=== PATIENT | male | born 1960 | race Caucasian/White ===

== ENCOUNTER → 2016-07-25 | Day surgery (SDC) | payer BC ==
[~2016-07-25] MED LIST: AMOX250C3 PO; AMOX500C3 PO; ASCO-63 PO; ATOR-22 PO; ATV/1 PO; BUPR-83 PO; BUPR150T5 PO; BUPR75TA20 PO; CALC500C70 PO; CIPR1TAB11 PO; CIPR250T3 PO; CLC100 PO; CYM/30 PO; CYM60 PO; DRGTP100 TOP; DRGTP50 TD; DULO60CA44 PO; DXM/4 IV; ENOX40IN SQ; ERYTTAB; FENT75DI2 TOP; FLUC100T4 PO; FLUC200T PO; FLUC200T4 PO; FLUT0.15; FLUT0.15 NAE; FLX10 PO; FNTTP100 TD; FNTTP25 TOP; FNTTP50 TD; GENTAMYCIN IV; HYDR4TAB2 PO; HYDR4TAB78 PO; IBUP-103 PO; LPR25 PO; LSX20 PO; LUPRON IM; MELO7.5T5 PO; METF-384 PO; METO25TA56 PO; MULT-506 PO; Morphine SL; NEOM500T; ONDA-63 PO; ONDA8TAB6 PO; OXYC-609 PO; OXYC1TAB3 PO; POTA-65 PO; POTA10TA32 PO; PRED-301 PO; PRLSR20 PO
== END | disposition home or self-care (01) ==
LOC: C.ACU 15:58
PROVIDERS: ATTEND Family Medicine
DX: Z43.3 Encounter for attention to colostomy (principal)

== ENCOUNTER 2016-07-26 06:55 | Inpatient (IN) | payer BC ==
[2016-07-26] VITALS (9 sets, daily range): BP systolic 135–164; BP diastolic 62–95; PULSE 84–100; TEMP 36.3–37; O2SAT 95–99; Ht 180.3 cm; Wt 88.8 kg
[~2016-07-26] VITALS: Ht 180.3 cm; Wt 88.8 kg
[~2016-07-26 06:55] MED LIST changes: -AMOX250C3 PO; -ASCO-63 PO; -ATOR-22 PO; -ATV/1 PO; -BUPR-83 PO; -BUPR150T5 PO; -BUPR75TA20 PO; -CALC500C70 PO; -CIPR1TAB11 PO; -CLC100 PO; -CYM/30 PO; -CYM60 PO; -DRGTP100 TOP; -DRGTP50 TD; -DXM/4 IV; -ENOX40IN SQ; -ERYTTAB; -FENT75DI2 TOP; -FLUC100T4 PO; -FLUC200T PO; -FLUC200T4 PO; -FLUT0.15; -FLUT0.15 NAE; -FLX10 PO; -FNTTP100 TD; -FNTTP25 TOP; -FNTTP50 TD; -GENTAMYCIN IV; -HYDR4TAB2 PO; -HYDR4TAB78 PO; -IBUP-103 PO; +LACTATED RINGER'S 1000ML 1,000 ML IV SCH; -LPR25 PO; -LSX20 PO; -LUPRON IM; -MELO7.5T5 PO; -METF-384 PO; -METO25TA56 PO; -Morphine SL; -NEOM500T; -ONDA-63 PO; -ONDA8TAB6 PO; -OXYC-609 PO; -POTA-65 PO; -POTA10TA32 PO; -PRLSR20 PO
--- NOTE | 2016-07-26 07:30 | History & Physical Bridge Note ---
H&P Re-Evaluation Bridge Note: I have examined the patient, reviewed the History & Physical and in the interval since the performance of the History & Physical I have noted the following changes of clinical significance: No changes noted admit order written , no one at bedside
[2016-07-26] MEDS ORDERED: ROCURONIUM BROMIDE 10 MG/ML 5 ML VIAL ONE ×2 (07:41→08:49)
[2016-07-26] MEDS ORDERED: ONDANSETRON INJ 2 MG/ML 2 ML VIAL ONE ×2 (07:41→10:54)
[2016-07-26] MEDS ORDERED: LIDOCAINE HCL 2% 2 ML VIAL (20MG/ML) ONE (07:41)
[2016-07-26] MEDS ORDERED: MIDAZOLAM HCL 1 MG/ML 2ML VIAL ONE (07:41)
[2016-07-26] MEDS ORDERED: NEOSTIGMINE METHYLSULFATE 5 MG/5 ML SYR ONE (07:41)
[2016-07-26] MEDS ORDERED: FENTANYL CITRATE INJ 50 MCG/1 ML 2 ML VIAL ONE ×2 (07:41)
[2016-07-26] MEDS ORDERED: DEXAMETHASONE SOD INJ 4 MG/ML VIAL ONE (07:41)
[2016-07-26] MEDS ORDERED: PROPOFOL IV EMULSION 10 MG/ML 20 ML VIAL IV ONE (07:41)
[2016-07-26] MEDS ORDERED: GLYCOPYRROLATE INJ 0.2 MG/ML VIAL ONE (07:41)
[2016-07-26 07:46] LABS: HEMATOCRIT 26.8 % (42-52); MEAN CELL VOLUME 79.1 fL (80-100); MEAN CORPUSCULAR HEMOGLOBIN 25.4 pg (25-34); MEAN PLATELET VOLUME 9.3 fL (7.4-10.4); PLATELET COUNT 266 K/uL (130-400); RED BLOOD COUNT 3.39 M/uL (4.7-6.1); WHITE BLOOD COUNT 3.42 K/uL (4.8-10.8)
[2016-07-26 07:47] LABS: MEAN CORPUSCULAR HGB CONC 32.1 g/dl (32-36)
[2016-07-26] MEDS ORDERED: ERYTTAB (07:58)
[2016-07-26] MEDS ORDERED: NEOM500T (07:58)
[2016-07-26] MEDS ORDERED: CEFOXITIN SOD 1 GM VIAL ONE (08:28)
[2016-07-26] MEDS ORDERED: ALBUMIN HUMAN 5% 12.5 GM/250 ML VIAL IV ONE (08:34)
[2016-07-26] MEDS ORDERED: HYDROmorphone INJ 2 MG/ML SYR/VIAL ONE ×2 (08:40→10:53)
[2016-07-26] MEDS: SODIUM CHLORIDE 0.9% 1000ML 1,000 ML IV SCH ×3 (10:40→18:51)
[2016-07-26] MEDS ORDERED: GLUCOSE 40% GEL 15 GM TUBE PO PRN (10:45)
[2016-07-26] MEDS ORDERED: GLUCAGON FOR INJ 1 MG VIAL SQ PRN (10:45)
[2016-07-26] MEDS ORDERED: ACETAMINOPHEN IV 100 ML IV PRN (10:45)
[2016-07-26] MEDS ORDERED: DEXTROSE 50% 50 ML SYR IV PRN (10:45)
[2016-07-26] MEDS ORDERED: NALOXONE HCL 0.4 MG/1 ML VIAL/CARP IV PRN ×2 (10:45→11:00)
[2016-07-26] MEDS ORDERED: GLUCOSE 10 TABS/TUBE PO PRN (10:45)
[2016-07-26] MEDS ORDERED: LABETALOL HCL IV 5 MG/ML 20ML ONE (10:53)
[2016-07-26] MEDS ORDERED: MoRPHine SULFATE 1 MG/ML 50 ML PCA CASS ONE (10:55)
--- NOTE | 2016-07-26 10:56 | [facility] Post Operative Brief Note ---
Immediate Operative Summary Operative Date Jul 26, 2016. Pre-Operative Diagnosis Sigmoidotomy with metastatic bladder and prostate cancer. Post-Operative Diagnosis Sigmoidotomy with metastatic bladder and prostate cancer. small umbilical hernia repair Procedure(s) Performed Takedown of Sigmoidostomy creation of end Colostomy and Mucous Fistula. Umbilical hernia repair. Surgeon Dr. Klaus Rebolledo Records Custodian Surgeon(s) Kai Salcedo PA-C Estimated Blood Loss 100mL Findings as preo and 2 cm umbilical hernia Specimens A: Colostomy contents Drains 19 sophia pelvis and 1/2 sandra sub cut
[2016-07-26] MEDS ORDERED: FLUMAZENIL 0.1 MG/1 ML 10 ML VIAL IV PRN (11:00)
[2016-07-26] MEDS ORDERED: LABETALOL HCL IV 5 MG/ML 20ML IV PRN (11:00)
[2016-07-26] MEDS ORDERED: HYDROmorphone INJ 1 MG/ML SYR IV PRN (11:00)
[2016-07-26] MEDS ORDERED: ATROPINE SULFATE 0.1 MG/ML 5ML SYR IV PRN (11:00)
[2016-07-26] MEDS ORDERED: PROMETHAZINE HCL INJ 12.5 MG in SODIUM CHLORIDE 0.9% 50ML 50 ML IV PRN (11:00)
[2016-07-26] MEDS ORDERED: EpHEDrine SULFATE INJ 50 MG/ML AMP IV PRN (11:00)
[2016-07-26 11:34] LABS: HEMATOCRIT 25.2 % (42-52)
--- NOTE | 2016-07-26 11:37 | Anesthesiology Progress Note ---
Anesthesia Post Op Note Date & Time Jul 26, 2016 at 11:37 Vital Signs Pain Intensity: 1 Vital Signs Past 12 Hours Date Time Temp Pulse Resp B/P Pulse Ox O2 Delivery O2 Flow Rate FiO2 07/26/16 11:33 36.3 07/26/16 11:28 160/95 07/26/16 11:27 74 16 07/26/16 11:27 74 16 100 07/26/16 11:22 79 14 07/26/16 11:22 79 14 100 07/26/16 11:18 164/94 07/26/16 11:17 78 22 07/26/16 11:17 78 22 100 07/26/16 11:13 156/87 07/26/16 11:12 79 14 100 07/26/16 11:12 79 14 07/26/16 11:08 172/97 07/26/16 11:07 93 15 07/26/16 11:07 93 15 100 07/26/16 11:03 171/96 07/26/16 11:02 94 16 100 07/26/16 11:02 94 16 07/26/16 10:58 173/95 07/26/16 10:57 92 17 100 07/26/16 10:57 92 17 07/26/16 10:53 172/97 07/26/16 10:52 91 19 07/26/16 10:52 91 19 100 07/26/16 10:48 171/94 07/26/16 10:47 88 17 100 07/26/16 10:47 88 17 07/26/16 10:46 175/93 07/26/16 10:42 36.3 92 16 175/93 100 Mask 10 07/26/16 07:29 37 97 20 152/83 98 Room Air Notes Mental Status: alert / awake / arousable, participated in evaluation Pt Amnestic to Procedure: Yes Nausea / Vomiting: adequately controlled Pain: adequately controlled Airway Patency, RR, SpO2: stable & adequate BP & HR: stable & adequate Hydration State: stable & adequate Anesthetic Complications: no major complications apparent
--- NOTE | 2016-07-26 11:50 | OPERATIVE REPORT ---
DATE OF OPERATION: 07/26/2016 SURGEON: Amaury. IDENTIFIER HORSE: BENTON Butterfield. PREOPERATIVE DIAGNOSIS: Status post sigmoidotomy, metastatic bladder and prostate cancer. POSTOPERATIVE DIAGNOSIS: Same. PROCEDURE: Takedown of sigmoidotomy, creation of end colostomy, mucous fistula, umbilical hernia repair. SUMMARY: The patient was brought into the operating room theater. We initially prepped. The left lower quadrant sigmoidotomy area was then prepped in and prior to placing the Betadine solution we had just used a Betadine soak first. We placed 4 x 4 gauze into the lumen of the sigmoidotomy and held it in place with #1 [id number] suture. We then continued prepping with iodine solution. Properly draped. We made a midline incision above and below the umbilicus, deepened through subcutaneous tissue. We entered the peritoneal cavity. Once we entered the peritoneal cavity, there was no evidence of any gross disease as far as metastatic disease into the abdomen. We could appreciate adhesions down towards the left lower quadrant. We could also easily appreciate pretty much a bladder full of tumor. At this point, we then placed a Bookwalter retraction to turn our attention to the sigmoidotomy. We then elevated some adhesions, which were small bowel adhesions, around to the 2 limbs of the colon coming out through that area and were freed up. At this point, I was able to get around the sigmoidotomy intraabdominally and placed a Angel Fire drain around it, and at this point, I placed a bowel clamp to control any oozing from the area or any seepage. I used electrocautery to divide the mucosa that had been sutured up onto the abdominal wall, as we had matured the sigmoidotomy. At this point, we were able then to deliver and free this up sufficiently enough and then we started dividing it, and the intention was to create a mucous fistula distally and an end colostomy proximally. We used the SADI stapler to divide the colon first distal to the opening that we had made in the sigmoid colon, took down the mesentery, almost down to the pelvic brim sufficient enough that we could use the mucous fistula distally. The proximal end, we were able then to control it with a bowel clamp. I freed up the white line of Toldt sufficiently enough that we were able then to have enough mobility to bring this out as an end colostomy. The mesentery to these limbs were ligated with 2-0 silk. After accomplishing this, we irrigated the abdomen sufficient enough that hemostasis was satisfactory. I would elect to drain the pelvic area after freeing up the sigmoid colon, which was redundant down to the pelvic area, and we had sufficient length that we could bring it out to the right lower quadrant. I did not want to bring it up in the left lower quadrant since we had the previous sigmoidotomy site and also the colostomy. Once we had enough mobility at this point, then I closed the sigmoidotomy by first coming anteriorly removing the silk suture and the gauze. The gauze had been removed, placed in a towel clamp and then sent separately with the nurses. The wound was then closed in the fascial layer of interrupted # 1 PDS multiple [id number]. We then tacked this with a quarter-inch plain gauze and a few sutures held it in place. At this point, we then created an opening for the end colostomy which was half way between the iliac crest and at the level of the umbilicus creating a 25 cent piece of skin and subcutaneous tissue onto the rectus fascia. A cruciate cut was made in this. We dissected down and then we were able then to pull up the colon through that area, the sigmoid colon. We had enough mobility and certainly quite viable. Prior to maturing this at the end, then being a permanent colostomy, intraabdominally I sutured it with 3-0 silk at area approximately 3 to 5 cm long. The antimesenteric border then held it to the abdominal wall. We then created a fistula in the right lower quadrant for the colon by creating a similar sized opening of 25 cents just inferior most of the inguinal ligament to create a mucous fistula. We brought out the colon there without any problem. The abdomen was then irrigated copiously. I elected to drain the pelvic area with a 19 f Odilon drain which we brought out towards the right lower quadrant and positioned in that area. The wound was closed with a #1 PDS [id number] interrupted. Place some buried retention sutures of #2 Vicryl. Jah drain, a quarter inch Angel Fire was placed subcutaneously, iwllis approximated in the skin edges. The colostomy was matured by cutting it and vascular supply was excellent. We sutured it with 3-0 chromic to the mucosa to the skin edge at the ostomy site. Similarly, the mucous fistula was matured in a similar fashion. The appliances were position. Dressing was applied. The procedure was tolerated well by the patient. Estimated blood loss approximately 150 mL. ADDENDUM: Once we had made the abdominal incision extending supraumbilically, we noticed that the patient had a periumbilical hernia, which was about 2 cm in size. He had some fatty tissue, it was incarcerated. We took that down and what we did was repair this with #1 PDS intraabdominally, approximated the fascia and [id number] repair. It appeared to be solid. We did not use any foreign material. I attest to the content of the Intraoperative Record and any orders documented therein. Any exceptions are noted below. KIRBY
[2016-07-26] MEDS: MoRPHine SULFATE 1 MG/ML 50 ML PCA CASS IV PRN ×3 (12:11→19:07)
[2016-07-26 13:56] LABS: PARTIAL THROMBOPLASTIN RATIO 0.8
[2016-07-26] MEDS: CEFOXITIN IV 2,000 MG in DEXTROSE 5% 50ML 50 ML IV SCH ×2 (14:28→19:56)
[2016-07-26] MEDS ORDERED: NURSING VERBAL MED ORDER ONE (16:45)
[2016-07-26] MEDS ORDERED: INSULIN ASPART 100 UNITS/ML 3 ML PEN SC SCH (17:15)
[2016-07-26] MEDS: INSULIN ASPART 100 UNITS/ML 3 ML PEN SC SCH (18:16)
[2016-07-26] MEDS: HEPARIN SOD 5000 UNIT/0.5 ML CARP SQ SCH (21:54)
[2016-07-27] VITALS (7 sets, daily range): BP systolic 134–167; BP diastolic 73–89; PULSE 94–103; TEMP 36.3–36.7; O2SAT 94–96
[2016-07-27] MEDS: CEFOXITIN IV 2,000 MG in DEXTROSE 5% 50ML 50 ML IV SCH (02:08)
[2016-07-27] MEDS: SODIUM CHLORIDE 0.9% 1000ML 1,000 ML IV SCH ×2 (02:27→10:40)
[2016-07-27] MEDS: CYCLOBENZAPRINE HCL 10 MG TAB PO PRN (04:26)
[2016-07-27] MEDS: HEPARIN SOD 5000 UNIT/0.5 ML CARP SQ SCH ×3 (04:31→20:18)
[2016-07-27] MEDS: MoRPHine SULFATE 1 MG/ML 50 ML PCA CASS IV PRN ×5 (04:36→20:10)
[2016-07-27] MEDS: INSULIN ASPART 100 UNITS/ML 3 ML PEN SC SCH ×4 (06:00→18:00)
[2016-07-27 06:43] LABS: BASO % 0.3 %; BASO ABS # 0.02 K/uL (0-0.2); COMPLETE YES; EOS % 1.5 %; HEMATOCRIT 29.4 % (42-52); IG% 0.1 %; LYMPH % 11.6 %; LYMPH ABS # 0.88 K/uL (1.2-3.4); MEAN CELL VOLUME 81.2 fL (80-100); MEAN CORPUSCULAR HEMOGLOBIN 24.9 pg (25-34); MEAN CORPUSCULAR HGB CONC 30.6 g/dl (32-36); MEAN PLATELET VOLUME 9.4 fL (7.4-10.4); MONO % 9.9 %; NEUT % 76.6 %; PLATELET COUNT 315 K/uL (130-400); RED BLOOD COUNT 3.62 M/uL (4.7-6.1); WHITE BLOOD COUNT 7.58 K/uL (4.8-10.8)
[2016-07-27 07:25] LABS: BUN/CREATININE RATIO 21.5 (10-20); CALCIUM 8.5 mg/dl (8.5-10.1); POTASSIUM 3.8 mmol/L (3.5-5.1)
--- NOTE | 2016-07-27 07:36 | Surgery Progress Note ---
Surgery Progress Note Date of Service Jul 27, 2016. Subjective Post OP Day: 1 + feeling well, + pain controlled, + using PRESS HELPER, No nausea Objective Vital Signs: Date Time Temp Pulse Resp B/P Pulse Ox O2 Delivery O2 Flow Rate FiO2 07/27/16 03:16 36.3 94 16 167/89 96 Room Air 07/26/16 23:39 36.3 98 16 160/80 95 Room Air 07/26/16 19:40 99 Room Air 3.0 07/26/16 19:23 36.3 100 16 157/85 99 Room Air 07/26/16 15:58 150/95 07/26/16 15:01 36.4 98 16 156/86 97 Nasal Cannula 3.0 07/26/16 13:55 36.5 99 16 135/62 98 3.0 07/26/16 12:25 36.4 84 16 164/88 98 3.0 07/26/16 11:55 99 Nasal Cannula 3.0 07/26/16 11:55 99 Nasal Cannula 3.0 07/26/16 11:50 36.3 77 16 175/93 100 Mask 10 07/26/16 11:33 36.3 07/26/16 11:28 160/95 07/26/16 11:27 74 16 07/26/16 11:27 74 16 100 07/26/16 11:22 79 14 07/26/16 11:22 79 14 100 07/26/16 11:18 164/94 07/26/16 11:17 78 22 07/26/16 11:17 78 22 100 07/26/16 11:13 156/87 07/26/16 11:12 79 14 100 07/26/16 11:12 79 14 07/26/16 11:08 172/97 07/26/16 11:07 93 15 07/26/16 11:07 93 15 100 07/26/16 11:03 171/96 07/26/16 11:02 94 16 100 07/26/16 11:02 94 16 07/26/16 10:58 173/95 07/26/16 10:57 92 17 100 07/26/16 10:57 92 17 07/26/16 10:53 172/97 07/26/16 10:52 91 19 07/26/16 10:52 91 19 100 07/26/16 10:48 171/94 07/26/16 10:47 88 17 100 07/26/16 10:47 88 17 07/26/16 10:46 175/93 07/26/16 10:42 36.3 92 16 175/93 100 Mask 10 Physical Exam: Odilon drainage (5 overnight), urine output (325) Abdomen: soft, + distended (slightly) Incision(s): clean, drainage (from sandra) Laboratory Results: Results Past 24 Hours Test 07/26/16 07:35 07/26/16 07:39 07/26/16 10:58 07/26/16 11:27 Range/Units White Blood Count 3.42 4.8-10.8 K/uL Red Blood Count 3.39 4.7-6.1 M/uL Hemoglobin 8.6 8.0 14.0-18.0 g/dL Hematocrit 26.8 25.2 42-52 % Mean Corpuscular Volume 79.1 80-100 fL Mean Corpuscular Hemoglobin 25.4 25-34 pg Mean Corpuscular Hemoglobin Concent 32.1 32-36 g/dl RDW Standard Deviation 51.1 36.4-46.3 fL RDW Coefficient of Variation 17.8 11.5-14.5 % Platelet Count 266 130-400 K/uL Mean Platelet Volume 9.3 7.4-10.4 fL Bedside Glucose 89 142 70-99 mg/dl Test 07/26/16 13:08 07/26/16 13:20 07/26/16 16:32 07/26/16 20:37 Range/Units Bedside Glucose 151 144 133 70-99 mg/dl Activated Partial Thromboplast Time 21.5 21.0-31.0 SECONDS Partial Thromboplastin Ratio 0.8 Test 07/27/16 00:02 07/27/16 06:10 07/27/16 06:20 Range/Units Bedside Glucose 101 88 70-99 mg/dl White Blood Count 7.58 4.8-10.8 K/uL Red Blood Count 3.62 4.7-6.1 M/uL Hemoglobin 9.0 14.0-18.0 g/dL Hematocrit 29.4 42-52 % Mean Corpuscular Volume 81.2 80-100 fL Mean Corpuscular Hemoglobin 24.9 25-34 pg Mean Corpuscular Hemoglobin Concent 30.6 32-36 g/dl Platelet Count 315 130-400 K/uL Mean Platelet Volume 9.4 7.4-10.4 fL Neutrophils (%) (Auto) 76.6 % Lymphocytes (%) (Auto) 11.6 % Monocytes (%) (Auto) 9.9 % Eosinophils (%) (Auto) 1.5 % Basophils (%) (Auto) 0.3 % Neutrophils # (Auto) 5.81 1.4-6.5 K/uL Lymphocytes # (Auto) 0.88 1.2-3.4 K/uL Monocytes # (Auto) 0.75 0.11-0.59 K/uL Eosinophils # (Auto) 0.11 0-0.5 K/uL Basophils # (Auto) 0.02 0-0.2 K/uL RDW Standard Deviation 54.2 36.4-46.3 fL RDW Coefficient of Variation 18.1 11.5-14.5 % Immature Granulocyte % (Auto) 0.1 % Immature Granulocyte # (Auto) 0.01 0.00-0.02 K/uL Sodium Level 144 136-145 mmol/L Potassium Level 3.8 3.5-5.1 mmol/L Chloride Level 109 98-107 mmol/L Carbon Dioxide Level 24 21-32 mmol/L Anion Gap 11.0 3-11 mmol/L Blood Urea Nitrogen 22 7-18 mg/dl Creatinine 1.00 0.60-1.40 mg/dl Est Creatinine Clear Calc Drug Dose 89.9 ml/min Estimated GFR () 98.5 Estimated GFR (Non- 84.9 BUN/Creatinine Ratio 21.5 10-20 Random Glucose 92 70-99 mg/dl Calcium Level 8.5 8.5-10.1 mg/dl Assessment & Plan revision of sigmoid colotomy to colostomy with mucus fistula continue Ofirmev to supplement PRESS HELPER keep on sips ambulate on SubQ heparin
[2016-07-27] MEDS: ACETAMINOPHEN IV 1,000 MG in EMPTY BAG 0 ML IV SCH ×3 (07:46→22:11)
--- NOTE | 2016-07-27 08:33 | Anesthesiology Progress Note ---
Anesthesia Post Op Note Date & Time Jul 27, 2016 at 08:32 Vital Signs Pain Intensity: 5.0 Vital Signs Past 12 Hours Date Time Temp Pulse Resp B/P Pulse Ox O2 Delivery O2 Flow Rate FiO2 07/27/16 08:03 36.5 94 18 164/80 94 Room Air 07/27/16 03:16 36.3 94 16 167/89 96 Room Air 07/26/16 23:39 36.3 98 16 160/80 95 Room Air Notes Mental Status: alert / awake / arousable, participated in evaluation Pt Amnestic to Procedure: Yes Nausea / Vomiting: adequately controlled Pain: adequately controlled Airway Patency, RR, SpO2: stable & adequate BP & HR: stable & adequate Hydration State: stable & adequate Anesthetic Complications: no major complications apparent
[2016-07-27] MEDS: NSS + 20MEQ KCL 1000ML 1,000 ML IV SCH ×3 (08:53→22:10)
[2016-07-27] MEDS: DULOXETINE HCL 60 MG CAP PO SCH (08:54)
[2016-07-27] MEDS: FLUTICASONE PROPIONATE NA SPR 16 GM BTL NAE SCH (08:54)
[2016-07-27] MEDS: ONDANSETRON INJ 2 MG/ML 2 ML VIAL IV PRN (22:10)
[2016-07-28] VITALS (8 sets, daily range): BP systolic 140–195; BP diastolic 79–104; PULSE 16–146; TEMP 36.5–36.9; O2SAT 93–98
[2016-07-28] MEDS ORDERED: NURSING VERBAL MED ORDER ONE ×3 (04:45→20:15)
[2016-07-28] MEDS ORDERED: FEXOFENADINE HCL 60 MG TAB PO PRN (05:15)
[2016-07-28] MEDS: HEPARIN SOD 5000 UNIT/0.5 ML CARP SQ SCH ×3 (05:54→21:40)
[2016-07-28] MEDS: NSS + 20MEQ KCL 1000ML 1,000 ML IV SCH ×3 (05:54→22:31)
[2016-07-28] MEDS: INSULIN ASPART 100 UNITS/ML 3 ML PEN SC SCH ×5 (06:00→21:00)
[2016-07-28] MEDS: SODIUM CHLORIDE 0.9% 1000ML 1,000 ML IV SCH (06:21)
--- NOTE | 2016-07-28 06:51 | Surgery Progress Note ---
Surgery Progress Note Date of Service Jul 28, 2016. Subjective Post OP Day: 2 + feeling well expected pain but pain control regiment adequate Objective Vital Signs: Date Time Temp Pulse Resp B/P Pulse Ox O2 Delivery O2 Flow Rate FiO2 07/28/16 06:46 36.5 109 17 164/79 93 Room Air 07/28/16 04:19 36.7 112 16 171/91 94 Room Air 07/28/16 00:29 36.5 106 22 140/81 93 Room Air 07/27/16 22:40 CPAP 07/27/16 19:30 36.7 102 18 144/80 96 Room Air 07/27/16 19:15 Room Air 07/27/16 15:40 36.3 103 18 157/82 95 Room Air 07/27/16 14:34 94 Room Air 07/27/16 11:58 36.7 96 17 134/73 94 Room Air 07/27/16 09:45 94 Room Air 07/27/16 08:03 36.5 94 18 164/80 94 Room Air 07/27/16 07:49 Room Air General Appearance: no apparent distress Head: normocephalic Neck: supple Abdomen: soft, + pertinent finding (colostomy with liquid stool this am. ) Incision(s): clean, dry, intact, no erythema Laboratory Results: Results Past 24 Hours Test 07/27/16 11:52 07/27/16 17:57 07/27/16 23:55 07/28/16 04:44 Range/Units Bedside Glucose 82 76 85 70-99 mg/dl Test 07/28/16 06:09 Range/Units Bedside Glucose 76 70-99 mg/dl Assessment & Plan POD 2 from colostomy revision no n/v colostomy with some fx today will start liquids today increase activity no acute surgical issues
[2016-07-28 07:02] LABS: BASO % 0.5 %; BASO ABS # 0.03 K/uL (0-0.2); EOS % 5.2 %; HEMATOCRIT 27.7 % (42-52); IG% 0.2 %; LYMPH ABS # 0.59 K/uL (1.2-3.4); MEAN CELL VOLUME 81.7 fL (80-100); MEAN CORPUSCULAR HEMOGLOBIN 24.8 pg (25-34); MEAN CORPUSCULAR HGB CONC 30.3 g/dl (32-36); MEAN PLATELET VOLUME 9.6 fL (7.4-10.4); MONO % 7.8 %; NEUT % 77.3 %; PLATELET COUNT 270 K/uL (130-400); RED BLOOD COUNT 3.39 M/uL (4.7-6.1); WHITE BLOOD COUNT 6.54 K/uL (4.8-10.8)
[2016-07-28 07:25] LABS: ANISOCYTOSIS PRESENT; COMPLETE YES; HYPOCHROMIA PRESENT; OVALOCYTES 1+
[2016-07-28 07:32] LABS: BUN/CREATININE RATIO 25.8 (10-20); CALCIUM 8.2 mg/dl (8.5-10.1); CREATININE 0.66 mg/dl (0.60-1.40); POTASSIUM 4.1 mmol/L (3.5-5.1)
[2016-07-28] MEDS: DULOXETINE HCL 60 MG CAP PO SCH (08:32)
[2016-07-28] MEDS: FLUTICASONE PROPIONATE NA SPR 16 GM BTL NAE SCH (08:32)
[2016-07-28] MEDS: ONDANSETRON INJ 2 MG/ML 2 ML VIAL IV PRN ×2 (09:37→19:45)
[2016-07-28] MEDS: MoRPHine SULFATE 1 MG/ML 50 ML PCA CASS IV PRN (13:44)
[2016-07-28] MEDS: CYCLOBENZAPRINE HCL 10 MG TAB PO PRN (15:31)
[2016-07-28] MEDS: HYDROmorphone HCL 0.5MG/ML 50 ML CASSETTE IV PRN ×2 (21:40→23:12)
[2016-07-29] VITALS (12 sets, daily range): BP systolic 156–184; BP diastolic 81–104; PULSE 94–120; TEMP 36.5–37.6; O2SAT 90–97
[2016-07-29] MEDS: HYDROmorphone HCL 0.5MG/ML 50 ML CASSETTE IV PRN (00:42)
[2016-07-29] MEDS ORDERED: METOPROLOL TARTRATE 25 MG TAB PO STA (00:46)
[2016-07-29] MEDS ORDERED: METOCLOPRAMIDE HCL INJ 5 MG/ML 2 ML VIAL IV STA (00:46)
[2016-07-29] MEDS ORDERED: ENALAPRILAT IV 1.25 MG in DEXTROSE 5% 25ML 25 ML IV STA (00:46)
--- NOTE | 2016-07-29 00:50 | Medical Consult ---
Consultation Date of Consultation: Jul 29, 2016. Attending Physician: Klaus Rebolledo M.D. History of Present Illness 56 y/o M w/Hx met prostate CA since 2005. Pt had a sigmoidoscopy due to local spread and obstruction and was admitted 07/26 for revision to a colostomy. He has currently interrupted ongoing chemotherapy due to required surgery. The surgery was uncomplicated however the pt states he is nauseous, his pain is not adequately controlled at present and his BP has been persistently rising over the past 2 days. He has a systolic BP in the 190s and an HR in the 130s at the time of evaluation. Past Medical/Surgical History Medical Problems: (1) Fever Status: Acute (2) Nephrostomy tube bleed Status: Acute (3) UTI (urinary tract infection) Status: Acute 4) HTN - has not required treatment recently 5) HPL 6) YUE 7) Chronic anemia - baseline Hb 8-9 8) Colostomy - revised from ileostomy 9) B/L Nephrostomy tubes Family History Cancer Diabetes mellitus Heart disease Hypertension Social History Smoking Status: Former Smoker Drug Use: none Marital Status: Housing Status: lives with family Occupation Status: employed Allergies Coded Allergies: NO KNOWN DRUG ALLERGIES (Verified Allergy, Unknown, NKDA, 07/26/16) POLLEN (Verified Allergy, Unknown, HAY FEVER, 07/26/16) Current Inpatient Medications Current Inpatient Medications Medications (Trade) Dose Ordered Sig/Shu Route Start Time Stop Time Status Last Admin Dose Admin Ondansetron HCl (Zofran Inj) 4 mg Q6H PRN IV 07/26/16 10:45 08/25/16 10:44 07/28/16 19:45 4 MG Heparin Sodium (Porcine) (Heparin Sq 5000 Unit/0.5ml) 5,000 unit Q8H SQ 07/26/16 21:00 08/25/16 20:59 07/28/16 21:40 5,000 UNIT Naloxone HCl 0.1 mg 0.1 mg Q5M PRN IV 07/26/16 10:45 08/25/16 10:44 Sodium Chloride (Nss 1000ml) 1,000 ml @ 15 mls/hr Q24H IV 07/26/16 10:40 08/25/16 10:39 Glucose (Glucose 40% Gel) 15-30 GRAMS 15 GRAMS... UD PRN PO 07/26/16 10:45 08/25/16 10:44 Glucose (Glucose Chew Tab) 4-8 Tablets 4 Tabl... UD PRN PO 07/26/16 10:45 08/25/16 10:44 Dextrose (Dextrose 50% 50ML Syringe) 25-50ML OF 50% DW IV FOR... UD PRN IV 07/26/16 10:45 08/25/16 10:44 Glucagon (Glucagon Inj) 1 mg UD PRN SQ 07/26/16 10:45 08/25/16 10:44 Cyclobenzaprine HCl (Flexeril Tab) 10 mg DAILY PRN PO 07/26/16 10:45 08/25/16 10:44 07/28/16 15:31 10 MG Duloxetine HCl (Cymbalta Cap) 60 mg QAM PO 07/27/16 09:00 08/26/16 08:59 07/28/16 08:32 60 MG Fluticasone Propionate (Flonase Nasal [place]) 2 sprays DAILY CECILIA 07/27/16 09:00 08/26/16 08:59 07/28/16 08:32 2 SPRAYS Prednisone 5 mg 5 mg BID PO 07/26/16 21:00 08/25/16 20:59 07/28/16 21:26 5 MG Potassium Chloride/Sodium Chloride (Nss + 20meq KCl 1000ml) 1,000 ml @ 130 mls/hr Q7H42M IV 07/27/16 08:00 08/26/16 07:59 07/28/16 22:31 130 MLS/HR Fexofenadine HCl (Yoselin Tab) 60 mg Q12H PRN PO 07/28/16 05:15 08/27/16 05:14 07/28/16 05:54 60 MG Insulin Aspart (novoLOG ASPART) SLIDING SCALE If C... ACHS SC 07/28/16 12:00 08/27/16 11:59 Hydromorphone HCl (Dilaudid Casing Flusher) 25 mg PRN PRN IV 07/28/16 20:30 08/11/16 20:29 07/28/16 23:12 25 MG Review of Systems Constitutional: No chills, No fever, No sweats Eyes: No worsening of vision ENT: No hearing loss, No nasal symptoms, No unusual epistaxis Respiratory: No cough, No sputum, No wheezing Cardiovascular: No PND, No chest pain, No orthopnea Abdomen: + nausea, + pain Musculoskeletal: No joint pain, No muscle pain Genitourinary - Male: No dysuria, No hematuria, No urinary frequency, No urinary urgency Neurologic: No memory loss, No paralysis Psychiatric: No depression symptoms Endocrine: No fatigue Hematologic / Lymphatic: No abnormal bleeding/bruising Integumentary: No rash Allergic / Immunologic: No environmental allergies Physical Exam Date Time Temp Pulse Resp B/P Pulse Ox O2 Delivery O2 Flow Rate FiO2 07/28/16 23:45 36.9 146 16 194/98 94 Room Air 07/28/16 22:49 36.7 113 16 195/98 98 Room Air 07/28/16 19:46 36.8 118 18 192/104 95 Room Air 07/28/16 15:52 36.8 16 17 176/96 96 Room Air 07/28/16 15:30 Room Air 07/28/16 11:47 36.6 111 18 171/91 95 Room Air 07/28/16 08:15 Room Air 07/28/16 06:46 36.5 109 17 164/79 93 Room Air 07/28/16 04:19 36.7 112 16 171/91 94 Room Air 07/28/16 00:29 36.5 106 22 140/81 93 Room Air General Appearance: WD/WN, no apparent distress Head: normocephalic, atraumatic Eyes: normal inspection ENT: normal ENT inspection, hearing grossly normal, pharynx normal Neck: supple, no JVD Respiratory/Chest: chest non-tender, lungs clear, normal breath sounds Cardiovascular: no edema, no gallop, no JVD, no murmur, + tachycardia Abdomen/GI: normal bowel sounds, + pertinent finding (Colostomy present - functioning) Genitourinary - Male: + pertinent finding (B/L nephrostomy tubes - no hematuria in bags) Back: normal inspection Extremities/Musculoskelatal: normal inspection, no calf tenderness, normal capillary refill Neurologic/Psych: him coder II-XII nml as tested, no motor/sensory deficits, alert, normal mood/affect, normal reflexes, oriented x 3 Skin: normal color, warm/dry, no rash Laboratory Results Last 24 Hours Test 07/28/16 06:09 07/28/16 06:10 07/28/16 11:46 07/28/16 19:04 Bedside Glucose 76 mg/dl 90 mg/dl 110 mg/dl White Blood Count 6.54 K/uL Red Blood Count 3.39 M/uL Hemoglobin 8.4 g/dL Hematocrit 27.7 % Mean Corpuscular Volume 81.7 fL Mean Corpuscular Hemoglobin 24.8 pg Mean Corpuscular Hemoglobin Concent 30.3 g/dl Platelet Count 270 K/uL Mean Platelet Volume 9.6 fL Neutrophils (%) (Auto) 77.3 % Lymphocytes (%) (Auto) 9.0 % Monocytes (%) (Auto) 7.8 % Eosinophils (%) (Auto) 5.2 % Basophils (%) (Auto) 0.5 % Neutrophils # (Auto) 5.06 K/uL Lymphocytes # (Auto) 0.59 K/uL Monocytes # (Auto) 0.51 K/uL Eosinophils # (Auto) 0.34 K/uL Basophils # (Auto) 0.03 K/uL RDW Standard Deviation 54.3 fL RDW Coefficient of Variation 18.1 % Immature Granulocyte % (Auto) 0.2 % Immature Granulocyte # (Auto) 0.01 K/uL Hypochromasia PRESENT Anisocytosis PRESENT Ovalocytes 1+ Sodium Level 143 mmol/L Potassium Level 4.1 mmol/L Chloride Level 112 mmol/L Carbon Dioxide Level 21 mmol/L Anion Gap 10.0 mmol/L Blood Urea Nitrogen 17 mg/dl Creatinine 0.66 mg/dl Est Creatinine Clear Calc Drug Dose 136.2 ml/min Estimated GFR () 127.0 Estimated GFR (Non- 109.6 BUN/Creatinine Ratio 25.8 Random Glucose 67 mg/dl Calcium Level 8.2 mg/dl Test 07/28/16 20:49 Bedside Glucose 98 mg/dl Assessment & Plan 56 y/o M w/Hx met prostate CA since 2005. Pt had a sigmoidoscopy due to local spread and obstruction and was admitted 07/26 for revision to a colostomy. He has currently interrupted ongoing chemotherapy due to required surgery. The surgery was uncomplicated however the pt states he is nauseous, his pain is not adequately controlled at present and his BP has been persistently rising over the past 2 days. He has a systolic BP in the 190s and an HR in the 130s at the time of evaluation. 1) HTN - may be partially pain-related - adjustment made to SOCIAL SECURITY ASSESSOR - will provide low dose of B abiel and IV Vasotec. B abiel will be scheduled BID with parameters. 2) Tachycardic - appears sinus - EKG pending - may also be partially pain related however pt may be dehydrated as his IVF are running at 130/min, PO intake has been minimal and we have calculated fluid losses excluding insensible at 3450 cc while input is closer to 3200 - will increase rate to 175 for 5 hours and then to 150. Pt to receive low dose of B abiel - would refrain from higher dosing presently in case he is compensating 3) Post-op colostomy placement - no direct complications note or evidence of malfunction - if his pain and vitals do not improve we could consider reimaging the site 4) Prostate CA - f/u as outpt - scheduled to eventually resume chemo Pt will be transferred to telemetry due to above Total time for this consult including chart review - discussion with pt , review of meds, labs, imaging, EKG - 37 min
[2016-07-29] MEDS: NSS + 20MEQ KCL 1000ML 1,000 ML IV SCH ×2 (05:21→13:20)
[2016-07-29] MEDS: HEPARIN SOD 5000 UNIT/0.5 ML CARP SQ SCH ×3 (05:25→20:31)
[2016-07-29 07:11] LABS: BASO % 0.1 %; BASO ABS # 0.01 K/uL (0-0.2); COMPLETE YES; EOS % 2.2 %; HEMATOCRIT 29.8 % (42-52); LYMPH % 6.1 %; LYMPH ABS # 0.53 K/uL (1.2-3.4); MEAN CELL VOLUME 81.9 fL (80-100); MEAN CORPUSCULAR HGB CONC 30.5 g/dl (32-36); MEAN PLATELET VOLUME 9.3 fL (7.4-10.4); MONO % 7.1 %; NEUT % 84.5 %; PLATELET COUNT 373 K/uL (130-400); RED BLOOD COUNT 3.64 M/uL (4.7-6.1); WHITE BLOOD COUNT 8.76 K/uL (4.8-10.8)
[2016-07-29 07:50] LABS: BUN/CREATININE RATIO 18.8 (10-20); CALCIUM 8.8 mg/dl (8.5-10.1); CREATININE 0.66 mg/dl (0.60-1.40); POTASSIUM 4.1 mmol/L (3.5-5.1)
--- NOTE | 2016-07-29 08:05 | Surgery Progress Note ---
Surgery Progress Note Date of Service Jul 29, 2016. 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 pain improved after switching to dilaudid Objective Vital Signs: Date Time Temp Pulse Resp B/P Pulse Ox O2 Delivery O2 Flow Rate FiO2 07/29/16 06:04 Room Air 07/29/16 05:04 36.7 114 18 168/94 97 07/29/16 02:45 36.9 120 20 176/104 97 Room Air 181/91 07/29/16 01:45 Room Air 07/29/16 01:45 36.9 116 20 181/98 97 Room Air 07/29/16 01:16 36.6 114 20 97 07/29/16 00:39 36.6 114 20 184/96 97 Room Air 07/28/16 23:45 36.9 146 16 194/98 94 Room Air 07/28/16 23:29 Room Air 07/28/16 22:49 36.7 113 16 195/98 98 Room Air 07/28/16 19:46 36.8 118 18 192/104 95 Room Air 07/28/16 15:52 36.8 16 17 176/96 96 Room Air 07/28/16 15:30 Room Air 07/28/16 11:47 36.6 111 18 171/91 95 Room Air 07/28/16 08:15 Room Air General Appearance: no apparent distress Head: normocephalic Abdomen: soft, + pertinent finding (mild distension. some bile but no stool in colostomy bag) Incision(s): clean, dry, intact, no erythema Laboratory Results: Results Past 24 Hours Test 07/28/16 11:46 07/28/16 19:04 07/28/16 20:49 07/29/16 06:58 Range/Units Bedside Glucose 90 110 98 70-99 mg/dl White Blood Count 8.76 4.8-10.8 K/uL Red Blood Count 3.64 4.7-6.1 M/uL Hemoglobin 9.1 14.0-18.0 g/dL Hematocrit 29.8 42-52 % Mean Corpuscular Volume 81.9 80-100 fL Mean Corpuscular Hemoglobin 25.0 25-34 pg Mean Corpuscular Hemoglobin Concent 30.5 32-36 g/dl Platelet Count 373 130-400 K/uL Mean Platelet Volume 9.3 7.4-10.4 fL Neutrophils (%) (Auto) 84.5 % Lymphocytes (%) (Auto) 6.1 % Monocytes (%) (Auto) 7.1 % Eosinophils (%) (Auto) 2.2 % Basophils (%) (Auto) 0.1 % Neutrophils # (Auto) 7.41 1.4-6.5 K/uL Lymphocytes # (Auto) 0.53 1.2-3.4 K/uL Monocytes # (Auto) 0.62 0.11-0.59 K/uL Eosinophils # (Auto) 0.19 0-0.5 K/uL Basophils # (Auto) 0.01 0-0.2 K/uL RDW Standard Deviation 53.6 36.4-46.3 fL RDW Coefficient of Variation 17.8 11.5-14.5 % Immature Granulocyte % (Auto) 0.0 % Immature Granulocyte # (Auto) 0.00 0.00-0.02 K/uL Sodium Level 143 136-145 mmol/L Potassium Level 4.1 3.5-5.1 mmol/L Chloride Level 110 98-107 mmol/L Carbon Dioxide Level 21 21-32 mmol/L Anion Gap 12.0 3-11 mmol/L Blood Urea Nitrogen 12 7-18 mg/dl Creatinine 0.66 0.60-1.40 mg/dl Est Creatinine Clear Calc Drug Dose 136.2 ml/min Estimated GFR () 127.0 Estimated GFR (Non- 109.6 BUN/Creatinine Ratio 18.8 10-20 Random Glucose 125 70-99 mg/dl Calcium Level 8.8 8.5-10.1 mg/dl Assessment & Plan jul POD 3. doing better with pain after switching to dilaudid template fitter still no true bowel fx in ostomy bag- keep on liquid diet for now BP still elevated after pain controlled. will ask IM to see no acute surgical changes jul 28 2106 POD 2 from colostomy revision no n/v colostomy with some fx today will start liquids today increase activity no acute surgical issues POD 2 from colostomy revision no n/v colostomy with some fx today will start liquids today increase activity no acute surgical issues
[2016-07-29] MEDS: INSULIN ASPART 100 UNITS/ML 3 ML PEN SC SCH ×4 (08:21→21:00)
[2016-07-29] MEDS: DULOXETINE HCL 60 MG CAP PO SCH (08:34)
[2016-07-29] MEDS: ONDANSETRON INJ 2 MG/ML 2 ML VIAL IV PRN ×2 (08:34→13:20)
[2016-07-29] MEDS: FLUTICASONE PROPIONATE NA SPR 16 GM BTL NAE SCH (08:35)
[2016-07-29] MEDS: METOPROLOL TARTRATE 25 MG TAB PO SCH ×2 (08:35→20:29)
[2016-07-29] MEDS ORDERED: METOPROLOL TARTRATE 25 MG TAB PO SCH (09:00)
--- NOTE | 2016-07-29 11:26 | ECHOCARDIOGRAM REPORT ---
*NOTICE TO RECEIVING LIBERTARIAN AGENCY This information is strictly Confidential and protected under [place] law. [place] law prohibits you from making any further disclosure of this information unless further disclosure is expressly permitted by the written consent of the person to whom it pertains or is authorized by law. A general authorization for the release of medical or other information is not sufficient for this purpose. Hospital accepts no responsibility if the information is made available to any other person, INCLUDING THE PATIENT. Interpretation Summary * Name: UYEN NOEL Study Date: 07/29/2016 08:37 AM BP: 168/94 mmHg * Patient Location: [facility] HR: 114 * : 1960 (M/d/yyyy) Gender: Male Height: 71 in * Age: 56 yrs Ethnicity: CA Weight: 196 lb * Ordering Physician: ROY. JOLIE RANKIN * Performed By: Anyi Zelaya * * Reason For Study: PERSISTENT TACYCARDIA * BSA: 2.1 m2 * -- Conclusions -- * The left ventricle is hyperdynamic. * No regional wall motion abnormalities noted. * Ejection Fraction = >70 %. * There is mild concentric left ventricular hypertrophy. * Grade I diastolic dysfunction, (abnormal relaxation pattern). Procedure Details * A complete two-dimensional transthoracic echocardiogram was performed (2D, M-mode, Doppler and color flow Doppler). Left Ventricle * The left ventricular cavity is small. * There is mild concentric left ventricular hypertrophy. * Ejection Fraction = >70 %. * The left ventricle is hyperdynamic. * No regional wall motion abnormalities noted. Right Ventricle * The right ventricle is not well visualized. * The right ventricular systolic function is normal as assessed by tricuspid annular plane systolic excursion (TAPSE) (normal >1.5 cm). Atria * The left atrium is moderately dilated. * Right atrium not well visualized. * Interatrial septum not well seen. Mitral Valve * The mitral valve is grossly normal. * There is no mitral valve stenosis. * Significant mitral regurgitation is absent. Tricuspid Valve * The tricuspid valve is not well visualized, but is grossly normal. Aortic Valve * The aortic valve is normal in structure and function. * No hemodynamically significant valvular aortic stenosis. * There is no significant aortic regurgitation. Pulmonic Valve * The pulmonary valve is not well seen, but the Doppler examination is normal without significant regurgitation or stenosis. Great Vessels * The aortic root is normal size. * Mildly dilated ascending aorta. Pericardium/Pleural * There is no pericardial effusion. Left Ventricular Diastolic Function * Grade I diastolic dysfunction, (abnormal relaxation pattern). MMode 2D Measurements and Calculations IVSd 1.2 cm IVSs 2.1 cm LVIDd 3.5 cm LVIDs 1.7 cm LVPWd 1.4 cm LVPWs 1.9 cm IVS/LVPW 0.88 FS 50.3 % EDV(Teich) 51.1 ml ESV(Teich) 8.9 ml EF(Teich) 82.5 % EDV(cubed) 43.1 ml ESV(cubed) 5.3 ml EF(cubed) 87.7 % % IVS thick 69.0 % % LVPW thick 32.6 % LV mass(C)d 159.6 grams LV mass(C)dI 76.4 grams/m\S\2 LV mass(C)s 152.0 grams LV mass(C)sI 72.7 grams/m\S\2 SV(Teich) 42.1 ml SI(Teich) 20.1 ml/m\S\2 SV(cubed) 37.8 ml SI(cubed) 18.1 ml/m\S\2 ACS 1.7 cm LA dimension 5.2 cm asc Aorta Diam 4.2 cm LVOT diam 2.3 cm LVOT area 4.2 cm\S\2 LVAd ap4 30.3 cm\S\2 LVLd ap4 7.9 cm EDV(MOD-sp4) 93.7 ml EDV(sp4-el) 98.3 ml LVAs ap4 12.0 cm\S\2 LVLs ap4 6.8 cm ESV(MOD-sp4) 18.6 ml ESV(sp4-el) 18.1 ml EF(MOD-sp4) 80.2 % EF(sp4-el) 81.6 % LVAd ap2 26.7 cm\S\2 LVLd ap2 7.8 cm EDV(MOD-sp2) 75.8 ml EDV(sp2-el) 77.9 ml LVAs ap2 11.2 cm\S\2 LVLs ap2 6.1 cm ESV(MOD-sp2) 17.2 ml ESV(sp2-el) 17.6 ml EF(MOD-sp2) 77.4 % EF(sp2-el) 77.4 % LVLd %diff -2.30 % EDV(MOD-bp) 83.1 ml LVLs %diff -12.09 % ESV(MOD-bp) 18.4 ml EF(MOD-bp) 77.8 % SV(MOD-sp4) 75.1 ml SI(MOD-sp4) 35.9 ml/m\S\2 SV(MOD-sp2) 58.7 ml SI(MOD-sp2) 28.1 ml/m\S\2 SV(MOD-bp) 64.7 ml SI(MOD-bp) 30.9 ml/m\S\2 SV(sp4-el) 80.2 ml SI(sp4-el) 38.4 ml/m\S\2 SV(sp2-el) 60.3 ml SI(sp2-el) 28.8 ml/m\S\2 Doppler Measurements and Calculations MV E max edwardo 57.7 cm/sec MV A max edwardo 116.5 cm/sec MV E/A 0.50 MV dec time 0.16 sec Ao V2 max 151.8 cm/sec Ao max PG 9.2 mmHg Ao max PG (full) -0.81 mmHg LISA(V,A) 4.4 cm\S\2 LISA(V,D) 4.4 cm\S\2 LV V1 max PG 10.0 mmHg LV V1 mean PG 3.3 mmHg LV V1 max 158.4 cm/sec LV V1 mean 79.1 cm/sec LV V1 VTI 21.2 cm SV(LVOT) 89.0 ml SI(LVOT) 42.6 ml/m\S\2 PA V2 max 144.5 cm/sec PA max PG 8.4 mmHg TR max edwardo 335.5 cm/sec
[2016-07-29] MEDS: SODIUM CHLORIDE 0.9% 1000ML 1,000 ML IV SCH (11:45)
[2016-07-29] MEDS: CYCLOBENZAPRINE HCL 10 MG TAB PO PRN (20:28)
[2016-07-30] VITALS (11 sets, daily range): BP systolic 133–186; BP diastolic 73–91; PULSE 82–112; TEMP 36.4–36.7; O2SAT 92–97
[2016-07-30] MEDS: HEPARIN SOD 5000 UNIT/0.5 ML CARP SQ SCH ×3 (05:43→20:58)
[2016-07-30] MEDS ORDERED: FUROSEMIDE INJ 20 MG in SYRINGE 0 ML IV ONE (07:30)
[2016-07-30] MEDS: INSULIN ASPART 100 UNITS/ML 3 ML PEN SC SCH ×4 (08:17→21:00)
[2016-07-30] MEDS: FLUTICASONE PROPIONATE NA SPR 16 GM BTL NAE SCH (08:19)
[2016-07-30] MEDS: DULOXETINE HCL 60 MG CAP PO SCH (08:19)
[2016-07-30] MEDS: METOPROLOL TARTRATE 25 MG TAB PO SCH ×2 (08:19→20:56)
--- NOTE | 2016-07-30 08:42 | SURGERY PROGRESS NOTE ---
DATE: 07/30/2016 DATE: Mr. Desai is 4 days postop revision of sigmoidotomy to an end colostomy and mucous fistula. I was away the last few days, and apparently he was transferred to monitored unit because he had significant hypertension. He remains slightly elevated at this time. PHYSICAL EXAMINATION: His last vitals showed a temperature of 36.5, pulse 98, respirations 18, blood pressure 165/88, O2 sats 93 on room air. His I\T\O is still slightly positive. His colostomy is starting to work well. The abdomen is softly distended. The incision is healing well. I removed the [place] from subQ. The packing at the sigmoidotomy site is free of any infection and there is no cellulitis. We will leave it in for now. LABORATORY STUDY: Yesterday his hemoglobin remained about 9.1. The BUN was 12, creatinine 0.66. He is tolerating some diet, although he was a little bit nauseated yesterday. I will leave it up to the medical service as far as transferring him out of the unit. At this point he may benefit from slight diuresis since he seems to be approximately 6 liters overloaded. MTDD
[2016-07-30] MEDS: SODIUM CHLORIDE 0.9% 1000ML 1,000 ML IV SCH (09:41)
[2016-07-30] MEDS: HYDROmorphone HCL 0.5MG/ML 50 ML CASSETTE IV PRN ×3 (10:38→23:06)
--- NOTE | 2016-07-30 11:37 | Progress Note ---
Subjective Date of Service: Jul 30, 2016. 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 - so before he wants meds changed, he wants to see how things will be working with IV access and new pump cartridge no other complaints he thinks BP and HR will improve as pain control improves notes no sob no chest pain Problem List Medical Problems: (1) Fever Status: Acute (2) Nephrostomy tube bleed Status: Acute (3) UTI (urinary tract infection) Status: Acute Review of Systems ros otherwise negative except for as above Objective Vital Signs Date Time Temp Pulse Resp B/P Pulse Ox O2 Delivery O2 Flow Rate FiO2 07/30/16 07:45 Room Air 07/30/16 07:35 36.4 93 16 148/80 92 Room Air 07/30/16 04:00 93 CPAP 07/30/16 03:57 36.5 98 18 165/88 93 Room Air 07/30/16 00:00 93 CPAP 07/29/16 23:53 36.5 99 18 166/86 93 Room Air 07/29/16 20:24 96 156/84 07/29/16 19:52 37.0 94 20 158/81 90 Room Air 07/29/16 17:14 37.6 114 20 174/91 92 Room Air 07/29/16 16:00 93 Room Air 07/29/16 12:00 93 Room Air Physical Exam General Appearance: + mild distress (appears in a degree of distress due to pain) Eyes: EOMI ENT: hearing grossly normal Neck: trachea midline Respiratory/Chest: no respiratory distress, no accessory muscle use Extremities: normal range of motion Neurologic/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 Pt had a sigmoidoscopy due to local spread and obstruction and was admitted 07/26 for revision to a colostomy. He has currently interrupted ongoing chemotherapy due to required surgery. The surgery was uncomplicated however the pt states he is nauseous, his pain is not adequately controlled at present and his BP has been persistently rising over the past 2 days. He has a systolic BP in the 190s and an HR in the 130s at the time of evaluation. 1) HTN - may be partially pain-related - but continue metoprolol and vasotec. reduce if BP improves as pain control improves 2) Tachycardic - appears sinus - continue IV fluids, pain control. on metoprolol as well - continue for now - overall HR has improved 3) Post-op colostomy placement w pain - continue to follow closely. surgery following as well. with large output from ALTA drain this AM - but no other signs of deterioration - will have ongoing surgical management of this. if new IV access and new cartridge do not change pain situation will need to readdress 4) Prostate CA - f/u as outpt - scheduled to eventually resume chemo 5) DVT proph - per surgery (heparin SQ)
[2016-07-30] MEDS: CYCLOBENZAPRINE HCL 10 MG TAB PO PRN (20:56)
[2016-07-31 03:07] VITALS: BP 152/81; PULSE 82; TEMP 36.7; O2SAT 97
[2016-07-31] MEDS: HEPARIN SOD 5000 UNIT/0.5 ML CARP SQ SCH ×3 (05:07→21:45)
--- NOTE | 2016-07-31 06:39 | PROGRESS NOTE ---
DATE: 07/31/2016 Mr. Desai looks very well. He is quite comfortable. His abdomen is much softer. His colostomy is working well. The abdominal incision is free of any drainage. I did remove the packing from the left lower quadrant sigmoidotomy site and repacked it with 4 x 4 dry gauze. His last vitals showed a temperature of 36.7, pulse 82, respirations 16, blood pressure 152/81, O2 sats 97% on room air. I\T\O has been negative in the last 24 hours. He did receive some Lasix yesterday and as best I could tell he responded appropriately. The Odilon drainage is minimal in the right lower quadrant and it is serous, slightly sanguineous. We will probably remove it tomorrow. Will discontinue the IV analgesics, go to Percocet, increase to a regular diet and hopefully we can get the gentleman out tomorrow. We will also discontinue the SCDs so he can ambulate better and since he is still on subQ heparin.
[2016-07-31 07:01] VITALS: BP 170/81; PULSE 94; TEMP 36.7; O2SAT 97
[2016-07-31] MEDS: INSULIN ASPART 100 UNITS/ML 3 ML PEN SC SCH ×4 (08:00→21:00)
[2016-07-31] MEDS: OXYCODONE/ACETAMINOPHEN 5-325 TAB PO PRN ×3 (09:35→21:42)
[2016-07-31] MEDS: METOPROLOL TARTRATE 25 MG TAB PO SCH ×2 (09:35→20:07)
[2016-07-31] MEDS: FLUTICASONE PROPIONATE NA SPR 16 GM BTL NAE SCH (09:36)
[2016-07-31] MEDS: DULOXETINE HCL 60 MG CAP PO SCH (09:36)
[2016-07-31] MEDS: SODIUM CHLORIDE 0.9% 1000ML 1,000 ML IV SCH (10:40)
[2016-07-31 11:13] VITALS: BP 171/83; PULSE 116; TEMP 37.1; O2SAT 93
[2016-07-31] MEDS ORDERED: NURSING VERBAL MED ORDER ONE (12:00)
[2016-07-31] MEDS: HYDROmorphone INJ 1 MG/ML SYR IV PRN ×2 (13:38→20:08)
--- NOTE | 2016-07-31 14:46 | Progress Note ---
Subjective Date of Service: Jul 31, 2016. Subjective Pt evaluation today including: conversation w/ patient, physical exam, chart review, lab review, review of inpatient medication list at the time i see him - he notes he's feeling better. pain better controlled overall. no nausea/vomiting. eating well. no f/c/s. Problem List Medical Problems: (1) Fever Status: Acute (2) Nephrostomy tube bleed Status: Acute (3) UTI (urinary tract infection) Status: Acute Review of Systems ros otherwise negative except for as above Objective Vital Signs Date Time Temp Pulse Resp B/P Pulse Ox O2 Delivery O2 Flow Rate FiO2 07/31/16 11:13 37.1 116 20 171/83 93 Room Air 07/31/16 07:40 Room Air 07/31/16 07:01 36.7 94 20 170/81 97 Room Air 07/31/16 03:07 36.7 82 16 152/81 97 Room Air 07/31/16 00:30 CPAP 07/30/16 23:02 36.4 102 18 159/85 94 Room Air 07/30/16 18:47 36.6 112 18 186/91 97 Room Air 07/30/16 16:00 93 Room Air 07/30/16 15:44 36.5 90 18 133/79 93 Room Air Physical Exam General Appearance: no apparent distress Eyes: EOMI ENT: hearing grossly normal Neck: trachea midline Respiratory/Chest: no respiratory distress, no accessory muscle use 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 Pt had a sigmoidoscopy due to local spread and obstruction and was admitted 07/26 for revision to a colostomy. He has currently interrupted ongoing chemotherapy due to required surgery. The surgery was uncomplicated however the pt states he is nauseous, his pain is not adequately controlled at present and his BP has been persistently rising over the past 2 days. He has a systolic BP in the 190s and an HR in the 130s at the time of evaluation. 1) HTN - may be partially pain-related - but continue metoprolol and vasotec. continue to follow 2) Tachycardic - appears sinus - continue IV fluids, pain control. on metoprolol as well - continue for now - overall HR has improved 3) Post-op colostomy placement w pain - continue to follow closely. surgery following as well. with large output from ALTA drain this AM - but no other signs of deterioration - will have ongoing surgical management of this. if new IV access and new cartridge do not change pain situation will need to readdress 4) Prostate CA - f/u as outpt - scheduled to eventually resume chemo 5) DVT proph - per surgery (heparin SQ)
[2016-07-31 15:03] VITALS: BP 160/76; PULSE 98; TEMP 37; O2SAT 94
[2016-07-31 19:00] VITALS: BP 161/85; PULSE 102; TEMP 37.3; O2SAT 98
[2016-07-31] MEDS: CYCLOBENZAPRINE HCL 10 MG TAB PO PRN (20:07)
[2016-07-31 23:06] VITALS: BP 158/77; PULSE 81; TEMP 36.4; O2SAT 94
[2016-08-01] MEDS: OXYCODONE/ACETAMINOPHEN 5-325 TAB PO PRN ×4 (01:53→16:21)
[2016-08-01] MEDS: HYDROmorphone INJ 1 MG/ML SYR IV PRN (05:05)
[2016-08-01] MEDS: HEPARIN SOD 5000 UNIT/0.5 ML CARP SQ SCH ×2 (05:07→14:43)
--- NOTE | 2016-08-01 06:27 | Discharge Instructions ---
Discharge Instructions Admission Reason for Admission: Colostomy in Place; Diabetes Discharge Discharge Diagnosis / Problem: End colostomy, mucus fistula Discharge Goals Goal(s): Increase independence Activity Recommendations Activity Limitations: per Instructions/Follow-up section Lifting Limitations: no more than 10 pounds Shower/Bathe: no limitations . Instructions / Follow-Up Instructions / Follow-Up Dr. Rebolledo's office within 1 week, call [phone] to schedule daily moist to dry dressing change LLQ wound Current Hospital Diet Patient's current hospital diet: Regular Diet Discharge Diet Recommended Diet: Regular Diet Procedures Procedures Performed: Takedown of Sigmoidostomy creation of end Colostomy and Mucous Fistula. Umbilical hernia repair. Pending Studies Studies pending at discharge: no Laboratory Results Hemoglobin A1c Test 06/20/16 13:52 Range/Units Estimated Average Glucose 108 mg/dl Hemoglobin A1c 5.4 4.5-5.6 % Medical Emergencies . Who to Call and When: Medical Emergencies: If at any time you feel your situation is an emergency, please call 911 immediately. . Non-Emergent Contact Non-Emergency issues call your: Surgeon Call Non-Emergent contact if: you have a fever, temperature is above 101.5, your pain is not controlled, wound has increased drainage, wound has increased redness, wound has increased pain . "Provider Documentation" section prepared by Kai Salcedo. VTE Core Measure Inpt VTE Proph given/why not?: SCD's
[2016-08-01 06:41] LABS: HEMATOCRIT 24.7 % (42-52); MEAN CELL VOLUME 79.4 fL (80-100); MEAN CORPUSCULAR HEMOGLOBIN 25.1 pg (25-34); MEAN CORPUSCULAR HGB CONC 31.6 g/dl (32-36); MEAN PLATELET VOLUME 9.4 fL (7.4-10.4); PLATELET COUNT 285 K/uL (130-400); RED BLOOD COUNT 3.11 M/uL (4.7-6.1); WHITE BLOOD COUNT 5.31 K/uL (4.8-10.8)
[2016-08-01] MEDS ORDERED: OXYC1TAB3 PO (06:45)
[2016-08-01 07:03] VITALS: BP 147/76; PULSE 93; TEMP 36.4; O2SAT 97
--- NOTE | 2016-08-01 07:43 | SURGERY PROGRESS NOTE ---
DATE: 08/01/2016 Mr. Desai is doing very well. He is having no issues, tolerated a regular diet yesterday. His colostomy is working well. His last vitals showed a temperature of 36.4, pulse 81, respirations 16, blood pressure 158/77, O2 sats 94 on room air. I\T\O, he diuresed fairly well yesterday and he continues overnight. Laboratory comer, his hemoglobin is 7.8 this morning, WBC is 5.31. He is chronically anemic from his rectal bleeding from unresectable prostate and bladder cancer. He came in with a hemoglobin of 8.6, certainly he is compensated well. His abdomen is completely benign, the midline incision is healing well, there is minimal drainage. The Odilon drain was removed, the mucous fistula is viable. At this point, if okay with the medical service, we will discharge the patient today. He is on oxycodone at home for pain from his unresectable cancers and he should continue that. I instructed him to return to our office in approximately 1 week, and at that time, he should be feasible to drive. In the meantime, he should not lift anything heavier than a gallon of milk and certainly he can shower.
[2016-08-01] MEDS: INSULIN ASPART 100 UNITS/ML 3 ML PEN SC SCH ×2 (08:00→11:34)
[2016-08-01] MEDS ORDERED: LPR25 PO (08:55)
[2016-08-01] MEDS: FLUTICASONE PROPIONATE NA SPR 16 GM BTL NAE SCH (09:15)
[2016-08-01] MEDS: METOPROLOL TARTRATE 25 MG TAB PO SCH (09:16)
[2016-08-01] MEDS: DULOXETINE HCL 60 MG CAP PO SCH (09:16)
[2016-08-01] MEDS: CYCLOBENZAPRINE HCL 10 MG TAB PO PRN (11:08)
[2016-08-01 11:24] VITALS: BP 147/76; PULSE 93; TEMP 36.4; O2SAT 97
--- NOTE | 2016-08-01 14:12 | Progress Note ---
Subjective Date of Service: Aug 01, 2016. Subjective Pt evaluation today including: conversation w/ patient, physical exam, chart review, lab review, review of inpatient medication list feeling better wants to go home discussed BP and metoprolol - he expressed understanding. will f/u w dr terry. Problem List Medical Problems: (1) Fever Status: Acute (2) Nephrostomy tube bleed Status: Acute (3) UTI (urinary tract infection) Status: Acute Review of Systems ros otherwise negative except for as above Objective Vital Signs Date Time Temp Pulse Resp B/P Pulse Ox O2 Delivery O2 Flow Rate FiO2 08/01/16 11:24 36.4 93 20 97 Nasal Cannula 08/01/16 08:15 Room Air 08/01/16 07:03 36.4 93 20 147/76 97 CPAP 07/31/16 23:06 36.4 81 16 158/77 94 Room Air 07/31/16 20:00 Room Air 07/31/16 19:00 37.3 102 16 161/85 98 Room Air 07/31/16 15:03 37.0 98 18 160/76 94 Room Air Physical Exam General Appearance: no apparent distress Eyes: EOMI ENT: hearing grossly normal Neck: trachea midline Respiratory/Chest: no respiratory distress, no accessory muscle use 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, alert, normal mood/affect Skin: normal color, warm/dry Laboratory Results Last 24 Hours Test 07/31/16 16:22 07/31/16 20:38 08/01/16 05:13 08/01/16 07:02 Bedside Glucose 125 mg/dl 105 mg/dl 97 mg/dl White Blood Count 5.31 K/uL Red Blood Count 3.11 M/uL Hemoglobin 7.8 g/dL Hematocrit 24.7 % Mean Corpuscular Volume 79.4 fL Mean Corpuscular Hemoglobin 25.1 pg Mean Corpuscular Hemoglobin Concent 31.6 g/dl RDW Standard Deviation 50.6 fL RDW Coefficient of Variation 17.6 % Platelet Count 285 K/uL Mean Platelet Volume 9.4 fL Test 08/01/16 11:16 Bedside Glucose 124 mg/dl Assessment and Plan 56 y/o M w/Hx met prostate CA since 2005. Pt had a sigmoidoscopy due to local spread and obstruction and was admitted 07/26 for revision to a colostomy. He has currently interrupted ongoing chemotherapy due to required surgery. The surgery was uncomplicated however the pt states he is nauseous, his pain is not adequately controlled at present and his BP has been persistently rising over the past 2 days. He has a systolic BP in the 190s and an HR in the 130s at the time of evaluation. 1) HTN - may be partially pain-related - but with pain better controlled - will dc on metoprolol and have close outpt f/u. he understands. 2) Tachycardic - improved. metoprolol as above 3) Post-op colostomy placement w pain - doing better. surgery planning on dc today. pt feels ready to go home. 4) Prostate CA - f/u as outpt - scheduled to eventually resume chemo 5) DVT proph - per surgery (heparin SQ) utilized during his stay
--- NOTE | 2016-08-01 14:18 | DISCHARGE SUMMARY ---
DATE OF DISCHARGE: 08/01/2016. PRIMARY DISCHARGE DIAGNOSIS: 1. Metastatic bladder and prostate cancer with sigmoid colon obstruction. 2. History of sigmoidotomy secondary to #1. 3. Hypertension. 4. Chronic anemia. 5. Bilateral nephrostomy tubes. PROCEDURE PERFORMED: Takedown of sigmoidotomy with creation of new end colostomy and mucous fistula; umbilical hernia repair. CONSULTATIONS: [facility] hospitalist to assist in medical management. HOSPITAL COURSE: The patient is a 56-year-old male who underwent emergency sigmoidotomy for pelvic obstruction secondary to bladder and prostate cancer. He was now admitted through same day and taken to the operating room for takedown of the sigmoidotomy and creation of permanent colostomy. The procedure was well tolerated. He was transferred to the surgical floor. His pain control was marginal with BUSINESS MANAGEMENT CONSULTANT. We increased the dose and added IV acetaminophen. On day 2 he was started on a liquid diet. He continued having some pain and some hypertension. We asked the hospitalist to evaluate him for hypertension and tachycardia. There was some improvement when switching to a Dilaudid BUSINESS MANAGEMENT CONSULTANT and his pain was better controlled; however, he was transferred to PCU for further cardiac monitoring. Echocardiogram was unremarkable. He was started on Lopressor and Vasotec. Once his pressure had stabilized he was transferred back to the regular floor. His diet was advanced when he had increased ostomy output. He was diuresed on postoperative day 4. His hemoglobin remained around 9, which is his baseline. Packing was removed from the previous stomal wound on day 5. He was increasing activity. His blood pressure was better controlled. He was tolerating diet. He was stable for discharge on postoperative day 6. Odilon drain was removed prior to discharge. His abdomen was soft and incision healing well. His blood pressure was 147/76. DISCHARGE INSTRUCTIONS: Discharge home with home health. Follow up with Dr. Rebolledo in 1 week. Follow-up with PCP in 1 week. Continue daily moist to dry dressing changes to [facility] stomal wound. DISCHARGE MEDICATIONS: New prescriptions for Oxycodone IR 5-10 mg every 4 hours as needed, and Lopressor 25 mg p.o. b.i.d. Continue previous home meds including prednisone 5 mg b.i.d., daily multivitamin, Glucophage 1000 mg b.i.d., Flonase nasal spray 2 sprays daily, Cymbalta 60 mg daily, cyclobenzaprine 10 mg as needed, Cipro 250 mg daily, amoxicillin 500 mg daily, Lipitor 20 mg at bedtime, calcium with vitamin D supplement, vitamin C supplement. MTDD
[2016-09-07] MEDS ORDERED: FLUC200T4 PO (15:06)
[2016-09-07] MEDS ORDERED: CLC100 PO (15:06)
[2016-09-07] MEDS ORDERED: DRGTP50 TD (15:06)
[2016-10-11] MEDS ORDERED: HYDR4TAB78 PO (10:33)
[2016-10-11] MEDS ORDERED: FENT75DI2 TOP (10:33)
[2016-10-23] MEDS ORDERED: FNTTP50 TD (08:27)
[2016-10-26] MEDS ORDERED: IBUP-103 PO (10:51)
[2016-11-08] MEDS ORDERED: GENTAMYCIN IV (10:56)
[2016-11-19] MEDS ORDERED: ONDA8TAB6 PO (08:21)
[2016-11-28] MEDS ORDERED: CIPR1TAB11 PO (16:55)
[2016-11-28] MEDS ORDERED: AMOX250C3 PO (16:55)
[2016-11-28] MEDS ORDERED: FLUC200T PO (16:56)
[2017-01-17] MEDS ORDERED: FLUC200T PO (14:36)
[2017-01-17] MEDS ORDERED: BUPR75TA20 PO (14:36)
[2017-01-30] MEDS ORDERED: FLX10 PO (07:08)
[2017-01-30] MEDS ORDERED: HYDR4TAB2 PO (08:27)
[2017-01-30] MEDS ORDERED: METF-384 PO (09:13)
[2017-01-30] MEDS ORDERED: CALC500C70 PO (09:18)
[2017-01-30] MEDS ORDERED: ASCO-63 PO (09:18)
[2017-01-30] MEDS ORDERED: ATOR-22 PO (12:11)
[2017-01-30] MEDS ORDERED: MELO7.5T5 PO (14:36)
[2017-01-30] MEDS ORDERED: FLUT0.15 NAE (15:31)
[2017-01-30] MEDS ORDERED: LUPRON IM (15:47)
[2017-02-03] MEDS ORDERED: DRGTP50 TD (15:17)
== END 2016-08-01 17:38 | disposition home health service (06) | DRG 331 ==
LOC: CANRESERV → ENRESERVDT → ENRESERVTM → C.ACU 06:55 → C.MSN 07:20 → EDBEDREQSVC 07-29 01:01 → C.MED 07-29 01:56 → EDBEDREQSVC 07-30 11:02 → EDBEDREQ 07-30 11:02 → C.MSW 07-30 13:15
PROVIDERS: ADMIT Surgery; ATTEND Surgery
PROC: 0WQF0ZZ Repair Abdominal Wall, Open Approach (ICD-10-PCS; 2016-07-26)
PROC: 0D1N0Z4 Bypass Sigmoid Colon to Cutaneous, Open Approach (ICD-10-PCS; principal; 2016-07-26 08:15)
PROC: 0DBB0ZZ Excision of Ileum, Open Approach (ICD-10-PCS; 2016-07-26 08:15)
DX: K94.19 Other complications of enterostomy (principal); I11.9 Hypertensive heart disease without heart failure; D64.9 Anemia, unspecified; G47.33 Obstructive sleep apnea (adult) (pediatric); Z87.891 Personal history of nicotine dependence; C61 Malignant neoplasm of prostate; Z91.048 Other nonmedicinal substance allergy status; M19.90 Unspecified osteoarthritis, unspecified site; F32.9 Major depressive disorder, single episode, unspecified; E11.9 Type 2 diabetes mellitus without complications; Z79.899 Other long term (current) drug therapy; Z87.440 Personal history of urinary (tract) infections; R00.0 Tachycardia, unspecified; K42.9 Umbilical hernia without obstruction or gangrene; C67.9 Malignant neoplasm of bladder, unspecified; Z80.9 Family history of malignant neoplasm, unspecified; Z82.49 Family history of ischemic heart disease and other diseases of the circulatory system; Z83.3 Family history of diabetes mellitus; Z80.42 Family history of malignant neoplasm of prostate; Y83.1 Surgical operation with implant of artificial internal device as the cause of abnormal reaction of the patient, or of later complication, without mention of misadventure at the time of the procedure

== ENCOUNTER 2016-09-04 14:39 | Inpatient (IN) | payer BC ==
[~2016-09-04] VITALS: Ht 182.9 cm; Wt 93.7 kg
[~2016-09-04 14:39] MED LIST changes: -LACTATED RINGER'S 1000ML 1,000 ML IV SCH; +LPR25 PO
[2016-09-04] MEDS ORDERED: PIPERACILLIN/TAZOBACTAM 4.5 GM/100ML D5W IV STA (15:18)
[2016-09-04] MEDS ORDERED: ACETAMINOPHEN 500 MG TAB PO STA (15:18)
[2016-09-04] MEDS ORDERED: ONDANSETRON INJ 2 MG/ML 2 ML VIAL IV STA (15:18)
[2016-09-04] MEDS ORDERED: SODIUM CHLORIDE 0.9% 1000ML 1,000 ML IV ONE (15:18)
[2016-09-04] MEDS ORDERED: HYDROmorphone INJ 2 MG/ML SYR/VIAL IV PRN (15:30)
--- NOTE | 2016-09-04 15:38 | DIAGNOSTIC IMAGING REPORT ---
CHEST ONE VIEW PORTABLE HISTORY: Sepsis COMPARISON: Chest 06/20/2016. FINDINGS: Right jugular Port-A-Cath terminates at the brachiocephalic/SVC junction. This remains unchanged. The lungs are clear. The heart is normal in size. No pleural effusions. No pneumothorax. A small portion of a catheter is identified within the left upper quadrant. IMPRESSION: No acute process. Electronically signed by: Lloyd Pak M.D. 09/04/2016 3:37 PM Dictated Date/Time: 09/04/2016 3:35 PM
[2016-09-04] MEDS ORDERED: DAPTOmycin IV 550 MG in SODIUM CHLORIDE 0.9% 50ML 50 ML IV ONE (15:45)
[2016-09-04] MEDS ORDERED: FNTTP25 TOP (15:47)
[2016-09-04] MEDS ORDERED: POTA10TA32 PO (15:47)
[2016-09-04] MEDS ORDERED: OXYC-609 PO (15:55)
[2016-09-04 16:09] LABS: MEAN CELL VOLUME 75.8 fL (80-100); MEAN CORPUSCULAR HEMOGLOBIN 24.2 pg (25-34); MEAN CORPUSCULAR HGB CONC 31.9 g/dl (32-36); MEAN PLATELET VOLUME 8.8 fL (7.4-10.4); PLATELET COUNT 296 K/uL (130-400); RED BLOOD COUNT 3.43 M/uL (4.7-6.1); WHITE BLOOD COUNT 11.72 K/uL (4.8-10.8)
--- NOTE | 2016-09-04 16:17 | EMERGENCY ROOM VISIT NOTE ---
History Report prepared by Lm: Aditya Villanueva Under the Supervision of: Dr. Juice Marcum M.D. First contact with patient: 15:17 Chief Complaint: FEVER Stated Complaint: FEVER, PUS IN NEPHROSTOMY TUBES History of Present Illness The patient is a 56 year old male who presents to the Emergency Room with complaints of a persistent fever beginning several hours prior to arrival. He currently rates his discomfort as a 7/10 in severity. The patient associates puss in his right nephrostomy tube and nausea with today's symptoms. He states he noticed his right nephrostomy tube becoming cloudy yesterday. The patient notes he has a history of infection in his nephrostomy tubes, and his last infection was in the beginning of last year. He states he has prostate cancer that is in his bladder and rectum, as well. The patient notes his cancer pain worsened on the way to the hospital. He states he has Fentanyl patches to control his pain, but they are not alleviating his discomfort. The patient notes his cancer is not actively being treated. He states he is on ciprofloxacin and amoxicillin for preventative measures. The patient notes he is anemic due to the bleeding from the cancer. He states he took Advil at 0800 this morning for pain and Zofran at 1300. The patient denies vomiting. 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 Review of Systems See HPI for pertinent positives & negatives. A total of 10 systems reviewed and were otherwise negative. Past Medical & Surgical Medical Problems: (1) Bowel obstruction (2) Cutaneous T-cell lymphoma (3) Diabetes (4) GI bleed (5) hematuria /hypokalemia (6) Hypercholesterolemia (7) Hypertension (8) Hypokalemia (9) Nephrostomy tubes in place (10) Prostate cancer (11) Prostate cancer (12) Pseudomonas infection Surgical Problems: (1) H/O prostatectomy (2) History of prostatectomy Family History Cancer Diabetes mellitus Heart disease Hypertension Social History Smoking Status: Current Every Day Smoker Alcohol Use: none Drug Use: none Marital Status: Housing Status: lives with family Occupation Status: employed Current/Historical Medications Scheduled Amoxicillin (Amoxil), 500 MG PO QPM Ascorbic Acid (Vitamin C), 500 MG PO BID Atorvastatin (Lipitor), 20 MG PO HS Calcium/Vitamin D (Os-Raza 500 Plus D), 1 TAB PO BID Ciprofloxacin (Cipro), 250 MG PO QPM Duloxetine Hcl (Cymbalta), 60 MG PO QAM Fentanyl (Fentanyl), 25 MCG TOP CQ72HR Fluticasone Propionate (Nasal) (Flonase Allergy Relief), 2 SPRAYS CECILIA BID Metformin Hcl (Glucophage), 1,000 MG PO BID Metoprolol Tartrate (Lopressor), 25 MG PO BID Oxycodone HCl (Oxycodone HCl), 5 MG PO PRN UD Potassium Chloride Microencaps (Potassium Chloride Er), 10 MEQ PO BID Prednisone (Prednisone), 5 MG PO BID [Lupron], 1 DOSE INJ [id number] Scheduled PRN Cyclobenzaprine HCl (Cyclobenzaprine HCl), 10 MG PO DAILY PRN for Bladder pain Allergies Coded Allergies: NO KNOWN DRUG ALLERGIES (Verified Allergy, Unknown, NKDA, 08/16/16) POLLEN (Verified Allergy, Unknown, HAY FEVER, 07/26/16) Physical Exam Vital Signs Date Time Temp Pulse Resp B/P Pulse Ox O2 Delivery O2 Flow Rate FiO2 09/04/16 16:03 97 Room Air 09/04/16 16:00 88 20 100/70 96 Room Air 09/04/16 14:57 37.4 96 20 147/68 100 Room Air Physical Exam GENERAL: Patient is in no acute distress. HEENT: No acute trauma, normocephalic atraumatic, mucous membranes moist, no nasal congestion, no scleral icterus. NECK: No stridor, no adenopathy, no meningismus, trachea is midline. LUNGS: Clear to auscultation bilaterally, no wheeze, no rhonchi, breath sounds equal. HEART: Mildly tachycardic. No murmurs. Rhythm is regular. ABDOMEN: Colostomy in left lower quadrant with stool in the bag. Soft, nontender , bowel sounds positive, no hernias, no peritonitis. BACK: Bilateral nephrostomy tubes with pus-like drainage in the right tube. EXTREMITIES: Mild bilateral pedal edema. No cyanosis, full range of motion of all the joints without pain or difficulty, no signs for acute trauma. NEUROLOGIC: Oriented x 3, no acute motor or sensory deficits, no focal weakness. SKIN: Pale. No rash, no jaundice, no diaphoresis. Medical Decision & Procedures ER Provider Diagnostic Interpretation: X-ray results as stated below per interpretation by me and the radiologist: CHEST ONE VIEW PORTABLE HISTORY: Sepsis COMPARISON: Chest 06/20/2016. FINDINGS: Right jugular Port-A-Cath terminates at the brachiocephalic/SVC junction. This remains unchanged. The lungs are clear. The heart is normal in size. No pleural effusions. No pneumothorax. A small portion of a catheter is identified within the left upper quadrant. IMPRESSION: No acute process. Electronically signed by: Lloyd Pak M.D. 09/04/2016 3:37 PM Laboratory Results 09/04/16 15:55 Red Blood Count 3.43, Mean Corpuscular Volume 75.8, Mean Corpuscular Hemoglobin 24.2, Mean Corpuscular Hemoglobin Concent 31.9, Mean Platelet Volume 8.8, Neutrophils (%) (Auto) 81.6, Lymphocytes (%) (Auto) 7.6, Monocytes (%) (Auto) 10.0, Eosinophils (%) (Auto) 0.3, Basophils (%) (Auto) 0.2, Neutrophils # (Auto ) 9.57, Lymphocytes # (Auto) 0.89, Monocytes # (Auto) 1.17, Eosinophils # (Auto ) 0.04, Basophils # (Auto) 0.02 09/04/16 15:55 Test 09/04/16 00:00 09/04/16 15:55 09/04/16 16:05 Urine Color YELLOW Urine Appearance TURBID (CLEAR) Urine pH 6.0 (4.5-7.5) Urine Specific [place] 1.025 (1.000-1.030) Urine Protein 2+ (NEG) Urine Glucose (UA) NEG (NEG) Urine Ketones NEG (NEG) Urine Occult Blood 3+ (NEG) Urine Nitrite POS (NEG) Urine Bilirubin NEG (NEG) Urine Urobilinogen NEG (NEG) Urine Leukocyte Esterase LARGE (NEG) Urine RBC 10-30 /hpf (0-4) Urine WBC >30 /hpf (0-5) Urine Epithelial Cells 0-5 /lpf (0-5) Urine Bacteria 1+ (NEG) Urine Yeast BUD W/ HYPHAE (NONE PRSENT) White Blood Count 11.72 K/uL (4.8-10.8) Red Blood Count 3.43 M/uL (4.7-6.1) Hemoglobin 8.3 g/dL (14.0-18.0) Hematocrit 26.0 % (42-52) Mean Corpuscular Volume 75.8 fL (80-100) Mean Corpuscular Hemoglobin 24.2 pg (25-34) Mean Corpuscular Hemoglobin Concent 31.9 g/dl (32-36) Platelet Count 296 K/uL (130-400) Mean Platelet Volume 8.8 fL (7.4-10.4) Neutrophils (%) (Auto) 81.6 % Lymphocytes (%) (Auto) 7.6 % Monocytes (%) (Auto) 10.0 % Eosinophils (%) (Auto) 0.3 % Basophils (%) (Auto) 0.2 % Neutrophils # (Auto) 9.57 K/uL (1.4-6.5) Lymphocytes # (Auto) 0.89 K/uL (1.2-3.4) Monocytes # (Auto) 1.17 K/uL (0.11-0.59) Eosinophils # (Auto) 0.04 K/uL (0-0.5) Basophils # (Auto) 0.02 K/uL (0-0.2) RDW Standard Deviation 49.1 fL (36.4-46.3) RDW Coefficient of Variation 17.5 % (11.5-14.5) Immature Granulocyte % (Auto) 0.3 % Immature Granulocyte # (Auto) 0.03 K/uL (0.00-0.02) Schistocytes 1+ Prothrombin Time 12.0 SECONDS (9.0-12.0) Prothromb Time International Ratio 1.1 (0.9-1.1) Activated Partial Thromboplast Time 60.1 SECONDS (21.0-31.0) Partial Thromboplastin Ratio 2.3 Anion Gap 12.0 mmol/L (3-11) Est Creatinine Clear Calc Drug Dose 71.7 ml/min Estimated GFR () 65.6 Estimated GFR (Non- 56.6 BUN/Creatinine Ratio 16.7 (10-20) Calcium Level 9.3 mg/dl (8.5-10.1) Total Bilirubin 0.4 mg/dl (0.2-1) Aspartate Amino Transf (AST/SGOT) 15 U/L (15-37) Alanine Aminotransferase (ALT/SGPT) 11 U/L (12-78) Alkaline Phosphatase 58 U/L (45-117) Total Protein 6.7 gm/dl (6.4-8.2) Albumin 3.0 gm/dl (3.4-5.0) Globulin 3.7 gm/dl (2.5-4.0) Albumin/Globulin Ratio 0.8 (0.9-2) Bedside Lactic Acid Venous 1.91 mmol/L (0.90-1.70) Laboratory results reviewed by me. Medications Administered Medications (Trade) Dose Ordered Sig/Shu Route Start Time Stop Time Status Last Admin Dose Admin Sodium Chloride (Nss 1000ml) 1,000 ml @ 999 mls/hr Q1H1M ONCE IV 09/04/16 15:18 09/04/16 16:18 DC 09/04/16 16:11 999 MLS/HR Piperacillin Sod/ Tazobactam Sod 4.5 gm 4.5 gm ONE STAT IV 09/04/16 15:18 09/04/16 15:24 DC 09/04/16 16:13 4.5 GM Daptomycin/Sodium Chloride (Cubicin IV/Nss 50ml) 61 ml @ 100 mls/hr NOW ONCE IV 09/04/16 15:45 09/04/16 16:21 DC 09/04/16 16:12 100 MLS/HR Acetaminophen (Tylenol Tab) 1,000 mg NOW STAT PO 09/04/16 15:18 09/04/16 15:24 DC 09/04/16 16:12 1,000 MG Hydromorphone HCl (Dilaudid Inj) 1 mg Q30M PRN IV 09/04/16 15:30 09/04/16 21:05 DC 09/04/16 16:12 1 MG Ondansetron HCl (Zofran Inj) 4 mg NOW STAT IV 09/04/16 15:18 09/04/16 15:24 DC 09/04/16 16:11 4 MG ED Course 1518: Ordered Zofran Inj 4 mg IV, Tylenol Tab 1,000 mg PO, Zosyn Iv 4.5 gm IV, Sodium Chloride 1,000 ml @ 999 mls/hr IV. 1528: I spoke to RAJAN Victoria (Hospitalist) about the patient's case, and he will follow the patient for further evaluation. 1530: Ordered Dilaudid Inj 1 mg IV. 1545: Ordered Daptomycin 550 mg/Sodium Chloride 61 ml @ 100 mls/hr IV. 1717: Reevaluated the patient and updated him at this time, and he is feeling a lot better. Medical Decision The differential diagnoses include but are not limited to: sepsis, bacteremia, pyelonephritis, pneumonia, dehydration, electrolyte imbalance, cellulitis. There is a mild leukocytosis which could be consistent with infection. The patient is anemic but this appears baseline looking back at previous testing. There was no significant electrolyte abnormality or kidney failure. No hepatitis. Urine sample from the right nephrostomy tube does show signs of infection, urine culture is pending. Blood cultures are pending. Lactic acid level was not significantly elevated making severe sepsis less likely. Chest x- ray does not show pneumonia or CHF. On exam, there was no evidence for cellulitis. The patient was aggressively managed. He presents with symptoms consistent with possible early sepsis. He is already on 2 different antibiotics as an outpatient prophylactically. The patient received IV saline, he received IV daptomycin, IV Zosyn. He was given oral Tylenol for aches and possible fever. He received IV Dilaudid for pain control. The patient feels improved, he is much more comfortable. I did speak with him at length about my findings. I talked with case management. The on-call hospitalist was consulted. Admission/observation is warranted. Consults Time Called: 1526 Consulting Physician: RAJAN Victoria (Hospitalist) Returned Call: 1528 I spoke to RAJAN Victoria (Hospitalist) about the patient's case, and he will follow the patient for further evaluation. Impression Primary Impression: Pyelonephritis Scribe Attestation The scribe's documentation has been prepared under my direction and personally reviewed by me in its entirety. I confirm that the note above accurately reflects all work, treatment, procedures, and medical decision making performed by me. Departure Information Dispostion Being Evaluated By Hospitalist (RAJAN Victoria (Hospitalist) ) Referrals Kal Madden DO (PCP)
[2016-09-04 16:27] LABS: BUN/CREATININE RATIO 16.7 (10-20); CALCIUM 9.3 mg/dl (8.5-10.1); CREATININE 1.4 mg/dl (0.60-1.40); POTASSIUM 3.7 mmol/L (3.5-5.1)
[2016-09-04 16:29] LABS: ALB/GLOB RATIO 0.8 (0.9-2)
[2016-09-04 16:32] LABS: INR 1.1 (0.9-1.1); PARTIAL THROMBOPLASTIN RATIO 2.3
[2016-09-04 16:37] LABS: BASO % 0.2 %; BASO ABS # 0.02 K/uL (0-0.2); COMPLETE YES; EOS % 0.3 %; IG% 0.3 %; LYMPH % 7.6 %; LYMPH ABS # 0.89 K/uL (1.2-3.4); NEUT % 81.6 %; SCHISTOCYTES 1+
[2016-09-04 17:08] LABS: MANUAL MICROSCOPIC REQUIRED? YES; URINE APPEARANCE TURBID (CLEAR); URINE BILIRUBIN NEG (NEG); URINE COLOR YELLOW; URINE NITRITE POS (NEG); URINE SPECIFIC GRAVITY 1.025 (1.000-1.030); UROBILINOGEN NEG (NEG)
[2016-09-04 17:09] LABS: REVIEW REQ? NO
[2016-09-04 17:22] LABS: URINE WBC >30 /hpf (0-5)
[2016-09-04 17:23] LABS: URINE BACTERIA 1+ (NEG); ZZURINE CULT IF INDIC CATH YES
[2016-09-04] MEDS ORDERED: LORAZEPAM 2 MG/ML 1 ML VIAL IV PRN (17:30)
[2016-09-04] MEDS ORDERED: HYDROmorphone INJ 0.5 MG/0.5 ML SYR IV PRN (17:30)
[2016-09-04] MEDS ORDERED: GLUCOSE 40% GEL 15 GM TUBE PO PRN (17:30)
[2016-09-04] MEDS ORDERED: BISACODYL 10 MG SUPP PR PRN (17:30)
[2016-09-04] MEDS ORDERED: MAGNESIUM HYDROXIDE SUSP 30 ML UDC PO PRN (17:30)
[2016-09-04] MEDS ORDERED: ZOLPIDEM TARTRATE 5 MG TAB PO PRN ×2 (17:30)
[2016-09-04] MEDS ORDERED: DEXTROSE 50% 50 ML SYR IV PRN (17:30)
[2016-09-04] MEDS ORDERED: ALUMINUM/MAGNESIUM/SIMETH (MAALOX MAX) 30 ML UDC PO PRN (17:30)
[2016-09-04] MEDS ORDERED: GLUCAGON FOR INJ 1 MG VIAL SQ PRN (17:30)
[2016-09-04] MEDS ORDERED: ONDANSETRON INJ 2 MG/ML 2 ML VIAL IV PRN (17:30)
[2016-09-04] MEDS ORDERED: PROMETHAZINE HCL INJ 12.5 MG in SODIUM CHLORIDE 0.9% 50ML 50 ML IV PRN (17:30)
[2016-09-04] MEDS ORDERED: DiphenhydrAMINE HCL 50 MG/ML VIAL IV PRN (17:30)
[2016-09-04] MEDS ORDERED: ACETAMINOPHEN 325 MG TAB PO PRN ×2 (17:30)
[2016-09-04] MEDS ORDERED: GLUCOSE 10 TABS/TUBE PO PRN (17:30)
[2016-09-04] MEDS ORDERED: FENTANYL PATCH REMOVE & WASTE SCH (20:59)
[2016-09-04] MEDS ORDERED: FENTANYL 25 MCG/HR TDSY TD SCH (21:00)
[2016-09-04] MEDS ORDERED: LORAZEPAM INJ 0.5 MG in SYRINGE 0.75 ML IV PRN (21:00)
[2016-09-04] MEDS ORDERED: PIPERACILL/TAZOBAC CONSULT ACTIVE PRN (21:00)
[2016-09-04] MEDS ORDERED: DAPTOMYCIN CONSULT ACTIVE PRN ×2 (21:15)
[2016-09-04] MEDS: DOCUSATE SODIUM 100 MG CAP PO SCH (21:33)
[2016-09-04] MEDS: CALCIUM 600MG + VIT D 400 IU TAB PO SCH (21:33)
[2016-09-04] MEDS: PIPERACILL/TAZOBAC IV 3.375 GM in DEXTROSE 5% 100ML 100 ML IV SCH (21:33)
[2016-09-04] MEDS: ATORVASTATIN 20 MG TAB PO SCH (21:34)
[2016-09-04] MEDS: POTASSIUM CHLORIDE 10 MEQ TABCR PO SCH (21:34)
[2016-09-04] MEDS: FLUTICASONE PROPIONATE NA SPR 16 GM BTL NAE SCH (21:39)
[2016-09-04] MEDS: METOPROLOL TARTRATE 25 MG TAB PO SCH (21:39)
[2016-09-04] MEDS: INSULIN ASPART 100 UNITS/ML 3 ML PEN SC SCH (21:43)
[2016-09-04] MEDS: HYDROmorphone INJ 1 MG/ML SYR IV PRN (21:46)
[2016-09-04 22:22] VITALS: BP 110/65; PULSE 80; TEMP 36.8; Ht 182.9 cm; Wt 93.7 kg
[2016-09-04] MEDS: CHECK FENTANYL PATCH PLACEMENT SCH (23:37)
[2016-09-05] VITALS (20 sets, daily range): BP systolic 87–131; BP diastolic 53–73; PULSE 68–94; TEMP 36.6–36.9; O2SAT 95–98
[2016-09-05] MEDS ORDERED: OPTIRAY 320 IV PRN (04:00)
--- NOTE | 2016-09-05 04:00 | History and Physical ---
History & Physical Date & Time of Service: Sep 05, 2016 at 03:50 Chief Complaint: Pyelonephritis Primary Care Physician: Kal Madden DO History of Present Illness Source: patient The patient is a 56-year-old male with a known history of metastatic prostate cancer with bilateral nephrostomy tubes, who presents emergency department with a persistent fever that began several hours prior to arrival. He also noted that his right nephrostomy tube had become cloudy yesterday and he has a known history of nephrostomy tube infections. He reports that his cancer pain worsened en route to the hospital, and that his fentanyl patches are not adequately controlling his pain at this time. He is on Cipro and amoxicillin for prophylaxis daily Past Medical/Surgical History Medical Problems: (1) Cutaneous T-cell lymphoma Status: Chronic (2) Diabetes Status: Chronic (3) Hypercholesterolemia Status: Chronic (4) Hypertension Status: Chronic (5) Nephrostomy tubes in place Status: Chronic (6) Prostate cancer Status: Chronic (7) Prostate cancer Permanent Comment: STAGING: Metastatic prostate cancer to lymph nodes, local recurrence in the bladder TREATMENT: 1. Radical prostatectomy - 04/18/2006 2. Salvage radiation therapy - 09/08/2007 Status: Resolved (8) Pseudomonas infection Status: Chronic Surgical Problems: (1) H/O prostatectomy Status: Resolved (2) History of prostatectomy Status: Chronic Family History Cancer Diabetes mellitus Heart disease Hypertension Social History Smoking Status: Former Smoker Drug Use: none Marital Status: Housing status: lives with family Occupational Status: employed Multi-Drug Resistant Organisms History of MDRO: No Allergies Coded Allergies: NO KNOWN DRUG ALLERGIES (Verified Allergy, Unknown, NKDA, 08/16/16) POLLEN (Verified Allergy, Unknown, HAY FEVER, 07/26/16) Home Medications Scheduled Amoxicillin (Amoxil), 500 MG PO QPM Ascorbic Acid (Vitamin C), 500 MG PO BID Atorvastatin (Lipitor), 20 MG PO HS Calcium/Vitamin D (Os-Raza 500 Plus D), 1 TAB PO BID Ciprofloxacin (Cipro), 250 MG PO QPM Duloxetine Hcl (Cymbalta), 60 MG PO QAM Fentanyl (Fentanyl), 25 MCG TOP CQ72HR Fluticasone Propionate (Nasal) (Flonase Allergy Relief), 2 SPRAYS CECILIA BID Metformin Hcl (Glucophage), 1,000 MG PO BID Metoprolol Tartrate (Lopressor), 25 MG PO BID Oxycodone HCl (Oxycodone HCl), 5 MG PO PRN UD Potassium Chloride Microencaps (Potassium Chloride Er), 10 MEQ PO BID Prednisone (Prednisone), 5 MG PO BID [Lupron], 1 DOSE INJ [id number] Scheduled PRN Cyclobenzaprine HCl (Cyclobenzaprine HCl), 10 MG PO DAILY PRN for Bladder pain Review of Systems The patient denies chest pain, palpitations, shortness of breath, cough, lower extremity swelling, vision change, hearing change, sore throat, vomiting, blood in urine or stool, lightheadedness, dizziness, headache, memory loss, rash, abnormal bruising or bleeding, imbalance, focal weakness. The review of systems is otherwise negative other than for that already noted above, and at least 10 systems have been reviewed. Physical Exam Vital Signs Date Time Temp Pulse Resp B/P Pulse Ox O2 Delivery O2 Flow Rate FiO2 09/05/16 00:38 36.6 94 20 131/73 98 CPAP 09/05/16 00:00 98 Room Air 09/04/16 22:22 36.8 80 18 110/65 Room Air 09/04/16 18:21 89 20 140/77 98 Room Air 09/04/16 17:25 82 20 105/59 94 Room Air 09/04/16 16:03 97 Room Air 09/04/16 16:00 88 20 100/70 96 Room Air 09/04/16 14:57 37.4 96 20 147/68 100 Room Air The patient is awake, well-developed and adequately nourished, alert and oriented 3, normocephalic and atraumatic, lying in bed and in moderate distress secondary to pain. HEENT--PERRL, EOMI, mucous membranes and oropharynx dry. Neck--supple, no JVD or bruits, thyroid normal, trachea midline, no adenopathy. Heart--normal S1 and S2, no extra beats, no murmurs, rubs or gallops. Lungs--clear bilaterally with good air movement, no respiratory distress, no accessory muscle use. Abdomen--normal bowel sounds and soft, tender over right flank, no hernias or masses, no organomegaly. Extremities--no cyanosis, clubbing or edema. There are good distal pulses b/l. Dermatologic--normal skin turgor, normal color, warm and dry, no abnormal lymph nodes, no rash. Neurologic--cranial nerves II through XII grossly intact, motor and sensory examination normal. Psychiatric--normal affect. Diagnostics Laboratory Results Results Past 24 Hours Test 09/04/16 15:55 09/04/16 16:05 09/04/16 17:30 09/04/16 20:16 Range/Units White Blood Count 11.72 4.8-10.8 K/uL Red Blood Count 3.43 4.7-6.1 M/uL Hemoglobin 8.3 14.0-18.0 g/dL Hematocrit 26.0 42-52 % Mean Corpuscular Volume 75.8 80-100 fL Mean Corpuscular Hemoglobin 24.2 25-34 pg Mean Corpuscular Hemoglobin Concent 31.9 32-36 g/dl Platelet Count 296 130-400 K/uL Mean Platelet Volume 8.8 7.4-10.4 fL Neutrophils (%) (Auto) 81.6 % Lymphocytes (%) (Auto) 7.6 % Monocytes (%) (Auto) 10.0 % Eosinophils (%) (Auto) 0.3 % Basophils (%) (Auto) 0.2 % Neutrophils # (Auto) 9.57 1.4-6.5 K/uL Lymphocytes # (Auto) 0.89 1.2-3.4 K/uL Monocytes # (Auto) 1.17 0.11-0.59 K/uL Eosinophils # (Auto) 0.04 0-0.5 K/uL Basophils # (Auto) 0.02 0-0.2 K/uL RDW Standard Deviation 49.1 36.4-46.3 fL RDW Coefficient of Variation 17.5 11.5-14.5 % Immature Granulocyte % (Auto) 0.3 % Immature Granulocyte # (Auto) 0.03 0.00-0.02 K/uL Schistocytes 1+ Prothrombin Time 12.0 9.0-12.0 SECONDS Prothromb Time International Ratio 1.1 0.9-1.1 Activated Partial Thromboplast Time 60.1 21.0-31.0 SECONDS Partial Thromboplastin Ratio 2.3 Sodium Level 137 136-145 mmol/L Potassium Level 3.7 3.5-5.1 mmol/L Chloride Level 103 98-107 mmol/L Carbon Dioxide Level 22 21-32 mmol/L Anion Gap 12.0 3-11 mmol/L Blood Urea Nitrogen 23 7-18 mg/dl Creatinine 1.40 0.60-1.40 mg/dl Est Creatinine Clear Calc Drug Dose 71.7 ml/min Estimated GFR () 65.6 Estimated GFR (Non- 56.6 BUN/Creatinine Ratio 16.7 10-20 Random Glucose 106 70-99 mg/dl Calcium Level 9.3 8.5-10.1 mg/dl Total Bilirubin 0.4 0.2-1 mg/dl Aspartate Amino Transf (AST/SGOT) 15 15-37 U/L Alanine Aminotransferase (ALT/SGPT) 11 12-78 U/L Alkaline Phosphatase 58 45-117 U/L Total Protein 6.7 6.4-8.2 gm/dl Albumin 3.0 3.4-5.0 gm/dl Globulin 3.7 2.5-4.0 gm/dl Albumin/Globulin Ratio 0.8 0.9-2 Bedside Lactic Acid Venous 1.91 0.90-1.70 mmol/L Lactic Acid Level 1.1 0.4-2.0 mmol/L Bedside Glucose 97 70-99 mg/dl Microbiology Results 09/04/16 Blood Culture, Received Pending 09/04/16 Blood Culture, Received Pending Diagnostic Radiology Patient Name: UYEN NOEL II Unit Number: [id number] Dictated: 09/04/[id number] Transcribed: 09/04/161534 [facility] Printed Date/Time: [~ rep prt dt]/[~ rep prt tm] [~ rep ct labl] - [~ rep ct ivnm] [facility] [place] [address] Dictated: 09/04/[id number] Transcribed: 09/04/161534 [facility] Printed Date/Time: [~ rep prt dt]/[~ rep prt tm] [~ rep ct labl] - [~ rep ct ivnm] HISTORY: Sepsis COMPARISON: Chest 06/20/2016. FINDINGS: Right jugular Port-A-Cath terminates at the brachiocephalic/SVC junction. This remains unchanged. The lungs are clear. The heart is normal in size. No pleural effusions. No pneumothorax. A small portion of a catheter is identified within the left upper quadrant. IMPRESSION: No acute process. Electronically signed by: Lloyd Pak M.D. 09/04/2016 3:37 PM Dictated Date/Time: 09/04/2016 3:35 PM The status of this report is Signed. Draft = Not yet reviewed or approved by Radiologist. Signed = Reviewed and approved by Radiologist. <AttendingPhy></AttendingPhy> <FamilyPhy>Kal Madden, DO</FamilyPhy> < PrimaryPhy>Kal Madden, DO</PrimaryPhy> <UnitNumber>[id number]</ UnitNumber> <VisitNumber>[id number]</VisitNumber> <PatientName>CHIPCADENUYEN Castro II</PatientName> <DateOfBirth>1960</DateOfBirth> <Location> [facility]</Location> <ServiceDate>09/04/16</ServiceDate> <MNE>ESINDI</MNE> < OrderingPhy>Juice Marcum M.D.</OrderingPhy> <OrderingPhyMNE>f rep ord dr kirk</ OrderingPhyMNE> <DictatingPhyMNE>f rep dict dr kirk</DictatingPhyMNE> <CCListMNE> f rep ct reagan</CCListMNE> <AdmittingPhyMNE>f pt admit dr kirk</AdmittingPhyMNE> < AttendingPhyMNE>f pt attend dr kirk</AttendingPhyMNE> <ConsultingPhyMNE>f pt consult dr kirk</ConsultingPhyMNE> <FamilyPhyMNE>f pt fam dr kirk</FamilyPhyMNE> <OtherPhyMNE>f pt other dr kirk</OtherPhyMNE> < PrimaryPhyMNE>f pt prim care dr kirk</PrimaryPhyMNE> <ReferringPhyMNE>f pt referring dr kirk</ReferringPhyMNE> Impression Assessment and Plan Metastatic prostate cancer with bilateral nephrostomy tubes, with right nephrostomy tube infection--the patient be admitted to the medical floor. CT of the abdomen and pelvis has been ordered. We'll continue daptomycin IV and Zosyn IV started in the emergency department. Follow urine culture and sensitivity results. We'll consult his urologist Dr. Lynne. Pain control--continue fentanyl patch 25 g changing every 72 hours, and place on Dilaudid 0.5-1 mg IV every 2 hours when necessary. Hypertension--continue metoprolol tartrate 25 mg by mouth twice a day and potassium chloride 10 mEq by mouth twice a day. Hypercholesterolemia--continue atorvastatin 20 mg by mouth at bedtime. His Right depression--continue duloxetine 60 mg by mouth every morning. Diabetes mellitus--hold metformin 1000 mg by mouth twice a day, and place on Accu-Cheks before meals and at bedtime with NovoLog coverage. Chronic prednisone use--change from 5 mg by mouth twice a day 10 mg by mouth twice a day. ASA Classification: ASA Class II Level of Care Med/Surg Advanced Directives Existing Advance Directive: No Existing Living Will: No Existing Power of Beef Grader: No Resuscitation Status FULL RESUSCITATION VTE Prophylaxis VTE Risk Assessment Done? Y/N: Yes Risk Level: Low Given or contraindicated: SCD's Social Service Consult Cancer Patient Under [place]
[2016-09-05] MEDS: HYDROmorphone INJ 1 MG/ML SYR IV PRN ×4 (04:15→18:17)
[2016-09-05 06:19] LABS: BASO % 0.2 %; BASO ABS # 0.02 K/uL (0-0.2); EOS % 1.7 %; HEMATOCRIT 23.4 % (42-52); IG% 0.2 %; LYMPH % 8.9 %; MEAN CELL VOLUME 77.7 fL (80-100); MEAN CORPUSCULAR HEMOGLOBIN 24.6 pg (25-34); MEAN CORPUSCULAR HGB CONC 31.6 g/dl (32-36); MEAN PLATELET VOLUME 9.5 fL (7.4-10.4); PLATELET COUNT 295 K/uL (130-400); RED BLOOD COUNT 3.01 M/uL (4.7-6.1); WHITE BLOOD COUNT 10.08 K/uL (4.8-10.8)
[2016-09-05 06:47] LABS: ANISOCYTOSIS PRESENT; COMPLETE YES; SPHEROCYTE 1+
[2016-09-05 06:52] LABS: BUN/CREATININE RATIO 20.2 (10-20); CREATININE 1.2 mg/dl (0.60-1.40); MAGNESIUM 1.9 mg/dl (1.8-2.4); POTASSIUM 3.6 mmol/L (3.5-5.1)
[2016-09-05] MEDS: PIPERACILL/TAZOBAC IV 3.375 GM in DEXTROSE 5% 100ML 100 ML IV SCH ×3 (06:54→22:11)
[2016-09-05] MEDS: CHECK FENTANYL PATCH PLACEMENT SCH ×2 (08:28→16:28)
[2016-09-05] MEDS: DOCUSATE SODIUM 100 MG CAP PO SCH ×2 (08:29→20:16)
[2016-09-05] MEDS: FLUTICASONE PROPIONATE NA SPR 16 GM BTL NAE SCH ×2 (08:29→20:15)
[2016-09-05] MEDS: DULOXETINE HCL 60 MG CAP PO SCH (08:29)
[2016-09-05] MEDS: CALCIUM 600MG + VIT D 400 IU TAB PO SCH ×2 (08:29→20:15)
[2016-09-05] MEDS: POTASSIUM CHLORIDE 10 MEQ TABCR PO SCH ×2 (08:29→20:15)
[2016-09-05] MEDS: METOPROLOL TARTRATE 25 MG TAB PO SCH ×2 (08:29→20:16)
--- NOTE | 2016-09-05 08:53 | Urology Consultation ---
History General Date of Service: Sep 05, 2016. Chief Complaint: UTI Primary Care Physician: Kal Madden, DO Pt seen a urologist before?: Yes (Dr. Lynne) History of Present Illness 56 yo male well known to our service. Hx of metastatic prostate cancer with bilateral perc tubes and recurrent UTI. Pt reports coming to the ED yesterday for fever, sediment build up in perc tube , and worsening of pain. Perc tubes last replaced 3 weeks ago. Pain persists this morning. Denies hematuria. Denies n/v. He has been afebrile since admission. Blood and urine cultures pending. Laboratory Last 24 Hours Test 09/04/16 15:55 09/04/16 16:05 09/04/16 17:30 09/04/16 20:16 White Blood Count 11.72 K/uL Red Blood Count 3.43 M/uL Hemoglobin 8.3 g/dL Hematocrit 26.0 % Mean Corpuscular Volume 75.8 fL Mean Corpuscular Hemoglobin 24.2 pg Mean Corpuscular Hemoglobin Concent 31.9 g/dl Platelet Count 296 K/uL Mean Platelet Volume 8.8 fL Neutrophils (%) (Auto) 81.6 % Lymphocytes (%) (Auto) 7.6 % Monocytes (%) (Auto) 10.0 % Eosinophils (%) (Auto) 0.3 % Basophils (%) (Auto) 0.2 % Neutrophils # (Auto) 9.57 K/uL Lymphocytes # (Auto) 0.89 K/uL Monocytes # (Auto) 1.17 K/uL Eosinophils # (Auto) 0.04 K/uL Basophils # (Auto) 0.02 K/uL RDW Standard Deviation 49.1 fL RDW Coefficient of Variation 17.5 % Immature Granulocyte % (Auto) 0.3 % Immature Granulocyte # (Auto) 0.03 K/uL Schistocytes 1+ Prothrombin Time 12.0 SECONDS Prothromb Time International Ratio 1.1 Activated Partial Thromboplast Time 60.1 SECONDS Partial Thromboplastin Ratio 2.3 Sodium Level 137 mmol/L Potassium Level 3.7 mmol/L Chloride Level 103 mmol/L Carbon Dioxide Level 22 mmol/L Anion Gap 12.0 mmol/L Blood Urea Nitrogen 23 mg/dl Creatinine 1.40 mg/dl Est Creatinine Clear Calc Drug Dose 71.7 ml/min Estimated GFR () 65.6 Estimated GFR (Non- 56.6 BUN/Creatinine Ratio 16.7 Random Glucose 106 mg/dl Calcium Level 9.3 mg/dl Total Bilirubin 0.4 mg/dl Aspartate Amino Transf (AST/SGOT) 15 U/L Alanine Aminotransferase (ALT/SGPT) 11 U/L Alkaline Phosphatase 58 U/L Total Protein 6.7 gm/dl Albumin 3.0 gm/dl Globulin 3.7 gm/dl Albumin/Globulin Ratio 0.8 Bedside Lactic Acid Venous 1.91 mmol/L Lactic Acid Level 1.1 mmol/L Bedside Glucose 97 mg/dl Test 09/05/16 05:20 09/05/16 07:58 White Blood Count 10.08 K/uL Red Blood Count 3.01 M/uL Hemoglobin 7.4 g/dL Hematocrit 23.4 % Mean Corpuscular Volume 77.7 fL Mean Corpuscular Hemoglobin 24.6 pg Mean Corpuscular Hemoglobin Concent 31.6 g/dl Platelet Count 295 K/uL Mean Platelet Volume 9.5 fL Neutrophils (%) (Auto) 77.0 % Lymphocytes (%) (Auto) 8.9 % Monocytes (%) (Auto) 12.0 % Eosinophils (%) (Auto) 1.7 % Basophils (%) (Auto) 0.2 % Neutrophils # (Auto) 7.76 K/uL Lymphocytes # (Auto) 0.90 K/uL Monocytes # (Auto) 1.21 K/uL Eosinophils # (Auto) 0.17 K/uL Basophils # (Auto) 0.02 K/uL RDW Standard Deviation 51.5 fL RDW Coefficient of Variation 17.8 % Immature Granulocyte % (Auto) 0.2 % Immature Granulocyte # (Auto) 0.02 K/uL Anisocytosis PRESENT Spherocytes 1+ Sodium Level 139 mmol/L Potassium Level 3.6 mmol/L Chloride Level 105 mmol/L Carbon Dioxide Level 24 mmol/L Anion Gap 10.0 mmol/L Blood Urea Nitrogen 24 mg/dl Creatinine 1.20 mg/dl Est Creatinine Clear Calc Drug Dose 83.7 ml/min Estimated GFR () 79.0 Estimated GFR (Non- 68.1 BUN/Creatinine Ratio 20.2 Random Glucose 84 mg/dl Calcium Level 9.0 mg/dl Magnesium Level 1.9 mg/dl Bedside Glucose 101 mg/dl Problem List Medical Problems: (1) Fever Status: Acute (2) Nephrostomy tube bleed Status: Acute (3) Pyelonephritis Status: Acute (4) UTI (urinary tract infection) Status: Acute Past History arthritis, cancer - lymphoma, cancer - prostate (metastatic), diabetes, high cholesterol, hypertension, renal disease, urinary tract infection, other ((hx of sepsis)) Past Surgical History: tonsillectomy, other (RALRP) Family History Cancer Diabetes mellitus Heart disease Hypertension Social History Hx Tobacco Use In Past Year?: No Smoking: no current use Alcohol: no current use Marital status: Housing status: lives with family Occupation status: employed History of MDRO No Allergies Coded Allergies: NO KNOWN DRUG ALLERGIES (Verified Allergy, Unknown, NKDA, 08/16/16) POLLEN (Verified Allergy, Unknown, HAY FEVER, 07/26/16) Medications Home Medications: Home Meds and Scripts Medications Dose Route/Sig Max Daily Dose Days Date Category Dose Instructions Oxycodone HCl 5 Mg Tab 5 Mg PO PRN UD 09/04/16 Reported Fentanyl 25 Mcg Tdsy 25 Mcg TOP [id number] 09/04/16 Reported Potassium Chloride Er (Potassium Chloride Microencaps) 10 Meq Tab 10 Meq PO BID 09/04/16 Reported [Lupron] 1 Dose INJ [id number] 09/04/16 Reported Lopressor (Metoprolol Tartrate) 25 Mg Tab 25 Mg PO BID 08/01/16 Rx Amoxil (Amoxicillin) 500 Mg Cap 500 Mg PO QPM 07/20/16 Reported Cipro (Ciprofloxacin) 250 Mg Tab 250 Mg PO QPM 07/20/16 Reported Prednisone 5 Mg Tab 5 Mg PO BID 03/05/16 Reported Cyclobenzaprine HCl 10 Mg Tab 10 Mg PO DAILY PRN 09/27/15 Reported and can take up to three times a day if needed for bladder pain Cymbalta (Duloxetine Hcl) 60 Mg Cap 60 Mg PO QAM 09/16/15 Reported Flonase Allergy Relief (Fluticasone Propionate (Nasal)) 50 Mcg/Act Spr 2 Sprays CECILIA BID 04/18/15 Reported Glucophage (Metformin Hcl) 1,000 Mg Tab 1,000 Mg PO BID 01/13/15 Reported Vitamin C (Ascorbic Acid) 500 Mg Tab 500 Mg PO BID 04/06/14 Reported Os-Raza 500 Plus D (Calcium/Vitamin D) Tab 1 Tab PO BID 04/06/14 Reported Lipitor (Atorvastatin Calcium) 20 Mg Tab 20 Mg PO HS 05/27/13 Reported Inpatient Medications: Current Inpatient Medications Medications (Trade) Dose Ordered Sig/Shu Route Start Time Stop Time Status Last Admin Dose Admin Acetaminophen (Tylenol Tab) 650 mg Q4H PRN PO 09/04/16 17:30 10/04/16 17:29 Zolpidem Tartrate (Ambien Tab) 5 mg HSZ PRN PO 09/04/16 17:30 10/04/16 17:29 Magnesium Hydroxide (Milk Of Magnesia Susp) 30 ml Q6H PRN PO 09/04/16 17:30 10/04/16 17:29 Bisacodyl (Dulcolax Supp) 10 mg DAILY PRN NC 09/04/16 17:30 10/04/16 17:29 Diphenhydramine HCl (Benadryl Inj) 25 mg Q4H PRN IV 09/04/16 17:30 10/04/16 17:29 Al Hydrox/Mg Hydrox/ Simethicone 15 ml 15 ml Q4H PRN PO 09/04/16 17:30 10/04/16 17:29 Promethazine HCl/ Sodium Chloride (Phenergan Inj/ Nss 50ml) 50.5 ml @ 202 mls/hr Q4H PRN IV 09/04/16 17:30 10/04/16 17:29 Zolpidem Tartrate (Ambien Tab) 5 mg HSZ PRN PO 09/04/16 17:30 10/04/16 17:29 Ondansetron HCl (Zofran Inj) 4 mg Q6H PRN IV 09/04/16 17:30 10/04/16 17:29 Docusate Sodium (coLACE CAP) 100 mg BID PO 09/04/16 20:00 10/04/16 20:59 09/05/16 08:29 100 MG Insulin Aspart (novoLOG ASPART) SLIDING SCALE If C... ACHS SC 09/04/16 21:00 10/04/16 20:59 Glucose (Glucose 40% Gel) UD PRN PO 09/04/16 17:30 10/04/16 17:29 Glucose (Glucose Chew Tab) 1 tabs UD PRN PO 09/04/16 17:30 10/04/16 17:29 Dextrose (Dextrose 50% 50ML Syringe) 50 ml UD PRN IV 09/04/16 17:30 10/04/16 17:29 Glucagon (Glucagon Inj) 1 mg UD PRN SQ 09/04/16 17:30 10/04/16 17:29 Atorvastatin Calcium (Lipitor Tab) 20 mg HS PO 09/04/16 21:00 10/04/16 20:59 09/04/16 21:34 20 MG Calcium/Vitamin D (Caltrate Plus Tab) 1 tab BID PO 09/04/16 20:00 10/04/16 20:59 09/05/16 08:29 1 TAB Cyclobenzaprine HCl (Flexeril Tab) 10 mg TID PRN PO 09/04/16 17:30 10/04/16 17:29 Duloxetine HCl (Cymbalta Cap) 60 mg QAM PO 09/05/16 08:00 10/05/16 08:59 09/05/16 08:29 60 MG Fentanyl (Duragesic Patch) 25 mcg Q72H TD 09/04/16 21:00 09/18/16 20:59 09/04/16 21:40 25 MCG Fluticasone Propionate (Flonase Nasal [place]) 2 sprays BID CECILIA 09/04/16 20:00 10/04/16 20:59 09/05/16 08:29 2 SPRAYS Metoprolol Tartrate (Lopressor Tab) 25 mg BID PO 09/04/16 20:00 10/04/16 20:59 09/05/16 08:29 25 MG Potassium Chloride 10 meq 10 meq BID PO 09/04/16 20:00 10/04/16 20:59 09/05/16 08:29 10 MEQ Daptomycin 550 mg/ Sodium Chloride 61 ml @ 100 mls/hr DAILY@1600 IV 09/05/16 16:00 09/15/16 15:59 Piperacillin Sod/ Tazobactam Sod/ Dextrose (Zosyn Iv/D5 100ml) 115 ml @ 28.75 mls/ hr Q8H IV 09/04/16 22:00 09/14/16 21:59 09/05/16 06:54 28.75 MLS/HR Hydromorphone HCl 1 mg 1 mg Q2H PRN IV 09/04/16 17:30 09/18/16 17:29 09/05/16 04:15 1 MG Lorazepam/Syringe (Ativan Inj/ Syringe) 1 ml @ 1 mls/min Q4H PRN IV 09/04/16 21:00 10/04/16 20:59 Miscellaneous (Fentanyl Patch Remove & Waste) 1 ea Q3D N/A 09/04/16 20:59 10/04/16 20:58 09/04/16 21:35 1 EA Miscellaneous Information (Check Fentanyl Patch Placement) 1 ea QS N/A 09/05/16 00:00 10/05/16 00:00 09/05/16 08:28 1 EA Piperacillin Sod/ Tazobactam Sod (Consult) 1 ea UD PRN N/A 09/04/16 21:00 10/04/16 20:59 Daptomycin (Consult) 1 ea UD PRN N/A 09/04/16 21:15 10/04/16 21:14 Ioversol (Optiray 320) 100 ml UD PRN IV 09/05/16 04:00 09/09/16 03:59 Heparin Sodium (Porcine) (Heparin 100 Unit/ml 5ml Flush) 5 ml PRN PRN FLUSH 09/05/16 04:45 10/05/16 04:44 09/05/16 05:48 5 ML Review of Systems Review of Systems Constitutional: No chills, No fever Eyes: No blurred vision Neurological: No dizzy Endocrine: No excessive thirst Gastrointestinal: No abdominal pain, No nausea, No vomiting Cardiovascular: No chest pain Respiratory: No shortness of breath Skin: No rash Musculoskeletal: No back pain Male : No blood in urine Physical Exam Vital Signs: Vital Signs Past 12 Hours Date Time Temp Pulse Resp B/P Pulse Ox O2 Delivery O2 Flow Rate FiO2 09/05/16 07:36 36.7 87 20 107/63 98 Room Air 09/05/16 00:38 36.6 94 20 131/73 98 CPAP 09/05/16 00:00 98 Room Air 09/04/16 22:22 36.8 80 18 110/65 Room Air Physical Exam: General Appearance: no apparent distress Eyes: bilateral eyes normal inspection ENT: hearing grossly normal Neck: no JVD Respiratory/Chest: no respiratory distress, no accessory muscle use Cardiovascular: no JVD Extremities: normal inspection Neurologic/Psychiatric: alert, normal mood/affect, oriented x 3 Skin: normal color Assessment & Plan Assessment & Plan A/P: Metastatic prostate cancer, recurrent UTI AFVSS. Continue IV abx pending culture sensitivities. Will order a culture from perc tube. May consider daily perc tube flushes to prevent sediment buildup in tube. Would also recommend consulting ID for further input and recommendation for preventing these recurrent UTIs as well as contacting [place] in regards to perc tube management (ie recommendations for daily flushing of the tubes). Consider consulting pain management for breakthrough pain secondary to metastatic cancer as well. Thanks for the consult. Unfortunately I do not have further recommendations for Mr. Desai. Will continue to follow along with primary service at this time.
[2016-09-05] MEDS: INSULIN ASPART 100 UNITS/ML 3 ML PEN SC SCH ×4 (08:58→20:16)
--- NOTE | 2016-09-05 09:58 | Hospitalist Progress Note ---
Hospitalist Progress Note Date of Service Sep 05, 2016. Subjective Pt evaluation today including: conversation w/ patient, physical exam, chart review, lab review, review of studies, conversation w/ it sales consultant (ID), review of inpatient medication list Afebrile since admission, feeling better. Has daily rectal bleeding and daily bleeding from urethra. No CP or SOB, no abd pain. Having normal output from colostomy. Was due to see Oncology today as outpt to discuss restarting chemo Constitutional: No fever Respiratory: No shortness of breath Cardiovascular: No chest pain All Other Systems: Reviewed and Negative Objective Vital Signs Date Time Temp Pulse Resp B/P Pulse Ox O2 Delivery O2 Flow Rate FiO2 09/05/16 07:36 36.7 87 20 107/63 98 Room Air 09/05/16 00:38 36.6 94 20 131/73 98 CPAP 09/05/16 00:00 98 Room Air 09/04/16 22:22 36.8 80 18 110/65 Room Air 09/04/16 18:21 89 20 140/77 98 Room Air 09/04/16 17:25 82 20 105/59 94 Room Air 09/04/16 16:03 97 Room Air 09/04/16 16:00 88 20 100/70 96 Room Air 09/04/16 14:57 37.4 96 20 147/68 100 Room Air Physical Exam General Appearance: no apparent distress, + thin Eyes: normal inspection, sclerae normal ENT: hearing grossly normal Neck: trachea midline Respiratory/Chest: lungs clear, normal breath sounds, no respiratory distress, no accessory muscle use Cardiovascular: regular rate, rhythm, no edema, no gallop, no murmur Abdomen: normal bowel sounds, non tender, soft, + pertinent finding (colostomy bag with semi-formed stool, dressing over mucus fistula is c/d/i in RLQ; bilat nephrostomy tubes in place without surrounding erythema, no drainage) Extremities: non-tender, normal inspection, no pedal edema, no calf tenderness Neurologic/Psychiatric: alert, normal mood/affect, oriented x 3 Skin: normal color, warm/dry, no rash Laboratory Results Last 24 Hours Test 09/04/16 15:55 09/04/16 16:05 09/04/16 17:30 09/04/16 20:16 White Blood Count 11.72 K/uL Red Blood Count 3.43 M/uL Hemoglobin 8.3 g/dL Hematocrit 26.0 % Mean Corpuscular Volume 75.8 fL Mean Corpuscular Hemoglobin 24.2 pg Mean Corpuscular Hemoglobin Concent 31.9 g/dl Platelet Count 296 K/uL Mean Platelet Volume 8.8 fL Neutrophils (%) (Auto) 81.6 % Lymphocytes (%) (Auto) 7.6 % Monocytes (%) (Auto) 10.0 % Eosinophils (%) (Auto) 0.3 % Basophils (%) (Auto) 0.2 % Neutrophils # (Auto) 9.57 K/uL Lymphocytes # (Auto) 0.89 K/uL Monocytes # (Auto) 1.17 K/uL Eosinophils # (Auto) 0.04 K/uL Basophils # (Auto) 0.02 K/uL RDW Standard Deviation 49.1 fL RDW Coefficient of Variation 17.5 % Immature Granulocyte % (Auto) 0.3 % Immature Granulocyte # (Auto) 0.03 K/uL Schistocytes 1+ Prothrombin Time 12.0 SECONDS Prothromb Time International Ratio 1.1 Activated Partial Thromboplast Time 60.1 SECONDS Partial Thromboplastin Ratio 2.3 Sodium Level 137 mmol/L Potassium Level 3.7 mmol/L Chloride Level 103 mmol/L Carbon Dioxide Level 22 mmol/L Anion Gap 12.0 mmol/L Blood Urea Nitrogen 23 mg/dl Creatinine 1.40 mg/dl Est Creatinine Clear Calc Drug Dose 71.7 ml/min Estimated GFR () 65.6 Estimated GFR (Non- 56.6 BUN/Creatinine Ratio 16.7 Random Glucose 106 mg/dl Calcium Level 9.3 mg/dl Total Bilirubin 0.4 mg/dl Aspartate Amino Transf (AST/SGOT) 15 U/L Alanine Aminotransferase (ALT/SGPT) 11 U/L Alkaline Phosphatase 58 U/L Total Protein 6.7 gm/dl Albumin 3.0 gm/dl Globulin 3.7 gm/dl Albumin/Globulin Ratio 0.8 Bedside Lactic Acid Venous 1.91 mmol/L Lactic Acid Level 1.1 mmol/L Bedside Glucose 97 mg/dl Test 09/05/16 05:20 09/05/16 07:58 White Blood Count 10.08 K/uL Red Blood Count 3.01 M/uL Hemoglobin 7.4 g/dL Hematocrit 23.4 % Mean Corpuscular Volume 77.7 fL Mean Corpuscular Hemoglobin 24.6 pg Mean Corpuscular Hemoglobin Concent 31.6 g/dl Platelet Count 295 K/uL Mean Platelet Volume 9.5 fL Neutrophils (%) (Auto) 77.0 % Lymphocytes (%) (Auto) 8.9 % Monocytes (%) (Auto) 12.0 % Eosinophils (%) (Auto) 1.7 % Basophils (%) (Auto) 0.2 % Neutrophils # (Auto) 7.76 K/uL Lymphocytes # (Auto) 0.90 K/uL Monocytes # (Auto) 1.21 K/uL Eosinophils # (Auto) 0.17 K/uL Basophils # (Auto) 0.02 K/uL RDW Standard Deviation 51.5 fL RDW Coefficient of Variation 17.8 % Immature Granulocyte % (Auto) 0.2 % Immature Granulocyte # (Auto) 0.02 K/uL Anisocytosis PRESENT Spherocytes 1+ Sodium Level 139 mmol/L Potassium Level 3.6 mmol/L Chloride Level 105 mmol/L Carbon Dioxide Level 24 mmol/L Anion Gap 10.0 mmol/L Blood Urea Nitrogen 24 mg/dl Creatinine 1.20 mg/dl Est Creatinine Clear Calc Drug Dose 83.7 ml/min Estimated GFR () 79.0 Estimated GFR (Non- 68.1 BUN/Creatinine Ratio 20.2 Random Glucose 84 mg/dl Calcium Level 9.0 mg/dl Magnesium Level 1.9 mg/dl Bedside Glucose 101 mg/dl Assessment and Plan The patient is a 56-year-old male with a known history of metastatic prostate cancer with bilateral nephrostomy tubes, who presents emergency department with a persistent fever to 101 that began several hours prior to arrival. He also noted that his right nephrostomy tube had become cloudy yesterday and he has a known history of nephrostomy tube infections. He reports that his cancer pain in the rectum and bladder region worsened en route to the hospital, and that his fentanyl patches are not adequately controlling his pain at this time. He is on Cipro and amoxicillin for prophylaxis daily Metastatic prostate cancer (mets to bladder, rectum) with bilateral nephrostomy tubes, with right nephrostomy tube infection-- - CT of the abdomen and pelvis has been ordered. -continue daptomycin IV and Zosyn IV and ID will add Caspofungin for yeast on UA - Follow urine culture and sensitivity results. -consult his urologist Dr. Lynne appreciated -consult to ID appreciated -consult Oncology while here to discuss anemia, and treatment plan for CA -no longer on prednisone despite being on home med rec-was stopped completely 1 week ago Chronic Anemia from chronic blood loss- Hgb down to 7.4 today -transfuse 2 units PRBCs -follow CBC -restart po FeSO4 upon discharge Chronic malignancy-induced pain (rectum, suprapubic/bladder pain)--continue fentanyl patch 25 g changing every 72 hours, and place on Dilaudid 0.5-1 mg IV every 2 hours when necessary. Hypertension--continue metoprolol tartrate 25 mg by mouth twice a day and potassium chloride 10 mEq by mouth twice a day. Hypercholesterolemia--continue atorvastatin 20 mg by mouth at bedtime. Depression--continue duloxetine 60 mg by mouth every morning. Diabetes mellitus--hold metformin 1000 mg by mouth twice a day, and place on Accu-Cheks before meals and at bedtime with NovoLog coverage. Proph-SCDs, no AC due to bleeding Dispo- Full Code
[2016-09-05] MEDS ORDERED: ACETAMINOPHEN 325 MG TAB PO SCH (10:00)
--- NOTE | 2016-09-05 10:10 | Progress Note ---
Progress Note ID Consult Dictated #[id number] A/P: 1. complicated uti, infected nephrostomy tube 2. leukocytosis - resolved -follow cultures, will add caspo pending final cultures, yeast on UA -will follow, thank you
--- NOTE | 2016-09-05 11:23 | DIAGNOSTIC IMAGING REPORT ---
CT SCAN OF THE ABDOMEN AND PELVIS WITH IV CONTRAST CLINICAL HISTORY: Bladder and prostate cancer. Nephrostomy tube infection. COMPARISON STUDY: Abdominal CT scans, most recently dated 06/20/2016. TECHNIQUE: Following the IV administration of 94 of Optiray 320, CT scan of the abdomen and pelvis was performed from the lung bases to the proximal femora. Images are reviewed in the axial, sagittal, and coronal planes. IV contrast was administered without complication. Automated dose control exposure was utilized. CT DOSE: 587.75 mGy.cm FINDINGS: Lower chest: The heart is mild enlarged and without pericardial effusion. There are coronary artery calcifications. Gynecomastia is noted. Examination as changes suspected. There is no airspace consolidation or pleural effusion identified at the lung bases. Liver: The contrast-enhanced liver is normal in size, contour, and attenuation. There is no intrahepatic or ductal dilatation. The hepatic veins and portal veins are patent. Gallbladder: Mildly distended but otherwise unremarkable. Spleen: The spleen is mildly enlarged, measuring 14.0 cm in length. Pancreas: Moderately atrophic and grossly unremarkable. Adrenal glands: Unremarkable. Kidneys: The contrast enhanced kidneys demonstrate mild cortical atrophy and are without hydronephrosis. Bilateral percutaneous nephrostomy tubes are in place. There is mild fullness of the left renal collecting system, and there are small foci of gas within the left renal pelvis. There is left-sided perinephric stranding as well as stranding around the left renal hilum. This has increased from 06/20/2016 examination. Renal perfusion is slightly heterogeneous. Inflammatory stranding is also noted along the course of the left ureter. Abdominal vasculature: The abdominal aorta is normal in course and caliber noting scattered foci of atherosclerotic calcification. Bowel: There has been interval diverticula left lower quadrant colostomy. A mucous fistula is seen in the right pelvis. No bowel obstruction is identified. Rectal wall thickening is nonspecific. The appendix is similar in appearance to the 06/20/2016 and remains slightly distended. A calcified appendicolith is noted. There is no convincing evidence of acute appendicitis. Peritoneum: There is trace fluid in the pelvis. No intraperitoneal free air is seen. There is a fat containing periumbilical hernia. Lymphadenopathy: There is progressive retroperitoneal, iliac chain, and pelvic sidewall lymphadenopathy. Enlarged retroperitoneal lymph nodes are new from previous. A left periaortic node on image #[id number] measures 1.8 x 1.3 cm. A right iliac chain node on image #305 measures 2.0 x 1.4 cm (previously measuring 1.9 x 1.2 cm). A left pelvic sidewall lymph node on image #[id number] 2.8 x 1.8 cm (previously measuring 2.3 x 1.6 cm). Pelvic viscera: The prostate gland has been largely replaced by a large heterogeneous mass lesion which invades the base of the bladder and seminal vesicles, and also encases the rectum. This has likely modestly increased in size from 06/20/2016. There is diffuse asymmetric bladder wall thickening. There are bilateral fat-containing inguinal hernias. Skeletal structures: The skeletal structures are osteopenic. There is mild lumbosacral spondylosis. No lytic or blastic lesions are seen. IMPRESSION: 1. Overall progression of disease as compared to the 06/20/2016 examination, with increasing retroperitoneal, iliac chain, and pelvic sidewall lymphadenopathy and slight increase in size of a large heterogeneous pelvic mass. See above. 2. There are bilateral percutaneous nephrostomy tubes. No hydronephrosis is seen. 3. There our foci of gas identified within the left renal pelvis. There is increasing left-sided perinephric and periureteric stranding. The appearance suggests infection. Correlation with clinical findings and urinalysis will be required. 4. There are interval changes from thyroid and colostomy in the left lower quadrant with right lower quadrant mucous fistula formation. No bowel obstruction is seen. 5. Mild splenomegaly. 6. Cardiomegaly and emphysema. 7. Additional findings as above. Electronically signed by: Juice Jasmine M.D. 09/05/2016 11:22 AM Dictated Date/Time: 09/05/2016 10:45 AM
[2016-09-05] MEDS ORDERED: CASPOFUNGIN INJ 70 MG in SODIUM CHLORIDE 0.9% 250ML 250 ML IV ONE (12:00)
--- NOTE | 2016-09-05 12:22 | INFECT. DISEASE CONSULTATION ---
DATE OF CONSULTATION: 09/05/2016 REQUESTING PHYSICIAN: Dr. Onofre. HISTORY OF PRESENT ILLNESS: This is a 56-year-old gentleman, who was admitted from home yesterday after he had fevers and worsening cloudy drainage from a right-sided nephrostomy tube. He states that yesterday he woke up with some nausea and had subjective fevers and chills. Early yesterday afternoon he did take his temperature and found it to be elevated. He subsequently presented to the Emergency Room. He does have a history of metastatic prostate cancer and has bilateral nephrostomy tubes. These are managed at [facility] and were last changed 3 weeks ago. He is on chronic ciprofloxacin and amoxicillin suppression for history of recurrent urinary and nephrostomy tube infections. He has been taking his antibiotics at home as prescribed. He did notice sediment and cloudy drainage from the right nephrostomy tube yesterday. He also had some associated pain with this. He states today he is feeling much better. He has been afebrile since admission to the hospital and his pain has resolved. He was started empirically on daptomycin and Zosyn. Blood cultures and urine cultures were obtained and are pending. A urine analysis done in the Emergency Room had 3+ blood, positive nitrites, large leukocyte esterase, 10-30 RBCs, greater than 30 WBCs and 1+ bacteria. There was also hyphal elements seen. It is unclear if this was taken from a clean catch or from the nephrostomy tube. He did have a leukocytosis of 11.7 yesterday; however, this has improved to 10 this morning. He is tolerating antibiotics well. He denies any chest pain, cough or shortness of breath. He denies any additional nausea from yesterday morning. He has had no vomiting or diarrhea. He has no abdominal pain. His appetite has been stable. He denies any drainage around the nephrostomy tubes. All remaining review of systems are reviewed and are negative. Review of one micro does reveal a urine culture labeled clean catch on 06/10/2016 with Jeannie albicans. He is also being followed by urology here. PAST MEDICAL HISTORY: Significant for cutaneous T-cell lymphoma, diabetes, hypercholesterolemia, hypertension, metastatic prostate cancer. SURGICAL HISTORY: Significant for prostatectomy in 2006. Bilateral percutaneous nephrostomy tubes colectomy with ostomy. FAMILY HISTORY: Noncontributory. SOCIAL HISTORY: Significant for a history of tobacco use. He denies any alcohol or drug use. He lives with family. He denies any recent contacts. ALLERGIES: He has no known drug allergies. CURRENT MEDICATIONS: Include, daptomycin, Tylenol, Benadryl, Cymbalta, subQ heparin, Zosyn, insulin, Lipitor, fentanyl patch, lorazepam, Colace, Lopressor, potassium, Tylenol, Ambien, milk of magnesia, Dulcolax, Maalox, Zofran. PHYSICAL EXAMINATION: VITAL SIGNS: He is afebrile since admission, pulse 87, respiratory rate 20, blood pressure 107/63, oxygen saturation is 98% on room air. GENERAL: He is awake, alert and oriented x3. He is in no acute distress. HEENT: Mucous membranes are moist. Extraocular muscles are intact. HEART: Regular. LUNGS: Clear. ABDOMEN: Soft. Ostomy bag has stool without bleeding. Bilateral nephrostomy tubes are in place. Dressings are clean, dry and intact. There is a sediment in the right nephrostomy tube. There is no surrounding tenderness. EXTREMITIES: There is no lower extremity edema bilaterally. SKIN: Without rash. LABORATORY STUDIES: UA is as above with 1+ bacteria and budding yeast. CBC today reveals a white blood cell count of 10.0. Hemoglobin is 7.4. He has ordered for blood transfusion. Hematocrit 23.4 and platelets are 295. Chemistry panel today reveals a sodium of 139, potassium 3.6, chloride 105, bicarbonate 24, BUN 24, creatinine 1.2, glucose is 101. LFTs are within normal limits on admission. Lactic acid was 1.9. Cultures are pending. Chest x-ray was without acute disease. ASSESSMENT AND PLAN: Complicated urinary tract infection with likely infected nephrostomy tube. Caspofungin will be added in addition to his antibiotics pending the results of blood and urine cultures. We will follow along with you.
[2016-09-05] MEDS ORDERED: DAPTOmycin IV 550 MG in SODIUM CHLORIDE 0.9% 50ML 50 ML IV SCH (16:00)
[2016-09-05] MEDS: ATORVASTATIN 20 MG TAB PO SCH (20:15)
--- NOTE | 2016-09-05 20:16 | Medical Consult ---
Consultation Date of Consultation: Sep 05, 2016. Attending Physician: Lindy Telles MD Reason for Consultation: Stage IV prostate cancer with locally advanced disease, prostate tumor invading rectum and bladder, intrapelvic adenopathy-recommendations regarding anemia and further treatment plan History of Present Illness Mr. Desai is well known to the consulting oncology service; he is a 56-year- old male, a case of carcinoma the prostate,S/P robotic-assisted prostatectomy in June of 2006, S/P radiation treatment when his PSA level increased in 2007, he also received approximately 8 months of Lupron therapy at that time. He has had multiple biochemical and local recurrences affecting the bladder and pelvic adenopathy. His last line of therapy was initiated due to increasing PSA level and progressive metastatic bladder tumor and pelvic adenopathy seen on scan in February 2016, he was advised to discontinue Zytiga and started on palliative docetaxel in 03/2016, completed 3 cycles as of 06/06/16, with below listed complications. Hospitalized from 04/17/2016 to 04/20/2016 for severe hypokalemia, acute blood loss anemia after gross hematuria from the right percutaneous tube prior to admission due to trauma to the area. His right nephrostomy tube cultured out achromobacter xylosoxidans and he was discharged home on 10 days worth of Bactrim. He received 1 unit of PRBC. His cycle 2 was delayed by 1 week due to an active C difficile infection. When he was diagnosed with a C difficile infection prior to cycle 2, he was started on metronidazole and the his regimen was switched to vancomycin due to provider for preference. Cycle 3 was also delayed about a week increasing diarrhea. He was admitted on 06/20/2016 presenting with abdominal obstruction secondary to mechanical obstruction from mass invading the rectum. He was then operated on more urgently on 06/21/2016 with temporary placement of colostomy, but no stoma could be formed due to significant inflammation of the bowel. Urology recommended the patient be transferred to [facility] where interventional Radiology could address malfunctioning of the nephrostomy tubes during this hospitalization- no urine output from tubes day of transfer, US showed mild to moderate hydronephrosis. He was at [facility] from 06/23/2016 to 06/28/2016 where he was diagnosed with sepsis secondary to nephrostomy tube dysfunction, obstruction and UTI. He states that his nephrostomy tubes were replaced during the hospitalization. In late 2016, Dr. Rebolledo was able to place formal stoma (not able to with 1st surgery) and created RLQ fistula. He was placed on cipro and amoxicillin daily to prevent UTI. the patient was admitted on 09/05/2016 after experiencing subjective fever for most part of the day prior to presenting to the emergency room. He also noted cloudy urine in his right nephrostomy tube. He was feeling nauseous, but he did not vomit. His urinalysis was consistent with infection and he was thereafter admitted to [facility]. He was started empirically on IV daptomycin and Zosyn. He had a CT of the abdomen/ pelvis on admission that did show mild fullness in left renal collecting system with perinephric stranding, but no hydronephrosis bilaterally. Increase in the iliac chain and pelvic sidewall adenopathy, new retroperitoneal lymphadenopathy. Prostate tumor modestly increased since last exam in May 2016, going into the bladder and encasing the rectum. Urology was consulted ; daily nephrostomies tube flushes to be considered pending hospitalist team contacting [facility]. Infectious Disease was consulted as well. Yeast was noted in the microscopic analysis. Dr. Black recommended caspofungin pending culture of the urine, if Jeannie present. He had been complaining of increased pelvic pain secondary to known advanced disease of his prostate cancer in the area. He is currently on fentanyl 25 mcg every 72 hours. He was then started on Dilaudid 0.5-1 mg every 2 hours IV p.r.n.. Additional history obtained from the patient at bedside. He reports feeling overall better today. He has not had fever today. He is no longer feeling nauseous and he has not vomited. He reports stable output from his ostomy. He has taken 3-4 p.r.n. Dilaudid IV pushes with adequate control of his pain while hospitalized. He reports that his hematuria is daily and remains stable, oliguric with nephrostomy tube placement. He continues to pass blood clots from his rectum, estimated to be about a half a cup daily. He has required PRBC as well as Venofer support since the onset of hematochezia / hematuria in more recent months. Past Medical/Surgical History Medical Problems: (1) Fever Status: Acute (2) Nephrostomy tube bleed Status: Acute (3) Pyelonephritis Status: Acute (4) UTI (urinary tract infection) Status: Acute Family History Cancer Diabetes mellitus Heart disease Hypertension Social History Smoking Status: Former Smoker Drug Use: none Marital Status: Housing Status: lives with family Occupation Status: employed Allergies Coded Allergies: NO KNOWN DRUG ALLERGIES (Verified Allergy, Unknown, NKDA, 08/16/16) POLLEN (Verified Allergy, Unknown, HAY FEVER, 07/26/16) Current Inpatient Medications Current Inpatient Medications Medications (Trade) Dose Ordered Sig/Shu Route Start Time Stop Time Status Last Admin Dose Admin Acetaminophen (Tylenol Tab) 650 mg Q4H PRN PO 09/04/16 17:30 10/04/16 17:29 Zolpidem Tartrate (Ambien Tab) 5 mg HSZ PRN PO 09/04/16 17:30 10/04/16 17:29 Magnesium Hydroxide (Milk Of Magnesia Susp) 30 ml Q6H PRN PO 09/04/16 17:30 10/04/16 17:29 Bisacodyl (Dulcolax Supp) 10 mg DAILY PRN OR 09/04/16 17:30 10/04/16 17:29 Diphenhydramine HCl (Benadryl Inj) 25 mg Q4H PRN IV 09/04/16 17:30 10/04/16 17:29 Al Hydrox/Mg Hydrox/ Simethicone 15 ml 15 ml Q4H PRN PO 09/04/16 17:30 10/04/16 17:29 Promethazine HCl/ Sodium Chloride (Phenergan Inj/ Nss 50ml) 50.5 ml @ 202 mls/hr Q4H PRN IV 09/04/16 17:30 10/04/16 17:29 Zolpidem Tartrate (Ambien Tab) 5 mg HSZ PRN PO 09/04/16 17:30 10/04/16 17:29 Ondansetron HCl (Zofran Inj) 4 mg Q6H PRN IV 09/04/16 17:30 10/04/16 17:29 Docusate Sodium (coLACE CAP) 100 mg BID PO 09/04/16 20:00 10/04/16 20:59 09/05/16 08:29 100 MG Insulin Aspart (novoLOG ASPART) SLIDING SCALE If C... ACHS SC 09/04/16 21:00 10/04/16 20:59 09/05/16 17:44 4 UNITS Glucose (Glucose 40% Gel) UD PRN PO 09/04/16 17:30 10/04/16 17:29 Glucose (Glucose Chew Tab) 1 tabs UD PRN PO 09/04/16 17:30 10/04/16 17:29 Dextrose (Dextrose 50% 50ML Syringe) 50 ml UD PRN IV 09/04/16 17:30 10/04/16 17:29 Glucagon (Glucagon Inj) 1 mg UD PRN SQ 09/04/16 17:30 10/04/16 17:29 Atorvastatin Calcium (Lipitor Tab) 20 mg HS PO 09/04/16 21:00 10/04/16 20:59 09/04/16 21:34 20 MG Calcium/Vitamin D (Caltrate Plus Tab) 1 tab BID PO 09/04/16 20:00 10/04/16 20:59 09/05/16 08:29 1 TAB Cyclobenzaprine HCl (Flexeril Tab) 10 mg TID PRN PO 09/04/16 17:30 10/04/16 17:29 Duloxetine HCl (Cymbalta Cap) 60 mg QAM PO 09/05/16 08:00 10/05/16 08:59 09/05/16 08:29 60 MG Fentanyl (Duragesic Patch) 25 mcg Q72H TD 09/04/16 21:00 09/18/16 20:59 09/04/16 21:40 25 MCG Fluticasone Propionate (Flonase Nasal [place]) 2 sprays BID CECILIA 09/04/16 20:00 10/04/16 20:59 09/05/16 08:29 2 SPRAYS Metoprolol Tartrate (Lopressor Tab) 25 mg BID PO 09/04/16 20:00 10/04/16 20:59 09/05/16 08:29 25 MG Potassium Chloride 10 meq 10 meq BID PO 09/04/16 20:00 10/04/16 20:59 09/05/16 08:29 10 MEQ Daptomycin 550 mg/ Sodium Chloride 61 ml @ 100 mls/hr DAILY@1600 IV 09/05/16 16:00 09/15/16 15:59 09/05/16 18:58 100 MLS/HR Piperacillin Sod/ Tazobactam Sod/ Dextrose (Zosyn Iv/D5 100ml) 115 ml @ 28.75 mls/ hr Q8H IV 09/04/16 22:00 09/14/16 21:59 09/05/16 18:23 28.75 MLS/HR Hydromorphone HCl 1 mg 1 mg Q2H PRN IV 09/04/16 17:30 09/18/16 17:29 09/05/16 18:17 1 MG Lorazepam/Syringe (Ativan Inj/ Syringe) 1 ml @ 1 mls/min Q4H PRN IV 09/04/16 21:00 10/04/16 20:59 Miscellaneous (Fentanyl Patch Remove & Waste) 1 ea Q3D N/A 09/04/16 20:59 10/04/16 20:58 09/04/16 21:35 1 EA Miscellaneous Information (Check Fentanyl Patch Placement) 1 ea QS N/A 09/05/16 00:00 10/05/16 00:00 09/05/16 16:28 1 EA Piperacillin Sod/ Tazobactam Sod (Consult) 1 ea UD PRN N/A 09/04/16 21:00 10/04/16 20:59 Daptomycin (Consult) 1 ea UD PRN N/A 09/04/16 21:15 10/04/16 21:14 Ioversol (Optiray 320) 100 ml UD PRN IV 09/05/16 04:00 09/09/16 03:59 Heparin Sodium (Porcine) 5 ml 5 ml PRN PRN FLUSH 09/05/16 04:45 10/05/16 04:44 09/05/16 05:48 5 ML Caspofungin/ Sodium Chloride (Cancidas Inj/ Nss 250ml) 260 ml @ 250 mls/hr Q24H IV 09/06/16 12:00 09/15/16 11:59 Review of Systems Constitutional: + fatigue, + fever (on admission), + weakness, No chills Respiratory: No cough, No shortness of breath, No sputum, No wheezing Cardiovascular: No chest pain, No edema Abdomen: + GI bleeding, + nausea, + pain, No constipation, No diarrhea, No vomiting Musculoskeletal: No calf pain Genitourinary - Male: + hematuria, + urinary hesitancy Integumentary: No itch, No rash Physical Exam Date Time Temp Pulse Resp B/P Pulse Ox O2 Delivery O2 Flow Rate FiO2 09/05/16 17:47 36.7 70 18 106/72 97 09/05/16 17:24 36.8 68 16 111/65 97 09/05/16 16:54 36.7 68 18 117/66 97 09/05/16 16:25 36.7 71 18 112/66 97 09/05/16 16:10 36.7 71 16 106/62 97 09/05/16 16:10 36.7 71 18 106/62 97 09/05/16 16:00 95 Room Air 09/05/16 15:55 36.7 69 16 106/63 95 09/05/16 15:53 36.7 69 16 106/63 95 09/05/16 15:37 36.8 75 16 102/59 97 09/05/16 15:10 36.6 75 20 100/57 97 09/05/16 15:08 36.6 75 20 100/57 97 Room Air 09/05/16 14:40 36.6 75 20 100/58 97 09/05/16 14:10 36.7 80 18 87/53 96 09/05/16 13:55 36.9 83 20 99/53 95 09/05/16 13:34 36.7 80 18 101/55 09/05/16 08:00 98 Room Air 09/05/16 07:36 36.7 87 20 107/63 98 Room Air 09/05/16 00:38 36.6 94 20 131/73 98 CPAP 09/05/16 00:00 98 Room Air 09/04/16 22:22 36.8 80 18 110/65 Room Air General Appearance: no apparent distress, + pertinent finding (chronically ill- appearing) ENT: hearing grossly normal Respiratory/Chest: lungs clear, normal breath sounds, no respiratory distress, no accessory muscle use Cardiovascular: regular rate, rhythm, no edema Abdomen/GI: normal bowel sounds, non tender, soft, + pertinent finding (ostomy site in LLQ, RLQ qwith fistula) Extremities/Musculoskelatal: no calf tenderness, no pedal edema Neurologic/Psych: alert, oriented x 3, + depressed affect Skin: warm/dry, no rash Laboratory Results 09/04/16 15:55 Red Blood Count 3.43, Mean Corpuscular Volume 75.8, Mean Corpuscular Hemoglobin 24.2, Mean Corpuscular Hemoglobin Concent 31.9, Mean Platelet Volume 8.8, Neutrophils (%) (Auto) 81.6, Lymphocytes (%) (Auto) 7.6, Monocytes (%) (Auto) 10.0, Eosinophils (%) (Auto) 0.3, Basophils (%) (Auto) 0.2, Neutrophils # (Auto ) 9.57, Lymphocytes # (Auto) 0.89, Monocytes # (Auto) 1.17, Eosinophils # (Auto ) 0.04, Basophils # (Auto) 0.02 09/05/16 05:20 Red Blood Count 3.01, Mean Corpuscular Volume 77.7, Mean Corpuscular Hemoglobin 24.6, Mean Corpuscular Hemoglobin Concent 31.6, Mean Platelet Volume 9.5, Neutrophils (%) (Auto) 77.0, Lymphocytes (%) (Auto) 8.9, Monocytes (%) (Auto) 12.0, Eosinophils (%) (Auto) 1.7, Basophils (%) (Auto) 0.2, Neutrophils # (Auto ) 7.76, Lymphocytes # (Auto) 0.90, Monocytes # (Auto) 1.21, Eosinophils # (Auto ) 0.17, Basophils # (Auto) 0.02 09/04/16 15:55 09/05/16 05:20 Test 09/04/16 00:00 09/04/16 15:55 09/04/16 16:05 09/04/16 17:30 Urine Color YELLOW Urine Appearance TURBID (CLEAR) Urine pH 6.0 (4.5-7.5) Urine Specific [place] 1.025 (1.000-1.030) Urine Protein 2+ (NEG) Urine Glucose (UA) NEG (NEG) Urine Ketones NEG (NEG) Urine Occult Blood 3+ (NEG) Urine Nitrite POS (NEG) Urine Bilirubin NEG (NEG) Urine Urobilinogen NEG (NEG) Urine Leukocyte Esterase LARGE (NEG) Urine RBC 10-30 /hpf (0-4) Urine WBC >30 /hpf (0-5) Urine Epithelial Cells 0-5 /lpf (0-5) Urine Bacteria 1+ (NEG) Urine Yeast BUD W/ HYPHAE (NONE PRSENT) White Blood Count 11.72 K/uL (4.8-10.8) Red Blood Count 3.43 M/uL (4.7-6.1) Hemoglobin 8.3 g/dL (14.0-18.0) Hematocrit 26.0 % (42-52) Mean Corpuscular Volume 75.8 fL (80-100) Mean Corpuscular Hemoglobin 24.2 pg (25-34) Mean Corpuscular Hemoglobin Concent 31.9 g/dl (32-36) Platelet Count 296 K/uL (130-400) Mean Platelet Volume 8.8 fL (7.4-10.4) Neutrophils (%) (Auto) 81.6 % Lymphocytes (%) (Auto) 7.6 % Monocytes (%) (Auto) 10.0 % Eosinophils (%) (Auto) 0.3 % Basophils (%) (Auto) 0.2 % Neutrophils # (Auto) 9.57 K/uL (1.4-6.5) Lymphocytes # (Auto) 0.89 K/uL (1.2-3.4) Monocytes # (Auto) 1.17 K/uL (0.11-0.59) Eosinophils # (Auto) 0.04 K/uL (0-0.5) Basophils # (Auto) 0.02 K/uL (0-0.2) RDW Standard Deviation 49.1 fL (36.4-46.3) RDW Coefficient of Variation 17.5 % (11.5-14.5) Immature Granulocyte % (Auto) 0.3 % Immature Granulocyte # (Auto) 0.03 K/uL (0.00-0.02) Schistocytes 1+ Prothrombin Time 12.0 SECONDS (9.0-12.0) Prothromb Time International Ratio 1.1 (0.9-1.1) Activated Partial Thromboplast Time 60.1 SECONDS (21.0-31.0) Partial Thromboplastin Ratio 2.3 Anion Gap 12.0 mmol/L (3-11) Est Creatinine Clear Calc Drug Dose 71.7 ml/min Estimated GFR () 65.6 Estimated GFR (Non- 56.6 BUN/Creatinine Ratio 16.7 (10-20) Calcium Level 9.3 mg/dl (8.5-10.1) Total Bilirubin 0.4 mg/dl (0.2-1) Aspartate Amino Transf (AST/SGOT) 15 U/L (15-37) Alanine Aminotransferase (ALT/SGPT) 11 U/L (12-78) Alkaline Phosphatase 58 U/L (45-117) Total Protein 6.7 gm/dl (6.4-8.2) Albumin 3.0 gm/dl (3.4-5.0) Globulin 3.7 gm/dl (2.5-4.0) Albumin/Globulin Ratio 0.8 (0.9-2) Bedside Lactic Acid Venous 1.91 mmol/L (0.90-1.70) Lactic Acid Level 1.1 mmol/L (0.4-2.0) Test 09/04/16 20:16 09/05/16 05:20 09/05/16 07:58 09/05/16 11:42 Bedside Glucose 97 mg/dl (70-99) 101 mg/dl (70-99) 93 mg/dl (70-99) White Blood Count 10.08 K/uL (4.8-10.8) Red Blood Count 3.01 M/uL (4.7-6.1) Hemoglobin 7.4 g/dL (14.0-18.0) Hematocrit 23.4 % (42-52) Mean Corpuscular Volume 77.7 fL (80-100) Mean Corpuscular Hemoglobin 24.6 pg (25-34) Mean Corpuscular Hemoglobin Concent 31.6 g/dl (32-36) Platelet Count 295 K/uL (130-400) Mean Platelet Volume 9.5 fL (7.4-10.4) Neutrophils (%) (Auto) 77.0 % Lymphocytes (%) (Auto) 8.9 % Monocytes (%) (Auto) 12.0 % Eosinophils (%) (Auto) 1.7 % Basophils (%) (Auto) 0.2 % Neutrophils # (Auto) 7.76 K/uL (1.4-6.5) Lymphocytes # (Auto) 0.90 K/uL (1.2-3.4) Monocytes # (Auto) 1.21 K/uL (0.11-0.59) Eosinophils # (Auto) 0.17 K/uL (0-0.5) Basophils # (Auto) 0.02 K/uL (0-0.2) RDW Standard Deviation 51.5 fL (36.4-46.3) RDW Coefficient of Variation 17.8 % (11.5-14.5) Immature Granulocyte % (Auto) 0.2 % Immature Granulocyte # (Auto) 0.02 K/uL (0.00-0.02) Anisocytosis PRESENT Spherocytes 1+ Anion Gap 10.0 mmol/L (3-11) Est Creatinine Clear Calc Drug Dose 83.7 ml/min Estimated GFR () 79.0 Estimated GFR (Non- 68.1 BUN/Creatinine Ratio 20.2 (10-20) Calcium Level 9.0 mg/dl (8.5-10.1) Magnesium Level 1.9 mg/dl (1.8-2.4) Test 09/05/16 16:18 Bedside Glucose 90 mg/dl (70-99) Chest x-ray from 09/04/2016: Right jugular Port-A-Cath terminates of the brachiocephalic/SVC junction. Lungs are clear. Heart is normal in size. No pleural effusions are or pneumothorax. Small portion of catheters identified within the left upper quadrant. CT of the abdomen/pelvis from 09/05/2016: Heart mildly enlarged without pericardial effusion. No airspace consolidation or pleural effusion. Contrast enhanced liver is normal in size and attenuation. Spleen is mildly enlarged, 14 cm in length. Pancreas moderately atrophic. Kidneys demonstrate mild cortical atrophy in her without hydronephrosis. Bilateral percutaneous nephrostomy tubes in place. Mild fullness of the left renal collecting system and small foci of gas within the left renal pelvis. Left-sided perinephric stranding as well as stranding around the left renal hilum, increased from 06/10. Inflammatory stranding also noted along the course of the left ureter. Interval diverticula of left lower quadrant colostomy. Mucous fistula in the right pelvis. Progressive retroperitoneal, iliac chain and pelvic sidewall lymphadenopathy. Enlarged retroperitoneal lymph nodes new from previous. Left periaortic node measuring 1.8 x 1.3 cm. Right iliac chain measuring 2.1 x 1.4 cm (previously 1.9 x 1.2 cm). Left pelvic sidewall lymph node measuring 2.8 x 1.8 cm (previously 2.3 x 1.6 cm). Prostate gland has largely been replaced by a large mass lesion invading the base of the bladder, seminal vesicles and encasing the rectum, modestly increased since last exam in May 2016. No lytic or blastic lesion seen. Assessment & Plan (1) Prostate cancer metastatic to intrapelvic lymph node Assessment & Plan: Patient has extensive history of prostate cancer treatment as detailed above. More recently, completed 3 cycles of palliative docetaxel, last cycle in 05/2016. He had poor tolerance of chemo therapy, as detailed above , with hospitalizations for dehydration, C diff; after chemotherapy, admitted urgently for bowel obstruction in 06/2016, colostomy placed with complications as detailed above- transferred to [facility] for sepsis related to nephrostomy tube infection. Discussed further treatment with patient and Dr. Saeed. Recommended reconsidering palliative RT to rectum/bladder to control tumor bleeding (tumor noted to be modestly increased on this hospitalization CT scan abdomen/pelvis), in an effort to decrease PRBC transfusion and need for Venofer. Will plan for outpatient appt with RO, patient established with [facility] group. If patient completes palliative RT and PS acceptable, could consider for further palliative systemic treatment- as patient has small increase in iliac chain and pelvic sidewall nodes, new retroperitoneal adenopathy. No liver or bone metastases on CT scan. (2) Secondary malignant neoplasm of bladder Assessment & Plan: See discussion in # 1. 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 (4) Anemia due to multiple mechanisms Assessment & Plan: Patient's primary mechanism is chronic blood loss from bladder and rectum from invasive prostate tumor- see discussion in # 1. Noted patient received 2 units PRBC today. Discussed with Dr. Saeed and he is agreeable with hospitalist team ordering 1x dose in hospital of Venofer 300 mg IV. He also likely has element of anemia of neoplastic disease and acute illness. (5) Pain due to neoplasm Assessment & Plan: Patient on fentanyl 25 mcg q72 hr- consider to increase to 50 mcg q 72 hr during this hospitalization. He is currently on PRN Dilaudid 0/5- 1 mg q2hr PRN pain, has taken few doses today of PRN with adequate control of pain. (6) Pyelonephritis Status: Acute Assessment & Plan: Per hospitalist/ID management- Patient on empiric IV zosyn and daptomycin; ID has recommended caspofungin pending urine culture as yeast on microscopic. Preliminary report showing Jeannie. Urology has been consulted and suggested daily nephro tube flushes if cleared by [facility] team, may need transfer to [facility] for nephro tube exchange. I performed a history and physical examination of the patient and discussed the management with Modesta Larson PA-C . I reviewed her note and agree with the documented findings and plan of care. In summary he is a case of metastatic castration-resistant prostate cancer, has significant local recurrent disease in the pelvis, S/P colostomy, has ongoing local bleeding issue, received blood transfusion, also receiving intravenous iron therapy, increasing pelvic pain, on fentanyl patch and hydromorphone on p.r.n. basis, may consider for radiation treatment if possible. Dr. Obinna Saeed Hem/Onc (This note was completed using the dictation program Fluency Direct. As such, there may be misspellings, word substitutions, or other variations that should not change the essence of the clinical content of this encounter note. If there is need for further clarification, please direct questions to the provider listed above.)
[2016-09-06] MEDS: CHECK FENTANYL PATCH PLACEMENT SCH ×4 (00:01→23:36)
[2016-09-06 00:36] VITALS: BP 136/74; PULSE 90; TEMP 37.1; O2SAT 99
[2016-09-06] MEDS: HYDROmorphone INJ 1 MG/ML SYR IV PRN ×7 (00:58→23:27)
[2016-09-06 05:34] LABS: BASO % 0.3 %; BASO ABS # 0.02 K/uL (0-0.2); HEMATOCRIT 26.2 % (42-52); IG% 0.3 %; LYMPH % 15.4 %; LYMPH ABS # 0.97 K/uL (1.2-3.4); MEAN CELL VOLUME 78.7 fL (80-100); MEAN CORPUSCULAR HEMOGLOBIN 25.2 pg (25-34); MEAN CORPUSCULAR HGB CONC 32.1 g/dl (32-36); MEAN PLATELET VOLUME 9.3 fL (7.4-10.4); MONO % 13.4 %; NEUT % 67.6 %; PLATELET COUNT 252 K/uL (130-400); RED BLOOD COUNT 3.33 M/uL (4.7-6.1); WHITE BLOOD COUNT 6.28 K/uL (4.8-10.8)
[2016-09-06] MEDS: PIPERACILL/TAZOBAC IV 3.375 GM in DEXTROSE 5% 100ML 100 ML IV SCH ×2 (06:05→14:06)
[2016-09-06 06:09] LABS: CALCIUM 9.3 mg/dl (8.5-10.1); CREATININE 1.1 mg/dl (0.60-1.40); MAGNESIUM 1.8 mg/dl (1.8-2.4); POTASSIUM 3.6 mmol/L (3.5-5.1)
[2016-09-06 06:19] LABS: COMPLETE YES
[2016-09-06 07:45] VITALS: O2SAT 98
[2016-09-06] MEDS ORDERED: FENTANYL PATCH REMOVE & WASTE SCH (07:59)
[2016-09-06] MEDS ORDERED: FENTANYL 50 MCG/HR TDSY TD SCH (08:00)
[2016-09-06] MEDS ORDERED: IRON SUCROSE INJ 300 MG in SODIUM CHLORIDE 0.9% 250ML 250 ML IV SCH (08:00)
[2016-09-06] MEDS: FLUTICASONE PROPIONATE NA SPR 16 GM BTL NAE SCH ×2 (08:04→20:41)
[2016-09-06] MEDS: CYCLOBENZAPRINE HCL 10 MG TAB PO PRN ×2 (08:04→23:27)
[2016-09-06] MEDS: DULOXETINE HCL 60 MG CAP PO SCH (08:05)
[2016-09-06] MEDS: CALCIUM 600MG + VIT D 400 IU TAB PO SCH ×2 (08:05→20:40)
[2016-09-06] MEDS: DOCUSATE SODIUM 100 MG CAP PO SCH ×2 (08:05→20:40)
[2016-09-06] MEDS: METOPROLOL TARTRATE 25 MG TAB PO SCH ×2 (08:05→20:40)
[2016-09-06] MEDS: POTASSIUM CHLORIDE 10 MEQ TABCR PO SCH ×2 (08:05→20:40)
[2016-09-06 08:20] VITALS: BP 130/72; PULSE 98; TEMP 36.4; O2SAT 98
[2016-09-06] MEDS: INSULIN ASPART 100 UNITS/ML 3 ML PEN SC SCH ×4 (10:16→20:38)
[2016-09-06] MEDS ORDERED: CASPOFUNGIN INJ 50 MG in SODIUM CHLORIDE 0.9% 250ML 250 ML IV SCH (12:00)
--- NOTE | 2016-09-06 12:02 | Progress Note ---
Subjective Date of Service: Sep 06, 2016. Subjective Pt evaluation today including: conversation w/ patient, physical exam, chart review, lab review, conversation w/ systems development consultant Pain: pain mainly in pelvis Nephrostomies draining well pt knows how to irrigate nephrostomies Problem List Medical Problems: (1) Fever Status: Acute (2) Nephrostomy tube bleed Status: Acute (3) Pyelonephritis Status: Acute (4) UTI (urinary tract infection) Status: Acute Objective Vital Signs Date Time Temp Pulse Resp B/P Pulse Ox O2 Delivery O2 Flow Rate FiO2 09/06/16 08:20 36.4 98 16 130/72 98 Room Air 09/06/16 07:45 98 Room Air 09/06/16 00:36 37.1 90 18 136/74 99 Room Air 09/06/16 00:01 CPAP 09/05/16 20:00 Room Air 09/05/16 19:55 68 112/67 09/05/16 17:47 36.7 70 18 106/72 97 09/05/16 17:24 36.8 68 16 111/65 97 09/05/16 16:54 36.7 68 18 117/66 97 09/05/16 16:25 36.7 71 18 112/66 97 09/05/16 16:10 36.7 71 16 106/62 97 09/05/16 16:10 36.7 71 18 106/62 97 09/05/16 16:00 95 Room Air 09/05/16 15:55 36.7 69 16 106/63 95 09/05/16 15:53 36.7 69 16 106/63 95 09/05/16 15:37 36.8 75 16 102/59 97 09/05/16 15:10 36.6 75 20 100/57 97 09/05/16 15:08 36.6 75 20 100/57 97 Room Air 09/05/16 14:40 36.6 75 20 100/58 97 09/05/16 14:10 36.7 80 18 87/53 96 09/05/16 13:55 36.9 83 20 99/53 95 09/05/16 13:34 36.7 80 18 101/55 Laboratory Results Last 24 Hours Test 09/05/16 16:18 09/05/16 20:12 09/06/16 05:08 09/06/16 08:02 Bedside Glucose 90 mg/dl 112 mg/dl 92 mg/dl White Blood Count 6.28 K/uL Red Blood Count 3.33 M/uL Hemoglobin 8.4 g/dL Hematocrit 26.2 % Mean Corpuscular Volume 78.7 fL Mean Corpuscular Hemoglobin 25.2 pg Mean Corpuscular Hemoglobin Concent 32.1 g/dl Platelet Count 252 K/uL Mean Platelet Volume 9.3 fL Neutrophils (%) (Auto) 67.6 % Lymphocytes (%) (Auto) 15.4 % Monocytes (%) (Auto) 13.4 % Eosinophils (%) (Auto) 3.0 % Basophils (%) (Auto) 0.3 % Neutrophils # (Auto) 4.24 K/uL Lymphocytes # (Auto) 0.97 K/uL Monocytes # (Auto) 0.84 K/uL Eosinophils # (Auto) 0.19 K/uL Basophils # (Auto) 0.02 K/uL RDW Standard Deviation 48.9 fL RDW Coefficient of Variation 16.8 % Immature Granulocyte % (Auto) 0.3 % Immature Granulocyte # (Auto) 0.02 K/uL Red Blood Cell Morphology Unremarkable Sodium Level 140 mmol/L Potassium Level 3.6 mmol/L Chloride Level 106 mmol/L Carbon Dioxide Level 24 mmol/L Anion Gap 10.0 mmol/L Blood Urea Nitrogen 23 mg/dl Creatinine 1.10 mg/dl Est Creatinine Clear Calc Drug Dose 91.3 ml/min Estimated GFR () 87.7 Estimated GFR (Non- 75.7 BUN/Creatinine Ratio 21.0 Random Glucose 79 mg/dl Calcium Level 9.3 mg/dl Magnesium Level 1.8 mg/dl Test 09/06/16 11:36 Bedside Glucose 71 mg/dl Assessment and Plan awaiting rt consult for paliative pelvic rx continue meds per ID as long as percs draining no acute need to irrigate
[2016-09-06 13:04] VITALS: BP 143/79; PULSE 65; TEMP 36.6; O2SAT 96
--- NOTE | 2016-09-06 15:18 | Progress Note ---
Subjective Date of Service: Sep 06, 2016. Subjective 2 urine specimens now with c. albicans. blood cultures remain negative, urology following, tubes draining, no plan for change at this time. Problem List Medical Problems: (1) Fever Status: Acute (2) Nephrostomy tube bleed Status: Acute (3) Pyelonephritis Status: Acute (4) UTI (urinary tract infection) Status: Acute Objective Vital Signs Date Time Temp Pulse Resp B/P Pulse Ox O2 Delivery O2 Flow Rate FiO2 09/06/16 13:04 36.6 65 16 143/79 96 Room Air 09/06/16 08:20 36.4 98 16 130/72 98 Room Air 09/06/16 07:45 98 Room Air 09/06/16 00:36 37.1 90 18 136/74 99 Room Air 09/06/16 00:01 CPAP 09/05/16 20:00 Room Air 09/05/16 19:55 68 112/67 09/05/16 17:47 36.7 70 18 106/72 97 09/05/16 17:24 36.8 68 16 111/65 97 09/05/16 16:54 36.7 68 18 117/66 97 09/05/16 16:25 36.7 71 18 112/66 97 09/05/16 16:10 36.7 71 16 106/62 97 09/05/16 16:10 36.7 71 18 106/62 97 09/05/16 16:00 95 Room Air 09/05/16 15:55 36.7 69 16 106/63 95 09/05/16 15:53 36.7 69 16 106/63 95 09/05/16 15:37 36.8 75 16 102/59 97 Laboratory Results Last 24 Hours Test 09/05/16 16:18 09/05/16 20:12 09/06/16 05:08 09/06/16 08:02 Bedside Glucose 90 mg/dl 112 mg/dl 92 mg/dl White Blood Count 6.28 K/uL Red Blood Count 3.33 M/uL Hemoglobin 8.4 g/dL Hematocrit 26.2 % Mean Corpuscular Volume 78.7 fL Mean Corpuscular Hemoglobin 25.2 pg Mean Corpuscular Hemoglobin Concent 32.1 g/dl Platelet Count 252 K/uL Mean Platelet Volume 9.3 fL Neutrophils (%) (Auto) 67.6 % Lymphocytes (%) (Auto) 15.4 % Monocytes (%) (Auto) 13.4 % Eosinophils (%) (Auto) 3.0 % Basophils (%) (Auto) 0.3 % Neutrophils # (Auto) 4.24 K/uL Lymphocytes # (Auto) 0.97 K/uL Monocytes # (Auto) 0.84 K/uL Eosinophils # (Auto) 0.19 K/uL Basophils # (Auto) 0.02 K/uL RDW Standard Deviation 48.9 fL RDW Coefficient of Variation 16.8 % Immature Granulocyte % (Auto) 0.3 % Immature Granulocyte # (Auto) 0.02 K/uL Red Blood Cell Morphology Unremarkable Sodium Level 140 mmol/L Potassium Level 3.6 mmol/L Chloride Level 106 mmol/L Carbon Dioxide Level 24 mmol/L Anion Gap 10.0 mmol/L Blood Urea Nitrogen 23 mg/dl Creatinine 1.10 mg/dl Est Creatinine Clear Calc Drug Dose 91.3 ml/min Estimated GFR () 87.7 Estimated GFR (Non- 75.7 BUN/Creatinine Ratio 21.0 Random Glucose 79 mg/dl Calcium Level 9.3 mg/dl Magnesium Level 1.8 mg/dl Test 09/06/16 11:36 Bedside Glucose 71 mg/dl Assessment and Plan (1) UTI (urinary tract infection) Status: Acute Assessment & Plan: will change to flucazole, follow blood cultures. IV for now , if blood cultures negative, will change to po at d/c. will need continue follow up for drain management. No plans to remove drains at this time. will stop abx as only yeast growing. (2) Nephrostomy tubes in place Status: Chronic
[2016-09-06 15:48] VITALS: BP 131/77; PULSE 63; TEMP 36.9; O2SAT 98
[2016-09-06] MEDS: FLUCONAZOLE / NSS 200 MG in PREMIXED NSS 100 ML IV SCH (16:17)
[2016-09-06] MEDS: ATORVASTATIN 20 MG TAB PO SCH (20:40)
--- NOTE | 2016-09-06 22:15 | Hospitalist Progress Note ---
Hospitalist Progress Note Date of Service Sep 06, 2016. Subjective Pt evaluation today including: conversation w/ patient, physical exam, chart review, lab review, conversation w/ business continuity consultant (Urology), review of inpatient medication list Still with pelvic and rectal pain and some bleeding. No back pain. Growing Jeannie albicans in urine. He knows how to irrigate nephrostomy tubes if need be. Constitutional: No fever Respiratory: No shortness of breath Cardiovascular: No chest pain Objective Vital Signs Date Time Temp Pulse Resp B/P Pulse Ox O2 Delivery O2 Flow Rate FiO2 09/06/16 16:00 Room Air 09/06/16 15:48 36.9 63 17 131/77 98 Room Air 09/06/16 13:04 36.6 65 16 143/79 96 Room Air 09/06/16 08:20 36.4 98 16 130/72 98 Room Air 09/06/16 07:45 98 Room Air 09/06/16 00:36 37.1 90 18 136/74 99 Room Air 09/06/16 00:01 CPAP Physical Exam General Appearance: no apparent distress, + thin Eyes: normal inspection, + pertinent finding (pale conjunctiva) ENT: hearing grossly normal Respiratory/Chest: lungs clear, normal breath sounds, no respiratory distress, no accessory muscle use Cardiovascular: regular rate, rhythm, no edema, no murmur Abdomen: normal bowel sounds, soft, + tenderness (suprapubic reigon without guarding), + pertinent finding (bilat nephrostomy tubes draining clear yellow urine without sediment in tubes) Extremities: normal inspection, no pedal edema, no calf tenderness Neurologic/Psychiatric: alert, normal mood/affect, oriented x 3 Skin: warm/dry, no rash, + pallor Laboratory Results Last 24 Hours Test 09/06/16 05:08 09/06/16 08:02 09/06/16 11:36 09/06/16 16:35 White Blood Count 6.28 K/uL Red Blood Count 3.33 M/uL Hemoglobin 8.4 g/dL Hematocrit 26.2 % Mean Corpuscular Volume 78.7 fL Mean Corpuscular Hemoglobin 25.2 pg Mean Corpuscular Hemoglobin Concent 32.1 g/dl Platelet Count 252 K/uL Mean Platelet Volume 9.3 fL Neutrophils (%) (Auto) 67.6 % Lymphocytes (%) (Auto) 15.4 % Monocytes (%) (Auto) 13.4 % Eosinophils (%) (Auto) 3.0 % Basophils (%) (Auto) 0.3 % Neutrophils # (Auto) 4.24 K/uL Lymphocytes # (Auto) 0.97 K/uL Monocytes # (Auto) 0.84 K/uL Eosinophils # (Auto) 0.19 K/uL Basophils # (Auto) 0.02 K/uL RDW Standard Deviation 48.9 fL RDW Coefficient of Variation 16.8 % Immature Granulocyte % (Auto) 0.3 % Immature Granulocyte # (Auto) 0.02 K/uL Red Blood Cell Morphology Unremarkable Sodium Level 140 mmol/L Potassium Level 3.6 mmol/L Chloride Level 106 mmol/L Carbon Dioxide Level 24 mmol/L Anion Gap 10.0 mmol/L Blood Urea Nitrogen 23 mg/dl Creatinine 1.10 mg/dl Est Creatinine Clear Calc Drug Dose 91.3 ml/min Estimated GFR () 87.7 Estimated GFR (Non- 75.7 BUN/Creatinine Ratio 21.0 Random Glucose 79 mg/dl Calcium Level 9.3 mg/dl Magnesium Level 1.8 mg/dl Bedside Glucose 92 mg/dl 71 mg/dl 91 mg/dl Test 09/06/16 19:54 Bedside Glucose 120 mg/dl Assessment and Plan The patient is a 56-year-old male with a known history of metastatic prostate cancer with bilateral nephrostomy tubes, who presents emergency department with a persistent fever to 101 that began several hours prior to arrival. He also noted that his right nephrostomy tube had become cloudy yesterday and he has a known history of nephrostomy tube infections. He reports that his cancer pain in the rectum and bladder region worsened en route to the hospital, and that his fentanyl patches are not adequately controlling his pain at this time. He is on Cipro and amoxicillin for prophylaxis daily Metastatic prostate cancer (mets to bladder, rectum) with bilateral nephrostomy tubes, with right nephrostomy tube infection-- - CT of the abdomen and pelvis showed: 1. Overall progression of disease as compared to the 06/20/2016 examination, with increasing retroperitoneal, iliac chain, and pelvic sidewall lymphadenopathy and slight increase in size of a large heterogeneous pelvic mass. See above. 2. There are bilateral percutaneous nephrostomy tubes. No hydronephrosis is seen. 3. There our foci of gas identified within the left renal pelvis. There is increasing left-sided perinephric and periureteric stranding. The appearance suggests infection. Correlation with clinical findings and urinalysis will be required. 4. There are interval changes from thyroid and colostomy in the left lower quadrant with right lower quadrant mucous fistula formation. No bowel obstruction is seen. 5. Mild splenomegaly. 6. Cardiomegaly and emphysema. Urine cultures growing Jeannie albicans x 2 -d/c daptomycin IV, Zosyn IV, and Caspofungin -start IV Diflucan and can switch to po on discharge -consult his urologist Dr. Lynne appreciated--> plan for XRT to tumors to help with pain and bleeding -consult to ID appreciated -consult Oncology while here to discuss anemia, and treatment plan for CA--> plan for XRT as above and possible systemic chemo -can flush nephrostomy tubes on own at home as needed for sediement-already trained on how to do -no longer on prednisone despite being on home med rec-was stopped completely 1 week ago Chronic Anemia from chronic blood loss- Hgb down to 7.4 on admission--> 8.4 after 2 units PRBCs -transfuse to keep Hgb > 7-8 -gave Venofer 300mg IV x 1 as per Oncology recommendations -follow CBC -restart po FeSO4 upon discharge Chronic malignancy-induced pain (rectum, suprapubic/bladder pain)--increased fentanyl patch to 50 g changing every 72 hours, and continue on Dilaudid 0.5-1 mg IV every 2 hours when necessary. Hypertension--continue metoprolol tartrate 25 mg by mouth twice a day and potassium chloride 10 mEq by mouth twice a day. Hypercholesterolemia--continue atorvastatin 20 mg by mouth at bedtime. Depression--continue duloxetine 60 mg by mouth every morning. Diabetes mellitus--hold metformin 1000 mg by mouth twice a day, and place on Accu-Cheks before meals and at bedtime with NovoLog coverage. Proph-SCDs, no AC due to bleeding Dispo- Full Code
[2016-09-07 00:18] VITALS: BP 170/83; PULSE 77; TEMP 36.7; O2SAT 100
[2016-09-07 01:09] VITALS: BP 149/78
[2016-09-07] MEDS: HYDROmorphone INJ 1 MG/ML SYR IV PRN ×5 (01:35→13:31)
[2016-09-07 06:02] LABS: BASO % 0.6 %; BASO ABS # 0.03 K/uL (0-0.2); EOS % 4.7 %; HEMATOCRIT 26.8 % (42-52); IG% 0.2 %; LYMPH % 20.5 %; LYMPH ABS # 1.04 K/uL (1.2-3.4); MEAN CELL VOLUME 79.1 fL (80-100); MEAN CORPUSCULAR HEMOGLOBIN 25.4 pg (25-34); MEAN CORPUSCULAR HGB CONC 32.1 g/dl (32-36); MEAN PLATELET VOLUME 9.8 fL (7.4-10.4); MONO % 14.6 %; NEUT % 59.4 %; PLATELET COUNT 267 K/uL (130-400); RED BLOOD COUNT 3.39 M/uL (4.7-6.1); WHITE BLOOD COUNT 5.08 K/uL (4.8-10.8)
[2016-09-07 06:36] LABS: BUN/CREATININE RATIO 18.9 (10-20); CALCIUM 9.1 mg/dl (8.5-10.1); CREATININE 0.95 mg/dl (0.60-1.40); MAGNESIUM 1.8 mg/dl (1.8-2.4); POTASSIUM 3.6 mmol/L (3.5-5.1)
[2016-09-07 06:57] LABS: COMPLETE YES
[2016-09-07 07:59] VITALS: BP 152/80; PULSE 78; TEMP 36.4; O2SAT 96
[2016-09-07 08:00] VITALS: O2SAT 96
[2016-09-07] MEDS: INSULIN ASPART 100 UNITS/ML 3 ML PEN SC SCH ×3 (08:00→16:30)
[2016-09-07] MEDS: CHECK FENTANYL PATCH PLACEMENT SCH ×2 (08:26→16:38)
[2016-09-07] MEDS: DOCUSATE SODIUM 100 MG CAP PO SCH (08:27)
[2016-09-07] MEDS: CALCIUM 600MG + VIT D 400 IU TAB PO SCH (08:27)
[2016-09-07] MEDS: METOPROLOL TARTRATE 25 MG TAB PO SCH (08:27)
[2016-09-07] MEDS: DULOXETINE HCL 60 MG CAP PO SCH (08:27)
[2016-09-07] MEDS: FLUTICASONE PROPIONATE NA SPR 16 GM BTL NAE SCH (08:27)
[2016-09-07] MEDS: POTASSIUM CHLORIDE 10 MEQ TABCR PO SCH (08:27)
--- NOTE | 2016-09-07 10:17 | Progress Note ---
Subjective Date of Service: Sep 07, 2016. Subjective Pt evaluation today including: conversation w/ patient, physical exam, chart review, lab review pt feeling better, asking to go home. no fevers, changed to fluconazole yesterday, tolerating well. eating. No f/c. no abd pain. no pain at cath sites, no plans for change at this time, draining well. Has appt with urology in [place] in October. Denies abd pain, no back pain. urine culture with jeannie, blood cultures negative to date. all remaining ros reviewed and are negative. Problem List Medical Problems: (1) Fever Status: Acute (2) Nephrostomy tube bleed Status: Acute (3) Pyelonephritis Status: Acute (4) UTI (urinary tract infection) Status: Acute Objective Vital Signs Date Time Temp Pulse Resp B/P Pulse Ox O2 Delivery O2 Flow Rate FiO2 09/07/16 07:59 36.4 78 22 152/80 96 Room Air 09/07/16 01:09 149/78 09/07/16 00:18 36.7 77 16 170/83 100 Room Air 09/06/16 23:30 Room Air 09/06/16 16:00 Room Air 09/06/16 15:48 36.9 63 17 131/77 98 Room Air 09/06/16 13:04 36.6 65 16 143/79 96 Room Air Physical Exam General Appearance: WD/WN, no apparent distress Eyes: EOMI Neck: supple Respiratory/Chest: lungs clear, normal breath sounds, no respiratory distress Cardiovascular: regular rate, rhythm, no edema Abdomen: non tender, soft Extremities: non-tender, normal inspection, no pedal edema Neurologic/Psychiatric: alert, oriented x 3 Skin: normal color Comments: pcn dressing c/d/i b/l, no cva tenderness b/l Laboratory Results Item Value Date Time Urine Culture - Preliminary Resulted 09/04/16 0000 Urine,Catheterized Jeannie Albicans Blood Culture - Preliminary Resulted 09/04/16 1555 Blood NO GROWTH TO DATE. Blood Culture - Preliminary Resulted 09/04/16 1620 Blood NO GROWTH TO DATE. Urine Culture - Preliminary Resulted 09/05/16 1040 Urine , Kidney Right Jeannie Albicans Last 24 Hours Test 09/06/16 11:36 09/06/16 16:35 09/06/16 19:54 09/07/16 05:33 Bedside Glucose 71 mg/dl 91 mg/dl 120 mg/dl White Blood Count 5.08 K/uL Red Blood Count 3.39 M/uL Hemoglobin 8.6 g/dL Hematocrit 26.8 % Mean Corpuscular Volume 79.1 fL Mean Corpuscular Hemoglobin 25.4 pg Mean Corpuscular Hemoglobin Concent 32.1 g/dl Platelet Count 267 K/uL Mean Platelet Volume 9.8 fL Neutrophils (%) (Auto) 59.4 % Lymphocytes (%) (Auto) 20.5 % Monocytes (%) (Auto) 14.6 % Eosinophils (%) (Auto) 4.7 % Basophils (%) (Auto) 0.6 % Neutrophils # (Auto) 3.02 K/uL Lymphocytes # (Auto) 1.04 K/uL Monocytes # (Auto) 0.74 K/uL Eosinophils # (Auto) 0.24 K/uL Basophils # (Auto) 0.03 K/uL RDW Standard Deviation 49.4 fL RDW Coefficient of Variation 16.9 % Immature Granulocyte % (Auto) 0.2 % Immature Granulocyte # (Auto) 0.01 K/uL Red Blood Cell Morphology Unremarkable Sodium Level 144 mmol/L Potassium Level 3.6 mmol/L Chloride Level 109 mmol/L Carbon Dioxide Level 26 mmol/L Anion Gap 9.0 mmol/L Blood Urea Nitrogen 18 mg/dl Creatinine 0.95 mg/dl Est Creatinine Clear Calc Drug Dose 105.7 ml/min Estimated GFR () 104.8 Estimated GFR (Non- 90.4 BUN/Creatinine Ratio 18.9 Random Glucose 72 mg/dl Calcium Level 9.1 mg/dl Magnesium Level 1.8 mg/dl Test 09/07/16 07:37 Bedside Glucose 77 mg/dl Assessment and Plan (1) UTI (urinary tract infection) Status: Acute Assessment & Plan: can transition to po fluconazole 200mg daily upon d/c, would give 14 days. instructed to continue f/u with urology post d/c. ok for d/ c from ID standpoint. (2) Nephrostomy tubes in place Status: Chronic
[2016-09-07] MEDS ORDERED: FLUC200T4 PO (15:06)
[2016-09-07] MEDS ORDERED: CLC100 PO (15:06)
[2016-09-07] MEDS ORDERED: DRGTP50 TD (15:06)
--- NOTE | 2016-09-07 15:10 | Discharge Instructions ---
Discharge Instructions Admission Reason for Admission: Pyelonephritis Discharge Discharge Diagnosis / Problem: Pyelonephritis, Anemia Discharge Goals Goal(s): Improve disease control, Therapeutic intervention Activity Recommendations Activity Limitations: resume your previous activity . Instructions / Follow-Up Instructions / Follow-Up You were admitted with a kidney infection and were growing Jeannie albicans from your urine. You were placed on Diflucan for a 14 day course and should finish this out at home. You can restart your usual amoxicillin and Cipro for prevention of infections as well. You were also given a blood transfusion and IV iron for your anemia from chronic bleeding. Please follow up with your Oncologist and there is discussion of starting Radiation therapy as well. This can be arranged for you by your Medical Oncologist. Please also follow up with your PCP within 1 week as well. Current Hospital Diet Patient's current hospital diet: Diabetes Type 2 Diet, AHA Diet (Heart Healthy) Discharge Diet Recommended Diet: AHA Diet (Heart Healthy), Diabetes Type 2 Diet Procedures Procedures Performed: CT Abdomen/Pelvis Chest xray Pending Studies Studies pending at discharge: yes List of pending studies: Repeat Urine culture Final Blood cultures Laboratory Results Hemoglobin A1c Test 06/20/16 13:52 Range/Units Estimated Average Glucose 108 mg/dl Hemoglobin A1c 5.4 4.5-5.6 % Medical Emergencies . Who to Call and When: Medical Emergencies: If at any time you feel your situation is an emergency, please call 911 immediately. . Non-Emergent Contact Non-Emergency issues call your: Primary Care Provider, Oncologist Call Non-Emergent contact if: you have a fever, your pain is not controlled, your pain is worsening, your pain is unusual for you, your pain is concerning you, you have any medication questions . . "Provider Documentation" section prepared by Lindy Telles. VTE Core Measure Inpt VTE Proph given/why not?: SCD's
[2016-09-07 15:13] VITALS: BP 152/80; PULSE 78; TEMP 36.4; O2SAT 96
[2016-09-07 15:38] VITALS: BP 156/78; PULSE 65; TEMP 36.7; O2SAT 100
--- NOTE | 2016-09-07 16:01 | Hematology/Oncology Prog Note ---
Hematology/Onc Progress Note Date of Service Sep 07, 2016. Diagnoses 1. Right sided pyelonephritis secondary to C. albicans 2. Acute on chronic anemia, secondary to blood loss, s/p 2 PRBCs and Venofer 300 mg x 1 3. Rectal/bladder hemorrhage, chronic, from prostate tumor invasion into structures Medications Medications Administered Medications (Trade) Dose Ordered Sig/Shu Route Start Time Stop Time Status Last Admin Dose Admin Sodium Chloride (Nss 1000ml) 1,000 ml @ 999 mls/hr Q1H1M ONCE IV 09/04/16 15:18 09/04/16 16:18 DC 09/04/16 16:11 999 MLS/HR Piperacillin Sod/ Tazobactam Sod 4.5 gm 4.5 gm ONE STAT IV 09/04/16 15:18 09/04/16 15:24 DC 09/04/16 16:13 4.5 GM Daptomycin/Sodium Chloride (Cubicin IV/Nss 50ml) 61 ml @ 100 mls/hr NOW ONCE IV 09/04/16 15:45 09/04/16 16:21 DC 09/04/16 16:12 100 MLS/HR Acetaminophen (Tylenol Tab) 1,000 mg NOW STAT PO 09/04/16 15:18 09/04/16 15:24 DC 09/04/16 16:12 1,000 MG Hydromorphone HCl (Dilaudid Inj) 1 mg Q30M PRN IV 09/04/16 15:30 09/04/16 21:05 DC 09/04/16 16:12 1 MG Ondansetron HCl (Zofran Inj) 4 mg NOW STAT IV 09/04/16 15:18 09/04/16 15:24 DC 09/04/16 16:11 4 MG Docusate Sodium (coLACE CAP) 100 mg BID PO 09/04/16 20:00 10/04/16 20:59 09/07/16 08:27 100 MG Insulin Aspart (novoLOG ASPART) SLIDING SCALE If C... ACHS SC 09/04/16 21:00 09/06/16 10:16 5 UNITS Atorvastatin Calcium (Lipitor Tab) 20 mg HS PO 09/04/16 21:00 10/04/16 20:59 09/06/16 20:40 20 MG Calcium/Vitamin D (Caltrate Plus Tab) 1 tab BID PO 09/04/16 20:00 10/04/16 20:59 09/07/16 08:27 1 TAB Cyclobenzaprine HCl (Flexeril Tab) 10 mg TID PRN PO 09/04/16 17:30 10/04/16 17:29 09/06/16 23:27 10 MG Duloxetine HCl (Cymbalta Cap) 60 mg QAM PO 09/05/16 08:00 10/05/16 08:59 09/07/16 08:27 60 MG Fentanyl (Duragesic Patch) 25 mcg Q72H TD 09/04/16 21:00 09/06/16 07:39 DC 09/04/16 21:40 25 MCG Fluticasone Propionate (Flonase Nasal [place]) 2 sprays BID CECILIA 09/04/16 20:00 10/04/16 20:59 09/07/16 08:27 2 SPRAYS Metoprolol Tartrate (Lopressor Tab) 25 mg BID PO 09/04/16 20:00 10/04/16 20:59 09/07/16 08:27 25 MG Potassium Chloride 10 meq 10 meq BID PO 09/04/16 20:00 10/04/16 20:59 09/07/16 08:27 10 MEQ Daptomycin 550 mg/ Sodium Chloride 61 ml @ 100 mls/hr DAILY@1600 IV 09/05/16 16:00 09/06/16 15:19 DC 09/05/16 18:58 100 MLS/HR Piperacillin Sod/ Tazobactam Sod/ Dextrose (Zosyn Iv/D5 100ml) 115 ml @ 28.75 mls/ hr Q8H IV 09/04/16 22:00 09/06/16 15:20 DC 09/06/16 14:06 28.75 MLS/HR Hydromorphone HCl (Dilaudid Inj) 1 mg Q2H PRN IV 09/04/16 17:30 09/18/16 17:29 09/07/16 13:31 1 MG Heparin Sodium (Porcine) (Heparin 100 Unit/ml 5ml Flush) 5 ml STK-MED ONCE .ROUTE 09/04/16 19:38 09/04/16 19:40 DC 09/04/16 19:41 5 ML Miscellaneous (Fentanyl Patch Remove & Waste) 1 ea Q3D N/A 09/04/16 20:59 09/06/16 07:46 DC 09/04/16 21:35 1 EA Miscellaneous Information (Check Fentanyl Patch Placement) 1 ea QS N/A 09/05/16 00:00 10/05/16 00:00 09/07/16 08:26 1 EA Heparin Sodium (Porcine) (Heparin 100 Unit/ml 5ml Flush) 5 ml STK-MED ONCE .ROUTE 09/05/16 02:13 09/05/16 02:15 DC 09/05/16 02:13 5 ML Heparin Sodium (Porcine) (Heparin 100 Unit/ml 5ml Flush) 5 ml STK-MED ONCE .ROUTE 09/05/16 04:09 09/05/16 04:11 DC 09/05/16 04:15 5 ML Heparin Sodium (Porcine) (Heparin 100 Unit/ml 5ml Flush) 5 ml PRN PRN FLUSH 09/05/16 04:45 10/05/16 04:44 09/07/16 13:31 5 ML Acetaminophen (Tylenol Tab) 650 mg 1000 PO 09/05/16 10:00 09/05/16 16:00 DC 09/05/16 13:00 650 MG Diphenhydramine HCl 25 mg 25 mg 1000 PO 09/05/16 10:00 09/05/16 16:00 DC 09/05/16 13:00 25 MG Caspofungin 50 mg/ Sodium Chloride 260 ml @ 250 mls/hr Q24H IV 09/06/16 12:00 09/06/16 15:20 DC 09/06/16 12:16 250 MLS/HR Caspofungin/ Sodium Chloride (Cancidas Inj/ Nss 250ml) 260 ml @ 260 mls/hr DAILY ONCE IV 09/05/16 12:00 09/05/16 12:59 DC 09/05/16 12:00 260 MLS/HR Fentanyl 50 mcg 50 mcg Q72H TD 09/06/16 08:00 09/20/16 07:59 09/06/16 08:09 50 MCG Iron Sucrose/ Sodium Chloride (Venofer Inj/Nss 250ml) 265 ml @ 177 mls/hr TODAY@0800 IV 09/06/16 08:00 09/06/16 09:30 DC 09/06/16 10:12 177 MLS/HR Miscellaneous 1 ea 1 ea Q3D@0759 N/A 09/06/16 07:59 10/06/16 07:58 09/06/16 08:05 1 EA Fluconazole/ Sodium Chloride/ Prmx (Diflucan IV/ Premixed Nss) 100 ml @ 100 mls/hr Q24H IV 09/06/16 16:00 09/16/16 15:59 09/06/16 16:17 100 MLS/HR Subjective Patient reports feeling much better today and has indicated he would like to be discharged. He has not had fever since admission. His nephrostomy tubes have been appearing mostly clear, at times cloudy. His blood loss from the bladder / rectum remains stable. He has not had cough or dyspnea. He reports a good appetite and has not had nausea. He states his pelvic pain is under control with fentanyl 50 microgram every 72 hours and Dilaudid p.r.n.. He has indicated that he would like to have Dilaudid for p.r.n. at home, which is a reasonable request given his locally advanced disease. Review of Systems: Constitutional: No chills, No fever Respiratory: No cough, No shortness of breath Cardiovascular: No chest pain, No edema Abdomen: + GI bleeding, No constipation, No nausea Musculoskeletal: No calf pain Male : + see HPI Heme: + see HPI Vital Signs Vital Signs Past 12 Hours Date Time Temp Pulse Resp B/P Pulse Ox O2 Delivery O2 Flow Rate FiO2 09/07/16 15:38 36.7 65 18 156/78 100 Room Air 09/07/16 15:13 36.4 78 22 96 Room Air 09/07/16 08:00 96 Room Air 09/07/16 07:59 36.4 78 22 152/80 96 Room Air Physical Exam Constitutional: Level of Distress: NAD, chronically ill ENMT: hearing grossly normal Lungs: Respiratory Effort: no dyspnea Auscuitation: breath sounds normal, no wheezing, no rhonchi Cardiovascular: Heart Auscultation: RRR Abdomen: Bowel Sounds: normal Inspection & Palpation: soft, non-distended, no tenderness, guarding & rebound, pertinent finding (ostomy of LLQ, fistula RLQ) Liver: non-tender Extremities: no edema (or calf tenderness) Laboratory 09/05/16 05:20 Red Blood Count 3.01, Mean Corpuscular Volume 77.7, Mean Corpuscular Hemoglobin 24.6, Mean Corpuscular Hemoglobin Concent 31.6, Mean Platelet Volume 9.5, Neutrophils (%) (Auto) 77.0, Lymphocytes (%) (Auto) 8.9, Monocytes (%) (Auto) 12.0, Eosinophils (%) (Auto) 1.7, Basophils (%) (Auto) 0.2, Neutrophils # (Auto ) 7.76, Lymphocytes # (Auto) 0.90, Monocytes # (Auto) 1.21, Eosinophils # (Auto ) 0.17, Basophils # (Auto) 0.02 09/06/16 05:08 Red Blood Count 3.33, Mean Corpuscular Volume 78.7, Mean Corpuscular Hemoglobin 25.2, Mean Corpuscular Hemoglobin Concent 32.1, Mean Platelet Volume 9.3, Neutrophils (%) (Auto) 67.6, Lymphocytes (%) (Auto) 15.4, Monocytes (%) (Auto) 13.4, Eosinophils (%) (Auto) 3.0, Basophils (%) (Auto) 0.3, Neutrophils # (Auto ) 4.24, Lymphocytes # (Auto) 0.97, Monocytes # (Auto) 0.84, Eosinophils # (Auto ) 0.19, Basophils # (Auto) 0.02 09/07/16 05:33 Red Blood Count 3.39, Mean Corpuscular Volume 79.1, Mean Corpuscular Hemoglobin 25.4, Mean Corpuscular Hemoglobin Concent 32.1, Mean Platelet Volume 9.8, Neutrophils (%) (Auto) 59.4, Lymphocytes (%) (Auto) 20.5, Monocytes (%) (Auto) 14.6, Eosinophils (%) (Auto) 4.7, Basophils (%) (Auto) 0.6, Neutrophils # (Auto ) 3.02, Lymphocytes # (Auto) 1.04, Monocytes # (Auto) 0.74, Eosinophils # (Auto ) 0.24, Basophils # (Auto) 0.03 09/05/16 05:20 09/06/16 05:08 09/07/16 05:33 Test 09/04/16 16:05 09/04/16 17:30 09/04/16 20:16 09/05/16 05:20 Bedside Lactic Acid Venous 1.91 mmol/L (0.90-1.70) Lactic Acid Level 1.1 mmol/L (0.4-2.0) Bedside Glucose 97 mg/dl (70-99) White Blood Count 10.08 K/uL (4.8-10.8) Red Blood Count 3.01 M/uL (4.7-6.1) Hemoglobin 7.4 g/dL (14.0-18.0) Hematocrit 23.4 % (42-52) Mean Corpuscular Volume 77.7 fL (80-100) Mean Corpuscular Hemoglobin 24.6 pg (25-34) Mean Corpuscular Hemoglobin Concent 31.6 g/dl (32-36) Platelet Count 295 K/uL (130-400) Mean Platelet Volume 9.5 fL (7.4-10.4) Neutrophils (%) (Auto) 77.0 % Lymphocytes (%) (Auto) 8.9 % Monocytes (%) (Auto) 12.0 % Eosinophils (%) (Auto) 1.7 % Basophils (%) (Auto) 0.2 % Neutrophils # (Auto) 7.76 K/uL (1.4-6.5) Lymphocytes # (Auto) 0.90 K/uL (1.2-3.4) Monocytes # (Auto) 1.21 K/uL (0.11-0.59) Eosinophils # (Auto) 0.17 K/uL (0-0.5) Basophils # (Auto) 0.02 K/uL (0-0.2) RDW Standard Deviation 51.5 fL (36.4-46.3) RDW Coefficient of Variation 17.8 % (11.5-14.5) Immature Granulocyte % (Auto) 0.2 % Immature Granulocyte # (Auto) 0.02 K/uL (0.00-0.02) Anisocytosis PRESENT Spherocytes 1+ Anion Gap 10.0 mmol/L (3-11) Est Creatinine Clear Calc Drug Dose 83.7 ml/min Estimated GFR () 79.0 Estimated GFR (Non- 68.1 BUN/Creatinine Ratio 20.2 (10-20) Calcium Level 9.0 mg/dl (8.5-10.1) Magnesium Level 1.9 mg/dl (1.8-2.4) Test 09/05/16 07:58 09/05/16 11:42 09/05/16 16:18 09/05/16 20:12 Bedside Glucose 101 mg/dl (70-99) 93 mg/dl (70-99) 90 mg/dl (70-99) 112 mg/dl (70-99) Test 09/06/16 05:08 09/06/16 08:02 09/06/16 11:36 09/06/16 16:35 White Blood Count 6.28 K/uL (4.8-10.8) Red Blood Count 3.33 M/uL (4.7-6.1) Hemoglobin 8.4 g/dL (14.0-18.0) Hematocrit 26.2 % (42-52) Mean Corpuscular Volume 78.7 fL (80-100) Mean Corpuscular Hemoglobin 25.2 pg (25-34) Mean Corpuscular Hemoglobin Concent 32.1 g/dl (32-36) Platelet Count 252 K/uL (130-400) Mean Platelet Volume 9.3 fL (7.4-10.4) Neutrophils (%) (Auto) 67.6 % Lymphocytes (%) (Auto) 15.4 % Monocytes (%) (Auto) 13.4 % Eosinophils (%) (Auto) 3.0 % Basophils (%) (Auto) 0.3 % Neutrophils # (Auto) 4.24 K/uL (1.4-6.5) Lymphocytes # (Auto) 0.97 K/uL (1.2-3.4) Monocytes # (Auto) 0.84 K/uL (0.11-0.59) Eosinophils # (Auto) 0.19 K/uL (0-0.5) Basophils # (Auto) 0.02 K/uL (0-0.2) RDW Standard Deviation 48.9 fL (36.4-46.3) RDW Coefficient of Variation 16.8 % (11.5-14.5) Immature Granulocyte % (Auto) 0.3 % Immature Granulocyte # (Auto) 0.02 K/uL (0.00-0.02) Red Blood Cell Morphology Unremarkable Anion Gap 10.0 mmol/L (3-11) Est Creatinine Clear Calc Drug Dose 91.3 ml/min Estimated GFR () 87.7 Estimated GFR (Non- 75.7 BUN/Creatinine Ratio 21.0 (10-20) Calcium Level 9.3 mg/dl (8.5-10.1) Magnesium Level 1.8 mg/dl (1.8-2.4) Bedside Glucose 92 mg/dl (70-99) 71 mg/dl (70-99) 91 mg/dl (70-99) Test 09/06/16 19:54 09/07/16 05:33 09/07/16 07:37 09/07/16 11:40 Bedside Glucose 120 mg/dl (70-99) 77 mg/dl (70-99) 97 mg/dl (70-99) White Blood Count 5.08 K/uL (4.8-10.8) Red Blood Count 3.39 M/uL (4.7-6.1) Hemoglobin 8.6 g/dL (14.0-18.0) Hematocrit 26.8 % (42-52) Mean Corpuscular Volume 79.1 fL (80-100) Mean Corpuscular Hemoglobin 25.4 pg (25-34) Mean Corpuscular Hemoglobin Concent 32.1 g/dl (32-36) Platelet Count 267 K/uL (130-400) Mean Platelet Volume 9.8 fL (7.4-10.4) Neutrophils (%) (Auto) 59.4 % Lymphocytes (%) (Auto) 20.5 % Monocytes (%) (Auto) 14.6 % Eosinophils (%) (Auto) 4.7 % Basophils (%) (Auto) 0.6 % Neutrophils # (Auto) 3.02 K/uL (1.4-6.5) Lymphocytes # (Auto) 1.04 K/uL (1.2-3.4) Monocytes # (Auto) 0.74 K/uL (0.11-0.59) Eosinophils # (Auto) 0.24 K/uL (0-0.5) Basophils # (Auto) 0.03 K/uL (0-0.2) RDW Standard Deviation 49.4 fL (36.4-46.3) RDW Coefficient of Variation 16.9 % (11.5-14.5) Immature Granulocyte % (Auto) 0.2 % Immature Granulocyte # (Auto) 0.01 K/uL (0.00-0.02) Red Blood Cell Morphology Unremarkable Anion Gap 9.0 mmol/L (3-11) Est Creatinine Clear Calc Drug Dose 105.7 ml/min Estimated GFR () 104.8 Estimated GFR (Non- 90.4 BUN/Creatinine Ratio 18.9 (10-20) Calcium Level 9.1 mg/dl (8.5-10.1) Magnesium Level 1.8 mg/dl (1.8-2.4) Assessment & Plan (1) Prostate cancer metastatic to intrapelvic lymph node Assessment & Plan: Patient has extensive history of prostate cancer treatment as detailed above. More recently, completed 3 cycles of palliative docetaxel, last cycle in 05/2016. He had poor tolerance of chemo therapy, with hospitalizations for dehydration, C diff; after chemotherapy, admitted urgently for bowel obstruction in 06/2016, colostomy placed with complications- transferred to [facility] for sepsis related to nephrostomy tube infection. Recommended reconsidering palliative RT to rectum/bladder to control tumor bleeding (tumor noted to be modestly increased on this hospitalization CT scan abdomen/pelvis), in an effort to decrease PRBC transfusion and need for Venofer. Will plan for outpatient appt with RO, patient established with [facility] group. If patient completes palliative RT and PS acceptable, could consider for further palliative systemic treatment- as patient has small increase in iliac chain and pelvic sidewall nodes, new retroperitoneal adenopathy. No liver or bone metastases on CT scan. Patient has extensive history of prostate cancer treatment as detailed above. More recently, completed 3 cycles of palliative docetaxel, last cycle in 2015. He had poor tolerance of chemo therapy, as detailed above, with hospitalizations for dehydration, C diff; after chemotherapy, admitted urgently for bowel obstruction in 06/2016, colostomy placed with complications as detailed above- transferred to [facility] for sepsis related to nephrostomy tube infection. Discussed further treatment with patient and Dr. Saeed. Recommended reconsidering palliative RT to rectum/bladder to control tumor bleeding (tumor noted to be modestly increased on this hospitalization CT scan abdomen/pelvis), in an effort to decrease PRBC transfusion and need for Venofer. Will plan for outpatient appt with RO, patient established with [facility] group. If patient completes palliative RT and PS acceptable, could consider for further palliative systemic treatment- as patient has small increase in iliac chain and pelvic sidewall nodes, new retroperitoneal adenopathy. No liver or bone metastases on CT scan. (2) Secondary malignant neoplasm of bladder Assessment & Plan: See discussion in # 1. 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 (4) Anemia due to multiple mechanisms Assessment & Plan: Patient's primary mechanism is chronic blood loss from bladder and rectum from invasive prostate tumor- see discussion in # 1. Noted patient received 2 units PRBC on admission. Also received 1x dose in hospital of Venofer 300 mg IV. He also likely has element of anemia of neoplastic disease and acute illness. (5) Pain due to neoplasm Assessment & Plan: Fentanyl increased to 50 mcg q 72 hr during this hospitalization. He is currently on PRN Dilaudid 1 mg q2hr PRN pain, has taken few doses daily of PRN with adequate control of pain. He is requesting Dilaudid for outpatient use for PRN, which I think is reasonable request in his case. (6) Pyelonephritis Status: Acute Assessment & Plan: Per hospitalist/ID management- Patient was started on empiric IV zosyn and daptomycin; ID has recommended caspofungin after C. albicans cultured out. He has since been changed to fluconazole and will be d/c on oral Rx of fluconazole.
[2016-09-07] MEDS: FLUCONAZOLE / NSS 200 MG in PREMIXED NSS 100 ML IV SCH (16:38)
--- NOTE | 2016-09-07 21:53 | Discharge Summary ---
Discharge Summary Admission Date: Sep 04, 2016 at 17:22 Discharge Date: Sep 07, 2016 Discharge Disposition: Home Principal Diagnosis: Acute pyelonephritis Problems/Secondary Diagnoses: Metastatic prostate cancer Bilateral nephrostomy tubes Rectal bleeding Urethral bleeding Chronic Anemia from blood loss Chronic malignancy-induced pain (rectum, suprapubic/bladder pain) Hypertension Hypercholesterolemia Depression Diabetes mellitus Procedures: CHEST ONE VIEW PORTABLE HISTORY: Sepsis COMPARISON: Chest 06/20/2016. FINDINGS: Right jugular Port-A-Cath terminates at the brachiocephalic/SVC junction. This remains unchanged. The lungs are clear. The heart is normal in size. No pleural effusions. No pneumothorax. A small portion of a catheter is identified within the left upper quadrant. IMPRESSION: No acute process. CT SCAN OF THE ABDOMEN AND PELVIS WITH IV CONTRAST CLINICAL HISTORY: Bladder and prostate cancer. Nephrostomy tube infection. COMPARISON STUDY: Abdominal CT scans, most recently dated 06/20/2016. TECHNIQUE: Following the IV administration of 94 of Optiray 320, CT scan of the abdomen and pelvis was performed from the lung bases to the proximal femora. Images are reviewed in the axial, sagittal, and coronal planes. IV contrast was administered without complication. Automated dose control exposure was utilized. CT DOSE: 587.75 mGy.cm FINDINGS: Lower chest: The heart is mild enlarged and without pericardial effusion. There are coronary artery calcifications. Gynecomastia is noted. Examination as changes suspected. There is no airspace consolidation or pleural effusion identified at the lung bases. Liver: The contrast-enhanced liver is normal in size, contour, and attenuation. There is no intrahepatic or ductal dilatation. The hepatic veins and portal veins are patent. Gallbladder: Mildly distended but otherwise unremarkable. Spleen: The spleen is mildly enlarged, measuring 14.0 cm in length. Pancreas: Moderately atrophic and grossly unremarkable. Adrenal glands: Unremarkable. Kidneys: The contrast enhanced kidneys demonstrate mild cortical atrophy and are without hydronephrosis. Bilateral percutaneous nephrostomy tubes are in place. There is mild fullness of the left renal collecting system, and there are small foci of gas within the left renal pelvis. There is left-sided perinephric stranding as well as stranding around the left renal hilum. This has increased from 06/20/2016 examination. Renal perfusion is slightly heterogeneous. Inflammatory stranding is also noted along the course of the left ureter. Abdominal vasculature: The abdominal aorta is normal in course and caliber noting scattered foci of atherosclerotic calcification. Bowel: There has been interval diverticula left lower quadrant colostomy. A mucous fistula is seen in the right pelvis. No bowel obstruction is identified. Rectal wall thickening is nonspecific. The appendix is similar in appearance to the 06/20/2016 and remains slightly distended. A calcified appendicolith is noted. There is no convincing evidence of acute appendicitis. Peritoneum: There is trace fluid in the pelvis. No intraperitoneal free air is seen. There is a fat containing periumbilical hernia. Lymphadenopathy: There is progressive retroperitoneal, iliac chain, and pelvic sidewall lymphadenopathy. Enlarged retroperitoneal lymph nodes are new from previous. A left periaortic node on image #207 measures 1.8 x 1.3 cm. A right iliac chain node on image #305 measures 2.0 x 1.4 cm (previously measuring 1.9 x 1.2 cm). A left pelvic sidewall lymph node on image #381measures 2.8 x 1.8 cm (previously measuring 2.3 x 1.6 cm). Pelvic viscera: The prostate gland has been largely replaced by a large heterogeneous mass lesion which invades the base of the bladder and seminal vesicles, and also encases the rectum. This has likely modestly increased in size from 06/20/2016. There is diffuse asymmetric bladder wall thickening. There are bilateral fat-containing inguinal hernias. Skeletal structures: The skeletal structures are osteopenic. There is mild lumbosacral spondylosis. No lytic or blastic lesions are seen. IMPRESSION: 1. Overall progression of disease as compared to the 06/20/2016 examination, with increasing retroperitoneal, iliac chain, and pelvic sidewall lymphadenopathy and slight increase in size of a large heterogeneous pelvic mass. See above. 2. There are bilateral percutaneous nephrostomy tubes. No hydronephrosis is seen. 3. There our foci of gas identified within the left renal pelvis. There is increasing left-sided perinephric and periureteric stranding. The appearance suggests infection. Correlation with clinical findings and urinalysis will be required. 4. There are interval changes from thyroid and colostomy in the left lower quadrant with right lower quadrant mucous fistula formation. No bowel obstruction is seen. 5. Mild splenomegaly. 6. Cardiomegaly and emphysema. 7. Additional findings as above. Consultations: Urology Oncology Infectious Disease Medication Reconciliation New Medications: Fluconazole (Diflucan) 200 Mg Tab 1 TAB PO DAILY for 13 Days, #13 TAB Docusate Sodium (Docusate Sodium) 100 Mg Cap 100 MG PO BID for 30 Days, CAP Fentanyl (Fentanyl) 50 Mcg Tdsy 50 MCG TD Q72H, #1 BOX 0 Refills Continued Medications: Amoxicillin (Amoxil) 500 Mg Cap 500 MG PO QPM, #90 Ascorbic Acid (Vitamin C) 500 Mg Tab 500 MG PO BID Atorvastatin (Lipitor) 20 Mg Tab 20 MG PO HS, TAB Calcium/Vitamin D (Os-Raza 500 Plus D) Tab 1 TAB PO BID, TAB Ciprofloxacin (Cipro) 250 Mg Tab 250 MG PO QPM, #90 Cyclobenzaprine HCl (Cyclobenzaprine HCl) 10 Mg Tab 10 MG PO DAILY PRN for Bladder pain, #30 and can take up to three times a day if needed for bladder pain Duloxetine Hcl (Cymbalta) 60 Mg Cap 60 MG PO QAM, CAP Fluticasone Propionate (Nasal) (Flonase Allergy Relief) 50 Mcg/Act Spr 2 SPRAYS CECILIA BID Metformin Hcl (Glucophage) 1,000 Mg Tab 1000 MG PO BID, TAB Metoprolol Tartrate (Lopressor) 25 Mg Tab 25 MG PO BID, #60 TAB Oxycodone HCl (Oxycodone HCl) 5 Mg Tab 5 MG PO PRN UD, #90 Potassium Chloride Microencaps (Potassium Chloride Er) 10 Meq Tab 10 MEQ PO BID, #60 [Lupron] () 1 DOSE INJ [id number] Discontinued Medications: Fentanyl (Fentanyl) 25 Mcg Tdsy 25 MCG TOP CQ72HR, #10 Prednisone (Prednisone) 5 Mg Tab 5 MG PO BID, TAB Discharge Exam Physical Exam General Appearance: no apparent distress, + thin Eyes: normal inspection, + pertinent finding (pale conjunctiva) ENT: hearing grossly normal Respiratory/Chest: lungs clear, normal breath sounds, no respiratory distress, no accessory muscle use Cardiovascular: regular rate, rhythm, no edema, no murmur Abdomen: normal bowel sounds, soft, + tenderness (suprapubic reigon without guarding), + pertinent finding (bilat nephrostomy tubes draining clear yellow urine without sediment in tubes) Extremities: normal inspection, no pedal edema, no calf tenderness Neurologic/Psychiatric: alert, normal mood/affect, oriented x 3 Skin: warm/dry, no rash, + pallor Review of Systems: Constitutional: No fever Eyes: No problem reported ENT: No problem reported Respiratory: No shortness of breath Cardiovascular: No chest pain Abdomen: + GI bleeding, + pain Genitourinary - Male: + hematuria Hospital Course The patient is a 56-year-old male with a known history of metastatic prostate cancer with bilateral nephrostomy tubes, who presents emergency department with a persistent fever to 101 that began several hours prior to arrival. He also noted that his right nephrostomy tube had become cloudy yesterday and he has a known history of nephrostomy tube infections. He reports that his cancer pain in the rectum and bladder region worsened en route to the hospital, and that his fentanyl patches are not adequately controlling his pain at this time. He is on Cipro and amoxicillin for prophylaxis daily Metastatic prostate cancer (mets to bladder, rectum) with bilateral nephrostomy tubes, with right nephrostomy tube infection-- - CT of the abdomen and pelvis showed: 1. Overall progression of disease as compared to the 06/20/2016 examination, with increasing retroperitoneal, iliac chain, and pelvic sidewall lymphadenopathy and slight increase in size of a large heterogeneous pelvic mass. See above. 2. There are bilateral percutaneous nephrostomy tubes. No hydronephrosis is seen. 3. There our foci of gas identified within the left renal pelvis. There is increasing left-sided perinephric and periureteric stranding. The appearance suggests infection. Correlation with clinical findings and urinalysis will be required. 4. There are interval changes from thyroid and colostomy in the left lower quadrant with right lower quadrant mucous fistula formation. No bowel obstruction is seen. 5. Mild splenomegaly. 6. Cardiomegaly and emphysema. Urine cultures growing Jeannie albicans x 2 -d/c daptomycin IV, Zosyn IV, and Caspofungin -start IV Diflucan and can switch to po on discharge for total 14 days -consult his urologist Dr. Lynne appreciated--> plan for XRT to tumors to help with pain and bleeding -consult to CABRERA appreciated -consult Oncology while here to discuss anemia, and treatment plan for CA--> plan for XRT as above and possible systemic chemo -can flush nephrostomy tubes on own at home as needed for sediment-already trained on how to do -no longer on prednisone despite being on home med rec-was stopped completely 1 week ago -f/u with Oncology within 1 week Chronic Anemia from chronic blood loss- Hgb down to 7.4 on admission--> 8.4 after 2 units PRBCs -transfuse to keep Hgb > 7-8 -gave Venofer 300mg IV x 1 as per Oncology recommendations -follow CBC as outpatient -restart po FeSO4 upon discharge Chronic malignancy-induced pain (rectum, suprapubic/bladder pain)--increased fentanyl patch to 50 g changing every 72 hours, received Dilaudid 0.5-1 mg IV every 2 hours while here and continue oxycodone IR prn at home Hypertension--continue metoprolol tartrate 25 mg by mouth twice a day and potassium chloride 10 mEq by mouth twice a day. Hypercholesterolemia--continue atorvastatin 20 mg by mouth at bedtime. Depression--continue duloxetine 60 mg by mouth every morning. Diabetes mellitus--restart metformin 1000 mg by mouth twice a day on discharge Proph-SCDs, no AC due to bleeding Dispo- Full Code Total Time Spent: Greater than 30 minutes This includes examination of the patient, discharge planning, medication reconciliation, and communication with other providers. Discharge Instructions Please refer to the electronic Patient Visit Report (Discharge Instructions) for additional information. Follow-Up With PCP in 1 week With Oncology within 1 week With [place] in [facility] [place] in October as scheduled Additional Copies To Kal Madden DO; Obinna Saeed M.D.
[2016-10-11] MEDS ORDERED: HYDR4TAB78 PO (10:33)
[2016-10-11] MEDS ORDERED: FENT75DI2 TOP (10:33)
[2016-10-23] MEDS ORDERED: FNTTP50 TD (08:27)
[2016-10-26] MEDS ORDERED: IBUP-103 PO (10:51)
[2016-11-08] MEDS ORDERED: GENTAMYCIN IV (10:56)
[2016-11-19] MEDS ORDERED: ONDA8TAB6 PO (08:21)
[2016-11-28] MEDS ORDERED: CIPR1TAB11 PO (16:55)
[2016-11-28] MEDS ORDERED: AMOX250C3 PO (16:55)
[2016-11-28] MEDS ORDERED: FLUC200T PO (16:56)
[2017-01-17] MEDS ORDERED: BUPR75TA20 PO (14:36)
[2017-01-17] MEDS ORDERED: FLUC200T PO (14:36)
[2017-01-30] MEDS ORDERED: FLX10 PO (07:08)
[2017-01-30] MEDS ORDERED: HYDR4TAB2 PO (08:27)
[2017-01-30] MEDS ORDERED: METF-384 PO (09:13)
[2017-01-30] MEDS ORDERED: ASCO-63 PO (09:18)
[2017-01-30] MEDS ORDERED: CALC500C70 PO (09:18)
[2017-01-30] MEDS ORDERED: ATOR-22 PO (12:11)
[2017-01-30] MEDS ORDERED: MELO7.5T5 PO (14:36)
[2017-01-30] MEDS ORDERED: FLUT0.15 NAE (15:31)
[2017-01-30] MEDS ORDERED: LUPRON IM (15:47)
[2017-02-03] MEDS ORDERED: DRGTP50 TD (15:17)
== END 2016-09-07 17:20 | disposition home or self-care (01) | DRG 699 ==
LOC: ENRESERVTM → ENRESERVDT → C.EDB 14:42 → C.MS4W 17:22
PROVIDERS: ADMIT Hospitalist; ATTEND Family Medicine
DX: N99.521 Infection of incontinent external stoma of urinary tract (principal); N10 Acute pyelonephritis; C79.11 Secondary malignant neoplasm of bladder; C78.5 Secondary malignant neoplasm of large intestine and rectum; C77.5 Secondary and unspecified malignant neoplasm of intrapelvic lymph nodes; B37.49 Other urogenital candidiasis; G89.3 Neoplasm related pain (acute) (chronic); D50.0 Iron deficiency anemia secondary to blood loss (chronic); D63.0 Anemia in neoplastic disease; C61 Malignant neoplasm of prostate; E11.9 Type 2 diabetes mellitus without complications; F32.9 Major depressive disorder, single episode, unspecified; I10 Essential (primary) hypertension; E78.00 Pure hypercholesterolemia, unspecified; Z79.899 Other long term (current) drug therapy; Z79.891 Long term (current) use of opiate analgesic; Z79.2 Long term (current) use of antibiotics; Z79.84 Long term (current) use of oral hypoglycemic drugs; Z90.79 Acquired absence of other genital organ(s); Z92.3 Personal history of irradiation; Z87.440 Personal history of urinary (tract) infections; Z87.891 Personal history of nicotine dependence; Z83.3 Family history of diabetes mellitus; Z82.49 Family history of ischemic heart disease and other diseases of the circulatory system; Y83.3 Surgical operation with formation of external stoma as the cause of abnormal reaction of the patient, or of later complication, without mention of misadventure at the time of the procedure

== ENCOUNTER → 2016-10-11 | Outpatient (CLI) | payer BC ==
[~2016-10-11] MED LIST changes: +AMOX250C3 PO; +ASCO-63 PO; +ATOR-22 PO; +ATV/1 PO; +BUPR-83 PO; +BUPR150T5 PO; +BUPR75TA20 PO; +CALC500C70 PO; +CIPR1TAB11 PO; +CLC100 PO; +CYM/30 PO; +CYM60 PO; +DRGTP100 TOP; +DRGTP50 TD; +DXM/4 IV; +ENOX40IN SQ; +FENT75DI2 TOP; +FLUC100T4 PO; +FLUC200T PO; +FLUT0.15; +FLUT0.15 NAE; +FLX10 PO; +FNTTP100 TD; +FNTTP25 TOP; +FNTTP50 TD; +GENTAMYCIN IV; +HYDR4TAB2 PO; +HYDR4TAB78 PO; +IBUP-103 PO; +LSX20 PO; +LUPRON IM; +MELO7.5T5 PO; +METF-384 PO; +METO25TA56 PO; -MULT-506 PO; +Morphine SL; +ONDA-63 PO; +ONDA8TAB6 PO; +OXYC-609 PO; -OXYC1TAB3 PO; +POTA-65 PO; +POTA10TA32 PO; -PRED-301 PO; +PRLSR20 PO
[2016-10-11 13:20] LABS: HEMATOCRIT 26.2 % (42-52); MEAN CELL VOLUME 79.4 fL (80-100); MEAN CORPUSCULAR HEMOGLOBIN 25.2 pg (25-34); MEAN CORPUSCULAR HGB CONC 31.7 g/dl (32-36); MEAN PLATELET VOLUME 9.1 fL (7.4-10.4); PLATELET COUNT 284 K/uL (130-400); WHITE BLOOD COUNT 3.66 K/uL (4.8-10.8)
[2016-10-11 13:26] LABS: URINE APPEARANCE TURBID (CLEAR); URINE BILIRUBIN NEG (NEG); URINE COLOR YELLOW; URINE NITRITE POS (NEG); URINE SPECIFIC GRAVITY 1.016 (1.000-1.030); UROBILINOGEN NEG (NEG)
[2016-10-11 13:30] LABS: MANUAL MICROSCOPIC REQUIRED? NO; REVIEW REQ? YES
[2016-10-11 13:37] LABS: ALT/SGPT 14 U/L (12-78); AST/SGOT 21 U/L (15-37); BLOOD UREA NITROGEN 24 mg/dl (7-18); BUN/CREATININE RATIO 25.4 (10-20); CALCIUM 9.5 mg/dl (8.5-10.1); CARBON DIOXIDE 29 mmol/L (21-32); CHLORIDE 105 mmol/L (98-107); CHOLESTEROL 101 mg/dl (0-200); CREATININE 0.96 mg/dl (0.60-1.40); GLUCOSE 82 mg/dl (70-99); POTASSIUM 4.3 mmol/L (3.5-5.1); SODIUM 139 mmol/L (136-145); TRIGLYCERIDES 93 mg/dl (0-150); VERY LOW DENSITY LIPOPROT CALC 19 mg/dl
[2016-10-11 13:38] LABS: URIC ACID 5.9 mg/dl (2.6-7.2)
[2016-10-11 13:42] LABS: ALB/GLOB RATIO 0.8 (0.9-2); ALKALINE PHOSPHATASE 81 U/L (45-117); CHOLESTEROL/HDL RATIO 2.5; HDL CHOLESTEROL 40 mg/dl; LDL CHOLESTEROL CALCULATED 42 mg/dl
[2016-10-11 13:44] LABS: URINE EPITHELIAL CELL AUTO 0-5 /lpf (0-5)
[2016-10-11 13:45] LABS: ESTIMATED AVERAGE GLUCOSE 123 mg/dl; HA1C FLAG Normal (Normal)
[2016-10-11 13:50] LABS: URINE PROTIEN/CREAT RATIO 1.7 (0-0.2); URINE TOTAL PROTEIN 117.3 mg/dl (0-11.9)
--- NOTE | 2016-10-17 13:09 | CODING QUERY MEDICAL NECESSITY ---
SUPPORTING DIAGNOSIS NEEDED A supporting diagnosis is required for the test/procedure performed on this patient in order for us to be reimbursed by the patient's insurance. Please provide a supporting diagnosis for the following test/procedure listed below next to the test name along with your signature. *If there is no additional diagnosis for this patient that would support the following test/procedure please document that below next to the test/procedure. Test(s)/Procedure(s) that require a supporting diagnosis: DOS 10/11 * Vitamin D DIAGNOSIS: Provider Signature: Date: Thank you Raiza Vu Health Information Management Once completed, please kindly fax back to [phone] For questions please call [phone]
== END | disposition home or self-care (01) ==
LOC: C.LAB 11:46
PROVIDERS: ATTEND Family Medicine
DX: E78.2 Mixed hyperlipidemia (principal); E11.9 Type 2 diabetes mellitus without complications; N13.30 Unspecified hydronephrosis; D64.9 Anemia, unspecified; E87.5 Hyperkalemia; E87.6 Hypokalemia; R31.0 Gross hematuria; I10 Essential (primary) hypertension; C61 Malignant neoplasm of prostate; E55.9 Vitamin D deficiency, unspecified

== ENCOUNTER → 2016-10-17 | Outpatient (CLI) | payer BC ==
[~2016-10-17] MED LIST changes: +GADAVIST IV PRN
--- NOTE | 2016-10-17 14:01 | DIAGNOSTIC IMAGING REPORT ---
MRI OF THE PELVIS WITH AND WITHOUT CONTRAST CLINICAL HISTORY: Prostate cancer. Cutaneous T-cell lymphoma. Excessive bleeding. COMPARISON STUDY: CT of the abdomen and pelvis September 05, 2016. TECHNIQUE: Utilizing a 1.5 Leigh Ann magnet and dedicated coil, multiplanar, multiecho imaging of the pelvis was performed pre and postcontrast ministration. Injection of 9 cc of Gadavist IV was uneventful. FINDINGS: Numerous foci of marrow replacement within visualized skeletal structures represent metastases. These measure up to 3 cm. No pathologic fracture is identified. The large infiltrative mass centered at the base of the bladder is again noted. Exact measurements are difficult to obtain given the irregular configuration of this lesion. The dominant component along the right base of the bladder measures 7.1 x 4.8 cm. The tumor extends posteriorly and encases the mid to distal rectum rectum, extending for approximately 6.8 cm in craniocaudal extent. This component of the mass measures 6.2 x 5.7 cm. Normal rectal mucosa is not identified in this region. There is suspected tumor extending through the wall of the rectum likely to the level of the mucosa of the rectum. There is extensive tumor within the rectovesical space as well as the prevesical space. Tumor extends into the wall of the bladder with extensive tumor within the bladder. Also, tumor extends into the prostatic urethra, best shown on the sagittal T2-weighted sequence. There are numerous pathologic pelvic lymph nodes, including iliac chain, pelvic sidewall and inguinal lymphadenopathy. A necrotic left iliac node measures 2.5 cm. These were shown on prior CT. IMPRESSION: 1. Large infiltrative pelvic mass centered at the base of the bladder consistent with recurrent prostate carcinoma. The mass invades the bladder wall with extension into the prostatic urethra. The mass also encases the mid to distal rectum and invades through the rectal wall to the level of the mucosa. Numerous adjacent smaller masses/tumor implants. 2. Numerous skeletal metastases. No pathologic fracture. 3. Extensive pelvic lymphadenopathy. Electronically signed by: Moreno Ray M.D. 10/17/2016 2:00 PM Dictated Date/Time: 10/17/2016 1:14 PM
== END | disposition home or self-care (01) ==
LOC: C.MRI 10:42
PROVIDERS: ATTEND Radiology Radiation Oncology
DX: C61 Malignant neoplasm of prostate (principal); C79.11 Secondary malignant neoplasm of bladder

== ENCOUNTER → 2016-10-29 | Outpatient (CLI) | payer BC ==
[~2016-10-29] MED LIST changes: -FENT75DI2 TOP; -GADAVIST IV PRN; -HYDR4TAB78 PO; -OXYC-609 PO
[2016-10-29 09:38] LABS: BASO % 0.7 %; BASO ABS # 0.04 K/uL (0-0.2); EOS % 3.3 %; HEMATOCRIT 26.4 % (42-52); IG% 0.3 %; LYMPH % 17.3 %; LYMPH ABS # 1.04 K/uL (1.2-3.4); MEAN CELL VOLUME 83.5 fL (80-100); MEAN CORPUSCULAR HEMOGLOBIN 26.6 pg (25-34); MEAN CORPUSCULAR HGB CONC 31.8 g/dl (32-36); MEAN PLATELET VOLUME 9.3 fL (7.4-10.4); MONO % 9.7 %; NEUT % 68.7 %; PLATELET COUNT 317 K/uL (130-400); RED BLOOD COUNT 3.16 M/uL (4.7-6.1); URINE APPEARANCE TURBID (CLEAR); URINE BILIRUBIN NEG (NEG); URINE COLOR YELLOW; URINE EPITHELIAL CELL AUTO 20-30 /lpf (0-5); URINE NITRITE POS (NEG); URINE SPECIFIC GRAVITY 1.014 (1.000-1.030); UROBILINOGEN NEG (NEG); WHITE BLOOD COUNT 6.01 K/uL (4.8-10.8)
[2016-10-29 09:39] LABS: MANUAL MICROSCOPIC REQUIRED? NO; REVIEW REQ? YES
[2016-10-29 10:00] LABS: COMPLETE YES; POIKILOCYTOSIS PRESENT
== END | disposition home or self-care (01) ==
LOC: C.LAB 07:10
PROVIDERS: ATTEND Physician Assistant Medical
DX: Z01.812 Encounter for preprocedural laboratory examination (principal); D63.0 Anemia in neoplastic disease; D50.0 Iron deficiency anemia secondary to blood loss (chronic); R53.1 Weakness; R53.83 Other fatigue; C77.5 Secondary and unspecified malignant neoplasm of intrapelvic lymph nodes; C79.11 Secondary malignant neoplasm of bladder; C78.5 Secondary malignant neoplasm of large intestine and rectum

== ENCOUNTER → 2016-10-30 | Outpatient (CLI) | payer BC ==
[2016-10-30 16:07] LABS: URINE APPEARANCE TURBID (CLEAR); URINE BILIRUBIN NEG (NEG); URINE COLOR YELLOW; URINE NITRITE POS (NEG); URINE SPECIFIC GRAVITY 1.015 (1.000-1.030); UROBILINOGEN NEG (NEG)
[2016-10-30 16:10] LABS: MANUAL MICROSCOPIC REQUIRED? NO; REVIEW REQ? YES; ZZUR CULT IF INDIC CLEAN CATCH YES
== END | disposition home or self-care (01) ==
LOC: C.LAB 13:16
PROVIDERS: ATTEND Physician Assistant
DX: N39.0 Urinary tract infection, site not specified (principal)

== ENCOUNTER → 2016-11-02 | Outpatient (CLI) | payer BC | END | disposition home or self-care (01) | LOC: C.LABSPEC 10:50 | PROVIDERS: ATTEND Internal Medicine Infectious Disease | DX: Z51.81 Encounter for therapeutic drug level monitoring (principal); Z79.899 Other long term (current) drug therapy ==

== ENCOUNTER → 2016-11-05 | Outpatient (CLI) | payer BC | END | disposition home or self-care (01) | LOC: C.LABSPEC 11:42 | PROVIDERS: ATTEND Internal Medicine Infectious Disease | DX: N39.0 Urinary tract infection, site not specified (principal); Z51.81 Encounter for therapeutic drug level monitoring; Z79.2 Long term (current) use of antibiotics ==

== ENCOUNTER → 2016-11-06 | Outpatient (CLI) | payer BC ==
[2016-11-06 14:51] LABS: BASO % 0.9 %; BASO ABS # 0.03 K/uL (0-0.2); EOS % 4.7 %; HEMATOCRIT 24.7 % (42-52); IG% 0.3 %; LYMPH % 24.7 %; LYMPH ABS # 0.84 K/uL (1.2-3.4); MEAN CELL VOLUME 85.8 fL (80-100); MEAN CORPUSCULAR HEMOGLOBIN 26.7 pg (25-34); MEAN CORPUSCULAR HGB CONC 31.2 g/dl (32-36); MEAN PLATELET VOLUME 9.9 fL (7.4-10.4); MONO % 9.4 %; PLATELET COUNT 269 K/uL (130-400); RED BLOOD COUNT 2.88 M/uL (4.7-6.1)
[2016-11-06 15:45] LABS: ANISOCYTOSIS PRESENT; COMPLETE YES; OVALOCYTES 1+
[2016-11-06 15:58] LABS: AST/SGOT 26 U/L (15-37); BLOOD UREA NITROGEN 19 mg/dl (7-18); CALCIUM 9.1 mg/dl (8.5-10.1); CARBON DIOXIDE 27 mmol/L (21-32); CHLORIDE 107 mmol/L (98-107); GLUCOSE 73 mg/dl (70-99); POTASSIUM 4.3 mmol/L (3.5-5.1); SODIUM 141 mmol/L (136-145)
[2016-11-06 16:01] LABS: ALB/GLOB RATIO 0.9 (0.9-2); ALKALINE PHOSPHATASE 114 U/L (45-117); ALT/SGPT 13 U/L (12-78); C-REACTIVE PROTEIN 1.14 mg/dl (0-0.29)
== END ==
LOC: C.LABSPEC 13:58
PROVIDERS: ATTEND Internal Medicine Infectious Disease
DX: N39.0 Urinary tract infection, site not specified (principal)

== ENCOUNTER → 2016-11-07 | Outpatient (CLI) | payer BC ==
--- NOTE | 2016-11-07 10:04 | DIAGNOSTIC IMAGING REPORT ---
ULTRASOUND BILATERAL LOWER EXTREMITY VENOUS CLINICAL HISTORY: Lower extremity edema. COMPARISON STUDY: No priors. TECHNIQUE: Real-time, grayscale, and color Doppler sonography of the deep veins of the right and left lower extremity was performed from the inguinal crease to the calf. Compression and augmentation were utilized. FINDINGS: There is no sonographic evidence of deep venous thrombosis identified in the right or left lower extremity. The common femoral, superficial femoral, and popliteal veins are patent and normally compressible bilaterally. The greater saphenous vein and the profunda femoris vein at the junction with the common femoral vein are clear in both legs. The visualized calf veins are patent bilaterally. IMPRESSION: There is no sonographic evidence of deep venous thrombosis identified in the right or left lower extremity. Electronically signed by: Juice Jasmine M.D. 11/07/2016 10:02 AM Dictated Date/Time: 11/07/2016 10:01 AM
== END | disposition home or self-care (01) ==
LOC: C.ULTR 09:31
PROVIDERS: ATTEND Internal Medicine Hematology
DX: C61 Malignant neoplasm of prostate (principal); C77.5 Secondary and unspecified malignant neoplasm of intrapelvic lymph nodes; C78.5 Secondary malignant neoplasm of large intestine and rectum; D50.9 Iron deficiency anemia, unspecified; I89.0 Lymphedema, not elsewhere classified

== ENCOUNTER → 2016-11-08 | Outpatient (CLI) | payer BC | END | disposition home or self-care (01) | LOC: C.LAB 15:42 | PROVIDERS: ATTEND Internal Medicine Infectious Disease | DX: Z51.81 Encounter for therapeutic drug level monitoring (principal); Z79.2 Long term (current) use of antibiotics; N39.0 Urinary tract infection, site not specified ==

== ENCOUNTER → 2016-11-13 | Outpatient (CLI) | payer BC ==
[2016-11-13 12:41] LABS: BASO % 0.5 %; BASO ABS # 0.02 K/uL (0-0.2); EOS % 3.8 %; HEMATOCRIT 26.1 % (42-52); IG% 0.2 %; LYMPH % 18.5 %; LYMPH ABS # 0.78 K/uL (1.2-3.4); MEAN CELL VOLUME 86.7 fL (80-100); MEAN CORPUSCULAR HEMOGLOBIN 27.9 pg (25-34); MEAN CORPUSCULAR HGB CONC 32.2 g/dl (32-36); MEAN PLATELET VOLUME 9.6 fL (7.4-10.4); MONO % 12.1 %; NEUT % 64.9 %; PLATELET COUNT 261 K/uL (130-400); RED BLOOD COUNT 3.01 M/uL (4.7-6.1); WHITE BLOOD COUNT 4.21 K/uL (4.8-10.8)
[2016-11-13 13:01] LABS: ALT/SGPT 12 U/L (12-78); AST/SGOT 31 U/L (15-37); BLOOD UREA NITROGEN 26 mg/dl (7-18); BUN/CREATININE RATIO 20.2 (10-20); C-REACTIVE PROTEIN 1.38 mg/dl (0-0.29); CARBON DIOXIDE 27 mmol/L (21-32); CHLORIDE 104 mmol/L (98-107); GLUCOSE 91 mg/dl (70-99); POTASSIUM 4.4 mmol/L (3.5-5.1); SODIUM 139 mmol/L (136-145)
[2016-11-13 13:02] LABS: COMPLETE YES
[2016-11-13 13:03] LABS: ALKALINE PHOSPHATASE 133 U/L (45-117)
[2016-11-13 13:22] LABS: CALCIUM 9.1 mg/dl (8.5-10.1)
== END | disposition home or self-care (01) ==
LOC: C.LABSPEC 12:18
PROVIDERS: ATTEND Internal Medicine Infectious Disease
DX: N39.0 Urinary tract infection, site not specified (principal)

== ENCOUNTER → 2016-12-05 | Outpatient (CLI) | payer BC ==
[~2016-12-05] MED LIST changes: -GENTAMYCIN IV; -IBUP-103 PO
[2016-12-05 16:08] LABS: URINE APPEARANCE CLOUDY (CLEAR); URINE BILIRUBIN NEG (NEG); URINE COLOR YELLOW; URINE EPITHELIAL CELL AUTO >30 /lpf (0-5); URINE NITRITE NEG (NEG); URINE SPECIFIC GRAVITY 1.019 (1.000-1.030); UROBILINOGEN NEG (NEG); ZZUR CULT IF INDIC CLEAN CATCH YES
[2016-12-05 16:14] LABS: MANUAL MICROSCOPIC REQUIRED? NO; REVIEW REQ? YES
== END | disposition home or self-care (01) ==
LOC: C.LAB 15:11
PROVIDERS: ATTEND Internal Medicine Infectious Disease
DX: N39.0 Urinary tract infection, site not specified (principal)

== ENCOUNTER → 2016-12-07 | Outpatient (CLI) | payer BC ==
[2016-12-07 17:19] LABS: BASO % 0.7 %; BASO ABS # 0.02 K/uL (0-0.2); COMPLETE YES; EOS % 4.7 %; HEMATOCRIT 29.2 % (42-52); LYMPH % 16.8 %; LYMPH ABS # 0.46 K/uL (1.2-3.4); MEAN CELL VOLUME 88.2 fL (80-100); MEAN CORPUSCULAR HEMOGLOBIN 27.5 pg (25-34); MEAN CORPUSCULAR HGB CONC 31.2 g/dl (32-36); MONO % 18.6 %; NEUT % 59.2 %; PLATELET COUNT 242 K/uL (130-400); RED BLOOD COUNT 3.31 M/uL (4.7-6.1); WHITE BLOOD COUNT 2.74 K/uL (4.8-10.8)
[2016-12-07 17:26] LABS: URINE APPEARANCE TURBID (CLEAR); URINE BILIRUBIN NEG (NEG); URINE EPITHELIAL CELL AUTO >30 /lpf (0-5); URINE NITRITE NEG (NEG); URINE PH 5.5 (4.5-7.5); UROBILINOGEN NEG (NEG)
[2016-12-07 17:27] LABS: MANUAL MICROSCOPIC REQUIRED? NO; REVIEW REQ? YES; URINE COLOR YELLOW
== END | disposition home or self-care (01) ==
LOC: C.LAB 16:49
PROVIDERS: ATTEND Physician Assistant Medical
DX: N39.0 Urinary tract infection, site not specified (principal); R53.1 Weakness

== ENCOUNTER → 2016-12-19 | Outpatient (CLI) | payer BC ==
[~2016-12-19] MED LIST changes: -POTA10TA32 PO
== END | disposition home or self-care (01) ==
LOC: C.LABSPEC 16:17
PROVIDERS: ATTEND Family Medicine
DX: R30.0 Dysuria (principal)

== ENCOUNTER → 2016-12-25 | Outpatient (CLI) | payer BC ==
[2016-12-25 11:56] LABS: HEMATOCRIT 27.4 % (42-52); MEAN CELL VOLUME 87.8 fL (80-100); MEAN CORPUSCULAR HEMOGLOBIN 27.2 pg (25-34); MEAN PLATELET VOLUME 8.9 fL (7.4-10.4); PLATELET COUNT 231 K/uL (130-400); RED BLOOD COUNT 3.12 M/uL (4.7-6.1); WHITE BLOOD COUNT 1.96 K/uL (4.8-10.8)
[2016-12-25 12:04] LABS: ALT/SGPT 15 U/L (12-78); AST/SGOT 46 U/L (15-37); BLOOD UREA NITROGEN 24 mg/dl (7-18); CALCIUM 8.4 mg/dl (8.5-10.1); CARBON DIOXIDE 30 mmol/L (21-32); CHLORIDE 107 mmol/L (98-107); GLUCOSE 141 mg/dl (70-99); POTASSIUM 3.8 mmol/L (3.5-5.1); SODIUM 146 mmol/L (136-145)
[2016-12-25 12:06] LABS: ALB/GLOB RATIO 0.8 (0.9-2); ALKALINE PHOSPHATASE 332 U/L (45-117)
== END | disposition home or self-care (01) ==
LOC: C.LABSPEC 11:44
PROVIDERS: ATTEND Internal Medicine Infectious Disease
DX: Z79.899 Other long term (current) drug therapy (principal)

== ENCOUNTER → 2017-01-01 | Outpatient (CLI) | payer BC ==
[2017-01-01 15:39] LABS: HEMATOCRIT 26.9 % (42-52); MEAN CELL VOLUME 88.8 fL (80-100); MEAN CORPUSCULAR HEMOGLOBIN 26.4 pg (25-34); MEAN CORPUSCULAR HGB CONC 29.7 g/dl (32-36); PLATELET COUNT 261 K/uL (130-400); RED BLOOD COUNT 3.03 M/uL (4.7-6.1); WHITE BLOOD COUNT 2.41 K/uL (4.8-10.8)
[2017-01-01 15:47] LABS: ALT/SGPT 18 U/L (12-78); AST/SGOT 57 U/L (15-37); BLOOD UREA NITROGEN 28 mg/dl (7-18); BUN/CREATININE RATIO 25.4 (10-20); CALCIUM 8.7 mg/dl (8.5-10.1); CARBON DIOXIDE 27 mmol/L (21-32); CHLORIDE 107 mmol/L (98-107); GLUCOSE 103 mg/dl (70-99); POTASSIUM 4.1 mmol/L (3.5-5.1); SODIUM 143 mmol/L (136-145)
[2017-01-01 15:50] LABS: ALB/GLOB RATIO 0.8 (0.9-2); ALKALINE PHOSPHATASE 404 U/L (45-117)
[2017-01-01 17:28] LABS: C-REACTIVE PROTEIN 2.43 mg/dl (0-0.29)
== END | disposition home or self-care (01) ==
LOC: C.LABSPEC 12:55
PROVIDERS: ATTEND Internal Medicine Infectious Disease
DX: N39.0 Urinary tract infection, site not specified (principal)

== ENCOUNTER → 2017-01-08 | Outpatient (CLI) | payer BC ==
[2017-01-08 19:16] LABS: BASO % 0.7 %; BASO ABS # 0.02 K/uL (0-0.2); EOS % 2.6 %; HEMATOCRIT 27.2 % (42-52); IG% 1.1 %; LYMPH % 16.2 %; LYMPH ABS # 0.44 K/uL (1.2-3.4); MEAN CELL VOLUME 88.6 fL (80-100); MEAN CORPUSCULAR HGB CONC 31.6 g/dl (32-36); MEAN PLATELET VOLUME 8.7 fL (7.4-10.4); MONO % 9.9 %; NEUT % 69.5 %; PLATELET COUNT 234 K/uL (130-400); RED BLOOD COUNT 3.07 M/uL (4.7-6.1); WHITE BLOOD COUNT 2.72 K/uL (4.8-10.8)
[2017-01-08 19:18] LABS: URINE APPEARANCE TURBID (CLEAR); URINE BILIRUBIN NEG (NEG); URINE COLOR YELLOW; URINE EPITHELIAL CELL AUTO 20-30 /lpf (0-5); URINE NITRITE NEG (NEG); URINE SPECIFIC GRAVITY 1.017 (1.000-1.030); UROBILINOGEN NEG (NEG)
[2017-01-08 19:19] LABS: MANUAL MICROSCOPIC REQUIRED? NO; REVIEW REQ? YES
[2017-01-08 20:05] LABS: ANISOCYTOSIS PRESENT; COMPLETE YES; POLYCHROMASIA 1+
== END | disposition home or self-care (01) ==
LOC: C.LAB 18:50
PROVIDERS: ATTEND Anesthesiology
DX: N39.0 Urinary tract infection, site not specified (principal); N32.9 Bladder disorder, unspecified

== ENCOUNTER → 2017-01-13 | Outpatient (CLI) | payer BC ==
[2017-01-13 17:01] LABS: BASO % 0.3 %; BASO ABS # 0.01 K/uL (0-0.2); COMPLETE YES; EOS % 3.1 %; HEMATOCRIT 30.5 % (42-52); IG% 3.1 %; LYMPH % 13.8 %; LYMPH ABS # 0.45 K/uL (1.2-3.4); MEAN CELL VOLUME 88.7 fL (80-100); MEAN CORPUSCULAR HEMOGLOBIN 27.6 pg (25-34); MEAN CORPUSCULAR HGB CONC 31.1 g/dl (32-36); MEAN PLATELET VOLUME 8.8 fL (7.4-10.4); MONO % 8.9 %; NEUT % 70.8 %; PLATELET COUNT 220 K/uL (130-400); RED BLOOD COUNT 3.44 M/uL (4.7-6.1); WHITE BLOOD COUNT 3.26 K/uL (4.8-10.8)
== END | disposition home or self-care (01) ==
LOC: C.LAB 16:45
PROVIDERS: ATTEND Anesthesiology
DX: Z01.818 Encounter for other preprocedural examination (principal)

== ENCOUNTER → 2017-01-15 | Outpatient (CLI) | payer BC ==
[~2017-01-15] MED LIST changes: -AMOX500C3 PO; -ATV/1 PO; -BUPR-83 PO; -BUPR150T5 PO; -CIPR250T3 PO; -CYM/30 PO; -CYM60 PO; -DRGTP100 TOP; -DRGTP50 TD; -DXM/4 IV; -ENOX40IN SQ; -FLUC100T4 PO; -FLUT0.15; -FNTTP100 TD; -FNTTP25 TOP; -LSX20 PO; -LUPRON IM; +LUPRON INJ; -METO25TA56 PO; -Morphine SL; -ONDA-63 PO; -POTA-65 PO; -PRLSR20 PO
== END | disposition home or self-care (01) ==
LOC: C.LABSPEC 14:28
PROVIDERS: ATTEND Family Medicine
DX: R30.0 Dysuria (principal)

== ENCOUNTER → 2017-01-17 | Outpatient (CLI) | payer BC ==
[~2017-01-17] MED LIST changes: +AMOX500C3 PO; +ATV/1 PO; +BUPR-83 PO; +BUPR150T5 PO; +CIPR250T3 PO; +CYM/30 PO; +CYM60 PO; +DRGTP100 TOP; +DRGTP50 TD; +DXM/4 IV; +ENOX40IN SQ; +FLUC100T4 PO; +FLUT0.15; +FNTTP100 TD; +FNTTP25 TOP; +LSX20 PO; +LUPRON IM; -LUPRON INJ; +METO25TA56 PO; +Morphine SL; +ONDA-63 PO; +POTA-65 PO; +PRLSR20 PO
[2017-01-17 14:23] VITALS: BP 115/68; PULSE 98; TEMP 36.8; O2SAT 98
--- NOTE | 2017-01-17 16:07 | Radiation Oncology Follow-Up ---
Radiation Oncology Follow-Up Date of Visit Jan 17, 2017. (Perlita Tanner PA-C) Reason For Visit One-month follow-up (Perlita Tanner PA-C) Radiation Completion Date finished 12-13-2016 (Perlita Tanner PA-C) Diagnosis (1) Prostate cancer Status: Chronic Stage: IV Permanent Comment: TREATMENT: 1. Radical prostatectomy - 04/18/2006 2. Salvage radiation therapy - 09/08/2007 3. Status post multiple TURBTs 4. Bilateral nephrostomy tube placement 5. Systemic chemotherapy had a with Taxotere for 3 cycles completed 06/06/2016 complicated with Clostridium difficile 6. Status post placement of diverting colostomy due to rectal obstruction from the progression of tumor 7. Iron infusions for chronic blood loss 8. Status post completion of radiation therapy 12/13/2016. He received 4800 cGy Last Edited By: Perlita Tanner on Dec 27, 2016 11:05 (Perlita Tanner PA-C ) History of Present Illness Mr. Desai is a 56-year-old gentleman who presents with metastatic prostate cancer. He was previously diagnosed with prostate cancer in 2005 and underwent a robotic prostatectomy followed by salvage radiation therapy in 2007. He received 7000 cGy for a total dose using intensity modulated radiation therapy. In the interim, the patient has developed further progression of disease with a biochemical failure and development of a local recurrence in the bladder as well as pelvic lymph node involvement. His most recent PSA in 03/12/2016 it was 11.32 and prior to that it was 10.17 on 2015. He is been treated with Xtandi underneath the supervision of Dr. Obinna Saeed which he continues to take. Previously, he was on Lupron as well as chemotherapy. With respect to his bladder recurrence, he's been evaluated by Dr. Mack De Leoning was performed multiple TURBTs to resect his recurrent prostate cancer which has been biopsy-proven. In the interim, he has had bilateral nephrostomy tubes placed due to multiple episodes of acute renal failure from obstruction in the bladder. Additionally, the patient has been sent for multiple second opinion consultations to outside institutions including [facility], [facility] and the [facility]. He has been seen by the urologists at these institutions for consideration of a pelvic exenteration due to his recurrent bladder cancer however there is been reluctance to proceed with surgical resection. More recently, the patient has developed suprapubic pain from his bladder recurrence and also has had some minimal hematuria. He did recently have a CT of the abdomen and pelvis on 03/05/2016 which did show 6.5 cm bladder mass with suspected perirectal extension and encasement as well as iliac and obturator lymphadenopathy but no evidence of bony metastatic disease. Dr. Saeed was referred the patient to us for potential consideration of further radiation therapy. Currently, the patient states that he is doing relatively okay. He does have some scant hematuria and states that there is no blood noted in his nephrostomy bags. He does continue to have some suprapubic pain which he states he can get significantly difficult to tolerate at some points. He does not state he is not any rash and wants to take this time making the decision how to manage this issue. He was initially treated with chemotherapy. Decision was then to give radiation to help control his gross hematuria. He completed radiation therapy 12/13/2016. He received 4800 cGy. (Perlita Tanner PA-C) Interim History He feels that the radiation did help with the pelvic pain and the amount of blood he was passing in his urine. He states the urine from the nephrostomy tubes is clear. The urine from the penis is slightly pink. He gives a pain level of 4 today. His pain is controlled with fentanyl patch 125 g per hour changed every 72 hours. He is also on Dilaudid and takes Tylenol. He is concerned about leg edema which has increased over the past month. He feels he has gained 35-40 pounds. He has extensive swelling of his legs that begin at his feet and extends to his thighs. He has prior history of anemia. He has had blood transfusions. He also received iron infusions. He has an appointment with medical oncology on 01/28/2017. (Perlita Tanner PA-C) Allergies Coded Allergies: NO KNOWN DRUG ALLERGIES (Verified Allergy, Unknown, NKDA, 12/21/16) POLLEN (Verified Allergy, Unknown, HAY FEVER, 12/21/16) Home Medications Scheduled Amoxicillin (Amoxil), 1 CAP PO DAILY Ascorbic Acid (Vitamin C), 500 MG PO DAILYBB Atorvastatin (Lipitor), 20 MG PO HS Bupropion (Wellbutrin), 75 MG PO DAILY Calcium/Vitamin D (Os-Raza 500 Plus D), 1 TAB PO BID Ciprofloxacin Tab (Cipro), 1 TAB PO DAILY Duloxetine Hcl (Cymbalta), 60 MG PO BID Fentanyl (Duragesic), 125 MCG TD [id number] Fluconazole (Diflucan), 1 TAB PO DAILY Fluticasone Propionate (Nasal) (Flonase Allergy Relief), 2 SPRAYS CECILIA BID Meloxicam (Mobic), 7.5 MG PO DAILY Metformin Hcl (Glucophage), 1,000 MG PO BID Metoprolol Tartrate (Lopressor), 25 MG PO BID [Lupron], 1 DOSE INJ [id number] Scheduled PRN Cyclobenzaprine HCl (Cyclobenzaprine HCl), 10 MG PO DAILY PRN for Bladder pain Hydromorphone Hcl (Dilaudid), 1-2 TAB PO Q4H PRN for Pain Ondansetron Hcl (Zofran), 8 MG PO Q6H PRN for Nausea Review of Systems Gastrointestinal: Symptoms: Ostomy Oral: Symptoms: No Problems Respiratory: Symptoms: SOB With Exertion Urinary: Comments: "pees very little which is sl red,has nephrostomy tubes " Skin: Symptoms: No Problems Additional Notes: He completed a distress management report and answered "no" to all questions other than he does feel depressed. He feels that his condition is steadily becoming worse. (Perlita Tanner PA-C) Physical Exam Vital Signs Date Time Temp Pulse Resp B/P (MAP) Pulse Ox O2 Delivery O2 Flow Rate FiO2 01/17/17 14:23 36.8 98 20 115/68 98 Pain: Pain Onset: 2 weeks Pain Duration: constant but gets worse Side: Bilateral Patient Pain Scale: 0 - 10 Initial Pain Intensity: 4.0 Pain Description: Dull, Sharp, Aching, Throbbing Fatigue: None General Appearance: no apparent distress Eyes: normal inspection, EOMI ENT: normal ENT inspection, hearing grossly normal Neck: no adenopathy, thyroid normal Respiratory/Chest: lungs clear, no respiratory distress, no accessory muscle use Cardiovascular: regular rate, rhythm, no gallop, no murmur Abdomen: non tender, soft Extremities: + pedal edema Neurologic/Psychiatric: + depressed affect Skin: warm/dry, no rash (Perlita Tanner PA-C) Laboratory Studies Test 10/29/16 07:28 11/05/16 11:00 11/06/16 11:30 11/08/16 15:00 Poikilocytosis PRESENT Urine Crystals (NONE PRSENT) Gentamicin Level Trough 0.40 mcg/ml (0-1) 0.40 mcg/ml (0-1) Anisocytosis PRESENT Ovalocytes 1+ Test 11/09/16 00:01 11/13/16 11:45 11/15/16 00:01 11/21/16 17:12 Lab Scanned Report Pain [facility] Outside Drug Pain [facility] Outside Drug C-Reactive Protein 1.38 mg/dl (0-0.29) Red Blood Cell Morphology Unremarkable Test 12/07/16 16:51 12/10/16 09:43 12/25/16 11:15 01/01/17 12:55 Urine Color YELLOW Urine Appearance TURBID (CLEAR) Urine pH 5.5 (4.5-7.5) Urine Specific Menard 1.020 (1.000-1.030) Urine Protein 3+ (NEG) Urine Glucose (UA) NEG (NEG) Urine Ketones NEG (NEG) Urine Occult Blood 3+ (NEG) Urine Nitrite NEG (NEG) Urine Bilirubin NEG (NEG) Urine Urobilinogen NEG (NEG) Urine Leukocyte Esterase LARGE (NEG) Urine WBC (Auto) >30 /hpf (0-5) Urine RBC (Auto) >30 /hpf (0-4) Urine Hyaline Casts (Auto) 5-10 /lpf (0-5) Urine Epithelial Cells (Auto) >30 /lpf (0-5) Urine Bacteria (Auto) 1+ (NEG) Urine Pathogenic Casts /lpf (0) Urine Yeast (Auto) (NONE PRSENT) POC Glucose 84 mg/dl (70-99) Erythrocyte Sedimentation Rate 31 mm/hr (0-14) 24 mm/hr (0-14) Sodium Level 146 mmol/L (136-145) 143 mmol/L (136-145) Potassium Level 3.8 mmol/L (3.5-5.1) 4.1 mmol/L (3.5-5.1) Chloride Level 107 mmol/L (98-107) 107 mmol/L (98-107) Carbon Dioxide Level 30 mmol/L (21-32) 27 mmol/L (21-32) Anion Gap 9.0 mmol/L (3-11) 9.0 mmol/L (3-11) Blood Urea Nitrogen 24 mg/dl (7-18) 28 mg/dl (7-18) Creatinine 1.00 mg/dl (0.60-1.40) 1.10 mg/dl (0.60-1.40) Estimated GFR () 98.5 87.7 Estimated GFR (Non- 84.9 75.7 BUN/Creatinine Ratio 24.0 (10-20) 25.4 (10-20) Random Glucose 141 mg/dl (70-99) 103 mg/dl (70-99) Calcium Level 8.4 mg/dl (8.5-10.1) 8.7 mg/dl (8.5-10.1) Total Bilirubin 0.1 mg/dl (0.2-1) 0.2 mg/dl (0.2-1) Aspartate Amino Transferase (AST) 46 U/L (15-37) 57 U/L (15-37) Alanine Aminotransferase (ALT) 15 U/L (12-78) 18 U/L (12-78) Alkaline Phosphatase 332 U/L (45-117) 404 U/L (45-117) Total Protein 6.3 gm/dl (6.4-8.2) 6.5 gm/dl (6.4-8.2) Albumin 2.8 gm/dl (3.4-5.0) 2.9 gm/dl (3.4-5.0) Globulin 3.5 gm/dl (2.5-4.0) 3.6 gm/dl (2.5-4.0) Albumin/Globulin Ratio 0.8 (0.9-2) 0.8 (0.9-2) C-Reactive Protein 2.43 mg/dl (0-0.29) Test 01/08/17 18:55 01/13/17 16:55 White Blood Count 2.72 K/uL (4.8-10.8) 3.26 K/uL (4.8-10.8) Red Blood Count 3.07 M/uL (4.7-6.1) 3.44 M/uL (4.7-6.1) Hemoglobin 8.6 g/dL (14.0-18.0) 9.5 g/dL (14.0-18.0) Hematocrit 27.2 % (42-52) 30.5 % (42-52) Mean Corpuscular Volume 88.6 fL (80-100) 88.7 fL (80-100) Mean Corpuscular Hemoglobin 28.0 pg (25-34) 27.6 pg (25-34) Mean Corpuscular Hemoglobin Concent 31.6 g/dl (32-36) 31.1 g/dl (32-36) Platelet Count 234 K/uL (130-400) 220 K/uL (130-400) Mean Platelet Volume 8.7 fL (7.4-10.4) 8.8 fL (7.4-10.4) Neutrophils (%) (Auto) 69.5 % 70.8 % Lymphocytes (%) (Auto) 16.2 % 13.8 % Monocytes (%) (Auto) 9.9 % 8.9 % Eosinophils (%) (Auto) 2.6 % 3.1 % Basophils (%) (Auto) 0.7 % 0.3 % Neutrophils # (Auto) 1.89 K/uL (1.4-6.5) 2.31 K/uL (1.4-6.5) Lymphocytes # (Auto) 0.44 K/uL (1.2-3.4) 0.45 K/uL (1.2-3.4) Monocytes # (Auto) 0.27 K/uL (0.11-0.59) 0.29 K/uL (0.11-0.59) Eosinophils # (Auto) 0.07 K/uL (0-0.5) 0.10 K/uL (0-0.5) Basophils # (Auto) 0.02 K/uL (0-0.2) 0.01 K/uL (0-0.2) RDW Standard Deviation 50.1 fL (36.4-46.3) 50.6 fL (36.4-46.3) RDW Coefficient of Variation 15.7 % (11.5-14.5) 15.8 % (11.5-14.5) Immature Granulocyte % (Auto) 1.1 % 3.1 % Immature Granulocyte # (Auto) 0.03 K/uL (0.00-0.02) 0.10 K/uL (0.00-0.02) Polychromasia 1+ Anisocytosis PRESENT Urine Color YELLOW Urine Appearance TURBID (CLEAR) Urine pH 6.0 (4.5-7.5) Urine Specific Menard 1.017 (1.000-1.030) Urine Protein 2+ (NEG) Urine Glucose (UA) NEG (NEG) Urine Ketones NEG (NEG) Urine Occult Blood 3+ (NEG) Urine Nitrite NEG (NEG) Urine Bilirubin NEG (NEG) Urine Urobilinogen NEG (NEG) Urine Leukocyte Esterase LARGE (NEG) Urine WBC (Auto) >30 /hpf (0-5) Urine RBC (Auto) >30 /hpf (0-4) Urine Hyaline Casts (Auto) 1-5 /lpf (0-5) Urine Epithelial Cells (Auto) 20-30 /lpf (0-5) Urine Bacteria (Auto) 1+ (NEG) Urine Pathogenic Casts /lpf (0) Urine Yeast (Auto) PRESENT (NONE PRSENT) Nucleated RBC Absolute Count (auto) 0.04 K/uL (0-0) Nucleated Red Blood Cells % 1.1 % (Perlita Tanner PA-C) Assessment & Plan Plan: He was seen and examined by Dr. Saeed. He'll be seeing Dr. Saeed in medical oncology on 01/28/2017. He continues on his current pain medications. He'll have laboratory studies per Dr. Saeed's office. He did have a good response to the palliative therapy. He has less pain and less bleeding. We asked him to return to our office in 6 months. He is following with the primary care physician in regards to depression and is on Cymbalta. He may call if he has any questions or concerns in the interim. (Perlita Tanner PA-C) I agree with note created by Perlita Tanner PA-C. I reviewed the patient's chart and information with her. I have examined and evaluated the patient. I reviewed relevant clinical information and answered the patient's and/or family' s questions. (Veeral. Saeed MD) Total Time In Follow-Up I spent 20 minutes speaking to the patient and performing examination. I spent 15 minutes reviewing information in completing this note. (Perlita Tanner PA-C) I spent 15 minutes examining and counseling the patient. (Veeral. Saeed MD) Copy To Kal Madden, DO; Obinna Seaed M.D.; Mack Lynne M.D.
== END | disposition home or self-care (01) ==
LOC: C.ONC 14:15
PROVIDERS: ATTEND Physician Assistant Medical
DX: Z08 Encounter for follow-up examination after completed treatment for malignant neoplasm (principal); Z92.3 Personal history of irradiation; Z85.46 Personal history of malignant neoplasm of prostate

== ENCOUNTER → 2017-01-18 | Outpatient (CLI) | payer BC ==
[~2017-01-18] MED LIST changes: -CLC100 PO
[2017-01-18 14:42] LABS: BASO % 0.5 %; BASO ABS # 0.02 K/uL (0-0.2); EOS % 2.6 %; HEMATOCRIT 26.7 % (42-52); IG% 1.3 %; LYMPH % 11.5 %; LYMPH ABS # 0.44 K/uL (1.2-3.4); MEAN CELL VOLUME 90.2 fL (80-100); MEAN CORPUSCULAR HEMOGLOBIN 28.4 pg (25-34); MEAN CORPUSCULAR HGB CONC 31.5 g/dl (32-36); MEAN PLATELET VOLUME 9.6 fL (7.4-10.4); MONO % 15.7 %; NEUT % 68.4 %; PLATELET COUNT 250 K/uL (130-400); RED BLOOD COUNT 2.96 M/uL (4.7-6.1); WHITE BLOOD COUNT 3.82 K/uL (4.8-10.8)
[2017-01-18 15:04] LABS: COMPLETE YES; POLYCHROMASIA 1+
[2017-01-18 15:15] LABS: ALT/SGPT 16 U/L (12-78); BLOOD UREA NITROGEN 34 mg/dl (7-18); BUN/CREATININE RATIO 28.1 (10-20); CALCIUM 9.6 mg/dl (8.5-10.1); CARBON DIOXIDE 27 mmol/L (21-32); CHLORIDE 103 mmol/L (98-107); GLUCOSE 66 mg/dl (70-99); POTASSIUM 4.9 mmol/L (3.5-5.1); SODIUM 139 mmol/L (136-145)
[2017-01-18 15:18] LABS: ALB/GLOB RATIO 0.8 (0.9-2); ALKALINE PHOSPHATASE 490 U/L (45-117); AST/SGOT 68 U/L (15-37)
== END | disposition home or self-care (01) ==
LOC: C.LAB 13:01
PROVIDERS: ATTEND Family Medicine
DX: I89.0 Lymphedema, not elsewhere classified (principal)

== ENCOUNTER 2017-01-21 18:09 | Emergency (ER) | payer BC ==
[~2017-01-21] VITALS: Ht 182.9 cm; Wt 110.0 kg
[~2017-01-21 18:09] MED LIST changes: -AMOX500C3 PO; -ASCO-63 PO; -ATOR-22 PO; -ATV/1 PO; -BUPR-83 PO; -BUPR150T5 PO; -CALC500C70 PO; -CIPR250T3 PO; -CYM/30 PO; -CYM60 PO; -DRGTP100 TOP; -DRGTP50 TD; -DXM/4 IV; -ENOX40IN SQ; -FLUC100T4 PO; -FLUT0.15; -FLUT0.15 NAE; -FLX10 PO; -FNTTP100 TD; -FNTTP25 TOP; -HYDR4TAB2 PO; -LSX20 PO; -LUPRON IM; -MELO7.5T5 PO; -METF-384 PO; -METO25TA56 PO; -Morphine SL; -ONDA-63 PO; -POTA-65 PO; -PRLSR20 PO
[2017-01-21 18:11] VITALS: TEMP 36.4; Ht 182.9 cm; Wt 110.0 kg
[2017-01-21] MEDS ORDERED: HYDROmorphone INJ 1 MG/ML SYR IV STA (18:43)
--- NOTE | 2017-01-21 18:49 | EMERGENCY ROOM VISIT NOTE ---
History Report prepared by Lm: Ventura Dominguez Under the Supervision of: Dr. Tara Rodriguez M.D. First contact with patient: 18:23 Chief Complaint: PAIN (GENERALIZED) Stated Complaint: BACK PAIN, PAIN EVERYWHERE History of Present Illness The patient is a 56 year old male who presents to the Emergency Room with complaints of constant generalized pain starting a couple of weeks ago. He rates his discomfort as a 7/10 in severity. The patient reports that he currently has prostate cancer, which he sees Dr. Saeed at [facility] oncology and Dr. Lynne at [facility] urology. The patient states that he started to have shortness of breath when he had anemia due to cancer mass bleeding months ago. He reports that since his radiation his blood levels have been up, but he is still out of breath. The patient reports that he has a colostomy and a nephrostomy tube in his kidneys bilaterally and noticed hematuria a couple of weeks ago. He reports that he also has been experiencing back pain that has radiated to his chest, sides, and shoulders since. The patient states he has also noticed edema to his right leg a week ago which has then spread to his left leg. He reports that his edema has worsened since a week ago. He reports he has a history of a thickening artery wall, which he saw a cdl instructor for, and denies any history of heart disease or heart attack. The patient denies any fever or nausea. Source of History: patient Onset: a couple of weeks ago Position: other (global) Symptom Intensity: 7/10 Timing: constant Associated Symptoms: + chest pain, + SOB, + back pain, + urinary symptoms, No fevers, No nausea Review of Systems See HPI for pertinent positives & negatives. A total of 10 systems reviewed and were otherwise negative. 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 Surgical Problems: (1) H/O prostatectomy (2) History of prostatectomy Family History Cancer Diabetes mellitus Heart disease Hypertension Social History Smoking Status: Never Smoker Alcohol Use: none Drug Use: none Marital Status: Housing Status: lives with family Occupation Status: disabled Current/Historical Medications Scheduled Amoxicillin (Amoxil), 500 MG PO DAILY Ascorbic Acid (Vitamin C), 500 MG PO DAILY Atorvastatin (Lipitor), 20 MG PO HS Bupropion Hcl (Bupropion Hcl Xl), 150 MG PO DAILY Calcium/Vitamin D (Os-Raza 500 Plus D), 1 TAB PO BID Ciprofloxacin (Cipro), 250 MG PO DAILY Duloxetine HCl (Duloxetine HCl), 60 MG PO BID Fentanyl (Fentanyl), 25 MCG TOP CQ72HR Fentanyl (Fentanyl), 100 MCG TOP CQ72HR Fluconazole (Diflucan), 100 MG PO DAILY Fluticasone Propionate (Nasal) (Flonase Allergy Relief), 2 SPRAYS CECILIA DAILY Furosemide (Furosemide), 20 MG PO QAM Meloxicam (Mobic), 7.5 MG PO DAILY Metformin Hcl (Glucophage), 1,000 MG PO BID Metoprolol Tartrate (Lopressor) (Lopressor), 25 MG PO BID Potassium Chloride (Potassium Chloride ER), 20 MEQ PO DAILY [Lupron], 1 DOSE IM [id number] Scheduled PRN Cyclobenzaprine HCl (Cyclobenzaprine HCl), 10 MG PO TID PRN for Bladder pain Hydromorphone Hcl (Dilaudid), 4-8 MG PO Q4H PRN for Pain Ondansetron (Ondansetron HCl), 8 MG PO Q6H PRN for Nausea Allergies Coded Allergies: NO KNOWN DRUG ALLERGIES (Verified Allergy, Unknown, NKDA, 12/21/16) POLLEN (Verified Allergy, Unknown, HAY FEVER, 12/21/16) Physical Exam Vital Signs Date Time Temp Pulse Resp B/P (MAP) Pulse Ox O2 Delivery O2 Flow Rate FiO2 01/21/17 21:58 104 18 141/74 96 Room Air 01/21/17 20:23 103 01/21/17 20:08 108 18 161/76 99 Room Air 01/21/17 18:11 36.4 108 18 147/67 97 Room Air Physical Exam Vital signs reviewed. General: Chronically ill appearing 56 year old male, in no significant distress. Appears older than stated age. HEENT: No scleral icterus, PERRLA, neck supple. Atraumatic. Cardiovascular: Regular rate and rhythm, no extra sounds. Pulmonary: Clear to auscultation bilaterally, normal work of breathing. Abdomen: Bilateral nephrostomy tubes. Colostomy to left lower quadrant. Soft, nontender, nondistended, positive bowel sounds. Musculoskeletal: Atraumatic, no peripheral edema. Lower Extremities: Bilateral pitting edema. Minimal erythema to medial legs bilaterally Neurologic: Patient awake alert and oriented x 3, full strength in all 4 extremities. Cranial nerves 2 through 12 grossly intact. Skin: Warm, dry, no rash Medical Decision & Procedures ER Provider Diagnostic Interpretation: Radiology results as stated below per my review and radiologist interpretation: BILATERAL LOWER EXTREMITY VENOUS DOPPLER CLINICAL HISTORY: Lower extremity edema. COMPARISON STUDY: Bilateral lower extremity venous Doppler November 07 2016. TECHNIQUE: Sonography of the deep venous system of the bilateral lower extremities was performed. Compression and augmentation were evaluated. FINDINGS: Evaluation was difficult due to lower extremity edema was suboptimal penetration. The common femoral, superficial femoral and popliteal veins were compressible. Augmentation was normal. Flow was shown within the deep calf vessels. IMPRESSION: Technically difficult exam but no evidence of deep venous thrombus within the bilateral lower extremities. Electronically signed by: Moreno Ray M.D. 01/21/2017 9:00 PM Dictated Date/Time: 01/21/2017 8:59 PM CHEST ONE VIEW PORTABLE CLINICAL HISTORY: Shortness of breath, edema. COMPARISON STUDY: Chest radiograph September 04, 2016. FINDINGS: A right internal jugular [id number] is in place. There is no pneumothorax. Linear bibasilar opacities suggest atelectasis. There may be a trace right pleural effusion. There is no evidence of pulmonary edema. Cardiomediastinal silhouette is stable. IMPRESSION: 1. Small right pleural effusion. 2. No evidence of pulmonary edema. 3. Linear bibasilar opacities suggestive of atelectasis. Electronically signed by: Moreno Ray M.D. 01/21/2017 7:19 PM Dictated Date/Time: 01/21/2017 7:18 PM Laboratory Results 01/21/17 19:40 Red Blood Count 3.11, Mean Corpuscular Volume 86.5, Mean Corpuscular Hemoglobin 27.0, Mean Corpuscular Hemoglobin Concent 31.2, Mean Platelet Volume 8.7, Neutrophils (%) (Auto) 76.8, Lymphocytes (%) (Auto) 11.0, Monocytes (%) (Auto) 9.8, Eosinophils (%) (Auto) 0.9, Basophils (%) (Auto) 0.3, Neutrophils # (Auto) 2.50, Lymphocytes # (Auto) 0.36, Monocytes # (Auto) 0.32, Eosinophils # (Auto) 0.03, Basophils # (Auto) 0.01 01/21/17 19:40 Test 01/21/17 19:40 01/21/17 19:48 01/21/17 19:51 01/21/17 20:00 White Blood Count 3.26 K/uL (4.8-10.8) Red Blood Count 3.11 M/uL (4.7-6.1) Hemoglobin 8.4 g/dL (14.0-18.0) Hematocrit 26.9 % (42-52) Mean Corpuscular Volume 86.5 fL (80-100) Mean Corpuscular Hemoglobin 27.0 pg (25-34) Mean Corpuscular Hemoglobin Concent 31.2 g/dl (32-36) Platelet Count 228 K/uL (130-400) Mean Platelet Volume 8.7 fL (7.4-10.4) Neutrophils (%) (Auto) 76.8 % Lymphocytes (%) (Auto) 11.0 % Monocytes (%) (Auto) 9.8 % Eosinophils (%) (Auto) 0.9 % Basophils (%) (Auto) 0.3 % Neutrophils # (Auto) 2.50 K/uL (1.4-6.5) Lymphocytes # (Auto) 0.36 K/uL (1.2-3.4) Monocytes # (Auto) 0.32 K/uL (0.11-0.59) Eosinophils # (Auto) 0.03 K/uL (0-0.5) Basophils # (Auto) 0.01 K/uL (0-0.2) RDW Standard Deviation 52.3 fL (36.4-46.3) RDW Coefficient of Variation 16.7 % (11.5-14.5) Immature Granulocyte % (Auto) 1.2 % Immature Granulocyte # (Auto) 0.04 K/uL (0.00-0.02) Nucleated RBC Absolute Count (auto) 0.02 K/uL (0-0) Nucleated Red Blood Cells % 0.6 % Red Blood Cell Morphology Unremarkable Est Creatinine Clear Calc Drug Dose 77.3 ml/min Estimated GFR () 65.6 Estimated GFR (Non- 56.6 BUN/Creatinine Ratio 31.1 (10-20) Calcium Level 9.4 mg/dl (8.5-10.1) Magnesium Level 2.2 mg/dl (1.8-2.4) Total Bilirubin 0.4 mg/dl (0.2-1) Direct Bilirubin < 0.1 mg/dl (0-0.2) Aspartate Amino Transf (AST/SGOT) 86 U/L (15-37) Alanine Aminotransferase (ALT/SGPT) 14 U/L (12-78) Alkaline Phosphatase 509 U/L (45-117) Total Creatine Kinase 229 U/L (39-308) Creatine Kinase MB 2.1 ng/ml (0.5-3.6) Creatine Kinase MB Ratio 0.9 (0-3.0) Total Protein 6.7 gm/dl (6.4-8.2) Albumin 2.9 gm/dl (3.4-5.0) Bedside Troponin I < 0.030 ng/ml (0-0.045) PI-Zry-O-Type Natriuretic Peptide 421 pg/ml (0-900) Bedside Hemoglobin 7.8 g/dl (14.0-18.0) Bedside Hematocrit 23 % (42-52) Bedside Sodium 134 mEq/L (135-144) Bedside Potassium 5.0 mEq/L (3.3-5.0) Bedside Chloride 98 mEq/L (101-112) Bedside Total CO2 23 mEq/l (24-31) Anion Gap 19.0 mmol/L (16-25) Bedside Blood Urea Nitrogen 35 mg/dl (7-18) Bedside Creatinine 1.3 mg/dl (0.6-1.3) Bedside Glucose (other) 60 mg/dl (70-99) Bedside Ionized Calcium (Azalea) 1.11 mmol/l (1.12-1.32) Urine Color YELLOW Urine Appearance CLOUDY (CLEAR) Urine pH 8.5 (4.5-7.5) Urine Specific [place] 1.017 (1.000-1.030) Urine Protein 1+ (NEG) Urine Glucose (UA) NEG (NEG) Urine Ketones 1+ (NEG) Urine Occult Blood 2+ (NEG) Urine Nitrite NEG (NEG) Urine Bilirubin NEG (NEG) Urine Urobilinogen NEG (NEG) Urine Leukocyte Esterase LARGE (NEG) Urine WBC (Auto) >30 /hpf (0-5) Urine RBC (Auto) >30 /hpf (0-4) Urine Hyaline Casts (Auto) 1-5 /lpf (0-5) Urine Epithelial Cells (Auto) 10-20 /lpf (0-5) Urine Bacteria (Auto) NEG (NEG) Urine Yeast (Auto) PRESENT (NONE PRSENT) Test 01/21/17 21:28 Bedside Glucose 76 mg/dl (70-99) Laboratory results per my review. Medications Administered Medications (Trade) Dose Ordered Sig/Shu Route Start Time Stop Time Status Last Admin Dose Admin Hydromorphone HCl (Dilaudid Inj) 1 mg NOW STAT IV 01/21/17 18:43 01/21/17 18:44 DC 01/21/17 20:03 9 MG Heparin Sodium (Porcine) (Heparin 100 Unit/ml 5ml Flush) 5 ml STK-MED ONCE .ROUTE 01/21/17 21:50 01/21/17 21:51 DC 01/21/17 21:58 5 ML ECG Indication: back/shoulder pain Rate (beats per minute): 101 Rhythm: sinus tachycardia Findings: no acute ischemic change, no ectopy ED Course 1835: Past medical records reviewed. The patient was evaluated in room B02. A complete history and physical examination was performed. 1842: Dilaudid Injection 1 mg IV. 2146: Upon reevaluation, the patient appeared to have improvement of his symptoms. I discussed findings with the patient. He verbalized agreement of the treatment plan. He was discharged home. Medical Decision The differential diagnosis includes but is not limited metabolic abnormalities, UTI, GI bleed, rhabdomyolysis, dehydration, hypoglycemia, DVT. Medication Reconciliation: I attest that I have personally reviewed the patient' s current medication list. Blood Pressure Screening: Patient was found to have an elevated blood pressure and was referred to their primary doctor for recheck and further treatment. This pt was evaluated and appeared to be in no distress. IV access was obtained and lab work was drawn. Pt was hydrated with NSS. Dopplers of BLE are negative for DVT. CXR is sig for atelectasis and small pl effusion. Lab work reveals a UA that is + and recently grew isha. Pt is currently on diflucan. Urine will be cultured. Pt wishes to be d/c. He was given AMOR stockings by nursing. A walker was ordered as he feels unstable. Pt was d/c to family and will f/u closely this week with his PCP. He will return to the ED for worsening of symptoms or any medical concerns. Impression Primary Impression: Bilateral lower extremity edema Additional Impressions: Prostate cancer Generalized pain Scribe Attestation The scribe's documentation has been prepared under my direction and personally reviewed by me in its entirety. I confirm that the note above accurately reflects all work, treatment, procedures, and medical decision making performed by me. Departure Information Dispostion Home / Self-Care Referrals Kal Madden, (PCP) Forms HOME CARE DOCUMENTATION FORM, IMPORTANT VISIT INFORMATION, WORK / SCHOOL INSTRUCTIONS Patient Instructions [facility] Additional Instructions Diagnosis: Metastatic prostate cancer, bilateral lower extremity edema, generalized pain Continue your pain medications as prescribed. Drink plenty of clear fluids. Use a walker for stability when ambulating. Follow-up with Dr. Madden on Saturday for reevaluation. Return to the ER for worsening of symptoms or any medical concerns. Problem Qualifiers
--- NOTE | 2017-01-21 19:20 | DIAGNOSTIC IMAGING REPORT ---
CHEST ONE VIEW PORTABLE CLINICAL HISTORY: Shortness of breath, edema. COMPARISON STUDY: Chest radiograph September 04, 2016. FINDINGS: A right internal jugular [id number] is in place. There is no pneumothorax. Linear bibasilar opacities suggest atelectasis. There may be a trace right pleural effusion. There is no evidence of pulmonary edema. Cardiomediastinal silhouette is stable. IMPRESSION: 1. Small right pleural effusion. 2. No evidence of pulmonary edema. 3. Linear bibasilar opacities suggestive of atelectasis. Electronically signed by: Moreno Ray M.D. 01/21/2017 7:19 PM Dictated Date/Time: 01/21/2017 7:18 PM
[2017-01-21] MEDS ORDERED: POTA-65 PO (19:33)
[2017-01-21] MEDS ORDERED: LSX20 PO (19:33)
[2017-01-21] MEDS ORDERED: FLUC100T4 PO (19:33)
[2017-01-21] MEDS ORDERED: METO25TA56 PO (19:33)
[2017-01-21 19:54] LABS: HEMATOCRIT 26.9 % (42-52); MEAN CELL VOLUME 86.5 fL (80-100); MEAN CORPUSCULAR HGB CONC 31.2 g/dl (32-36); MEAN PLATELET VOLUME 8.7 fL (7.4-10.4); PLATELET COUNT 228 K/uL (130-400); RED BLOOD COUNT 3.11 M/uL (4.7-6.1); WHITE BLOOD COUNT 3.26 K/uL (4.8-10.8)
[2017-01-21 20:04] LABS: ISTAT CREATININE 1.3 mg/dl (0.6-1.3); ISTAT HEMOGLOBIN 7.8 g/dl (14.0-18.0); ISTAT IONIZED CALCIUM 1.11 mmol/l (1.12-1.32)
[2017-01-21 20:08] LABS: POINT OF CARE PRO-BNP 421 pg/ml (0-900); POINT OF CARE TROPONIN I < 0.030 ng/ml (0-0.045)
[2017-01-21 20:14] LABS: ALT/SGPT 14 U/L (12-78); AST/SGOT 86 U/L (15-37); BLOOD UREA NITROGEN 44 mg/dl (7-18); BUN/CREATININE RATIO 31.1 (10-20); CALCIUM 9.4 mg/dl (8.5-10.1); CARBON DIOXIDE 22 mmol/L (21-32); CHLORIDE 100 mmol/L (98-107); GLUCOSE 58 mg/dl (70-99); MAGNESIUM 2.2 mg/dl (1.8-2.4); POTASSIUM 5.1 mmol/L (3.5-5.1); SODIUM 136 mmol/L (136-145)
[2017-01-21 20:19] LABS: ALKALINE PHOSPHATASE 509 U/L (45-117); CKMB/CK RATIO 0.9 (0-3.0)
[2017-01-21 20:21] LABS: BASO % 0.3 %; BASO ABS # 0.01 K/uL (0-0.2); COMPLETE YES; EOS % 0.9 %; IG% 1.2 %; LYMPH ABS # 0.36 K/uL (1.2-3.4); MONO % 9.8 %; NEUT % 76.8 %
[2017-01-21 20:40] LABS: URINE APPEARANCE CLOUDY (CLEAR); URINE BILIRUBIN NEG (NEG); URINE COLOR YELLOW; URINE NITRITE NEG (NEG); URINE PH 8.5 (4.5-7.5); URINE SPECIFIC GRAVITY 1.017 (1.000-1.030); UROBILINOGEN NEG (NEG); ZZUR CULT IF INDIC CLEAN CATCH YES
[2017-01-21 20:42] LABS: MANUAL MICROSCOPIC REQUIRED? NO; REVIEW REQ? YES
[2017-01-21 20:48] LABS: SULFASALICYLIC ACID POS (NEG)
--- NOTE | 2017-01-21 21:01 | DIAGNOSTIC IMAGING REPORT ---
BILATERAL LOWER EXTREMITY VENOUS DOPPLER CLINICAL HISTORY: Lower extremity edema. COMPARISON STUDY: Bilateral lower extremity venous Doppler November 07 2016. TECHNIQUE: Sonography of the deep venous system of the bilateral lower extremities was performed. Compression and augmentation were evaluated. FINDINGS: Evaluation was difficult due to lower extremity edema was suboptimal penetration. The common femoral, superficial femoral and popliteal veins were compressible. Augmentation was normal. Flow was shown within the deep calf vessels. IMPRESSION: Technically difficult exam but no evidence of deep venous thrombus within the bilateral lower extremities. Electronically signed by: Moreno Ray M.D. 01/21/2017 9:00 PM Dictated Date/Time: 01/21/2017 8:59 PM
[2017-01-21 21:58] VITALS: BP 141/74; PULSE 104; O2SAT 96
[2017-01-30] MEDS ORDERED: FLX10 PO (07:08)
[2017-01-30] MEDS ORDERED: HYDR4TAB2 PO (08:27)
[2017-01-30] MEDS ORDERED: METF-384 PO (09:13)
[2017-01-30] MEDS ORDERED: CALC500C70 PO (09:18)
[2017-01-30] MEDS ORDERED: ASCO-63 PO (09:18)
[2017-01-30] MEDS ORDERED: ATOR-22 PO (12:11)
[2017-01-30] MEDS ORDERED: MELO7.5T5 PO (14:36)
[2017-01-30] MEDS ORDERED: FLUT0.15 NAE (15:31)
[2017-01-30] MEDS ORDERED: LUPRON IM (15:47)
[2017-02-03] MEDS ORDERED: DRGTP50 TD (15:17)
== END 2017-01-21 22:10 | disposition home or self-care (01) ==
LOC: C.EDB 18:10
DX: R60.0 Localized edema (principal); C61 Malignant neoplasm of prostate; R52 Pain, unspecified; D64.9 Anemia, unspecified; E11.9 Type 2 diabetes mellitus without complications; E87.6 Hypokalemia; E78.00 Pure hypercholesterolemia, unspecified; I10 Essential (primary) hypertension; Z85.51 Personal history of malignant neoplasm of bladder; Z85.038 Personal history of other malignant neoplasm of large intestine; Z85.048 Personal history of other malignant neoplasm of rectum, rectosigmoid junction, and anus; Z80.9 Family history of malignant neoplasm, unspecified; Z83.3 Family history of diabetes mellitus; Z82.49 Family history of ischemic heart disease and other diseases of the circulatory system; Z79.899 Other long term (current) drug therapy

== ENCOUNTER → 2017-01-23 | Outpatient (CLI) | payer BC ==
[~2017-01-23] MED LIST changes: -AMOX250C3 PO; +AMOX500C3 PO; +ASCO-63 PO; +ATOR-22 PO; +ATV/1 PO; +BUPR-83 PO; +BUPR150T5 PO; -BUPR75TA20 PO; +CALC500C70 PO; +CIPR250T3 PO; +CYM/30 PO; +CYM60 PO; +DRGTP100 TOP; +DRGTP50 TD; -DULO60CA44 PO; +DXM/4 IV; +ENOX40IN SQ; +FLUC100T4 PO; -FLUC200T PO; +FLUT0.15; +FLUT0.15 NAE; +FLX10 PO; +FNTTP100 TD; +FNTTP25 TOP; -FNTTP50 TD; +HYDR4TAB2 PO; +LSX20 PO; +LUPRON IM; +MELO7.5T5 PO; +METF-384 PO; +METO25TA56 PO; +Morphine SL; +ONDA-63 PO; -ONDA8TAB6 PO; +OPTIRAY 320 IV PRN; +POTA-65 PO; +PRLSR20 PO
--- NOTE | 2017-01-23 18:28 | DIAGNOSTIC IMAGING REPORT ---
CT OF THE ABDOMEN AND PELVIS WITH CONTRAST CLINICAL HISTORY: Abdominal pain and swelling. Evaluate for clot and pelvic vessels. History of prostate cancer. COMPARISON STUDY: CT of the abdomen and pelvis September 05, 2016 and MRI of the pelvis October 17, 2016. TECHNIQUE: Following IV administration of 120 mL of Optiray-320, axial images of the abdomen and pelvis were obtained from the lung bases to the proximal femurs. Images were reviewed in the axial, sagittal, and coronal planes. IV contrast was administered without complication. CT DOSE: 1412.66 mGy.cm FINDINGS: There is been interval development of a small right pleural effusion. There has been interval development of innumerable liver masses consistent with metastatic disease since CT of September 05, 2016. An index lateral segment lesion measures 4.6 cm. Index right hepatic lobe lesion measures 4.9 seconds. The spleen, adrenal glands and pancreas are unremarkable. Bilateral percutaneous nephrostomy tubes are in place. There is no hydronephrosis. There has been interval development of multiple moderate abdominal and pelvic ascites with numerous peritoneal implants since exam of September 05, 2016. Retroperitoneal lymphadenopathy has markedly progressed. The known infiltrative pelvic mass which encases the bladder and rectum is better depicted in prior MRI. There is generalized anasarca with lower extremity edema. There is abnormal appearance of the proximal IVC. This could be due to metastatic lymphadenopathy or thrombus within the IVC. Innumerable bone metastases have markedly progressed since exam of September 05, 2016. There is suspected epidural extension of tumor at the T9 level which results in marked central canal narrowing. There are mild T11 and S1 pathologic fractures. The right lower quadrant ostomy. There is also left lower quadrant ostomy parastomal hernia. There is no bowel obstruction. IMPRESSION: 1. Findings consistent with marked progression of widespread metastatic disease since exam of September 05, 2016. Interval development of bilobar hepatic metastases, small to moderate abdominal ascites with innumerable peritoneal implants. Progression of retroperitoneal/pelvic lymphadenopathy with abnormal appearance of the proximal IVC which could reflect extrinsic compression by a lymph node or intraluminal thrombus. Progression of skeletal metastatic disease with epidural extension of tumor at the T9 level which results in marked narrowing of the central canal. Mild T11 and S1 pathologic fractures. 2. No bowel obstruction. Redemonstration of the infiltrative pelvic mass, better shown on prior MRI, which encases the bladder and rectum. Electronically signed by: Moreno Ray M.D. 01/23/2017 6:27 PM Dictated Date/Time: 01/23/2017 6:14 PM
== END ==
LOC: C.CTS 17:15
PROVIDERS: ATTEND Family Medicine
DX: R10.84 Generalized abdominal pain (principal); R60.9 Edema, unspecified

== ENCOUNTER 2017-01-30 15:48 | Inpatient (IN) | payer BC ==
[~2017-01-30] VITALS: Ht 170.2 cm; Wt 113.1 kg
[~2017-01-30 15:48] MED LIST changes: -AMOX500C3 PO; -ATV/1 PO; -BUPR-83 PO; -BUPR150T5 PO; -CIPR1TAB11 PO; -CIPR250T3 PO; -CYM/30 PO; -CYM60 PO; -DRGTP100 TOP; -DRGTP50 TD; -DXM/4 IV; -ENOX40IN SQ; -FLUT0.15; -FNTTP100 TD; -FNTTP25 TOP; -LPR25 PO; -Morphine SL; -ONDA-63 PO; -OPTIRAY 320 IV PRN; -PRLSR20 PO
[2017-01-30] MEDS ORDERED: LPR25 PO (17:05)
[2017-01-30] MEDS ORDERED: ATV/1 PO (17:05)
[2017-01-30] MEDS ORDERED: HYDROmorphone INJ 0.5 MG/0.5 ML SYR IV STA ×3 (17:07→20:19)
[2017-01-30] MEDS ORDERED: Morphine SL (17:16)
--- NOTE | 2017-01-30 17:23 | EMERGENCY ROOM VISIT NOTE ---
History Report prepared by Lm: Bryce Riggs Under the Supervision of: Dr. Renu Rogers D.O. First contact with patient: 16:54 Chief Complaint: PAIN (GENERALIZED) Stated Complaint: UNABLE TO AMBULATE, PAIN History of Present Illness The patient is a 56 year old male who presents to the Emergency Room with complaints of worsening edema to the lower extremities bilaterally beginning about 5 days ago. The patient states that his IVC is clogged with lymph because his cancer is pushing on it. He reports that he had a CT scan earlier today because his doctor wanted to see if his IVC could be drained. The patient notes that he has not received the results from his CT scan yet. He states that he came to the ED because he can not ambulate or stand on his own, even with a walker. The patient reports that his left leg went down a few days ago, but then it started to swell again. He notes that he is also experiencing pelvic and lower back pain, rashes, and erythema. The patient denies fevers, chills, shortness of breath, and chest pain. He states that he is on a Fentanyl patch and takes 4 mg of Dilaudid for pain when needed. The patient reports that he is on hospice at home, but he had to be taken off it to get his CT scan. He states he is not on blood thinners because of his anemia and prior bleeding. Source of History: patient Onset: about 5 days ago Position: leg (bilateral) Quality: other (edema) Timing: worsening Associated Symptoms: + back pain, + rash, No fevers, No chills, No chest pain, No SOB Note: Associated symptoms: pelvic pain and erythema. Review of Systems See HPI for pertinent positives & negatives. A total of 10 systems reviewed and were otherwise negative. 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 Surgical Problems: (1) H/O prostatectomy (2) History of prostatectomy Family History Cancer Diabetes mellitus Heart disease Hypertension Social History Smoking Status: Never Smoker Alcohol Use: none Drug Use: none Marital Status: Housing Status: lives with family Occupation Status: disabled Current/Historical Medications Scheduled Amoxicillin (Amoxil), 500 MG PO DAILY Ascorbic Acid (Vitamin C), 500 MG PO DAILY Atorvastatin (Lipitor), 20 MG PO HS Bupropion Hcl (Bupropion Hcl Xl), 150 MG PO DAILY Calcium/Vitamin D (Os-Raza 500 Plus D), 1 TAB PO BID Ciprofloxacin (Cipro), 250 MG PO DAILY Duloxetine HCl (Duloxetine HCl), 60 MG PO BID Fentanyl (Fentanyl), 25 MCG TOP CQ72HR Fentanyl (Fentanyl), 100 MCG TOP CQ72HR Fluticasone Propionate (Nasal) (Flonase Allergy Relief), 2 SPRAYS CECILIA DAILY Meloxicam (Mobic), 7.5 MG PO DAILY Metformin Hcl (Glucophage), 1,000 MG PO BID Metoprolol Tartrate (Lopressor), 25 MG PO BID [Lupron], 1 DOSE IM [id number] Scheduled PRN Cyclobenzaprine HCl (Cyclobenzaprine HCl), 10 MG PO TID PRN for Bladder pain Hydromorphone Hcl (Dilaudid), 4-8 MG PO Q4H PRN for Pain Lorazepam (Ativan), 1 MG PO Q6H PRN for Anxiety Ondansetron (Ondansetron HCl), 8 MG PO Q6H PRN for Nausea [Morphine], 0.25 ML SL Q1H PRN for Pain Allergies Coded Allergies: NO KNOWN DRUG ALLERGIES (Verified Allergy, Unknown, NKDA, 12/21/16) POLLEN (Verified Allergy, Unknown, HAY FEVER, 12/21/16) Physical Exam Vital Signs Date Time Temp Pulse Resp B/P (MAP) Pulse Ox O2 Delivery O2 Flow Rate FiO2 01/30/17 20:00 80 18 123/71 95 01/30/17 19:30 82 18 117/66 93 01/30/17 18:01 82 20 120/63 99 Room Air 01/30/17 16:06 36.7 91 18 136/74 100 Room Air Physical Exam GENERAL: alert, well appearing, well nourished, no distress, non-toxic, obese, pale EYE EXAM: normal conjunctiva, PERRL and EOM's grossly intact OROPHARYNX: no exudate, no erythema, lips, buccal mucosa, and tongue normal and mucous membranes are moist NECK: supple, no nuchal rigidity, no adenopathy, non-tender LUNGS: Clear to auscultation. Normal chest wall mechanics HEART: no murmurs, S1 normal and S2 normal ABDOMEN: abdomen soft, non-tender, normo-active bowel sounds, no masses, no rebound or guarding. Colostomy. BACK: Back is symmetrical on inspection and there is no deformity, no midline tenderness, no CVA tenderness. SKIN: no rashes and no bruising UPPER EXTREMITIES: upper extremities are grossly normal. LOWER EXTREMITIES: 3+ pitting edema in the legs to the waist, pulses are equal bilaterally. NEURO EXAM: Normal sensorium, cranial nerves II-XII intact, normal speech, no weakness of arms, no weakness of legs. Medical Decision & Procedures Laboratory Results 01/30/17 17:35 Red Blood Count 3.28, Mean Corpuscular Volume 89.3, Mean Corpuscular Hemoglobin 27.4, Mean Corpuscular Hemoglobin Concent 30.7, Mean Platelet Volume 9.1, Neutrophils (%) (Auto) 69.5, Lymphocytes (%) (Auto) 14.4, Monocytes (%) (Auto) 11.0, Eosinophils (%) (Auto) 1.7, Basophils (%) (Auto) 0.7, Neutrophils # (Auto ) 2.03, Lymphocytes # (Auto) 0.42, Monocytes # (Auto) 0.32, Eosinophils # (Auto ) 0.05, Basophils # (Auto) 0.02 01/30/17 17:35 Test 01/30/17 17:35 White Blood Count 2.92 K/uL (4.8-10.8) Red Blood Count 3.28 M/uL (4.7-6.1) Hemoglobin 9.0 g/dL (14.0-18.0) Hematocrit 29.3 % (42-52) Mean Corpuscular Volume 89.3 fL (80-100) Mean Corpuscular Hemoglobin 27.4 pg (25-34) Mean Corpuscular Hemoglobin Concent 30.7 g/dl (32-36) Platelet Count 232 K/uL (130-400) Mean Platelet Volume 9.1 fL (7.4-10.4) Neutrophils (%) (Auto) 69.5 % Lymphocytes (%) (Auto) 14.4 % Monocytes (%) (Auto) 11.0 % Eosinophils (%) (Auto) 1.7 % Basophils (%) (Auto) 0.7 % Neutrophils # (Auto) 2.03 K/uL (1.4-6.5) Lymphocytes # (Auto) 0.42 K/uL (1.2-3.4) Monocytes # (Auto) 0.32 K/uL (0.11-0.59) Eosinophils # (Auto) 0.05 K/uL (0-0.5) Basophils # (Auto) 0.02 K/uL (0-0.2) RDW Standard Deviation 57.1 fL (36.4-46.3) RDW Coefficient of Variation 17.6 % (11.5-14.5) Immature Granulocyte % (Auto) 2.7 % Immature Granulocyte # (Auto) 0.08 K/uL (0.00-0.02) Nucleated RBC Absolute Count (auto) 0.03 K/uL (0-0) Nucleated Red Blood Cells % 0.9 % Prothrombin Time 10.5 SECONDS (9.0-12.0) Prothromb Time International Ratio 1.0 (0.9-1.1) Anion Gap 15.0 mmol/L (3-11) Est Creatinine Clear Calc Drug Dose 84.3 ml/min Estimated GFR () 71.7 Estimated GFR (Non- 61.9 BUN/Creatinine Ratio 31.7 (10-20) Calcium Level 10.2 mg/dl (8.5-10.1) Total Bilirubin 0.2 mg/dl (0.2-1) Aspartate Amino Transf (AST/SGOT) 89 U/L (15-37) Alanine Aminotransferase (ALT/SGPT) 15 U/L (12-78) Alkaline Phosphatase 552 U/L (45-117) Total Protein 6.2 gm/dl (6.4-8.2) Albumin 2.7 gm/dl (3.4-5.0) Globulin 3.5 gm/dl (2.5-4.0) Albumin/Globulin Ratio 0.8 (0.9-2) Laboratory results per my review. Medications Administered Medications (Trade) Dose Ordered Sig/Shu Route Start Time Stop Time Status Last Admin Dose Admin Hydromorphone HCl (Dilaudid Inj) 2 mg STK-MED ONCE .ROUTE 01/30/17 17:45 01/30/17 17:46 DC 01/30/17 17:45 2 MG Hydromorphone HCl (Dilaudid Inj) 2 mg NOW STAT IV 01/30/17 19:07 01/30/17 19:08 DC 01/30/17 19:07 2 MG ED Course 1703: The patient was evaluated in room B08. A complete history and physical exam was performed. 171: Paged Dr. Rebolledo, General Surgery. 174: Ordered Dilaudid Inj 2 mg .ROUTE 175: I reevaluated the patient and updated him of his CT findings from earlier. Dr. Rebolledo has not returned the page yet. 1906: Ordered Dilaudid Inj 2 mg IV 1910: Upon reevaluation, the patient is resting. I discussed the findings and the treatment plan with the patient. He expresses agreement and understanding. I spoke with Dr. Onofre [facility] Hospitalist. The patient will be evaluated for further management. Patient with chronic impressive pain likely secondary to his worsening metastatic disease. Patient with worsening lower extremity edema secondary to impaired lymphatic drainage from both the lymphadenopathy. Patient was well well-appearing here, receiving pain medication through his port. Patient's white blood cell count and H&H are stable compared to prior. Doubt occult bacteremia/sepsis, doubt SBP. Patient with no other GI or complaints. Patient noted for additional pain control, possible evaluation by surgery and/ or vascular regarding palliative treatments of his tumor burden improved lymphatic drainage. Patient with stable vital signs on the emergency room. Patient and family aware of all results and agreeable with plan. Medical Decision Medication Reconciliation: I attest that I have personally reviewed the patient' s current medication list. Blood pressure screening: Patient was found to have a slightly elevated blood pressure due to circumstances. I do not believe that the patient requires hypertension monitoring. Consults Time Called: 1841 Consulting Physician: Dr. Onofre [facility] Hospitalist Returned Call: [address] Onofre [facility] Hospitalist. The patient will be evaluated for further management. Impression Primary Impression: Chronic pain Additional Impressions: Prostate cancer metastatic to multiple sites Lymphedema Lymphadenopathy Scribe Attestation The scribe's documentation has been prepared under my direction and personally reviewed by me in its entirety. I confirm that the note above accurately reflects all work, treatment, procedures, and medical decision making performed by me. Departure Information Dispostion Being Evaluated By Hospitalist Referrals Kal Madden DO (PCP) Patient Instructions [facility] Problem Qualifiers Primary Impression: Chronic pain Chronic pain type: chronic pain syndrome Qualified Codes: G89.4 - Chronic pain syndrome
[2017-01-30] MEDS ORDERED: HYDROmorphone INJ 2 MG/ML SYR/VIAL ONE ×2 (17:45→19:13)
[2017-01-30 17:57] LABS: BASO % 0.7 %; BASO ABS # 0.02 K/uL (0-0.2); COMPLETE YES; EOS % 1.7 %; HEMATOCRIT 29.3 % (42-52); IG% 2.7 %; LYMPH % 14.4 %; LYMPH ABS # 0.42 K/uL (1.2-3.4); MEAN CELL VOLUME 89.3 fL (80-100); MEAN CORPUSCULAR HEMOGLOBIN 27.4 pg (25-34); MEAN CORPUSCULAR HGB CONC 30.7 g/dl (32-36); MEAN PLATELET VOLUME 9.1 fL (7.4-10.4); NEUT % 69.5 %; PLATELET COUNT 232 K/uL (130-400); RED BLOOD COUNT 3.28 M/uL (4.7-6.1); WHITE BLOOD COUNT 2.92 K/uL (4.8-10.8)
[2017-01-30 18:04] LABS: PROTHROMBIN TIME (PATIENT) 10.5 SECONDS (9.0-12.0)
[2017-01-30 18:14] LABS: BUN/CREATININE RATIO 31.7 (10-20); CALCIUM 10.2 mg/dl (8.5-10.1); CREATININE 1.3 mg/dl (0.60-1.40); POTASSIUM 5.1 mmol/L (3.5-5.1)
[2017-01-30 18:18] LABS: ALB/GLOB RATIO 0.8 (0.9-2)
[2017-01-30] MEDS ORDERED: CIPR250T3 PO (19:33)
[2017-01-30] MEDS ORDERED: DRGTP100 TOP (19:33)
[2017-01-30] MEDS ORDERED: FNTTP25 TOP (19:33)
[2017-01-30] MEDS ORDERED: AMOX500C3 PO (19:33)
[2017-01-30] MEDS ORDERED: BUPR150T5 PO (19:33)
[2017-01-30] MEDS ORDERED: ONDA-63 PO (19:33)
[2017-01-30] MEDS ORDERED: CYM60 PO (19:33)
[2017-01-30] MEDS ORDERED: ACETAMINOPHEN 325 MG TAB PO PRN (21:15)
[2017-01-30] MEDS ORDERED: ONDANSETRON INJ 2 MG/ML 2 ML VIAL IV PRN (21:15)
[2017-01-30] MEDS ORDERED: FENTANYL 100 MCG/HR TDSY TD SCH (21:15)
[2017-01-30] MEDS ORDERED: FENTANYL 25 MCG/HR TDSY TD SCH (21:15)
--- NOTE | 2017-01-30 21:18 | History and Physical ---
History & Physical Date & Time of Service: Jan 30, 2017 at 21:18 Chief Complaint: Unable To Ambulate, Pain Primary Care Physician: Kal Madden DO History of Present Illness Source: patient 56-year-old male with a past medical history of T-cell lymphoma, widespread metastatic prostate cancer presented to the ER with complaints of worsening bilateral lower extremity edema which started about 5 days ago. He stated that his IVC is clogged due to compression from cancer. lower extremity edema started about a week ago and is more prominent on the left leg. he however denies any shortness of breath or chest pain. He had a CT abdomen and pelvis done earlier today to see if his IVC was drainable. He was recently started on hospice which he had revoked for CT Past Medical/Surgical History Medical Problems: (1) Cutaneous T-cell lymphoma Status: Chronic (2) Diabetes Status: Chronic (3) Hypercholesterolemia Status: Chronic (4) Hypertension Status: Chronic (5) Nephrostomy tubes in place Status: Chronic (6) Prostate cancer Permanent Comment: STAGING: Metastatic prostate cancer to lymph nodes, local recurrence in the bladder TREATMENT: 1. Radical prostatectomy - 04/18/2006 2. Salvage radiation therapy - 09/08/2007 Status: Resolved (7) Prostate cancer Permanent Comment: TREATMENT: 1. Radical prostatectomy - 04/18/2006 2. Salvage radiation therapy - 09/08/2007 3. Status post multiple TURBTs 4. Bilateral nephrostomy tube placement 5. Systemic chemotherapy had a with Taxotere for 3 cycles completed 06/06/2016 complicated with Clostridium difficile 6. Status post placement of diverting colostomy due to rectal obstruction from the progression of tumor 7. Iron infusions for chronic blood loss 8. Status post completion of radiation therapy 12/13/2016. 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 Allergies Coded Allergies: NO KNOWN DRUG ALLERGIES (Verified Allergy, Unknown, NKDA, 12/21/16) POLLEN (Verified Allergy, Unknown, HAY FEVER, 6/2/17) Home Medications Scheduled Bupropion (Wellbutrin), 50 MG PO TID Ciprofloxacin Tab (Cipro), 250 MG PO BID Dexamethasone (Decadron), 4 MG IV Q6 Duloxetine HCl (Cymbalta), 2 CAP PO BID Enoxaparin (Lovenox), 40 MG SQ DAILY Fentanyl (Fentanyl), 150 MCG TD CQ72HR Fluticasone Propionate (Nasal) (Flonase Allergy Relief), 2 SPRAY NA BID Metoprolol Tartrate (Lopressor), 25 MG PO BID Omeprazole (Prilosec), 20 MG PO DAILY Scheduled PRN Lorazepam (Ativan), 1 MG PO Q6H PRN for Anxiety Ondansetron (Ondansetron HCl), 8 MG PO Q6H PRN for Nausea Review of Systems Constitutional: No fever, No chills Eyes: No worsening of vision ENT: No hearing loss Respiratory: No cough, No sputum Cardiovascular: No chest pain Abdomen: No pain, No nausea, No vomiting Musculoskeletal: + swelling (Bilateral lower extremity swelling), No joint pain Neurologic: No memory loss Psychiatric: No depression symptoms Endocrine: No fatigue Hematologic / Lymphatic: No abnormal bleeding/bruising Integumentary: No rash Physical Exam Vital Signs Date Time Temp Pulse Resp B/P (MAP) Pulse Ox O2 Delivery O2 Flow Rate FiO2 01/30/17 20:00 80 18 123/71 95 01/30/17 19:30 82 18 117/66 93 01/30/17 18:01 82 20 120/63 99 Room Air 01/30/17 16:06 36.7 91 18 136/74 100 Room Air General Appearance: WD/WN, no apparent distress Eyes: normal inspection ENT: normal ENT inspection, hearing grossly normal Neck: supple Respiratory/Chest: chest non-tender Cardiovascular: regular rate, rhythm Abdomen/GI: normal bowel sounds, non tender, soft Extremities/Musculoskelatal: normal inspection, + pedal edema (extensive , extending to the groin) Neurologic/Psych: alert, normal mood/affect, oriented x 3 Diagnostics Laboratory Results Results Past 24 Hours Test 01/30/17 17:35 Range/Units White Blood Count 2.92 4.8-10.8 K/uL Red Blood Count 3.28 4.7-6.1 M/uL Hemoglobin 9.0 14.0-18.0 g/dL Hematocrit 29.3 42-52 % Mean Corpuscular Volume 89.3 80-100 fL Mean Corpuscular Hemoglobin 27.4 25-34 pg Mean Corpuscular Hemoglobin Concent 30.7 32-36 g/dl Platelet Count 232 130-400 K/uL Mean Platelet Volume 9.1 7.4-10.4 fL Neutrophils (%) (Auto) 69.5 % Lymphocytes (%) (Auto) 14.4 % Monocytes (%) (Auto) 11.0 % Eosinophils (%) (Auto) 1.7 % Basophils (%) (Auto) 0.7 % Neutrophils # (Auto) 2.03 1.4-6.5 K/uL Lymphocytes # (Auto) 0.42 1.2-3.4 K/uL Monocytes # (Auto) 0.32 0.11-0.59 K/uL Eosinophils # (Auto) 0.05 0-0.5 K/uL Basophils # (Auto) 0.02 0-0.2 K/uL RDW Standard Deviation 57.1 36.4-46.3 fL RDW Coefficient of Variation 17.6 11.5-14.5 % Immature Granulocyte % (Auto) 2.7 % Immature Granulocyte # (Auto) 0.08 0.00-0.02 K/uL Nucleated RBC Absolute Count (auto) 0.03 0-0 K/uL Nucleated Red Blood Cells % 0.9 % Prothrombin Time 10.5 9.0-12.0 SECONDS Prothromb Time International Ratio 1.0 0.9-1.1 Sodium Level 137 136-145 mmol/L Potassium Level 5.1 3.5-5.1 mmol/L Chloride Level 97 98-107 mmol/L Carbon Dioxide Level 25 21-32 mmol/L Anion Gap 15.0 3-11 mmol/L Blood Urea Nitrogen 41 7-18 mg/dl Creatinine 1.30 0.60-1.40 mg/dl Est Creatinine Clear Calc Drug Dose 84.3 ml/min Estimated GFR () 71.7 Estimated GFR (Non- 61.9 BUN/Creatinine Ratio 31.7 10-20 Random Glucose 73 70-99 mg/dl Calcium Level 10.2 8.5-10.1 mg/dl Total Bilirubin 0.2 0.2-1 mg/dl Aspartate Amino Transf (AST/SGOT) 89 15-37 U/L Alanine Aminotransferase (ALT/SGPT) 15 12-78 U/L Alkaline Phosphatase 552 45-117 U/L Total Protein 6.2 6.4-8.2 gm/dl Albumin 2.7 3.4-5.0 gm/dl Globulin 3.5 2.5-4.0 gm/dl Albumin/Globulin Ratio 0.8 0.9-2 Diagnostic Radiology BILATERAL LOWER EXTREMITY VENOUS DOPPLER CLINICAL HISTORY: Lower extremity swelling. COMPARISON STUDY: Bilateral lower external venous Doppler January 21, [address] of the abdomen and pelvis January 30, 2017. TECHNIQUE: Sonography of the deep venous system of the bilateral lower extremities was performed. Compression and augmentation were evaluated. FINDINGS: This exam was compromised due to lower extremity edema. The iliac veins could not be visualized due to overlying bandages and colostomy bag. The common femoral, superficial femoral and popliteal veins were compressible. Augmentation was normal. Flow was shown within the deep calf vessels. IMPRESSION: 1. Technically difficult exam but no evidence of deep venous thrombus within the bilateral lower extremities. 2. Nondiagnostic evaluation of the iliac veins. Electronically signed by: Moreno Ray M.D. Impression Assessment and Plan 56-year-old male with a past medical history of T-cell lymphoma, widespread metastatic prostate cancer presented to the ER with complaints of worsening bilateral lower extremity edema which started about 5 days ago. He stated that his IVC is clogged due to compression from cancer. Bilateral extensive lower extremity edema - Secondary to mechanical obstruction of IVC by widespread metastatic cancer - Venous Dopplers ordered to rule out DVT - Gen. surgery consult - rogelio hose/compression stocking - Pain control with fentanyl patch and Dilaudid as needed Diabetes: Insulin sliding scale Hypercholesterolemia continue statin Bilateral nephrostomy tubes: - Continue ciprofloxacin and amoxicillin for suppressive therapy Mood disorder: Continue Cymbalta and Wellbutrin Full code Disposition: Admitted to [facility] Attending Addendum: I physically seen and examined this patient, have supervised the medical residents activities, and agree with the H&P as noted above with the following exceptions: NONE The patient is awake, alert and oriented 3, chronically ill-appearing, normocephalic and atraumatic, lying in bed and in no acute distress. HEENT--PERRL, EOMI, mucous membranes and oropharynx dry. Neck--supple, no JVD or bruits, thyroid normal, trachea midline, no adenopathy. Heart--normal S1 and S2, no extra beats, no murmurs, rubs or gallops. Lungs--clear bilaterally with good air movement, no respiratory distress, no accessory muscle use. Abdomen--normal bowel sounds and soft, nontender and nondistended, no hernias or masses, no organomegaly. Extremities--tense, edematous bilateral lower extremities. Dermatologic--normal color, warm and dry, no abnormal lymph nodes, no rash. Neurologic--cranial nerves II through XII grossly intact. Rheumatologic--decreased normal range of motion lower extremities due to severe edema. Psychiatric--normal affect. Assessment and Plan: 1. Bilateral extensive lower extremity edema secondary to IVC compression by metastatic prostate cancer. We'll consult Dr. Rebolledo who ordered the CT, and Dr. Vigil from vascular surgery for possible intervention. We'll order bilateral venous Dopplers including iliacs to rule out DVT. Hold on ICDs until known that no DVT present. No signs of compartment syndrome. No likely benefit from IV diuretics. He would likely benefit from lymphedema therapy once the occlusion can be addressed. Level of Care Med/Surg Resuscitation Status FULL RESUSCITATION VTE Prophylaxis VTE Risk Assessment Done? Y/N: Yes Risk Level: Moderate Given or contraindicated: SCD's Resident Tracking Resident Involvement: Resident Care Provided Care Provided: Adult Hospital Medicine
[2017-01-30 21:45] VITALS: BP 121/65; PULSE 79; TEMP 36.7; BMI 33.8
--- NOTE | 2017-01-30 22:49 | DIAGNOSTIC IMAGING REPORT ---
BILATERAL LOWER EXTREMITY VENOUS DOPPLER CLINICAL HISTORY: Lower extremity swelling. COMPARISON STUDY: Bilateral lower external venous Doppler January 21, [address] of the abdomen and pelvis January 30, 2017. TECHNIQUE: Sonography of the deep venous system of the bilateral lower extremities was performed. Compression and augmentation were evaluated. FINDINGS: This exam was compromised due to lower extremity edema. The iliac veins could not be visualized due to overlying bandages and colostomy bag. The common femoral, superficial femoral and popliteal veins were compressible. Augmentation was normal. Flow was shown within the deep calf vessels. IMPRESSION: 1. Technically difficult exam but no evidence of deep venous thrombus within the bilateral lower extremities. 2. Nondiagnostic evaluation of the iliac veins. Electronically signed by: Moreno aRy M.D. 01/30/2017 10:48 PM Dictated Date/Time: 01/30/2017 10:46 PM
[2017-01-30 23:19] VITALS: BP 176/86; PULSE 85; TEMP 36.6; O2SAT 99
[2017-01-31] VITALS: O2SAT 94
[2017-01-31] MEDS: CHECK FENTANYL PATCH PLACEMENT SCH ×3 (00:32→16:03)
--- NOTE | 2017-01-31 05:57 | Surgery Consultation ---
Consultation Date of Consultation: Jan 31, 2017. Attending Physician: Yaw Onofre M.D. History of Present Illness this unfortunate gentleman with wide spread prostatic cancer well known to me from previous admission. I was called by his sister Renu araujo 1 week ago after he had had a ct scan abd and pelvis showing advancement disease. She was mostly concerned that his lower ext were very swollen. Reviewing Ct scan mention was made of possible compression vs thrombus distal vena cava iliac vein junction vena cava. I discussed with her that i would review images with Dr Vigil and get his opinion which I did. He rec ct angiogram of abd and pelvis venous phase. This was scheduled for yesterday after many phone calls with radiology dept from my office to clarify specifically what we wanted. Unfortunately another ct scan with iv contrast was done. Once seen this report I called specifically and spoke with radiologist and waste collection driver to see if the ct scan that we wanted could be done. Never heard anything more and found pt was admitted by medical service. Pt seen this am alert coherent with main complaint can"t move because of heavy legs no need for full consult from me will ask Dr Vigil to see pt and see if possibly a stent could be placed in iliac vein or vena cava to decompress venous system. I am not sure how much benefit it will be even if successful Past Medical/Surgical History Medical Problems: (1) Bilateral lower extremity edema Status: Acute (2) Chronic pain Status: Acute (3) Fever Status: Acute (4) Generalized pain Status: Acute (5) Lymphadenopathy Status: Acute (6) Lymphedema Status: Acute (7) Nephrostomy tube bleed Status: Acute (8) Prostate cancer metastatic to multiple sites Status: Acute (9) Pyelonephritis Status: Acute (10) UTI (urinary tract infection) Status: Acute Family History Cancer Diabetes mellitus Heart disease Hypertension Social History Smoking Status: Former Smoker Drug Use: none Marital Status: Housing Status: lives with family Occupation Status: disabled Allergies Coded Allergies: NO KNOWN DRUG ALLERGIES (Verified Allergy, Unknown, NKDA, 12/21/16) POLLEN (Verified Allergy, Unknown, HAY FEVER, 12/21/16) Home Medications Scheduled Amoxicillin (Amoxil), 500 MG PO DAILY Ascorbic Acid (Vitamin C), 500 MG PO DAILY Atorvastatin (Lipitor), 20 MG PO HS Bupropion Hcl (Bupropion Hcl Xl), 150 MG PO DAILY Calcium/Vitamin D (Os-Raza 500 Plus D), 1 TAB PO BID Ciprofloxacin (Cipro), 250 MG PO DAILY Duloxetine HCl (Duloxetine HCl), 60 MG PO BID Fentanyl (Fentanyl), 25 MCG TOP CQ72HR Fentanyl (Fentanyl), 100 MCG TOP CQ72HR Fluticasone Propionate (Nasal) (Flonase Allergy Relief), 2 SPRAYS CECILIA DAILY Meloxicam (Mobic), 7.5 MG PO DAILY Metformin Hcl (Glucophage), 1,000 MG PO BID Metoprolol Tartrate (Lopressor), 25 MG PO BID [Lupron], 1 DOSE IM [id number] Scheduled PRN Cyclobenzaprine HCl (Cyclobenzaprine HCl), 10 MG PO TID PRN for Bladder pain Hydromorphone Hcl (Dilaudid), 4-8 MG PO Q4H PRN for Pain Lorazepam (Ativan), 1 MG PO Q6H PRN for Anxiety Ondansetron (Ondansetron HCl), 8 MG PO Q6H PRN for Nausea [Morphine], 0.25 ML SL Q1H PRN for Pain Current Inpatient Medications Current Inpatient Medications Medications (Trade) Dose Ordered Sig/Shu Route Start Time Stop Time Status Last Admin Dose Admin Acetaminophen (Tylenol Tab) 650 mg Q4H PRN PO 01/30/17 21:15 03/01/17 21:14 Al Hydrox/Mg Hydrox/Simethicone (Maalox Max Susp) 15 ml Q4H PRN PO 01/30/17 21:15 03/01/17 21:14 Polyethylene (Miralax Powder Packet) 17 gm DAILY PRN PO 01/30/17 21:15 03/01/17 21:14 Ondansetron HCl (Zofran Inj) 4 mg Q6H PRN IV 01/30/17 21:15 03/01/17 21:14 Amoxicillin (Amoxil Cap) 500 mg DAILY PO 01/31/17 08:00 03/02/17 08:59 Atorvastatin Calcium (Lipitor Tab) 20 mg HS PO 01/31/17 21:00 03/02/17 20:59 Bupropion HCl (Wellbutrin-Xl Tab) 150 mg DAILY PO 01/31/17 08:00 03/02/17 08:59 Calcium/Vitamin D (Caltrate Plus Tab) 1 tab BID PO 01/31/17 08:00 03/02/17 08:59 Ciprofloxacin (Ciprofloxacin Tab) 250 mg DAILY PO 01/31/17 08:00 03/02/17 08:59 Cyclobenzaprine HCl (Flexeril Tab) 10 mg TID PRN PO 01/30/17 21:15 03/01/17 21:14 Duloxetine HCl (Cymbalta Cap) 60 mg BID PO 01/31/17 08:00 03/02/17 08:59 Fluticasone Propionate (Flonase Nasal [place]) 2 sprays DAILY CECILIA 01/31/17 08:00 03/02/17 08:59 Hydromorphone HCl (Dilaudid Tab) 4 mg Q4H PRN PO 01/30/17 21:15 02/13/17 21:14 Lorazepam (Ativan Tab) 1 mg Q6H PRN PO 01/30/17 21:15 03/01/17 21:14 Meloxicam (Mobic Tab) 7.5 mg DAILY PO 01/31/17 08:00 03/02/17 08:59 Metoprolol Tartrate (Lopressor Tab) 25 mg BID PO 01/31/17 08:00 03/02/17 08:59 Miscellaneous Information (Check Fentanyl Patch Placement) 2 ea QS N/A 01/31/17 00:00 03/02/17 00:00 01/31/17 00:32 2 EA Fentanyl (Duragesic Patch) 100 mcg Q3D TD 02/01/17 09:00 02/15/17 08:59 Miscellaneous (Fentanyl Patch Remove & Waste) 1 ea Q3D N/A 02/01/17 08:59 03/03/17 08:58 Fentanyl (Duragesic Patch) 25 mcg Q3D TD 02/01/17 09:00 02/15/17 08:59 Miscellaneous (Fentanyl Patch Remove & Waste) 1 ea Q3D N/A 02/01/17 08:59 03/03/17 08:58 Heparin Sodium (Porcine) (Heparin 100 Unit/ml 5ml Flush) 5 ml PRN PRN IV 01/30/17 23:45 03/01/17 23:44 01/31/17 05:07 5 ML Physical Exam Date Time Temp Pulse Resp B/P (MAP) Pulse Ox O2 Delivery O2 Flow Rate FiO2 01/31/17 00:00 94 Room Air 01/30/17 23:19 36.6 85 18 176/86 (116) 99 Room Air 01/30/17 21:45 36.7 79 19 121/65 01/30/17 21:37 79 19 121/65 94 01/30/17 20:00 80 18 123/71 95 01/30/17 19:30 82 18 117/66 93 01/30/17 18:01 82 20 120/63 99 Room Air 01/30/17 16:06 36.7 91 18 136/74 100 Room Air Laboratory Results Last 24 Hours Test 01/30/17 17:35 01/31/17 05:06 White Blood Count 2.92 K/uL Red Blood Count 3.28 M/uL Hemoglobin 9.0 g/dL Hematocrit 29.3 % Mean Corpuscular Volume 89.3 fL Mean Corpuscular Hemoglobin 27.4 pg Mean Corpuscular Hemoglobin Concent 30.7 g/dl Platelet Count 232 K/uL Mean Platelet Volume 9.1 fL Neutrophils (%) (Auto) 69.5 % Lymphocytes (%) (Auto) 14.4 % Monocytes (%) (Auto) 11.0 % Eosinophils (%) (Auto) 1.7 % Basophils (%) (Auto) 0.7 % Neutrophils # (Auto) 2.03 K/uL Lymphocytes # (Auto) 0.42 K/uL Monocytes # (Auto) 0.32 K/uL Eosinophils # (Auto) 0.05 K/uL Basophils # (Auto) 0.02 K/uL RDW Standard Deviation 57.1 fL RDW Coefficient of Variation 17.6 % Immature Granulocyte % (Auto) 2.7 % Immature Granulocyte # (Auto) 0.08 K/uL Nucleated RBC Absolute Count (auto) 0.03 K/uL Nucleated Red Blood Cells % 0.9 % Prothrombin Time 10.5 SECONDS Prothromb Time International Ratio 1.0 Sodium Level 137 mmol/L Potassium Level 5.1 mmol/L Chloride Level 97 mmol/L Carbon Dioxide Level 25 mmol/L Anion Gap 15.0 mmol/L Blood Urea Nitrogen 41 mg/dl Creatinine 1.30 mg/dl Est Creatinine Clear Calc Drug Dose 84.3 ml/min Estimated GFR () 71.7 Estimated GFR (Non- 61.9 BUN/Creatinine Ratio 31.7 Random Glucose 73 mg/dl Calcium Level 10.2 mg/dl Total Bilirubin 0.2 mg/dl Aspartate Amino Transf (AST/SGOT) 89 U/L Alanine Aminotransferase (ALT/SGPT) 15 U/L Alkaline Phosphatase 552 U/L Total Protein 6.2 gm/dl Albumin 2.7 gm/dl Globulin 3.5 gm/dl Albumin/Globulin Ratio 0.8
[2017-01-31 06:00] LABS: HEMATOCRIT 30.1 % (42-52); MEAN CELL VOLUME 90.1 fL (80-100); MEAN CORPUSCULAR HEMOGLOBIN 27.5 pg (25-34); MEAN CORPUSCULAR HGB CONC 30.6 g/dl (32-36); MEAN PLATELET VOLUME 9.7 fL (7.4-10.4); PLATELET COUNT 282 K/uL (130-400); RED BLOOD COUNT 3.34 M/uL (4.7-6.1); WHITE BLOOD COUNT 3.12 K/uL (4.8-10.8)
[2017-01-31 06:25] LABS: BUN/CREATININE RATIO 32.8 (10-20); CALCIUM 10.3 mg/dl (8.5-10.1); CREATININE 1.3 mg/dl (0.60-1.40); POTASSIUM 5.4 mmol/L (3.5-5.1)
[2017-01-31 06:47] VITALS: BMI 33.4
[2017-01-31] MEDS ORDERED: MELOXICAM 7.5 MG TAB PO SCH (08:00)
[2017-01-31] MEDS: CYCLOBENZAPRINE HCL 10 MG TAB PO PRN (09:08)
[2017-01-31] MEDS: BuPROPion XL 150 MG TABCR PO SCH (09:09)
[2017-01-31] MEDS: CIPROFLOXACIN 250 MG TAB PO SCH (09:09)
[2017-01-31] MEDS: FLUTICASONE PROPIONATE NA SPR 16 GM BTL NAE SCH (09:09)
[2017-01-31] MEDS: AMOXICILLIN 500 MG CAP PO SCH (09:09)
[2017-01-31] MEDS: METOPROLOL TARTRATE 25 MG TAB PO SCH ×2 (09:09→20:09)
[2017-01-31] MEDS: DULOXETINE HCL 60 MG CAP PO SCH ×2 (09:10→20:09)
[2017-01-31] MEDS: POLYETHYLENE (MIRALAX) 17 GM PACK PO PRN (09:29)
[2017-01-31] MEDS: HYDROmorphone HCL 2 MG TAB PO PRN ×2 (09:29→20:10)
[2017-01-31] MEDS: CALCIUM 600MG + VIT D 400 IU TAB PO SCH ×2 (09:30→20:09)
[2017-01-31 09:38] VITALS: BP 132/76; PULSE 110; TEMP 36.6; O2SAT 95
--- NOTE | 2017-01-31 10:00 | Clinical Documentation Query ---
LAURA Palacios : CLINICAL DOCUMENTATION QUERY Patient is a 56 year old male with metastatic prostate cancer admitted for worsening edema of bilateral lower extremities. H&P makes no mention of CT scan prompting admission. More specifically, intra-abdominal and intra-pelvic ascites, peritoneal metastasis, hepatic metastasis, bony metastasis of axial and appendicular skeleton. No impression or plan provided on H&P. As appropriate, consider clarifications as suggested below to capture the appropriate severity of illness and risk of mortality in your patient. Thank you. In your clinical opinion is this patient being managed for: ( xx ) IVC compression secondary to retroperitoneal adenopathy with intra-abdominal and Intra-pelvic ascites, peritoneal metastasis, hepatic metastasis, bony metastasis of axial and appendicular skeleton ( ) Other explanation of clinical findings (Please Explain) ( ) Unable to determine (Please Define) ( ) Need to Discuss ( ) Not Agree The medical record reflects the following clinical findings, treatment, and risk factors. Clinical Indicators: As above Treatment: Admission, general and vascular surgical consultation Risk Factors: Prostate cancer with diffuse metastatic sites Please clarify and document your clinical opinion in the progress notes and discharge summary. Terms such as "probable", "suspected", "likely", "questionable", "possible", or "still to be ruled out" are acceptable. IF IN AGREEMENT, YOU MUST DOCUMENT ABOVE DIAGNOSTIC STATEMENT IN DAILY PROGRESS NOTES AND DISCHARGE SUMMARY. This document is not part of the patient's record. Thank You, Kal Forbes, CRISTIAN [phone]
[2017-01-31 12:30] VITALS: BP 135/76; PULSE 88; TEMP 36.5; O2SAT 98
--- NOTE | 2017-01-31 13:13 | Progress Note ---
Subjective Date of Service: Jan 31, 2017. Subjective pt has trouble with leg swelling, he feels he is dropping things and is shakey, but otherwise continues with leg swelling and discomfort Problem List Medical Problems: (1) Bilateral lower extremity edema Status: Acute (2) Chronic pain Status: Acute (3) Fever Status: Acute (4) Generalized pain Status: Acute (5) Lymphadenopathy Status: Acute (6) Lymphedema Status: Acute (7) Nephrostomy tube bleed Status: Acute (8) Prostate cancer metastatic to multiple sites Status: Acute (9) Pyelonephritis Status: Acute (10) UTI (urinary tract infection) Status: Acute Review of Systems Constitutional: + weakness, + fatigue, No fever, No chills Respiratory: No cough, No shortness of breath, No dyspnea on exertion Cardiac: + orthopnea, + edema, No chest pain Abdomen: No pain, No nausea, No vomiting, No diarrhea Musculoskeletal: + joint pain, + muscle pain, + swelling Neurologic: + weakness, + balance problems, No memory loss, No paralysis Psychiatric: + depression symptoms, + anhedonism Objective Vital Signs Date Time Temp Pulse Resp B/P (MAP) Pulse Ox O2 Delivery O2 Flow Rate FiO2 01/31/17 12:30 36.5 88 18 135/76 (95) 98 Room Air 01/31/17 09:45 Room Air 01/31/17 09:38 36.6 110 18 132/76 (94) 95 Room Air 01/31/17 00:00 94 Room Air 01/30/17 23:19 36.6 85 18 176/86 (116) 99 Room Air 01/30/17 21:45 36.7 79 19 121/65 01/30/17 21:37 79 19 121/65 94 01/30/17 20:00 80 18 123/71 95 01/30/17 19:30 82 18 117/66 93 01/30/17 18:01 82 20 120/63 99 Room Air 01/30/17 16:06 36.7 91 18 136/74 100 Room Air Physical Exam General Appearance: + moderate distress, + obese Eyes: PERRL, EOMI Neck: supple, trachea midline Respiratory/Chest: chest non-tender, + decreased breath sounds, + accessory muscle use Cardiovascular: regular rate, rhythm, + systolic murmur Abdomen: normal bowel sounds, + distended, + tenderness Extremities: no calf tenderness, + pedal edema, + swelling Neurologic/Psychiatric: alert, oriented x 3 Laboratory Results Last 24 Hours Test 01/30/17 17:35 01/31/17 05:06 White Blood Count 2.92 K/uL 3.12 K/uL Red Blood Count 3.28 M/uL 3.34 M/uL Hemoglobin 9.0 g/dL 9.2 g/dL Hematocrit 29.3 % 30.1 % Mean Corpuscular Volume 89.3 fL 90.1 fL Mean Corpuscular Hemoglobin 27.4 pg 27.5 pg Mean Corpuscular Hemoglobin Concent 30.7 g/dl 30.6 g/dl Platelet Count 232 K/uL 282 K/uL Mean Platelet Volume 9.1 fL 9.7 fL Neutrophils (%) (Auto) 69.5 % Lymphocytes (%) (Auto) 14.4 % Monocytes (%) (Auto) 11.0 % Eosinophils (%) (Auto) 1.7 % Basophils (%) (Auto) 0.7 % Neutrophils # (Auto) 2.03 K/uL Lymphocytes # (Auto) 0.42 K/uL Monocytes # (Auto) 0.32 K/uL Eosinophils # (Auto) 0.05 K/uL Basophils # (Auto) 0.02 K/uL RDW Standard Deviation 57.1 fL 57.9 fL RDW Coefficient of Variation 17.6 % 17.9 % Immature Granulocyte % (Auto) 2.7 % Immature Granulocyte # (Auto) 0.08 K/uL Nucleated RBC Absolute Count (auto) 0.03 K/uL 0.08 K/uL Nucleated Red Blood Cells % 0.9 % 2.6 % Prothrombin Time 10.5 SECONDS Prothromb Time International Ratio 1.0 Sodium Level 137 mmol/L 137 mmol/L Potassium Level 5.1 mmol/L 5.4 mmol/L Chloride Level 97 mmol/L 99 mmol/L Carbon Dioxide Level 25 mmol/L 26 mmol/L Anion Gap 15.0 mmol/L 12.0 mmol/L Blood Urea Nitrogen 41 mg/dl 43 mg/dl Creatinine 1.30 mg/dl 1.30 mg/dl Est Creatinine Clear Calc Drug Dose 84.3 ml/min 84.3 ml/min Estimated GFR () 71.7 71.7 Estimated GFR (Non- 61.9 61.9 BUN/Creatinine Ratio 31.7 32.8 Random Glucose 73 mg/dl 65 mg/dl Calcium Level 10.2 mg/dl 10.3 mg/dl Total Bilirubin 0.2 mg/dl Aspartate Amino Transf (AST/SGOT) 89 U/L Alanine Aminotransferase (ALT/SGPT) 15 U/L Alkaline Phosphatase 552 U/L Total Protein 6.2 gm/dl Albumin 2.7 gm/dl Globulin 3.5 gm/dl Albumin/Globulin Ratio 0.8 Assessment and Plan 56 M with metastatic prostate cancer, bulky lymphadenopathy, with inferior vena caval narrowing and massive painful LE edema, he previously has bilateral nephrostomy tubes in place. Currently supportive care with iv pain medications, attempts at some diuresis and vascular surgery consult to determine if palliative stenting or bypass can be accomplished
[2017-01-31] MEDS ORDERED: FUROSEMIDE INJ 20 MG in SYRINGE 0 ML IV ONE (13:30)
[2017-01-31 14:09] VITALS: BMI 33.4
[2017-01-31] MEDS ORDERED: HYDROmorphone INJ 1 MG/ML SYR ONE (14:47)
[2017-01-31] MEDS ORDERED: HYDROmorphone INJ 1 MG/ML SYR IV ONE (15:30)
[2017-01-31 16:29] VITALS: BP 112/69; PULSE 90; TEMP 36.7; O2SAT 96
[2017-01-31 20:22] VITALS: BP 131/78; PULSE 88; TEMP 36.6; O2SAT 93
[2017-01-31] MEDS ORDERED: ATORVASTATIN 20 MG TAB PO SCH (21:00)
[2017-01-31] MEDS: HYDROmorphone INJ 0.5 MG/0.5 ML SYR IV PRN (22:30)
[2017-01-31 23:07] VITALS: BP 120/73; PULSE 87; TEMP 36.7; O2SAT 96
[2017-02-01] VITALS (8 sets, daily range): BP systolic 106–137; BP diastolic 64–78; PULSE 79–99; TEMP 36.4–36.5; O2SAT 93–99; BMI 34.3
[2017-02-01] MEDS: CHECK FENTANYL PATCH PLACEMENT SCH ×4 (00:01→23:25)
[2017-02-01] MEDS: ALUMINUM/MAGNESIUM/SIMETH (MAALOX MAX) 30 ML UDC PO PRN (02:11)
[2017-02-01] MEDS: HYDROmorphone HCL 2 MG TAB PO PRN ×5 (02:14→21:37)
[2017-02-01] MEDS: HYDROmorphone INJ 0.5 MG/0.5 ML SYR IV PRN ×2 (03:20→18:04)
[2017-02-01 05:58] LABS: CALCIUM 10.3 mg/dl (8.5-10.1); CREATININE 1.5 mg/dl (0.60-1.40); POTASSIUM 5.2 mmol/L (3.5-5.1)
[2017-02-01] MEDS: FLUTICASONE PROPIONATE NA SPR 16 GM BTL NAE SCH (08:15)
[2017-02-01] MEDS: DULOXETINE HCL 60 MG CAP PO SCH ×2 (08:15→19:53)
[2017-02-01] MEDS: CIPROFLOXACIN 250 MG TAB PO SCH (08:15)
[2017-02-01] MEDS: AMOXICILLIN 500 MG CAP PO SCH (08:15)
[2017-02-01] MEDS: METOPROLOL TARTRATE 25 MG TAB PO SCH ×2 (08:15→19:53)
[2017-02-01] MEDS: CALCIUM 600MG + VIT D 400 IU TAB PO SCH ×2 (08:15→19:53)
[2017-02-01] MEDS: CYCLOBENZAPRINE HCL 10 MG TAB PO PRN (08:15)
[2017-02-01] MEDS: BuPROPion XL 150 MG TABCR PO SCH (08:15)
[2017-02-01] MEDS ORDERED: FENTANYL PATCH REMOVE & WASTE SCH ×2 (08:59)
[2017-02-01] MEDS ORDERED: FENTANYL 100 MCG/HR TDSY TD SCH (09:00)
[2017-02-01] MEDS ORDERED: FENTANYL 25 MCG/HR TDSY TD SCH (09:00)
--- NOTE | 2017-02-01 11:29 | Radiation Oncology Follow-Up ---
Radiation Oncology Follow-Up Date of Visit Feb 01, 2017. (Perlita Tanner PA-C) Reason For Visit Evaluation for radiation to retroperitoneal lymphadenopathy causing lower extremity edema and back pain (Perlita Tanner PA-C) Diagnosis (1) Prostate cancer Status: Chronic Stage: IV Permanent Comment: TREATMENT: 1. Radical prostatectomy - 04/18/2006 2. Salvage radiation therapy - 09/08/2007 3. Status post multiple TURBTs 4. Bilateral nephrostomy tube placement 5. Systemic chemotherapy had a with Taxotere for 3 cycles completed 06/06/2016 complicated with Clostridium difficile 6. Status post placement of diverting colostomy due to rectal obstruction from the progression of tumor 7. Iron infusions for chronic blood loss 8. Status post completion of radiation therapy 12/13/2016. He received 4800 cGy Last Edited By: Perlita Tanner on Dec 27, 2016 11:05 (Perlita Tanner PA-C ) History of Present Illness Mr. Noel is a 56-year-old gentleman who presents with metastatic prostate cancer. He was previously diagnosed with prostate cancer in 2005 and underwent a robotic prostatectomy followed by salvage radiation therapy in 2007. He received 7000 cGy for a total dose using intensity modulated radiation therapy. In the interim, the patient has developed further progression of disease with a biochemical failure and development of a local recurrence in the bladder as well as pelvic lymph node involvement. His most recent PSA in 03/12/2016 it was 11.32 and prior to that it was 10.17 on 2015. He is been treated with Xtandi underneath the supervision of Dr. Obinna Saeed which he continues to take. Previously, he was on Lupron as well as chemotherapy. With respect to his bladder recurrence, he's been evaluated by Dr. Mack Lynne was performed multiple TURBTs to resect his recurrent prostate cancer which has been biopsy-proven. In the interim, he has had bilateral nephrostomy tubes placed due to multiple episodes of acute renal failure from obstruction in the bladder. Additionally, the patient has been sent for multiple second opinion consultations to outside institutions including [facility], [facility] and the [facility]. He has been seen by the urologists at these institutions for consideration of a pelvic exenteration due to his recurrent bladder cancer however there is been reluctance to proceed with surgical resection. More recently, the patient has developed suprapubic pain from his bladder recurrence and also has had some minimal hematuria. He did recently have a CT of the abdomen and pelvis on 03/05/2016 which did show 6.5 cm bladder mass with suspected perirectal extension and encasement as well as iliac and obturator lymphadenopathy but no evidence of bony metastatic disease. Dr. Saeed was referred the patient to us for potential consideration of further radiation therapy. Currently, the patient states that he is doing relatively okay. He does have some scant hematuria and states that there is no blood noted in his nephrostomy bags. He does continue to have some suprapubic pain which he states he can get significantly difficult to tolerate at some points. He does not state he is not any rash and wants to take this time making the decision how to manage this issue. He was initially treated with chemotherapy. Decision was then to give radiation to help control his gross hematuria. He completed radiation therapy 12/13/2016. He received 4800 cGy. (Perlita Tanner PA-C) Interim History He has noticed progressive edema in the lower extremities. Proximal and month and a half ago there was swelling in the left leg. His then was noted in both legs. This is steadily become worse over the past 2 weeks. He also has pain in his lower back. 4 days prior to admission the swelling of the legs was so severe he was unable to stand. He had a CT of the abdomen and pelvis on 2016. Findings were consistent with marked progression of widespread metastatic disease since exam of August 2016. Interval development of hepatic metastasis, small to moderate abdominal ascites with innumerable hurt James implants. Progression of intraperitoneal/pelvic lymphadenopathy with abnormal appearance of the proximal IVC which could reflect extrinsic compression by lymph node or intraluminal thrombus. Progression of skeletal metastatic disease with epidural extension of tumor at the T9 level which results in marked narrowing of the central canal. Mild T11 and S1 pathologic fractures. CT of the abdomen and pelvis was repeated on 01/30/2017. There was redemonstration of widespread metastatic disease throughout the abdomen and pelvis. Several of the hepatic metastasis have slightly increased in size from previous. The remainder of the study is generally stable in comparison. Metastatic findings include moderate volume intra-abdominal and interval pelvic ascites, para no metastasis, extensive bulky retroperitoneal adenopathy and widespread bone metastasis of the imaged axial and appendicular skeletal system. Multifocal marked narrowing of the IVC is again seen, likely secondary to extrinsic compression from the aforementioned metastatic adenopathy. With these findings he was referred to radiation oncology for evaluation and treatment to the retroperitoneal nodes for palliation of the massive edema in his lower extremities. (Perlita Tanner PA-C) Allergies Coded Allergies: NO KNOWN DRUG ALLERGIES (Verified Allergy, Unknown, NKDA, 12/21/16) POLLEN (Verified Allergy, Unknown, HAY FEVER, 12/21/16) Home Medications Scheduled Amoxicillin (Amoxil), 500 MG PO DAILY Ascorbic Acid (Vitamin C), 500 MG PO DAILY Atorvastatin (Lipitor), 20 MG PO HS Bupropion Hcl (Bupropion Hcl Xl), 150 MG PO DAILY Calcium/Vitamin D (Os-Raza 500 Plus D), 1 TAB PO BID Ciprofloxacin (Cipro), 250 MG PO DAILY Duloxetine HCl (Duloxetine HCl), 60 MG PO BID Fentanyl (Fentanyl), 25 MCG TOP CQ72HR Fentanyl (Fentanyl), 100 MCG TOP CQ72HR Fluticasone Propionate (Nasal) (Flonase Allergy Relief), 2 SPRAYS CECILIA DAILY Meloxicam (Mobic), 7.5 MG PO DAILY Metformin Hcl (Glucophage), 1,000 MG PO BID Metoprolol Tartrate (Lopressor), 25 MG PO BID [Lupron], 1 DOSE IM [id number] Scheduled PRN Cyclobenzaprine HCl (Cyclobenzaprine HCl), 10 MG PO TID PRN for Bladder pain Hydromorphone Hcl (Dilaudid), 4-8 MG PO Q4H PRN for Pain Lorazepam (Ativan), 1 MG PO Q6H PRN for Anxiety Ondansetron (Ondansetron HCl), 8 MG PO Q6H PRN for Nausea [Morphine], 0.25 ML SL Q1H PRN for Pain Review of Systems Gastrointestinal: Symptoms: WNL Oral: Other Oral Symptoms: decreased appetitie Respiratory: Symptoms: WNL Urinary: Comments: Nephrostomy tubes functioning well. He has had no bleeding from the penis (Perlita Tanner PA-C) Physical Exam Vital Signs Date Time Temp Pulse Resp B/P (MAP) Pulse Ox O2 Delivery O2 Flow Rate FiO2 02/01/17 09:20 Room Air 02/01/17 07:38 36.4 96 18 129/72 (91) 98 Room Air 02/01/17 04:12 36.4 99 19 129/78 (95) 97 CPAP 02/01/17 00:00 94 Room Air 01/31/17 23:07 36.7 87 18 120/73 (89) 96 Room Air 01/31/17 20:22 36.6 88 18 131/78 (95) 93 Room Air 01/31/17 16:29 36.7 90 18 112/69 (83) 96 Room Air 01/31/17 16:00 Room Air 01/31/17 12:30 36.5 88 18 135/76 (95) 98 Room Air 01/31/17 09:45 Room Air 01/31/17 09:38 36.6 110 18 132/76 (94) 95 Room Air 01/31/17 00:00 94 Room Air 01/30/17 23:19 36.6 85 18 176/86 (116) 99 Room Air 01/30/17 21:45 36.7 79 19 121/65 01/30/17 21:37 79 19 121/65 94 01/30/17 20:00 80 18 123/71 95 01/30/17 19:30 82 18 117/66 93 01/30/17 18:01 82 20 120/63 99 Room Air 01/30/17 16:06 36.7 91 18 136/74 100 Room Air Pain: Side: Left Patient Pain Scale: 0 - 10 Initial Pain Intensity: 4.0 Fatigue: Severe General Appearance: no apparent distress, + pertinent finding (somnolent) Eyes: normal inspection, EOMI ENT: normal ENT inspection, hearing grossly normal Respiratory/Chest: lungs clear, no respiratory distress, no accessory muscle use Cardiovascular: regular rate, rhythm, no gallop, no murmur Abdomen: non tender, soft Extremities: + pertinent finding (massive edema of lower extremities. Skin is intact.) Neurologic/Psychiatric: no motor/sensory deficits, alert, + depressed affect (Perlita Tanner PA-C) Laboratory Studies Test 11/05/16 11:00 11/06/16 11:30 11/08/16 15:00 11/09/16 00:01 Gentamicin Level Trough 0.40 mcg/ml (0-1) 0.40 mcg/ml (0-1) Anisocytosis PRESENT Ovalocytes 1+ Lab Scanned Report Pain Clinic Outside Drug Test 11/13/16 11:45 11/15/16 00:01 11/21/16 17:12 12/07/16 16:51 C-Reactive Protein 1.38 mg/dl (0-0.29) Lab Scanned Report [facility] Clinic Outside Drug Red Blood Cell Morphology Unremarkable Urine Pathogenic Casts /lpf (0) Test 12/25/16 11:15 01/01/17 12:55 01/08/17 18:55 01/18/17 13:14 Erythrocyte Sedimentation Rate 31 mm/hr (0-14) 24 mm/hr (0-14) C-Reactive Protein 2.43 mg/dl (0-0.29) Polychromasia 1+ 1+ Anisocytosis PRESENT Urine Color YELLOW Urine Appearance TURBID (CLEAR) Urine pH 6.0 (4.5-7.5) Urine Specific [place]pping 1.017 (1.000-1.030) Urine Protein 2+ (NEG) Urine Glucose (UA) NEG (NEG) Urine Ketones NEG (NEG) Urine Occult Blood 3+ (NEG) Urine Nitrite NEG (NEG) Urine Bilirubin NEG (NEG) Urine Urobilinogen NEG (NEG) Urine Leukocyte Esterase LARGE (NEG) Urine WBC (Auto) >30 /hpf (0-5) Urine RBC (Auto) >30 /hpf (0-4) Urine Hyaline Casts (Auto) 1-5 /lpf (0-5) Urine Epithelial Cells (Auto) 20-30 /lpf (0-5) Urine Bacteria (Auto) 1+ (NEG) Urine Pathogenic Casts /lpf (0) Urine Yeast (Auto) PRESENT (NONE PRSENT) Globulin 3.7 gm/dl (2.5-4.0) Albumin/Globulin Ratio 0.8 (0.9-2) Test 01/21/17 19:40 01/21/17 19:48 01/21/17 19:51 01/21/17 20:00 Immature Granulocyte % (Auto) 1.2 % White Blood Count 3.26 K/uL (4.8-10.8) Red Blood Count 3.11 M/uL (4.7-6.1) Hemoglobin 8.4 g/dL (14.0-18.0) Hematocrit 26.9 % (42-52) Mean Corpuscular Volume 86.5 fL (80-100) Mean Corpuscular Hemoglobin 27.0 pg (25-34) Mean Corpuscular Hemoglobin Concent 31.2 g/dl (32-36) Platelet Count 228 K/uL (130-400) Mean Platelet Volume 8.7 fL (7.4-10.4) Neutrophils (%) (Auto) 76.8 % Lymphocytes (%) (Auto) 11.0 % Monocytes (%) (Auto) 9.8 % Eosinophils (%) (Auto) 0.9 % Basophils (%) (Auto) 0.3 % Neutrophils # (Auto) 2.50 K/uL (1.4-6.5) Lymphocytes # (Auto) 0.36 K/uL (1.2-3.4) Monocytes # (Auto) 0.32 K/uL (0.11-0.59) Eosinophils # (Auto) 0.03 K/uL (0-0.5) Basophils # (Auto) 0.01 K/uL (0-0.2) Immature Granulocyte # (Auto) 0.04 K/uL (0.00-0.02) Red Blood Cell Morphology Unremarkable Magnesium Level 2.2 mg/dl (1.8-2.4) Total Bilirubin 0.4 mg/dl (0.2-1) Direct Bilirubin < 0.1 mg/dl (0-0.2) Aspartate Amino Transferase (AST) 86 U/L (15-37) Alanine Aminotransferase (ALT) 14 U/L (12-78) Alkaline Phosphatase 509 U/L (45-117) Total Creatine Kinase 229 U/L (39-308) Creatine Kinase MB 2.1 ng/ml (0.5-3.6) Creatine Kinase MB Ratio 0.9 (0-3.0) Total Protein 6.7 gm/dl (6.4-8.2) Albumin 2.9 gm/dl (3.4-5.0) POC Troponin I < 0.030 ng/ml (0-0.045) OM-Hkz-Y-Type Natriuretic Peptide 421 pg/ml (0-900) POC Hemoglobin 7.8 g/dl (14.0-18.0) POC Hematocrit 23 % (42-52) POC Sodium 134 mEq/L (135-144) POC Potassium 5.0 mEq/L (3.3-5.0) POC Chloride 98 mEq/L (101-112) POC Total CO2 23 mEq/l (24-31) POC Blood Urea Nitrogen 35 mg/dl (7-18) POC Creatinine 1.3 mg/dl (0.6-1.3) POC Glucose 60 mg/dl (70-99) POC Ionized Calcium (Azalea) 1.11 mmol/l (1.12-1.32) Urine Color YELLOW Urine Appearance CLOUDY (CLEAR) Urine pH 8.5 (4.5-7.5) Urine Specific E[place] 1.017 (1.000-1.030) Urine Protein 1+ (NEG) Urine Glucose (UA) NEG (NEG) Urine Ketones 1+ (NEG) Urine Occult Blood 2+ (NEG) Urine Nitrite NEG (NEG) Urine Bilirubin NEG (NEG) Urine Urobilinogen NEG (NEG) Urine Leukocyte Esterase LARGE (NEG) Urine WBC (Auto) >30 /hpf (0-5) Urine RBC (Auto) >30 /hpf (0-4) Urine Hyaline Casts (Auto) 1-5 /lpf (0-5) Urine Epithelial Cells (Auto) 10-20 /lpf (0-5) Urine Bacteria (Auto) NEG (NEG) Urine Yeast (Auto) PRESENT (NONE PRSENT) Test 01/30/17 17:35 01/31/17 05:06 01/31/17 20:20 02/01/17 04:56 White Blood Count 2.92 K/uL (4.8-10.8) 3.12 K/uL (4.8-10.8) Red Blood Count 3.28 M/uL (4.7-6.1) 3.34 M/uL (4.7-6.1) Hemoglobin 9.0 g/dL (14.0-18.0) 9.2 g/dL (14.0-18.0) Hematocrit 29.3 % (42-52) 30.1 % (42-52) Mean Corpuscular Volume 89.3 fL (80-100) 90.1 fL (80-100) Mean Corpuscular Hemoglobin 27.4 pg (25-34) 27.5 pg (25-34) Mean Corpuscular Hemoglobin Concent 30.7 g/dl (32-36) 30.6 g/dl (32-36) Platelet Count 232 K/uL (130-400) 282 K/uL (130-400) Mean Platelet Volume 9.1 fL (7.4-10.4) 9.7 fL (7.4-10.4) Neutrophils (%) (Auto) 69.5 % Lymphocytes (%) (Auto) 14.4 % Monocytes (%) (Auto) 11.0 % Eosinophils (%) (Auto) 1.7 % Basophils (%) (Auto) 0.7 % Neutrophils # (Auto) 2.03 K/uL (1.4-6.5) Lymphocytes # (Auto) 0.42 K/uL (1.2-3.4) Monocytes # (Auto) 0.32 K/uL (0.11-0.59) Eosinophils # (Auto) 0.05 K/uL (0-0.5) Basophils # (Auto) 0.02 K/uL (0-0.2) RDW Standard Deviation 57.1 fL (36.4-46.3) 57.9 fL (36.4-46.3) RDW Coefficient of Variation 17.6 % (11.5-14.5) 17.9 % (11.5-14.5) Immature Granulocyte % (Auto) 2.7 % Immature Granulocyte # (Auto) 0.08 K/uL (0.00-0.02) Nucleated RBC Absolute Count (auto) 0.03 K/uL (0-0) 0.08 K/uL (0-0) Nucleated Red Blood Cells % 0.9 % 2.6 % Prothrombin Time 10.5 SECONDS (9.0-12.0) Prothrombin Time INR 1.0 (0.9-1.1) Total Bilirubin 0.2 mg/dl (0.2-1) Aspartate Amino Transferase (AST) 89 U/L (15-37) Alanine Aminotransferase (ALT) 15 U/L (12-78) Alkaline Phosphatase 552 U/L (45-117) Total Protein 6.2 gm/dl (6.4-8.2) Albumin 2.7 gm/dl (3.4-5.0) Globulin 3.5 gm/dl (2.5-4.0) Albumin/Globulin Ratio 0.8 (0.9-2) Sodium Level 137 mmol/L (136-145) 136 mmol/L (136-145) Potassium Level 5.4 mmol/L (3.5-5.1) 5.2 mmol/L (3.5-5.1) Chloride Level 99 mmol/L (98-107) 96 mmol/L (98-107) Carbon Dioxide Level 26 mmol/L (21-32) 23 mmol/L (21-32) Anion Gap 12.0 mmol/L (3-11) 17.0 mmol/L (3-11) Blood Urea Nitrogen 43 mg/dl (7-18) 47 mg/dl (7-18) Creatinine 1.30 mg/dl (0.60-1.40) 1.50 mg/dl (0.60-1.40) Est Creatinine Clear Calc Drug Dose 84.3 ml/min 72.7 ml/min Estimated GFR () 71.7 60.3 Estimated GFR (Non- 61.9 52.0 BUN/Creatinine Ratio 32.8 (10-20) 31.0 (10-20) Random Glucose 65 mg/dl (70-99) 77 mg/dl (70-99) Calcium Level 10.3 mg/dl (8.5-10.1) 10.3 mg/dl (8.5-10.1) POC Glucose 86 mg/dl (70-99) Test 02/01/17 07:27 POC Glucose 82 mg/dl (70-99) (Perlita Tanner PA-C) Additional Studies Patient: UYEN NOEL II Address1: [address] [place] [address] Rec: [id number] Address2: Acct ID: [id number] [facility] Zip: [place] [address] Date: 1960 Sex: M Room/Bed: Ref Phy: Kal Madden DO SC: C.CTS Att Phy: Uyen Rebolledo M.D. Report #: [id number] Skye Phy: Kal Madden DO Test: APIV Admit Phy: Cash Applications Coordinator: MEENAKSHI Interpreting Phy: Torrey Woods D.O. Diagnosis: NEOPLASM OF PROSTATE, MALIGNANT,VENA CAVA OBSTRUCTI Ordering Phy: Uyen Rebolledo M.D. Service Date: 01/30/17 Admit Date: 01/30/17 MNE: [id number] CONF: DICTATED BY: Torrey Woods D.O.]] CC: Kal Madden, Uyen Adams M.D. Endcc: [~ rep ct add3]] ABD/PELVIS IV CONTRAST ONLY HISTORY:56 yearsMalehistory of metastatic prostate cancer. Follow-up exam. COMPARISON: CT study 01/23/2017, pelvic MR 10/17/2016. TECHNIQUE: Multiple axial CT images of the abdomen and pelvis were obtained following the intravenous administration of 116 mL Optiray 320. FINDINGS: There are trace bilateral pleural effusions with mild subsegmental bibasilar atelectasis. No pneumoperitoneum is identified. The inferior cardiac chambers are enlarged with coronary arterial calcifications noted. Soft tissue density of the bilateral breasts suggest gynecomastia, left greater than right. Multiple heart. Like metastatic lesions are again seen throughout the right and left hepatic lobes, largest in the right hepatic lobe measuring up to 5.2 cm, previously 4.9. Mass in the left hepatic lobe measures up to 4.9 cm, previously 4.6 cm. Moderate volume intra-abdominal ascites appears unchanged. Diffuse peritoneal metastasis redemonstrated. Bulky retroperitoneal adenopathy redemonstrated with index pericaval node at the level of the right kidney measuring 2.4 x 2.0 cm, previously 2.4 x 1.8 cm. Index periotic lymph node at the level left kidney measures 2.4 x 2.7 cm, previously 2.3 x 2.7 cm. The spleen, gallbladder and adrenal glands are unremarkable. There is moderate pancreatic atrophy. Bilateral nephrostomy catheters are present. There is no hydronephrosis. The abdominal aorta is normal in course and caliber. There is marked narrowing of the IVC at the iliac confluence and also just proximal to the liver, likely from extrinsic compression from the metastatic adenopathy. These findings appear similar from comparison. High attenuating material seen within the gastric lumen. No bowel obstruction. There is circumferential wall thickening of the mostly collapsed urinary bladder lumen. Large central pelvic floor mass is better evaluated on comparison MR. The colon is unremarkable. Appendix not well seen. Left and right lower quadrant ostomy sites are noted. There is moderate amount of diffuse body wall edema. 1.4 x 1.37 m soft tissue nodule of the right para umbilical tissues appears unchanged. Multifocal sclerotic metastasis again seen throughout the spine, pelvis, sternum and proximal femora. These findings appear unchanged from comparison. Metastatic mass at T9 is again seen with extensive central canal infiltration, best seen on the sagittal images. IMPRESSION: 1. Redemonstration of widespread metastatic disease throughout the abdomen and pelvis. Several of the hepatic metastasis have slightly increased in size from comparison. The remainder of the study is generally stable from comparison. 2. Metastatic findings include moderate volume intra-abdominal and intrapelvic ascites, peritoneal metastasis, extensive bulky retroperitoneal adenopathy and widespread bony metastasis of the imaged axial and appendicular skeletal system. 3. Trace bilateral pleural effusions. 4. Multifocal marked narrowing of the IVC is again seen, likely secondary to extrinsic compression from the aforementioned metastatic adenopathy. The above report was generated using voice recognition software. It may contain grammatical, syntax or spelling errors. Electronically signed by: Bill Woods M.D. 01/30/2017 2:37 PM Dictated Date/Time: 01/30/2017 2:22 PM (Perlita Tanner PA-C) Assessment & Plan Mr. Noel unfortunately shown evidence of rapidly progressing disease. In the last few months he is developed multiple liver metastatic lesions which appear to be increasing in size and number. He also has bulky retroperitoneal adenopathy which appears to be causing extrinsic compression of his IVC. This is leading to extensive scrotal, pelvic and bilateral leg edema. Also noted on his most recent CT scans from January 23 and January 30 or metastatic lesions at T9 with extensive central canal infiltration best seen on the sagittal images. Patient is stated he is having increasing difficulty walking which she has attributed to the increasing weight of his legs and pelvis with significant edema progression. However on recent examination he appears to have some level of paresis if not possible paralysis with a possible sensory level that could be consistent with a cord compression. I met with the patient and reviewed palliative radiation utilizing a rapid fractionation course of 5 fractions to be delivered to the T9 vertebral body and to the area of extrinsic compression of the IVC. The patient reviewed the consent forms for me to these 2 sites and initialed the risks and the consent forms were signed and dated. We then proceeded with a CT simulation. Unfortunately the patient has great difficulties lying flat on his back. We did attempt to elevate him on the simulator table and and we were able to get him up at least 30 area however we are unable to raise him higher because you would not be able to go through our CT simulator. Despite significant premedication and raising his back the patient was in severe pain when we attempted to lie him in a more recumbent position that was necessary to proceed with the simulation. After several attempts to reposition him it was obvious the patient was in excess of pain and would not be able to tolerate the procedure. We therefore took the patient off of the simulator table and I contacted Dr. Lantigua and discuss the situation with him. We arranged to send the patient back to the floor and he was to be seen either Dr. Lantigua. We discussed alternatives including potential increase in pain medication however given the significant amounts that he received this did not appear to be likely. The patient did request being "knocked out". I told him that we would not able to do this. If he is developing symptoms of a cord compression neurosurgical evaluation may be required. This could require transfer. Unfortunately at this time we are unable to proceed with the simulation and thus unable to proceed with palliative radiation. Thank you for allowing us to participate in the care of this patient. This chart was completed in part utilizing [employer] Speech Voice Recognition software. Attempts were made to minimize the grammatical errors, random word insertions, pronoun errors and incomplete sentences. Any formal questions or concerns about the content, text or information contained within the body of this dictation should be directly addressed to the provider for clarification. Karlo Blackwood MD Department of Radiation Oncology [facility] Shanda Alcocer [facility] (Marv Blackwood M.D.) Total Time In Follow-Up I spent 20 minutes speaking to the patient and performing examination. I spent 15 minutes reviewing information in completing this note. FREDI (Perlita Tanner PA-C) I spent her to minutes with the patient in an attempt to stabilize him for the CT simulation, 20 minutes discussing his case with Dr. Lantigua and in preparation of this document. CHANTEL (Marv Blackwood M.D.) Copy To Michael Lantigua M.D.; Kal Madden, DO; Obinna Saeed M.D.; Mack Lynne M.D.
--- NOTE | 2017-02-01 12:00 | Surgery Consultation ---
Consultation Date of Service Feb 01, 2017. 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 Pt states the edema has been worsening over past few days prior to admission. No significant improvement even though pt has been in bed with legs elevated. Admits some chronic back/abd pain, severe heaviness in BLE making ambulation difficult. Denies COOK, fever, chills, chest pain, SOB, N/V, rest pain, claudication, hx of DVT/PE, other complaints. (Beronica Bernard, BRAD) Vitals Vital Signs Past 12 Hours Date Time Temp Pulse Resp B/P (MAP) Pulse Ox O2 Delivery O2 Flow Rate FiO2 02/01/17 09:20 Room Air 02/01/17 07:38 36.4 96 18 129/72 (91) 98 Room Air 02/01/17 04:12 36.4 99 19 129/78 (95) 97 CPAP 02/01/17 00:00 94 Room Air (Beronica Bernard, BRAD) Allergies Coded Allergies: NO KNOWN DRUG ALLERGIES (Verified Allergy, Unknown, NKDA, 12/21/16) POLLEN (Verified Allergy, Unknown, HAY FEVER, 12/21/16) Home Medications Scheduled Amoxicillin (Amoxil), 500 MG PO DAILY Ascorbic Acid (Vitamin C), 500 MG PO DAILY Atorvastatin (Lipitor), 20 MG PO HS Bupropion Hcl (Bupropion Hcl Xl), 150 MG PO DAILY Calcium/Vitamin D (Os-Raza 500 Plus D), 1 TAB PO BID Ciprofloxacin (Cipro), 250 MG PO DAILY Duloxetine HCl (Duloxetine HCl), 60 MG PO BID Fentanyl (Fentanyl), 25 MCG TOP CQ72HR Fentanyl (Fentanyl), 100 MCG TOP CQ72HR Fentanyl (Fentanyl), 50 MCG TD Q3D@1330 Fluticasone Propionate (Nasal) (Flonase Allergy Relief), 2 SPRAYS CECILIA DAILY Meloxicam (Mobic), 7.5 MG PO DAILY Metformin Hcl (Glucophage), 1,000 MG PO BID Metoprolol Tartrate (Lopressor), 25 MG PO BID [Lupron], 1 DOSE IM [id number] Scheduled PRN Cyclobenzaprine HCl (Cyclobenzaprine HCl), 10 MG PO TID PRN for Bladder pain Hydromorphone Hcl (Dilaudid), 4-8 MG PO Q4H PRN for Pain Lorazepam (Ativan), 1 MG PO Q6H PRN for Anxiety Ondansetron (Ondansetron HCl), 8 MG PO Q6H PRN for Nausea [Morphine], 0.25 ML SL Q1H PRN for Pain Problem List Medical Problems: (1) Anemia due to multiple mechanisms (2) Bilateral lower extremity edema (3) Bowel obstruction (4) Cutaneous T-cell lymphoma (5) Diabetes (6) GI bleed (7) hematuria /hypokalemia (8) Hypercholesterolemia (9) Hypertension (10) Hypokalemia (11) Nephrostomy tubes in place (12) Pain due to neoplasm (13) Prostate cancer (14) Prostate cancer (15) Prostate cancer metastatic to intrapelvic lymph node (16) Pseudomonas infection (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 Surgical Problems: (1) H/O prostatectomy (2) History of prostatectomy (Beronica Bernard PA-C) Surgical / Medical History Hx Cardiac Surgery: No Hx Abdominal Surgery: Yes (colostomy) Hx Cancer Surgery: Yes (prostatectomy) Hx Thoracic Surgery: No Hx Orthopedic: No Hx Urinary Tract Surgery: Yes (TURBT) Past Medical/Surgical History: Cancer, High Cholesterol, Hypertension (Beronica Bernard, SHAUNAC) Family History Cancer Diabetes mellitus Heart disease Hypertension (Beronica Bernard PA-C) Cancer Diabetes mellitus Heart disease Hypertension (John Monreal M.D.) Social History Smoking Status: Former Smoker Hx Tobacco Use In Past Year?: No Hx Alcohol Use - Type & Amnt: No Hx Substance Use -Type & Amnt: No (Beronica Bernard, SHAUNAC) Review of Systems Constitutional: + malaise, No chills, No fever Skin: No change in color Eyes: No visual changes ENMT: No sore throat Respiratory: No cough, No HIGGINS, No hemoptysis, No short of breath Cardiovascular: + edema, No chest pain, No palpitations, No syncope, No intermittent claudication Gastrointestinal: + abdominal pain, + appetite changes, No nausea, No vomiting Neurologic: + tingling (BLE), No dizziness, No lethargy, No numbness ( Beronica Bernard, SHAUNAC) Physical Exam Constitutional: General Apperance: well-nourished, well-developed Level of Distress: NAD, chronically ill Psychiatric: Mental Status: active & alert, normal mood, normal affect Orientation: oriented except where noted, to time, to place, to person Memory: recent memory normal, remote memory normal Head: normocephalic, atraumatic Eyes: EOM: EOMI ENMT: normal ENT inspection, hearing grossly normal Neck: supple, trachea midline Lungs: Respiratory effort: no dyspnea Auscultation: no rales/crackles, no rhonchi, decreased breath sounds Cardiovascular: Apical Impulse: not displaced Heart Auscultation: RRR, no rubs, no gallops Peripheral Pulses: Pulses: full and equal, in all extremities except if noted Bruits: none appreciated Carotid Pulse: normal on the left, normal on the right Brachial Pulses: normal on the left, normal on the right Radial Pulse: normal on the left, normal on the right Femoral Pulse: normal on the left, normal on the right Posterior Tibialis Pulse: decreased on the left, decreased on the right Dorsalis Pedis Pulse: decreased on the left, decreased on the right Abdomen: Bowel Sounds: normal Inspection & Palpation: soft, no tenderness, guarding & rebound, distended Musculoskeletal: normal strength (5/5 throughout), normal tone Extremities: Upper Right: no cyanosis, no edema, no varicosities Upper Left: no cyanosis, no edema, no varicosities Lower Right: no cyanosis, no palpable cord, no ulcers, edema Lower Left: no cyanosis, no palpable cord, no ulcers, edema (+4 edema from pelvis to toes BLE) Neurologic: Cranial Nerves: grossly intact Sensation: grossly intact (Beronica Bernard, SHAUNAC) Assessment and Plan ASSESSMENT and PLAN: IVC compression d/t metastatic dz Pt also seen by Dr Monreal, who reviewed pt's CT scan. Recommends pt undergo venogram/vena cavagram with possible intervention on Saturday. Procedure , risks, benefits and alternatives discussed with pt, he expresses understanding and agreement. (Breonica Bernard, PA-C) Patient was seen, examined, and chart reviewed. Agree with exam and treatment plan of the Vascular PA. Thank you very much for letting me participate in the care of this patient. (John Monreal M.D.)
[2017-02-01] MEDS: LORAZEPAM 1 MG TAB PO PRN (12:02)
[2017-02-01] MEDS: HYDROmorphone INJ 1 MG/ML SYR IV PRN (12:48)
[2017-02-01] MEDS ORDERED: FUROSEMIDE 40 MG/4 ML VIAL IV STA (15:03)
[2017-02-01] MEDS ORDERED: FUROSEMIDE INJ 40 MG in SYRINGE 0 ML IV ONE (16:00)
--- NOTE | 2017-02-01 16:18 | Progress Note ---
Subjective Date of Service: Feb 01, 2017. Subjective pt has persistent pain and swelling could not tolerate x-ray therapy due to severe back pain. The pain radiates from the spine circumferentially around his abdomen near his umbilicus it is intense 10./10 worsened with movement, he has also had declining in his neurological function of his lower extremities bring up concern of a spinal cord lesion. There is comment of t 9 metastatic lesion with cord compression on CT scan. Problem List Medical Problems: (1) Bilateral lower extremity edema Status: Acute (2) Chronic pain Status: Acute (3) Fever Status: Acute (4) Generalized pain Status: Acute (5) Lymphadenopathy Status: Acute (6) Lymphedema Status: Acute (7) Nephrostomy tube bleed Status: Acute (8) Prostate cancer metastatic to multiple sites Status: Acute (9) Pyelonephritis Status: Acute (10) UTI (urinary tract infection) Status: Acute Review of Systems Constitutional: + weight loss, + weakness, + fatigue, No fever, No chills Respiratory: No cough, No sputum, No shortness of breath, No dyspnea on exertion Cardiac: + orthopnea, + edema (+++), No chest pain, No PND Abdomen: + pain, + constipation, No nausea, No vomiting Psychiatric: No depression symptoms, No anhedonism, No anxiety Objective Vital Signs Date Time Temp Pulse Resp B/P (MAP) Pulse Ox O2 Delivery O2 Flow Rate FiO2 02/01/17 11:52 36.4 79 18 106/65 (79) 99 Room Air 02/01/17 09:20 Room Air 02/01/17 07:38 36.4 96 18 129/72 (91) 98 Room Air 02/01/17 04:12 36.4 99 19 129/78 (95) 97 CPAP 02/01/17 00:00 94 Room Air 01/31/17 23:07 36.7 87 18 120/73 (89) 96 Room Air 01/31/17 20:22 36.6 88 18 131/78 (95) 93 Room Air 01/31/17 16:29 36.7 90 18 112/69 (83) 96 Room Air Physical Exam General Appearance: WD/WN, + moderate distress Neck: supple, no JVD Respiratory/Chest: chest non-tender, lungs clear, normal breath sounds Cardiovascular: regular rate, rhythm, no murmur Abdomen: normal bowel sounds, non tender, soft Extremities: + pedal edema, + swelling Neurologic/Psychiatric: + pertinent finding (this patient has decreased sensation in his lower extremities inability to move them at all inability to wiggle toes) Laboratory Results Last 24 Hours Test 01/31/17 17:11 01/31/17 20:20 02/01/17 04:56 02/01/17 07:27 Bedside Glucose 101 mg/dl 86 mg/dl 82 mg/dl Sodium Level 136 mmol/L Potassium Level 5.2 mmol/L Chloride Level 96 mmol/L Carbon Dioxide Level 23 mmol/L Anion Gap 17.0 mmol/L Blood Urea Nitrogen 47 mg/dl Creatinine 1.50 mg/dl Est Creatinine Clear Calc Drug Dose 72.7 ml/min Estimated GFR () 60.3 Estimated GFR (Non- 52.0 BUN/Creatinine Ratio 31.0 Random Glucose 77 mg/dl Calcium Level 10.3 mg/dl Test 02/01/17 11:37 Bedside Glucose 87 mg/dl Assessment and Plan 56 M with metastatic prostate cancer, bulky lymphadenopathy, with inferior vena caval narrowing and massive painful LE edema, he previously has bilateral nephrostomy tubes in place. IVC compression secondary to retroperitoneal adenopathy with intra-abdominal and Intra-pelvic ascites, peritoneal metastasis, hepatic metastasis, bony metastasis of axial and appendicular skeleton There is concern for thoracic cord compression given his neurological progression and CT findings consistent with his clinical picture. I had a chance to discuss this with the local orthopedic spine surgeon, he felt with degree of spinal cord involvement this would likely require anterior lateral approach and that this would be difficult to coordinate our facility and recommended referral tertiary care. I had a prolonged discussion with the patient his and friend., Spent at least 45 minutes in the room talking 15 minutes on the phone speaking to the surgeon, discussing this case also with Dr. Mena radiation oncologist. The patient understands if he waits to address his spinal cord problem he may not regain movement or strength was lower extremities however he is realistic about pursuing an extensive surgery given the advancement of his prostate cancer. He and his made a decision to not pursue spine surgery, to continue to hope that vascular surgery will relieve some of his lower extremity edema, await to see if intravenous dexamethasone and IV opiate pain medications help his pain. They may readdress the decision for tertiary referral once the vascular surgeon completes his procedure. Current [id number] time with this patient today as well over 60 minutes including 2 hat brusher machine visits and a 45 minute discussion with his family in the room.
[2017-02-01] MEDS: ENOXAPARIN 40 MG/0.4 ML SYR SQ SCH (16:47)
[2017-02-01] MEDS: DEXAMETHASONE INJ 4 MG in SYRINGE 0 ML IV SCH ×2 (18:04→23:27)
[2017-02-02] MEDS: HYDROmorphone INJ 0.5 MG/0.5 ML SYR IV PRN (03:48)
[2017-02-02 03:55] VITALS: BP 123/70; PULSE 92; TEMP 36.5; O2SAT 94
[2017-02-02 05:44] VITALS: Ht 170.2 cm; Wt 113.1 kg
[2017-02-02] MEDS: DEXAMETHASONE INJ 4 MG in SYRINGE 0 ML IV SCH ×3 (06:07→17:34)
[2017-02-02 06:44] LABS: BUN/CREATININE RATIO 37.4 (10-20); CALCIUM 10.1 mg/dl (8.5-10.1); CREATININE 1.4 mg/dl (0.60-1.40); POTASSIUM 5.6 mmol/L (3.5-5.1)
[2017-02-02 07:29] VITALS: BP 145/79; PULSE 98; TEMP 35.9; O2SAT 94
[2017-02-02] MEDS: BuPROPion XL 150 MG TABCR PO SCH (08:25)
[2017-02-02] MEDS: DULOXETINE HCL 60 MG CAP PO SCH ×2 (08:25→20:04)
[2017-02-02] MEDS: FLUTICASONE PROPIONATE NA SPR 16 GM BTL NAE SCH (08:25)
[2017-02-02] MEDS: CIPROFLOXACIN 250 MG TAB PO SCH (08:25)
[2017-02-02] MEDS: METOPROLOL TARTRATE 25 MG TAB PO SCH ×2 (08:26→20:04)
[2017-02-02] MEDS: ENOXAPARIN 40 MG/0.4 ML SYR SQ SCH (08:26)
[2017-02-02] MEDS: CALCIUM 600MG + VIT D 400 IU TAB PO SCH ×2 (08:26→20:05)
[2017-02-02] MEDS: CHECK FENTANYL PATCH PLACEMENT SCH ×2 (08:27→15:09)
[2017-02-02] MEDS: HYDROmorphone INJ 1 MG/ML SYR IV PRN ×3 (08:32→17:35)
[2017-02-02] MEDS: POLYETHYLENE (MIRALAX) 17 GM PACK PO PRN (08:47)
[2017-02-02 11:18] VITALS: BP 145/79; PULSE 90; TEMP 36.3; O2SAT 97
[2017-02-02] MEDS: LORAZEPAM 1 MG TAB PO PRN ×2 (11:21→18:12)
[2017-02-02] MEDS ORDERED: NURSING DECISION MEDICATION ORDER SCH (11:30)
[2017-02-02] MEDS ORDERED: MICONAZOLE NITRATE POWDER 43 GM EXT PRN (13:00)
--- NOTE | 2017-02-02 13:11 | Progress Note ---
Subjective Date of Service: Feb 02, 2017. Subjective pt is about the same with some torso numbness and inability to move legs, he still is comfortable with his decision not to inquire about transfer to tertiary care center Problem List Medical Problems: (1) Bilateral lower extremity edema Status: Acute (2) Chronic pain Status: Acute (3) Fever Status: Acute (4) Generalized pain Status: Acute (5) Lymphadenopathy Status: Acute (6) Lymphedema Status: Acute (7) Nephrostomy tube bleed Status: Acute (8) Prostate cancer metastatic to multiple sites Status: Acute (9) Pyelonephritis Status: Acute (10) UTI (urinary tract infection) Status: Acute Review of Systems Constitutional: + weakness, + fatigue, No fever, No chills Respiratory: No cough, No shortness of breath Cardiac: + edema (+++), No chest pain Abdomen: + pain, + nausea, + constipation Musculoskeletal: + joint pain, + muscle pain, + swelling Neurologic: + weakness, + numbness/tingling Psychiatric: + depression symptoms, No anhedonism Objective Vital Signs Date Time Temp Pulse Resp B/P (MAP) Pulse Ox O2 Delivery O2 Flow Rate FiO2 02/02/17 11:18 36.3 90 18 145/79 (101) 97 Room Air 02/02/17 08:30 Room Air 02/02/17 07:29 35.9 98 18 145/79 (101) 94 BiPAP 02/02/17 03:55 36.5 92 20 123/70 (87) 94 Room Air 02/02/17 00:00 Room Air 02/01/17 23:30 36.5 96 18 137/74 (95) 93 Room Air 02/01/17 19:55 93 122/69 (86) 02/01/17 19:46 36.5 91 20 128/64 (85) 94 Room Air 02/01/17 16:38 36.5 88 20 114/69 (84) 98 Room Air 02/01/17 16:00 Room Air Physical Exam General Appearance: WD/WN, + moderate distress Respiratory/Chest: chest non-tender, lungs clear, + decreased breath sounds Cardiovascular: regular rate, rhythm, no murmur Abdomen: normal bowel sounds, non tender, soft Extremities: + pedal edema, + swelling Neurologic/Psychiatric: alert, + motor weakness, + sensory deficit Laboratory Results Last 24 Hours Test 02/01/17 16:30 02/01/17 20:00 02/02/17 05:00 02/02/17 07:46 Bedside Glucose 84 mg/dl 124 mg/dl 155 mg/dl Sodium Level 137 mmol/L Potassium Level 5.6 mmol/L Chloride Level 96 mmol/L Carbon Dioxide Level 20 mmol/L Anion Gap 21.0 mmol/L Blood Urea Nitrogen 52 mg/dl Creatinine 1.40 mg/dl Est Creatinine Clear Calc Drug Dose 72.4 ml/min Estimated GFR () 65.6 Estimated GFR (Non- 56.6 BUN/Creatinine Ratio 37.4 Random Glucose 113 mg/dl Calcium Level 10.1 mg/dl Test 02/02/17 11:33 Bedside Glucose 116 mg/dl Assessment and Plan 56 M with metastatic prostate cancer, bulky lymphadenopathy, with inferior vena caval narrowing and massive painful LE edema, he previously has bilateral nephrostomy tubes in place. IVC compression secondary to retroperitoneal adenopathy with intra-abdominal and Intra-pelvic ascites, peritoneal metastasis, hepatic metastasis, bony metastasis of axial and appendicular skeleton There is concern for thoracic cord compression given his neurological progression and CT findings consistent with his clinical picture. I had a chance to discuss this with the local orthopedic spine surgeon, he felt with degree of spinal cord involvement this would likely require anterior lateral approach and that this would be difficult to coordinate our facility and recommended referral tertiary care.The pt does not want to proceed to consider surgery, understands his neurologic deficits maybe permanent I had a prolonged discussion with the patient his and friend., they are in agreement The patient understands if he waits to address his spinal cord problem he may not regain movement or strength was lower extremities however he is realistic about pursuing an extensive surgery given the advancement of his prostate cancer. He and his made a decision to not pursue spine surgery, to continue to hope that vascular surgery will relieve some of his lower extremity edema, await to see if intravenous dexamethasone and IV opiate pain medications help his pain. They may readdress the decision for tertiary referral once the vascular surgeon completes his procedure.
[2017-02-02 15:25] VITALS: BP 148/73; PULSE 95; TEMP 36.4; O2SAT 97
[2017-02-02] MEDS: BOOST GLUCOSE CONTROL PO SCH (17:34)
[2017-02-02 19:30] VITALS: BP 163/81; PULSE 97; TEMP 36.5; O2SAT 98
[2017-02-02] MEDS: ALUMINUM/MAGNESIUM/SIMETH (MAALOX MAX) 30 ML UDC PO PRN (20:02)
[2017-02-02] MEDS: CYCLOBENZAPRINE HCL 10 MG TAB PO PRN (20:04)
[2017-02-02] MEDS ORDERED: FENTANYL PATCH REMOVE & WASTE SCH (21:15)
[2017-02-02 23:21] VITALS: BP 157/79; PULSE 92; TEMP 36.4; O2SAT 97
[2017-02-03] MEDS: DEXAMETHASONE INJ 4 MG in SYRINGE 0 ML IV SCH ×3 (00:28→12:51)
[2017-02-03] MEDS: HYDROmorphone INJ 1 MG/ML SYR IV PRN ×4 (00:28→15:30)
[2017-02-03] MEDS: CHECK FENTANYL PATCH PLACEMENT SCH ×3 (00:29→15:31)
[2017-02-03 03:50] VITALS: BP 147/78; PULSE 99; TEMP 36.5; O2SAT 97
[2017-02-03 06:12] LABS: BUN/CREATININE RATIO 40.3 (10-20); CALCIUM 10.4 mg/dl (8.5-10.1); CREATININE 1.4 mg/dl (0.60-1.40); POTASSIUM 5.2 mmol/L (3.5-5.1)
[2017-02-03 07:21] VITALS: BP 154/77; PULSE 97; TEMP 36.5; O2SAT 97
[2017-02-03] MEDS ORDERED: SODIUM POLYST. SULF SUSP 15G/60ML PO ONE (08:00)
[2017-02-03] MEDS: FLUTICASONE PROPIONATE NA SPR 16 GM BTL NAE SCH (08:15)
[2017-02-03] MEDS: ENOXAPARIN 40 MG/0.4 ML SYR SQ SCH (08:15)
[2017-02-03] MEDS: BOOST GLUCOSE CONTROL PO SCH (08:16)
[2017-02-03] MEDS: CIPROFLOXACIN 250 MG TAB PO SCH (08:17)
[2017-02-03] MEDS: CALCIUM 600MG + VIT D 400 IU TAB PO SCH (08:17)
[2017-02-03] MEDS: BuPROPion XL 150 MG TABCR PO SCH (08:18)
[2017-02-03] MEDS: METOPROLOL TARTRATE 25 MG TAB PO SCH (08:18)
[2017-02-03] MEDS: DULOXETINE HCL 60 MG CAP PO SCH (08:18)
[2017-02-03] MEDS: CYCLOBENZAPRINE HCL 10 MG TAB PO PRN (08:18)
[2017-02-03 08:30] VITALS: O2SAT 97
[2017-02-03] MEDS ORDERED: HYDROmorphone INJ 1 MG/ML SYR ONE (09:53)
[2017-02-03] MEDS ORDERED: HYDROmorphone INJ 0.5 MG/0.5 ML SYR IV PRN (10:00)
--- NOTE | 2017-02-03 10:46 | Progress Note ---
Progress Note Date of Service Feb 03, 2017. Progress Note Talked to patient today about procedure. He will have to lay flat for at least an hour and a half for the procedure. Doubt he can do this under just sedation. Most likely this would have to be done under general. I am not sure if the benefit outweighs the risk in this patient due to his metastatic disease. Will discuss this with anesthesia and primary service this week.
[2017-02-03] MEDS ORDERED: HYDROmorphone HCL 2 MG TAB PO PRN (11:15)
[2017-02-03 11:27] VITALS: BP 158/84; PULSE 100; TEMP 36.4; O2SAT 97
--- NOTE | 2017-02-03 12:21 | Progress Note ---
Subjective Date of Service: Feb 03, 2017. Subjective pt is uncomfortable, states "i'm dying" we discussed possibility of not doing procedure due to inability to lay flat, family meeting at 2 pm 02/03 Problem List Medical Problems: (1) Bilateral lower extremity edema Status: Acute (2) Chronic pain Status: Acute (3) Fever Status: Acute (4) Generalized pain Status: Acute (5) Lymphadenopathy Status: Acute (6) Lymphedema Status: Acute (7) Nephrostomy tube bleed Status: Acute (8) Prostate cancer metastatic to multiple sites Status: Acute (9) Pyelonephritis Status: Acute (10) UTI (urinary tract infection) Status: Acute Review of Systems Constitutional: No fever, No chills, No weakness, No fatigue Respiratory: No cough, No shortness of breath Cardiac: + edema, No chest pain Abdomen: + nausea, No pain, No vomiting Musculoskeletal: + joint pain, + muscle pain Male : No dysuria, No urinary frequency Neurologic: + paralysis, No memory loss Psychiatric: + depression symptoms, + anhedonism Objective Vital Signs Date Time Temp Pulse Resp B/P (MAP) Pulse Ox O2 Delivery O2 Flow Rate FiO2 02/03/17 11:27 36.4 100 20 158/84 (108) 97 Room Air 02/03/17 08:30 97 Room Air 02/03/17 07:21 36.5 97 20 154/77 (102) 97 Room Air 02/03/17 03:50 36.5 99 18 147/78 (101) 97 Room Air 02/03/17 00:05 Room Air 02/02/17 23:21 36.4 92 18 157/79 (105) 97 Room Air 02/02/17 20:05 Room Air 02/02/17 19:30 36.5 97 18 163/81 (108) 98 Room Air 02/02/17 15:25 36.4 95 17 148/73 (98) 97 Room Air 02/02/17 15:01 Room Air Physical Exam General Appearance: WD/WN, + moderate distress Respiratory/Chest: chest non-tender, + decreased breath sounds Cardiovascular: regular rate, rhythm, + systolic murmur Abdomen: soft, + abnormal bowel sounds, + distended Extremities: + pedal edema, + swelling Neurologic/Psychiatric: + motor weakness, + sensory deficit Laboratory Results Last 24 Hours Test 02/02/17 16:23 02/02/17 19:53 02/03/17 05:35 02/03/17 07:26 Bedside Glucose 100 mg/dl 140 mg/dl 96 mg/dl Sodium Level 136 mmol/L Potassium Level 5.2 mmol/L Chloride Level 96 mmol/L Carbon Dioxide Level 19 mmol/L Anion Gap 21.0 mmol/L Blood Urea Nitrogen 56 mg/dl Creatinine 1.40 mg/dl Est Creatinine Clear Calc Drug Dose 72.4 ml/min Estimated GFR () 65.6 Estimated GFR (Non- 56.6 BUN/Creatinine Ratio 40.3 Random Glucose 88 mg/dl Calcium Level 10.4 mg/dl Test 02/03/17 11:26 Bedside Glucose 115 mg/dl Assessment and Plan 56 M with metastatic prostate cancer, bulky lymphadenopathy, with inferior vena caval narrowing and massive painful LE edema, he previously has bilateral nephrostomy tubes in place. IVC compression secondary to retroperitoneal adenopathy with intra-abdominal and Intra-pelvic ascites, peritoneal metastasis, hepatic metastasis, bony metastasis of axial and appendicular skeleton There is concern for thoracic cord compression given his neurological progression and CT findings consistent with his clinical picture. I had a chance to discuss this with the local orthopedic spine surgeon, he felt with degree of spinal cord involvement this would likely require anterior lateral approach and that this would be difficult to coordinate our facility and recommended referral tertiary care.The pt does not want to proceed to consider transfer to [facility] for this surgery, understands his neurologic deficits maybe permanent I had a prolonged discussion with the patient his and friend., they are in agreement, but they are calling a family meeting 02/03 as stated 02/03 The patient understands if he waits to address his spinal cord problem he may not regain movement or strength was lower extremities however he is realistic about pursuing an extensive surgery given the advancement of his prostate cancer. He and his made a decision to not pursue spine surgery, to continue to hope that vascular surgery will relieve some of his lower extremity edema, await to see if intravenous dexamethasone and IV opiate pain medications help his pain(escalated pain medication 02/03).
[2017-02-03] MEDS ORDERED: FENTANYL PATCH REMOVE & WASTE ONE (13:15)
[2017-02-03] MEDS ORDERED: FENTANYL 50 MCG/HR TDSY TD SCH (13:30)
[2017-02-03] MEDS ORDERED: DRGTP50 TD (15:17)
--- NOTE | 2017-02-03 15:18 | Discharge Instructions ---
Discharge Instructions Date of Service Feb 03, 2017. Admission Reason for Admission: Bilateral Lower Extremity Edema Discharge Discharge Diagnosis / Problem: possible spinal chord compression, possible IVC occlusion Discharge Goals Goal(s): Diagnostic testing, Therapeutic intervention Activity Recommendations Activity Limitations: as noted below (will be determined after evaluaiotn) . Current Hospital Diet Patient's current hospital diet: Regular Diet, Low Potassium Diet (2g K) Discharge Diet Recommended Diet: Regular Diet Pending Studies Studies pending at discharge: no Medical Emergencies . Who to Call and When: Medical Emergencies: If at any time you feel your situation is an emergency, please call 911 immediately. . Non-Emergent Contact Non-Emergency issues call your: Oncologist Call Non-Emergent contact if: temperature is above 101 . . "Provider Documentation" section prepared by Michael Lantigua. . VTE Core Measure Inpt VTE Proph given/why not?: Enoxaparin (Lovenox)SQ, SCD's
--- NOTE | 2017-02-03 15:25 | Discharge Summary ---
Discharge Summary Date of Service Feb 03, 2017. Discharge Summary Admission Date: Jan 30, 2017 at 21:12 Discharge Date: Feb 03, 2017 Discharge Disposition: Acute care facility Principal Diagnosis: possible spinal chord compression, possible IVC occlusion Consultations: Radiation oncology, vascular surgery Medication Reconciliation New Medications: Fentanyl (Fentanyl) 50 Mcg Tdsy 50 MCG TD Q3D@1330, #30 PATCH Continued Medications: Bupropion Hcl (Bupropion Hcl Xl) 150 Mg Tab 150 MG PO DAILY Calcium/Vitamin D (Os-Raza 500 Plus D) Tab 1 TAB PO BID, TAB Ciprofloxacin (Cipro) 250 Mg Tab 250 MG PO DAILY Cyclobenzaprine HCl (Cyclobenzaprine HCl) 10 Mg Tab 10 MG PO TID PRN for Bladder pain Duloxetine HCl (Duloxetine HCl) 60 Mg Cap 60 MG PO BID Fentanyl (Fentanyl) 100 Mcg Tdsy 100 MCG TOP CQ72HR Fluticasone Propionate (Nasal) (Flonase Allergy Relief) 50 Mcg/Act Spr 2 SPRAYS CECILIA DAILY Lorazepam (Ativan) 1 Mg Tab 1 MG PO Q6H PRN for Anxiety, TAB Meloxicam (Mobic) 7.5 Mg Tab 7.5 MG PO DAILY, TAB Metoprolol Tartrate (Lopressor) 25 Mg Tab 25 MG PO BID Ondansetron (Ondansetron HCl) 8 Mg Tab 8 MG PO Q6H PRN for Nausea Discontinued Medications: Amoxicillin (Amoxil) 500 Mg Cap 500 MG PO DAILY Ascorbic Acid (Vitamin C) 500 Mg Tab 500 MG PO DAILY Atorvastatin (Lipitor) 20 Mg Tab 20 MG PO HS, TAB Metformin Hcl (Glucophage) 1,000 Mg Tab 1000 MG PO BID, TAB [Lupron] () 1 DOSE IM [id number] [Morphine] () Unknown Strength 0.25 ML SL Q1H PRN for Pain Hospital Course 56 M with metastatic prostate cancer, bulky lymphadenopathy, with inferior vena caval narrowing and massive painful LE edema, he previously has bilateral nephrostomy tubes in place. This pt has progressive LE swelling for 2 months, had difficulty walking and back pain, presented to hospital, back pain intensified and concern for more profound weakness since 01/31/16. Attempts at XRT thwarted by pain, despite pre medication with hydromorphone. concern for T9 spinal chord compression. I had a chance to discuss this with the local orthopedic spine surgeon, he felt with degree of spinal cord involvement this would likely require anterior lateral approach and that this would be difficult to coordinate our facility and recommended referral tertiary care.We have begun decadron 4 mg iv q 6 hours with little help. After thinking about transfer and the hardships it would incur on the family, a family meeting was called 02/03 and a plea for at the least an evaluation by Nicole for palliation of pain and possibly improved neurological function to allow pt to return home and assist in his care. He is realistic about his mortality, but just wants a chance. He understands that he may travel and not have a procedure performed at that time we will accept the patient back to coordinate XRT and Palliative care Diabetes hold metformin and ssi Total Time Spent: Greater than 30 minutes This includes examination of the patient, discharge planning, medication reconciliation, and communication with other providers. Discharge Instructions Please refer to the electronic Patient Visit Report (Discharge Instructions) for additional information.
[2017-02-03 15:40] VITALS: BP 159/83; PULSE 104; TEMP 36.5; O2SAT 97
[2017-02-03 15:47] VITALS: BP 159/83; PULSE 104; TEMP 36.5; O2SAT 97
[2017-02-03] MEDS: LORAZEPAM 1 MG TAB PO PRN (15:56)
[2017-02-04] MEDS ORDERED: CEFAZOLIN 2000 MG/60 ML D5W 60 ML IV SCH (08:00)
[2017-02-04] MEDS ORDERED: FENTANYL 50 MCG/HR TDSY TD SCH (09:00)
[2017-02-06] MEDS ORDERED: FENTANYL PATCH REMOVE & WASTE SCH (13:29)
== END 2017-02-03 16:35 | disposition short-term general hospital (02) | DRG 315 ==
LOC: C.EDB 15:49 → C.4E 21:12 → EDBEDREQ 21:15 → EDBEDREQSVC 21:15 → ENRESERV 21:21
PROVIDERS: ADMIT Family Medicine; ATTEND Internal Medicine
DX: T82.595A Other mechanical complication of umbrella device, initial encounter (principal); G95.29 Other cord compression; C84.40 Peripheral T-cell lymphoma, not elsewhere classified, unspecified site; C77.5 Secondary and unspecified malignant neoplasm of intrapelvic lymph nodes; N10 Acute pyelonephritis; R18.8 Other ascites; C78.6 Secondary malignant neoplasm of retroperitoneum and peritoneum; C78.7 Secondary malignant neoplasm of liver and intrahepatic bile duct; C79.51 Secondary malignant neoplasm of bone; R60.0 Localized edema; D64.9 Anemia, unspecified; E87.6 Hypokalemia; E11.9 Type 2 diabetes mellitus without complications; C79.11 Secondary malignant neoplasm of bladder; E78.5 Hyperlipidemia, unspecified; Z85.46 Personal history of malignant neoplasm of prostate; F39 Unspecified mood [affective] disorder; R26.2 Difficulty in walking, not elsewhere classified; Y92.009 Unspecified place in unspecified non-institutional (private) residence as the place of occurrence of the external cause; Y74.2 Prosthetic and other implants, materials and accessory general hospital and personal-use devices associated with adverse incidents; Z93.6 Other artificial openings of urinary tract status; Z93.3 Colostomy status; Z92.3 Personal history of irradiation

== ENCOUNTER → 2017-01-30 | Outpatient (CLI) | payer BC ==
--- NOTE | 2017-01-30 14:38 | DIAGNOSTIC IMAGING REPORT ---
ABD/PELVIS IV CONTRAST ONLY HISTORY:56 yearsMalehistory of metastatic prostate cancer. Follow-up exam. COMPARISON: CT study 01/23/2017, pelvic MR 10/17/2016. TECHNIQUE: Multiple axial CT images of the abdomen and pelvis were obtained following the intravenous administration of 116 mL Optiray 320. FINDINGS: There are trace bilateral pleural effusions with mild subsegmental bibasilar atelectasis. No pneumoperitoneum is identified. The inferior cardiac chambers are enlarged with coronary arterial calcifications noted. Soft tissue density of the bilateral breasts suggest gynecomastia, left greater than right. Multiple heart. Like metastatic lesions are again seen throughout the right and left hepatic lobes, largest in the right hepatic lobe measuring up to 5.2 cm, previously 4.9. Mass in the left hepatic lobe measures up to 4.9 cm, previously 4.6 cm. Moderate volume intra-abdominal ascites appears unchanged. Diffuse peritoneal metastasis redemonstrated. Bulky retroperitoneal adenopathy redemonstrated with index pericaval node at the level of the right kidney measuring 2.4 x 2.0 cm, previously 2.4 x 1.8 cm. Index periotic lymph node at the level left kidney measures 2.4 x 2.7 cm, previously 2.3 x 2.7 cm. The spleen, gallbladder and adrenal glands are unremarkable. There is moderate pancreatic atrophy. Bilateral nephrostomy catheters are present. There is no hydronephrosis. The abdominal aorta is normal in course and caliber. There is marked narrowing of the IVC at the iliac confluence and also just proximal to the liver, likely from extrinsic compression from the metastatic adenopathy. These findings appear similar from comparison. High attenuating material seen within the gastric lumen. No bowel obstruction. There is circumferential wall thickening of the mostly collapsed urinary bladder lumen. Large central pelvic floor mass is better evaluated on comparison MR. The colon is unremarkable. Appendix not well seen. Left and right lower quadrant ostomy sites are noted. There is moderate amount of diffuse body wall edema. 1.4 x 1.37 m soft tissue nodule of the right para umbilical tissues appears unchanged. Multifocal sclerotic metastasis again seen throughout the spine, pelvis, sternum and proximal femora. These findings appear unchanged from comparison. Metastatic mass at T9 is again seen with extensive central canal infiltration, best seen on the sagittal images. IMPRESSION: 1. Redemonstration of widespread metastatic disease throughout the abdomen and pelvis. Several of the hepatic metastasis have slightly increased in size from comparison. The remainder of the study is generally stable from comparison. 2. Metastatic findings include moderate volume intra-abdominal and intrapelvic ascites, peritoneal metastasis, extensive bulky retroperitoneal adenopathy and widespread bony metastasis of the imaged axial and appendicular skeletal system. 3. Trace bilateral pleural effusions. 4. Multifocal marked narrowing of the IVC is again seen, likely secondary to extrinsic compression from the aforementioned metastatic adenopathy. The above report was generated using voice recognition software. It may contain grammatical, syntax or spelling errors. Electronically signed by: Bill Woods M.D. 01/30/2017 2:37 PM Dictated Date/Time: 01/30/2017 2:22 PM
== END | disposition home or self-care (01) ==
LOC: C.CTS 13:39
PROVIDERS: ATTEND Surgery
DX: C61 Malignant neoplasm of prostate (principal); I87.1 Compression of vein; Z93.3 Colostomy status; C78.7 Secondary malignant neoplasm of liver and intrahepatic bile duct

== ENCOUNTER 2017-02-05 11:18 | Inpatient (IN) | payer BC ==
[~2017-02-05] VITALS: Ht 182.9 cm; Wt 114.8 kg
[~2017-02-05 11:18] MED LIST changes: +AMOX500C3 PO; +ATV/1 PO; +BUPR150T5 PO; +CIPR250T3 PO; +CYM60 PO; +DRGTP100 TOP; +DRGTP50 TD; -FLUC100T4 PO; +FNTTP25 TOP; +HYDROmorphone INJ 2 MG/ML SYR/VIAL ONE; +LPR25 PO; -LSX20 PO; -METO25TA56 PO; +Morphine SL; +ONDA-63 PO; -POTA-65 PO
[2017-02-05 18:20] VITALS: BP 159/85; PULSE 108; TEMP 36.7; O2SAT 96; Ht 182.9 cm; Wt 114.8 kg
[2017-02-05] MEDS ORDERED: ONDANSETRON INJ 2 MG/ML 2 ML VIAL IV STA (19:02)
[2017-02-05] MEDS ORDERED: ONDANSETRON INJ 2 MG/ML 2 ML VIAL ONE (19:04)
[2017-02-05] MEDS ORDERED: CYCLOBENZAPRINE HCL 10 MG TAB PO PRN (19:15)
[2017-02-05] MEDS ORDERED: LORAZEPAM 1 MG TAB PO PRN (19:15)
[2017-02-05] MEDS ORDERED: NALOXONE HCL 0.4 MG/1 ML VIAL/CARP IV PRN (19:15)
[2017-02-05] MEDS ORDERED: ACETAMINOPHEN 325 MG TAB PO PRN (19:15)
[2017-02-05] MEDS ORDERED: PRLSR20 PO (19:27)
[2017-02-05] MEDS ORDERED: ENOX40IN SQ (19:27)
[2017-02-05] MEDS ORDERED: FNTTP100 TD (19:27)
[2017-02-05] MEDS ORDERED: CIPR1TAB11 PO (19:27)
[2017-02-05] MEDS ORDERED: FLUT0.15 (19:27)
[2017-02-05] MEDS ORDERED: DXM/4 IV (19:27)
[2017-02-05] MEDS ORDERED: METO25TA56 PO (19:27)
[2017-02-05] MEDS ORDERED: BUPR-83 PO (19:27)
[2017-02-05] MEDS ORDERED: CYM/30 PO (19:27)
[2017-02-05] MEDS: SODIUM CHLORIDE 0.9% 1000ML 1,000 ML IV SCH ×2 (20:00→21:36)
[2017-02-05 20:05] VITALS: BP 152/71; PULSE 114; TEMP 36.8; O2SAT 94
[2017-02-05 20:18] LABS: PROTHROMBIN TIME (PATIENT) 10.5 SECONDS (9.0-12.0)
--- NOTE | 2017-02-05 20:27 | History and Physical ---
History & Physical Date & Time of Service: Feb 05, 2017 at 19:21 Chief Complaint: Metastatic Prostate Cancer Primary Care Physician: Kal Madden DO History of Present Illness Source: patient, hospital records Mr. Desai is a very pleasant but unfortunate 56yo male with extensive, progressive stage 4 prostate cancer with mets to the bone, liver, peritoneum, intra-abdominal and pelvic lymph nodes. He was recently hospitalized at [facility] from 01/30/17 to 02/03/17 due to worsening back pain/LE edema/weakness of the legs. He underwent a CT of the abdomen & pelvis demonstrating progressive metastatic disease in the liver, bones, abdomen, pelvis, and other locations. He also was found to have significant compression of his IVC as well as a severe pathological compression deformity at T9 causing cord compression. His LE weakness worsened to the point of paralysis. He was transferred to [facility] for consideration of decompressive surgery of the T9 compression fracture. I spoke with the oncology team at [facility] on 02/03 and 02/04. They reported that the neurosurgery team evaluated Mr. Desai and felt that the risks of surgery outweighed any benefits and thus surgery was not offered. He was also seen by pain management who increased his fentanyl patch to 150mcg q3days and initiated COMMUNITY RELATIONS REP dilaudid using a basal rate of 1mg/hr and demand doses of 0.4mg. The oncology team recommended palliative radiation to the T9 region and asked that we receive Mr. Desai back at [facility] to facilitate his radiation treatments (in light of the fact that [place] is his hometown and his /family live here). I evaluated Mr. Desai on the oncology floor and reported his pain at 4/10. He stated that his pain was decently controlled on the COMMUNITY RELATIONS REP dilaudid at [facility]. He also mentioned b/l wrist/hand weakness "for about 2 weeks", poor appetite ( although he ate breakfast/lunch today), and difficulty with his cognition/ memory for the last "8 days." While speaking with him he suddenly developed nausea and vomited twice. The emesis contained food remnants from earlier in the day. He denied that he had vomiting at [facility]. He reports that he has not regained any motor function of the legs since leaving [facility]. At this time he cannot move the legs at all. He confirmed with me that he is now in fact a DNR/DNI. Records from [facility] also indicate that he chose to be a DNR at their facility as well. Past Medical/Surgical History PMH: 1. stage 4 prostate cancer with extensive metastatic disease to the bones, liver, intra-abdominal lymph nodes, etc. 2. T9 pathologic compression fracture with resulting paraplegia of legs 3. h/o Cutaneous T-cell lymphoma 4. T2DM 5. hyperlipidemia 6. HTN 7. h/o obstructive uropathy from his prostate ca s/p b/l nephrostomy tubes 8. h/o rectal obstruction due to prostate cancer s/p diverting colostomy 9. h/o c. diff infection 10. IVC compression 2nd to metastatic prostate cancer 11. recurrent UTIs PSH: 1. Radical prostatectomy - 04/18/2006 2. Salvage radiation therapy - 09/08/2007 3. Status post multiple TURBTs 4. Bilateral nephrostomy tube placement 5. Status post placement of diverting colostomy due to rectal obstruction from the progression of tumor 6. Port placement 7. 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 Allergies Coded Allergies: NO KNOWN DRUG ALLERGIES (Verified Allergy, Unknown, NKDA, 12/21/16) POLLEN (Verified Allergy, Unknown, HAY FEVER, 12/21/16) Home Medications Scheduled Bupropion (Wellbutrin), 50 MG PO TID Ciprofloxacin Tab (Cipro), 250 MG PO BID Dexamethasone (Decadron), 4 MG IV Q6 Duloxetine HCl (Cymbalta), 2 CAP PO BID Enoxaparin (Lovenox), 40 MG SQ DAILY Fentanyl (Fentanyl), 150 MCG TD CQ72HR Fluticasone Propionate (Nasal) (Flonase Allergy Relief), 2 SPRAY NA BID Metoprolol Tartrate (Lopressor), 25 MG PO BID Omeprazole (Prilosec), 20 MG PO DAILY Scheduled PRN Lorazepam (Ativan), 1 MG PO Q6H PRN for Anxiety Ondansetron (Ondansetron HCl), 8 MG PO Q6H PRN for Nausea Review of Systems Constitutional: + weakness, + fatigue, No fever, No chills Eyes: No worsening of vision, No eye pain ENT: No nasal symptoms, No sore throat, No trouble swallowing Respiratory: No cough, No sputum, No wheezing, No shortness of breath, No dyspnea at rest Cardiovascular: + edema, No chest pain Abdomen: + nausea, + vomiting, No pain, No diarrhea, No GI bleeding Musculoskeletal: + swelling, + calf pain Genitourinary - Male: No hematuria Neurologic: + paralysis (legs), + numbness/tingling (legs) Psychiatric: + depression symptoms Endocrine: + fatigue Hematologic / Lymphatic: No abnormal bleeding/bruising Integumentary: No rash Physical Exam Vital Signs Date Time Temp Pulse Resp B/P (MAP) Pulse Ox O2 Delivery O2 Flow Rate FiO2 02/05/17 18:20 36.7 108 18 159/85 96 Room Air General Appearance: + mild distress (during the emesis spell), + pertinent finding (appears tired and older than stated age; appears malnourished, pale, and ashen ) Head: normocephalic, atraumatic Eyes: PERRL, EOMI ENT: hearing grossly normal, pharynx normal (no lesions, no thrush) Neck: supple, no adenopathy, no JVD Respiratory/Chest: lungs clear, no respiratory distress, no accessory muscle use Cardiovascular: no gallop, no murmur, normal peripheral pulses (feet - 1-2+ b/ l ), + tachycardia Abdomen/GI: normal bowel sounds, non tender, + distended (marked), + hepatomegaly, + pertinent finding (colostomy in place; bag filled with brown stool; b/l nephrostomy tubes in place, urine slightly cloudy) Genitourinary - Male: + pertinent finding (scrotal edema - severe; leaking urine through the meatus) Extremities/Musculoskelatal: + swelling (severe 4++ edema from feet to the groin b/l ) Neurologic/Psych: alert, + motor weakness (0/5 strength any muscle group of b/ l legs; muscle wasting of both hands; deformity of right thumb (chronic/ congenital); wrist extension b/l near 4/5; handgrip 4-5/5), + disoriented, + pertinent finding (asterixis present ) Skin: + pallor Lymphatic: no adenopathy (cervical or supraclavicular ) Diagnostics Laboratory Results Results Past 24 Hours Test 02/05/17 19:13 Range/Units Impression Assessment and Plan 56yo male with extensive, progressive stage 4 prostate cancer with mets to the bone, liver, peritoneum, intra-abdominal and pelvic lymph nodes with recent hospitalization at [facility] from 01/30/17 to 02/03/17 due to worsening back pain/LE edema/weakness of the legs. CT of the abdomen & pelvis during that stay demonstrated progressive metastatic disease in the liver, bones , abdomen, pelvis, and other locations. He also was found to have significant compression of his IVC as well as a severe pathological compression deformity at T9 causing cord compression. He was transferred to [facility] in [place] to obtain neurosurgical consultation regarding his T9 cord compression. He was deemed not a candidate for surgery and palliative care with palliative radiation was recommended. He was transferred back to [facility] to continue palliative care and to initiate radiation therapy to his T9 pathological compression fracture. 1. progressive stage 4 prostate cancer with extensive mets - * his fentanyl patch was just increased to 150mcg within the last 48 hours at [facility]; will not change at this time * will resume dilaudid COMMUNITY RELATIONS REP; start with 0.5mg/hr basal rate with 0.4mg demand doses; lock-out 20min; adjust as necessary * resume decadron 4mg IV q6h for cord compression and bony pain * palliative care consult * social work consult to help determine disposition (hospice at home? hospice at SNF?) 2. T9 pathological compression fracture with cord compression & resulting paraplegia - * reconsult radiation oncology * decadron as above * pain control as above 3. vomiting - could easily have early obstructive process in light of his tumor burden in the abdomen; check 2-view abdomen x-ray tonight. Clear liquids as long as there is no obstruction. Zofran prn. Had extensive ascites on CT a few days ago. Early SBP also possible. Continue cipro for SBP prophylaxis and UTI prophylaxis. 4. encephalopathy - given the abnormal LFTs here and at [facility] due to his liver mets he easily could have elevated ammonia. Check ammonia tonight. Could have a brewing UTI. Pain meds could be contributing. Brain mets also possible. 5. b/l hand weakness - could easily have mets to the cervical spine or brain but defer on imaging for now. 6. HTN - continue metoprolol. 7. hyperlipidemia - stop his statin. 8. DVT proph - lovenox 40mg daily. 9. FEN - NS at 75cc/hr at least until the AM. Had K of 5.4 this am at [facility] - received kayexalate per records. Will recheck his BMP and mag now. Clear liquid diet. 10. anemia - 2nd to prostate ca. Had CBC this am at [facility] - Hb was acceptable in the 9 range. 11. colostomy and nephrostomy tube status - noted. Both appear to be functioning well. 12. depression - continue his cymbalta & wellbutrin as previous. 13. LE edema 2nd to IVC compression - would not pursue any intervention at this time. I met his and sister alfredo at bedside. Reviewed plan of care. Focus during this admission will be pain control and relief of other symptoms. I mentioned we will formally consult palliative care. Prognosis is very, very poor. I am unsure if he will even tolerate palliative radiation. Will re-evaluate in am. Level of Care Med/Surg Advanced Directives Existing Advance Directive: No Existing Living Will: No Existing Power of Psychiatric Aide Instructor: Yes Resuscitation Status DO NOT RESUSCITATE VTE Prophylaxis VTE Risk Assessment Done? Y/N: Yes Risk Level: High Given or contraindicated: Enoxaparin (Lovenox)SQ Social Service Consult Cancer Patient Under [place] Note total time 75 minutes including reviewing outside records, interviewing patient , etc Additional Copies To Kal Madden, DO
[2017-02-05 20:33] LABS: BUN/CREATININE RATIO 56.1 (10-20); CALCIUM 10.6 mg/dl (8.5-10.1); CREATININE 1.7 mg/dl (0.60-1.40); MAGNESIUM 2.6 mg/dl (1.8-2.4); POTASSIUM 4.6 mmol/L (3.5-5.1)
--- NOTE | 2017-02-05 20:53 | Progress Note ---
Progress Note Date of Service Feb 05, 2017. Progress Note Labs reviewed - Has anion gap acidosis, worsening renal function, and hyponatremia. Could easily have lactic acidosis from brewing infectious process, etc. Will simply repeat his labs in the AM and continue palliative measures/pain control. Lev LOPEZ MD
[2017-02-05] MEDS: DEXAMETHASONE INJ 4 MG in SYRINGE 0 ML IV SCH (21:32)
[2017-02-05] MEDS: HYDROmorphone HCL 0.5MG/ML 50 ML CASSETTE IV PRN (21:32)
[2017-02-05] MEDS: ENOXAPARIN 40 MG/0.4 ML SYR SQ SCH (21:32)
[2017-02-05] MEDS: DULOXETINE HCL 60 MG CAP PO SCH (21:34)
[2017-02-05] MEDS: METOPROLOL TARTRATE 25 MG TAB PO SCH (21:35)
[2017-02-05] MEDS: CIPROFLOXACIN 250 MG TAB PO SCH (21:35)
[2017-02-05] MEDS: PANTOprazole SOD 40 MG TAB PO SCH (21:35)
[2017-02-05 22:47] VITALS: BP 157/86; PULSE 111; TEMP 36.5; O2SAT 97
[2017-02-05] MEDS: CHECK FENTANYL PATCH PLACEMENT SCH (23:57)
[2017-02-06] MEDS: ONDANSETRON INJ 2 MG/ML 2 ML VIAL IV PRN ×2 (00:45→17:57)
[2017-02-06] MEDS: DEXAMETHASONE INJ 4 MG in SYRINGE 0 ML IV SCH ×4 (02:07→20:14)
[2017-02-06 04:00] VITALS: BP 148/74; PULSE 72; TEMP 36.4; O2SAT 94
[2017-02-06 06:08] LABS: BASO % 0.3 %; BASO ABS # 0.02 K/uL (0-0.2); EOS % 0.1 %; HEMATOCRIT 28.5 % (42-52); IG% 2.2 %; LYMPH ABS # 0.24 K/uL (1.2-3.4); MEAN CELL VOLUME 88.5 fL (80-100); MEAN CORPUSCULAR HGB CONC 30.5 g/dl (32-36); MEAN PLATELET VOLUME 9.7 fL (7.4-10.4); MONO % 13.1 %; NEUT % 81.3 %; PLATELET COUNT 215 K/uL (130-400); RED BLOOD COUNT 3.22 M/uL (4.7-6.1); WHITE BLOOD COUNT 7.87 K/uL (4.8-10.8)
[2017-02-06 06:28] LABS: COMPLETE YES; POLYCHROMASIA 1+
[2017-02-06 06:41] LABS: BUN/CREATININE RATIO 49.2 (10-20); CALCIUM 10.1 mg/dl (8.5-10.1); CREATININE 1.8 mg/dl (0.60-1.40)
[2017-02-06 07:19] VITALS: BP 131/72; PULSE 90; TEMP 36.4; O2SAT 95
[2017-02-06] MEDS: CIPROFLOXACIN 250 MG TAB PO SCH ×2 (09:33→20:15)
[2017-02-06] MEDS: PANTOprazole SOD 40 MG TAB PO SCH ×2 (09:33→20:15)
[2017-02-06] MEDS: METOPROLOL TARTRATE 25 MG TAB PO SCH ×2 (09:33→20:15)
[2017-02-06] MEDS: DULOXETINE HCL 60 MG CAP PO SCH ×2 (09:34→20:15)
[2017-02-06] MEDS: SODIUM CHLORIDE 0.9% 1000ML 1,000 ML IV SCH ×3 (09:35→19:55)
[2017-02-06] MEDS: FLUTICASONE PROPIONATE NA SPR 16 GM BTL NAE SCH (09:35)
[2017-02-06] MEDS: CHECK FENTANYL PATCH PLACEMENT SCH ×2 (09:36→15:40)
--- NOTE | 2017-02-06 10:24 | DIAGNOSTIC IMAGING REPORT ---
KUB HISTORY: 56 years Male METASTATIC CANCER TO LIVER COMPARISON: CT abdomen and pelvis 01/30/2017 TECHNIQUE: KUB radiograph. FINDINGS: Bilateral nephrostomy catheters are again noted. Hyperattenuating material within the region of the gastric lumen is redemonstrated. There is mild gaseous distention of the stomach. Mildly dilated loops of small bowel are seen within the central abdomen measuring up to approximately 3.5 cm. There is relative paucity of bowel gas distally. Bulging of the flanks with diffuse abdominal haziness is compatible with ascites. No gross pneumoperitoneum on these supine images. No urolith. Right pectoral [id number] catheter is seen. Lung bases appear clear. Previously noted metastatic bony foci are better evaluated on comparison CT. IMPRESSION: 1. Mild gaseous distention of the stomach and several loops of small bowel within the central abdomen with paucity of bowel gas distally suggests developing obstruction or ileus. Close follow-up is needed. 2. Abdominal ascites. 3. Bilateral nephrostomy catheters noted. The above report was generated using voice recognition software. It may contain grammatical, syntax or spelling errors. Electronically signed by: Bill Woods M.D. 02/06/2017 10:23 AM Dictated Date/Time: 02/06/2017 10:18 AM
--- NOTE | 2017-02-06 11:02 | Medical Student: [facility] ---
Med Student Progress Note Date of Service Feb 06, 2017. Subjective Pt evaluation today including: conversation w/ patient Mr. Desai is a 56 year old male with a PMH significant for HTN, T2DM, HLD, and stage 4 prostate cancer with metastases to the bone, liver, peritoneum, intra-abdominal, retroperitoneal lymph nodes, and pelvic lymph nodes who presented on 02/05 as a transfer from [facility] for palliative care here at [facility]. He was hospitalized recently from 01/30 to 02/03 at [facility] for worsening back pain/LE edema & weakness of his legs. Abd/Pelvis CT done on that admission showed bone, liver, peritoneum, intra-abdominal, retroperitoneal lymph node and pelvic lymph node metastases. It also showed ascites, IVC compression, and a metastatic lesion on T9 vertebrae. He was then sent to [facility] for possible surgical decompression of his T9 fracture. Neurosurgery saw him and concluded the risks outweighed the benefits of surgery. Palliative care saw him at [facility] as well. They adjusted his pain medications to Fentayl 150 mcg q72 hr and recommended palliative radiation of his T9 vertebrae. He was then brought back to [facility] to start palliative radiation at [facility] is closer to his home. He has since developed complete paralysis of his lower extremities bilaterally. Today when I saw him, he was complaining of 3/10 mid-abdominal and mid-back pain of 1.5 weeks duration. Additionally, he complained of b/l wrist and hand weakness and numbness of 2 weeks duration. He has also had poor appetite and some memory problems. Last night he vomited when Dr. Torrez was admitting him. He denies COOK, chest pain and SOB. He has a colostomy and b/l nephrostomy tubes. Review of Systems Constitutional: No fever, No chills, No weight loss Eyes: No worsening of vision ENT: No hearing loss Respiratory: No cough, No sputum, No wheezing, No shortness of breath Cardiac: No chest pain, No edema, No palpitations Abdomen: + pain, No nausea, No vomiting, No diarrhea, No constipation Male : No dysuria Neurologic: + memory loss, + weakness (lower extremities b/l ), + numbness/ tingling (lower extremities b/l & b/l wrist & hand) Endo: + fatigue Objective Vital Signs Date Time Temp Pulse Resp B/P (MAP) Pulse Ox O2 Delivery O2 Flow Rate FiO2 02/06/17 07:19 36.4 90 18 131/72 (91) 95 Room Air 02/06/17 04:00 36.4 72 18 148/74 (98) 94 02/06/17 00:00 Room Air 02/05/17 22:47 36.5 111 20 157/86 (109) 97 Room Air 02/05/17 20:05 36.8 114 18 152/71 (98) 94 02/05/17 18:20 36.7 108 18 159/85 96 Room Air KUB HISTORY: 56 years Male METASTATIC CANCER TO LIVER COMPARISON: CT abdomen and pelvis 01/30/2017 TECHNIQUE: KUB radiograph. FINDINGS: Bilateral nephrostomy catheters are again noted. Hyperattenuating material within the region of the gastric lumen is redemonstrated. There is mild gaseous distention of the stomach. Mildly dilated loops of small bowel are seen within the central abdomen measuring up to approximately 3.5 cm. There is relative paucity of bowel gas distally. Bulging of the flanks with diffuse abdominal haziness is compatible with ascites. No gross pneumoperitoneum on these supine images. No urolith. Right pectoral [id number] catheter is seen. Lung bases appear clear. Previously noted metastatic bony foci are better evaluated on comparison CT. IMPRESSION: 1. Mild gaseous distention of the stomach and several loops of small bowel within the central abdomen with paucity of bowel gas distally suggests developing obstruction or ileus. Close follow-up is needed. 2. Abdominal ascites. 3. Bilateral nephrostomy catheters noted. Physical Exam General Appearance: WD/WN, no apparent distress Eyes: bilateral eyes normal inspection, bilateral eyes PERRL, bilateral eyes EOMI ENT: normal ENT inspection, hearing grossly normal Neck: supple, no adenopathy, thyroid normal, no JVD Respiratory/Chest: lungs clear, normal breath sounds, no respiratory distress Cardiovascular: regular rate, rhythm, no edema, no gallop, no JVD, no murmur Abdomen: normal bowel sounds, soft, no organomegaly, + distended, + guarding, + tenderness (mid-abdominal ) Extremities: no calf tenderness, + pedal edema (4 + to knees b/l ) Neurologic/Psychiatric: flow floor attendant II-XII nml as tested, alert, + motor weakness (0/5 strength lower extremities b/l & 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 ), + sensory deficit (loss of sensation lower extremities b/l & loss of sensation over b/l wrist & hands) Skin: normal color, warm/dry, no rash Lymphatic: no adenopathy Laboratory Results Last 24 Hours Test 02/05/17 19:40 02/05/17 20:00 02/06/17 05:54 02/06/17 07:39 Prothrombin Time 10.5 SECONDS Prothromb Time International Ratio 1.0 Sodium Level 132 mmol/L 134 mmol/L Potassium Level 4.6 mmol/L 5.0 mmol/L Chloride Level 93 mmol/L 96 mmol/L Carbon Dioxide Level 18 mmol/L 18 mmol/L Anion Gap 21.0 mmol/L 20.0 mmol/L Blood Urea Nitrogen 95 mg/dl 89 mg/dl Creatinine 1.70 mg/dl 1.80 mg/dl Est Creatinine Clear Calc Drug Dose 64.5 ml/min 60.9 ml/min Estimated GFR () 51.8 48.4 Estimated GFR (Non- 44.7 41.7 BUN/Creatinine Ratio 56.1 49.2 Random Glucose 91 mg/dl 79 mg/dl Calcium Level 10.6 mg/dl 10.1 mg/dl Magnesium Level 2.6 mg/dl Ammonia 24.0 umol/L Bedside Glucose 114 mg/dl 92 mg/dl White Blood Count 7.87 K/uL Red Blood Count 3.22 M/uL Hemoglobin 8.7 g/dL Hematocrit 28.5 % Mean Corpuscular Volume 88.5 fL Mean Corpuscular Hemoglobin 27.0 pg Mean Corpuscular Hemoglobin Concent 30.5 g/dl Platelet Count 215 K/uL Mean Platelet Volume 9.7 fL Neutrophils (%) (Auto) 81.3 % Lymphocytes (%) (Auto) 3.0 % Monocytes (%) (Auto) 13.1 % Eosinophils (%) (Auto) 0.1 % Basophils (%) (Auto) 0.3 % Neutrophils # (Auto) 6.40 K/uL Lymphocytes # (Auto) 0.24 K/uL Monocytes # (Auto) 1.03 K/uL Eosinophils # (Auto) 0.01 K/uL Basophils # (Auto) 0.02 K/uL RDW Standard Deviation 57.3 fL RDW Coefficient of Variation 17.7 % Immature Granulocyte % (Auto) 2.2 % Immature Granulocyte # (Auto) 0.17 K/uL Nucleated RBC Absolute Count (auto) 0.28 K/uL Nucleated Red Blood Cells % 3.5 % Polychromasia 1+ Lactic Acid Level 14.8 mmol/L Assessment and Plan Assessment and Plan: Assessment: Mr. Desai is a 56 year old male with a PMH significant for HTN, T2DM, HLD, T cell lymphoma, and stage 4 prostate cancer with metastases to the bone, liver, peritoneum, intra-abdominal, retroperitoneal lymph nodes, and pelvic lymph nodes who presented on 02/05 as a transfer from [facility] for palliative care here at [facility]. He has a h/o obstructive uropathy now with b/l nephrostomy tubes and a h/o of rectal obstruction now with colostomy. He has a radical prostatectomy in 2005 and radiation in 2007. Most recent abd/ pelvis CT showed bone, liver, peritoneum, intra-abdominal, retroperitoneal lymph node and pelvic lymph node metastases. It also showed ascites, IVC compression, and a metastatic lesion on T9 vertebrae with spinal cord compression. On admission, the patient was tachycardic at 108 and hypertensive at 159/85. He was hyponatremic at 132, hypercalcemic at 10.6, and had hypermagnesemia at 2.6. BUN was elevated at 95 and Cr elevated at 1.7. Anion gap was 20 and lactic acid was 14.8. Abdominal KUB this morning showed gaseous distention in his stomach with several loops of small bowel and paucity of bowel gas distally suggestive of a small bowel obstruction. It also showed abdominal ascites. The patient is currently being managed for pain associated with his metastatic prostate cancer, small bowel obstruction, T9 compression fracture and spinal cord compression, encephalopathy, b/l hand weakness and his comorbid medical issues HTN, HLD, and depression. 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 He is not ready for "comfort only measures' and wants to give "one last shot." He ultimately wants to go home Bowel Obstruction -Abdominal KUB suggested small bowel obstruction -continue IVFS -replete electrolytes as needed JESENIA - BUN and Cr elevated on admission at 95 and 1.7 respectively. BUN 89 and Cr 1.8 today -BUN: Cr ratio >20, likely pre-renal azotemia -continue IVFs Elevated lactic acid - likely d/t ischemic event in right lower extremity artery (right distal LE poikilothermia) vs infectious process (probable SBP, UTI , or PA). It is possible patient has SBP as Abd X-ray showed ascites. -patient is currently pursuing palliative care, so no further treatment of possible ischemic event or infectious process -continue Cipro 250 mg BID for SBP prophylaxis T9 compression fracture w/ cord compression & paraplegia -radiation oncology consulted - plan was for patient to come down to CT simulation for treatment planning today, but patient could not tolerate. We will reassess his status tomorrow to determine if he can tolerate CT simulation. If he can tolerate simulation, then he can possibly get first fraction of radiation therapy tomorrow Encephalopathy - hyperammonemia vs infection vs brain met vs pain meds -NH3 normal at 24 -possibly infection or brain met, but at this time will not pursue this workup at patient elected to do palliative care Bilateral hand weakness/numbness - possibly met to brain or cervical spine -will not pursue this workup at patient elected to do palliative care LE edema bilaterally - d/t IVC compression as evidenced on CT film from 01/30 HTN -continue metoprolol 25 mg BID HLD -d/c statin Anemia - likely anemia of chronic disease -Hgb 8.7 today Depression -continue buproprion 50 mg TID -continue duloxetine 2 cap BID Nausea -continue Zofran 4 mg q6hr Anxiety -continue Lorazepam 1 mg q6hr DVT Prophylaxis -continue Lovenox 40 mg PO daily GI prophylaxis -continue Protonix 40 mg PO BID
[2017-02-06 11:16] VITALS: BP 137/79; PULSE 101; TEMP 36.7; O2SAT 95
--- NOTE | 2017-02-06 11:52 | Radiation Oncology Progress Nt ---
Radiation Oncology Progress Nt Date of Service Date of Service: Feb 06, 2017. Subjective Pt evaluation today including: conversation w/ senior consumer insights consultant Objective Vital Signs Date Time Temp Pulse Resp B/P (MAP) Pulse Ox O2 Delivery O2 Flow Rate FiO2 02/06/17 11:16 36.7 101 19 137/79 (98) 95 Room Air 02/06/17 07:19 36.4 90 18 131/72 (91) 95 Room Air 02/06/17 04:00 36.4 72 18 148/74 (98) 94 02/06/17 00:00 Room Air 02/05/17 22:47 36.5 111 20 157/86 (109) 97 Room Air 02/05/17 20:05 36.8 114 18 152/71 (98) 94 02/05/17 18:20 36.7 108 18 159/85 96 Room Air Laboratory Results Last 24 Hours Test 02/05/17 19:40 02/05/17 20:00 02/06/17 05:54 02/06/17 07:39 Prothrombin Time 10.5 SECONDS Prothromb Time International Ratio 1.0 Sodium Level 132 mmol/L 134 mmol/L Potassium Level 4.6 mmol/L 5.0 mmol/L Chloride Level 93 mmol/L 96 mmol/L Carbon Dioxide Level 18 mmol/L 18 mmol/L Anion Gap 21.0 mmol/L 20.0 mmol/L Blood Urea Nitrogen 95 mg/dl 89 mg/dl Creatinine 1.70 mg/dl 1.80 mg/dl Est Creatinine Clear Calc Drug Dose 64.5 ml/min 60.9 ml/min Estimated GFR () 51.8 48.4 Estimated GFR (Non- 44.7 41.7 BUN/Creatinine Ratio 56.1 49.2 Random Glucose 91 mg/dl 79 mg/dl Calcium Level 10.6 mg/dl 10.1 mg/dl Magnesium Level 2.6 mg/dl Ammonia 24.0 umol/L Bedside Glucose 114 mg/dl 92 mg/dl White Blood Count 7.87 K/uL Red Blood Count 3.22 M/uL Hemoglobin 8.7 g/dL Hematocrit 28.5 % Mean Corpuscular Volume 88.5 fL Mean Corpuscular Hemoglobin 27.0 pg Mean Corpuscular Hemoglobin Concent 30.5 g/dl Platelet Count 215 K/uL Mean Platelet Volume 9.7 fL Neutrophils (%) (Auto) 81.3 % Lymphocytes (%) (Auto) 3.0 % Monocytes (%) (Auto) 13.1 % Eosinophils (%) (Auto) 0.1 % Basophils (%) (Auto) 0.3 % Neutrophils # (Auto) 6.40 K/uL Lymphocytes # (Auto) 0.24 K/uL Monocytes # (Auto) 1.03 K/uL Eosinophils # (Auto) 0.01 K/uL Basophils # (Auto) 0.02 K/uL RDW Standard Deviation 57.3 fL RDW Coefficient of Variation 17.7 % Immature Granulocyte % (Auto) 2.2 % Immature Granulocyte # (Auto) 0.17 K/uL Nucleated RBC Absolute Count (auto) 0.28 K/uL Nucleated Red Blood Cells % 3.5 % Polychromasia 1+ Lactic Acid Level 14.8 mmol/L Test 02/06/17 11:34 Bedside Glucose 90 mg/dl Assessment and Plan Today, I did speak with Dr. Torrez regarding the management of Mr. Desai. Unfortunately, the patient is suffering from progression of metastatic prostate cancer and was recently diagnosed with spinal cord compression from metastatic disease involving the vertebral bodies. The patient was transferred to [facility] for potential consideration of surgical debulking to decompress the spinal cord however the final decision was not to pursue surgical intervention and to consider palliative radiation therapy closer to home. The patient was transferred back to [facility]. I have spoken with Dr. Torrez and we have recommended consideration of palliative external beam radiation therapy for his spinal cord compression. Dr. Torrez has agreed to allow the patient to come down today for CT simulation for treatment planning and we will plan to expedite radiation therapy as soon as possible. We will further discuss treatment options and planning with the patient when he arrives in our department today. UPDATE: The patient could not tolerate coming down today for CT simulation for treatment planning. We will reassess his status tomorrow and if he is more comfortable and willing to come then we will bring him down for CT simulation for treatment planning and plan to deliver the first fraction of radiation therapy tomorrow potentially as well.
--- NOTE | 2017-02-06 12:20 | Palliative Care Consultation ---
Consultation Date of Consultation: Feb 06, 2017. Requesting Physician: Dr. Torrez Attending Physician: Dr. Torrez Reason for Consultation: Goals of care History of Present Illness This 56 year old male patient with metastatic prostate cancer with bulky lymphadenopathy, inferior vena caval narrowing, bilateral nephrostomy tubes and colostomy, was a direct admit to our hospital yesterday evening from [facility]. He had been here at [facility] on 01/30, just a week ago, with bilateral lower extremity edema and the metastatic disease. He was transferred to [facility] in hopes of surgical intervention for the T9 metastatic tumor that is compressing his spinal cord and causing paralysis of BLE, and for possible IVC occlusion. Unfortunately, the patient's diseased is just too extensive and surgery is too risky. [facility] sent patient back to [facility] for palliative radiation to the spinal mets so that he could be closer to his family. He was on 100mcg/hr fentanyl patch Q72h and hydromorphone KILN CLEANER at 1mg/hr with 0.4mg KILN CLEANER dose Q20min. He experienced some nausea/vomiting upon arrival. the basal rate was decreased to 0.5mg/hr. It has since been increased back to 1mg/hr, KILN CLEANER dose now 0.6mg Q20min. His lactic acid is 14.8, right foot is very cold, BLE still with massive edema Given patient's very poor prognosis, palliative care consulted. I met with the patient in room 423. He is drowsy but awake and able to hold conversation. His pain is much improved, is 5/10. His goal is for pain to be 3/ 10. He has only received 2 KILN CLEANER doses since 0800. Encouraged him to use KILN CLEANER as needed, he verbalized understanding. Patient states that he knows nothing can be done for his cancer other than to try to make him comfortable. Patient's goal is to try the palliative radiation to try and gain back some feeling/ function of the lower extremities. However, he is quite realistic about his poor prognosis, stating that at this point he wouldn't even be able to tolerate the treatment as he would need to lie flat for at least 40 minutes. He is hoping if his pain is under control, he might be able to give it a try. Patient says that his and sister are aware of the situation and seem to be accepting of it. Patient states he would not want any heroic measures to keep him alive and really wants to focus on comfort. If there was an occlusion in his right leg causing his foot to lose circulation, he would not want any surgical intervention. If he does have an infection brewing, he'd be okay with IV abx. If he gets to the point where there is little hope of improvement, he would want to be made comfort and allow nature to take its course. Past Medical/Surgical History Medical History: PMH: 1. stage 4 prostate cancer with extensive metastatic disease to the bones, liver, intra-abdominal lymph nodes, etc. 2. T9 pathologic compression fracture with resulting paraplegia of legs 3. h/o Cutaneous T-cell lymphoma 4. T2DM 5. hyperlipidemia 6. HTN 7. h/o obstructive uropathy from his prostate ca s/p b/l nephrostomy tubes 8. h/o rectal obstruction due to prostate cancer s/p diverting colostomy 9. h/o c. diff infection 10. IVC compression 2nd to metastatic prostate cancer 11. recurrent UTIs PSH: 1. Radical prostatectomy - 04/18/2006 2. Salvage radiation therapy - 09/08/2007 3. Status post multiple TURBTs 4. Bilateral nephrostomy tube placement 5. Status post placement of diverting colostomy due to rectal obstruction from the progression of tumor 6. Port placement 7. 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) Review of Systems Constitutional: + weakness, + fatigue ENT: No trouble swallowing Respiratory: No cough, No shortness of breath, No dyspnea on exertion Cardiac: + edema, No chest pain Abdomen: + pain, + problem reported (no N/V at this time), No nausea, No vomiting Neurologic: + numbness/tingling (BLE) Psychiatric: + anxiety, No depression symptoms Allergies Coded Allergies: NO KNOWN DRUG ALLERGIES (Verified Allergy, Unknown, NKDA, 12/21/16) POLLEN (Verified Allergy, Unknown, HAY FEVER, 12/21/16) Medications Current Inpatient Medications Medications (Trade) Dose Ordered Sig/Shu Route Start Time Stop Time Status Last Admin Dose Admin Naloxone HCl (Narcan Inj) 0.1 mg Q5M PRN IV 02/05/17 19:15 03/07/17 19:14 Hydromorphone HCl (Dilaudid Product Management Specialist) 25 mg PRN PRN IV 02/05/17 19:15 02/19/17 19:14 02/05/17 21:32 25 MG Sodium Chloride 1,000 ml @ 15 mls/hr Q24H IV 02/05/17 19:03 03/07/17 19:02 02/05/17 21:36 15 MLS/HR Enoxaparin Sodium (Lovenox Inj) 40 mg Q24H SQ 02/05/17 21:00 03/07/17 20:59 02/05/17 21:32 40 MG Acetaminophen (Tylenol Tab) 650 mg Q4H PRN PO 02/05/17 19:15 03/07/17 19:14 Ondansetron HCl (Zofran Inj) 4 mg Q6H PRN IV 02/05/17 19:15 03/07/17 19:14 02/06/17 00:45 4 MG Bupropion HCl (Wellbutrin Tab) 50 mg TID PO 02/05/17 20:00 03/07/17 19:59 02/06/17 09:34 50 MG Ciprofloxacin (Ciprofloxacin Tab) 250 mg BID PO 02/05/17 20:00 02/12/17 20:59 02/06/17 09:33 250 MG Cyclobenzaprine HCl (Flexeril Tab) 10 mg TID PRN PO 02/05/17 19:15 03/07/17 19:14 Duloxetine HCl (Cymbalta Cap) 60 mg BID PO 02/05/17 20:00 03/07/17 19:59 02/06/17 09:34 60 MG Fentanyl (Duragesic Patch) 50 mcg Q3D@2100 TD 02/06/17 21:00 02/20/17 20:59 Fentanyl (Duragesic Patch) 100 mcg Q3D@2100 TD 02/06/17 21:00 02/20/17 20:59 Fluticasone Propionate (Flonase Nasal [place]) 2 sprays DAILY CECILIA 02/06/17 08:00 03/08/17 07:59 02/06/17 09:35 2 SPRAYS Lorazepam (Ativan Tab) 1 mg Q6H PRN PO 02/05/17 19:15 03/07/17 19:14 Metoprolol Tartrate (Lopressor Tab) 25 mg BID PO 02/05/17 20:00 03/07/17 19:59 02/06/17 09:33 25 MG Miscellaneous (Fentanyl Patch Remove & Waste) 2 ea Q3D@2059 N/A 02/06/17 20:59 03/08/17 20:58 Miscellaneous Information (Check Fentanyl Patch Placement) 2 ea QS N/A 02/06/17 00:00 03/08/17 00:00 02/06/17 09:36 2 EA Sodium Chloride 1,000 ml @ 75 mls/hr [id number] IV 02/05/17 20:00 03/07/17 19:59 02/06/17 09:35 75 MLS/HR Pantoprazole Sodium (Protonix Tab) 40 mg BID PO 02/05/17 20:00 03/07/17 19:59 02/06/17 09:33 40 MG Dexamethasone Sodium Phosphate 4 mg/Syringe 1 ml @ 1 mls/min Q6H IV 02/05/17 20:00 03/07/17 19:59 02/06/17 09:35 1 MLS/MIN Heparin Sodium (Porcine) (Heparin 100 Unit/ml 5ml Flush) 5 ml PRN PRN IV 02/06/17 01:30 03/08/17 01:29 Physical Exam Date Time Temp Pulse Resp B/P (MAP) Pulse Ox O2 Delivery O2 Flow Rate FiO2 02/06/17 11:16 36.7 101 19 137/79 (98) 95 Room Air 02/06/17 07:19 36.4 90 18 131/72 (91) 95 Room Air 02/06/17 04:00 36.4 72 18 148/74 (98) 94 02/06/17 00:00 Room Air 02/05/17 22:47 36.5 111 20 157/86 (109) 97 Room Air 02/05/17 20:05 36.8 114 18 152/71 (98) 94 02/05/17 18:20 36.7 108 18 159/85 96 Room Air General Appearance: no apparent distress, + pertinent finding (chronically ill- appearing and deconditioned) ENT: hearing grossly normal Neck: supple, no JVD Respiratory: no respiratory distress, no accessory muscle use, + decreased breath sounds Cardiovascular: regular rate, rhythm, + pertinent finding (+4 BLE pitting edema. pedal pulses not palpable. right foot is cold to touch, but does have good cap refill) Abdomen: normal bowel sounds, + distended, + tenderness, + pertinent finding ( firm abdomen) Musculoskeletal: pertinent finding (bilateral legs flaccid, completely numb. bilatral arms severely weakened) Neurologic/Psychiatric: normal mood/affect, oriented x 3, + pertinent finding ( drowsy) Skin: + pallor Laboratory Results Last 24 Hours Test 02/05/17 19:40 02/05/17 20:00 02/06/17 05:54 02/06/17 07:39 Prothrombin Time 10.5 SECONDS Prothromb Time International Ratio 1.0 Sodium Level 132 mmol/L 134 mmol/L Potassium Level 4.6 mmol/L 5.0 mmol/L Chloride Level 93 mmol/L 96 mmol/L Carbon Dioxide Level 18 mmol/L 18 mmol/L Anion Gap 21.0 mmol/L 20.0 mmol/L Blood Urea Nitrogen 95 mg/dl 89 mg/dl Creatinine 1.70 mg/dl 1.80 mg/dl Est Creatinine Clear Calc Drug Dose 64.5 ml/min 60.9 ml/min Estimated GFR () 51.8 48.4 Estimated GFR (Non- 44.7 41.7 BUN/Creatinine Ratio 56.1 49.2 Random Glucose 91 mg/dl 79 mg/dl Calcium Level 10.6 mg/dl 10.1 mg/dl Magnesium Level 2.6 mg/dl Ammonia 24.0 umol/L Bedside Glucose 114 mg/dl 92 mg/dl White Blood Count 7.87 K/uL Red Blood Count 3.22 M/uL Hemoglobin 8.7 g/dL Hematocrit 28.5 % Mean Corpuscular Volume 88.5 fL Mean Corpuscular Hemoglobin 27.0 pg Mean Corpuscular Hemoglobin Concent 30.5 g/dl Platelet Count 215 K/uL Mean Platelet Volume 9.7 fL Neutrophils (%) (Auto) 81.3 % Lymphocytes (%) (Auto) 3.0 % Monocytes (%) (Auto) 13.1 % Eosinophils (%) (Auto) 0.1 % Basophils (%) (Auto) 0.3 % Neutrophils # (Auto) 6.40 K/uL Lymphocytes # (Auto) 0.24 K/uL Monocytes # (Auto) 1.03 K/uL Eosinophils # (Auto) 0.01 K/uL Basophils # (Auto) 0.02 K/uL RDW Standard Deviation 57.3 fL RDW Coefficient of Variation 17.7 % Immature Granulocyte % (Auto) 2.2 % Immature Granulocyte # (Auto) 0.17 K/uL Nucleated RBC Absolute Count (auto) 0.28 K/uL Nucleated Red Blood Cells % 3.5 % Polychromasia 1+ Lactic Acid Level 14.8 mmol/L Test 02/06/17 11:34 Bedside Glucose 90 mg/dl CT scan from 01/30/2017: IMPRESSION: 1. Redemonstration of widespread metastatic disease throughout the abdomen and pelvis. Several of the hepatic metastasis have slightly increased in size from comparison. The remainder of the study is generally stable from comparison. 2. Metastatic findings include moderate volume intra-abdominal and intrapelvic ascites, peritoneal metastasis, extensive bulky retroperitoneal adenopathy and widespread bony metastasis of the imaged axial and appendicular skeletal system. 3. Trace bilateral pleural effusions. 4. Multifocal marked narrowing of the IVC is again seen, likely secondary to extrinsic compression from the aforementioned metastatic adenopathy. Assessment & Plan Palliative Performance Scale: 30 % Problem list: Abdominal pain Weakness BLE paralysis and edema BUE weakness JESENIA Metastatic prostate cancer with bulky lymphadenopathy, mets to spine, abdomen/ pelvis, retroperitoneum BL nephrostomy tubes Colostomy Goals of care (Z51.5) Palliative care recommendations: -DNR/DNI per previous conversation. -Continue Dilaudid KILN CLEANER- working well with increased dose -Patient wants to focus on comfort. Is okay with conservative management of issues including IV abx if needed. Would not want invasive testing or procedures. -Still wants to pursue palliative radiation if possible with the goal of gaining back any function of his lower extremities and for pain relief. States he knows he cannot tolerate it in the state he's in now, but has hope for tomorrow. -Patient wants to prolong his life only if he is comfortable, would never want his life to be prolonged by heroic measures or if there is no hope of improvement. -He is not ready to be "comfort measures only," but is quite realistic about his poor prognosis. Verbalized that he knows his disease is terminal, but he wants "one last shot." -Ultimately, patient would want to go home, but he is not sure if that's possible. Thank you kindly for this consult. I will follow as needed.
[2017-02-06 15:01] VITALS: BP 144/80; PULSE 102; TEMP 36.6; O2SAT 95
[2017-02-06 19:17] VITALS: BP 144/78; PULSE 114; TEMP 36.9; O2SAT 95
[2017-02-06] MEDS: FENTANYL 50 MCG/HR TDSY TD SCH (20:21)
[2017-02-06] MEDS: ENOXAPARIN 40 MG/0.4 ML SYR SQ SCH (20:21)
[2017-02-06] MEDS: FENTANYL 100 MCG/HR TDSY TD SCH (20:21)
[2017-02-06] MEDS: FENTANYL PATCH REMOVE & WASTE SCH (20:22)
--- NOTE | 2017-02-06 21:55 | Progress Note ---
Subjective Date of Service: Feb 06, 2017. Subjective Pt evaluation today including: conversation w/ patient, conversation w/ family (sister, by phone), physical exam, chart review, lab review, review of studies ( KUB x-ray), conversation w/ principal consultant (rad onc, palliative care), review of inpatient medication list Pain: back and lower abdomen - dilaudid demand doses being it down by 50% PO Intake: fair, tolerating clears patient continues with pain despite 0.5mg/hr of dilaudid basal rate and 0.4mg of demand doses demands only bring pain down by about 50% worst pain is lower abdomen and also his back he is tired and mildly confused at times hands continue to be weak had difficulty with KUB x-ray today (ie - laying flat) he decided at last second to defer on radiation treatment today Problem List Medical Problems: (1) Bilateral lower extremity edema Status: Acute (2) Chronic pain Status: Acute (3) Fever Status: Acute (4) Generalized pain Status: Acute (5) Lymphadenopathy Status: Acute (6) Lymphedema Status: Acute (7) Nephrostomy tube bleed Status: Acute (8) Prostate cancer metastatic to multiple sites Status: Acute (9) Pyelonephritis Status: Acute (10) UTI (urinary tract infection) Status: Acute Review of Systems Constitutional: No fever Respiratory: No dyspnea at rest Cardiac: No chest pain Abdomen: + pain, No nausea, No vomiting Objective Vital Signs Date Time Temp Pulse Resp B/P (MAP) Pulse Ox O2 Delivery O2 Flow Rate FiO2 02/06/17 19:17 36.9 114 18 144/78 (100) 95 Room Air 02/06/17 16:24 Room Air 02/06/17 15:01 36.6 102 19 144/80 (101) 95 Room Air 02/06/17 11:16 36.7 101 19 137/79 (98) 95 Room Air 02/06/17 09:30 Room Air 02/06/17 07:19 36.4 90 18 131/72 (91) 95 Room Air 02/06/17 04:00 36.4 72 18 148/74 (98) 94 02/06/17 00:00 Room Air 02/05/17 22:47 36.5 111 20 157/86 (109) 97 Room Air Physical Exam General Appearance: + pertinent finding (ill-appearing, tired, restless ) ENT: + pertinent finding (MM slightly dry) Neck: no JVD Respiratory/Chest: lungs clear, no respiratory distress, no accessory muscle use Cardiovascular: no gallop, + tachycardia, + systolic murmur (1/6 LSB) Abdomen: + abnormal bowel sounds (mildly high pitched), + distended (marked), + tenderness (suprapubic and LLQ), + pertinent finding (colostomy LLQ with stool , no gross blood) Extremities: + swelling (massive edema of legs extending from feet to the abdominal wall with scrotal edema) Neurologic/Psychiatric: alert, + pertinent finding (mildly confused) Skin: + pallor Comments: pulses - right foot< 1+; left foot 2+ right foot is cold to touch; left foot is warm cap refill right foot about 4 sec; cap refill left foot brisk mottled appearance right foot Laboratory Results Last 24 Hours Test 02/06/17 05:54 02/06/17 07:39 02/06/17 11:34 02/06/17 16:43 White Blood Count 7.87 K/uL Red Blood Count 3.22 M/uL Hemoglobin 8.7 g/dL Hematocrit 28.5 % Mean Corpuscular Volume 88.5 fL Mean Corpuscular Hemoglobin 27.0 pg Mean Corpuscular Hemoglobin Concent 30.5 g/dl Platelet Count 215 K/uL Mean Platelet Volume 9.7 fL Neutrophils (%) (Auto) 81.3 % Lymphocytes (%) (Auto) 3.0 % Monocytes (%) (Auto) 13.1 % Eosinophils (%) (Auto) 0.1 % Basophils (%) (Auto) 0.3 % Neutrophils # (Auto) 6.40 K/uL Lymphocytes # (Auto) 0.24 K/uL Monocytes # (Auto) 1.03 K/uL Eosinophils # (Auto) 0.01 K/uL Basophils # (Auto) 0.02 K/uL RDW Standard Deviation 57.3 fL RDW Coefficient of Variation 17.7 % Immature Granulocyte % (Auto) 2.2 % Immature Granulocyte # (Auto) 0.17 K/uL Nucleated RBC Absolute Count (auto) 0.28 K/uL Nucleated Red Blood Cells % 3.5 % Polychromasia 1+ Sodium Level 134 mmol/L Potassium Level 5.0 mmol/L Chloride Level 96 mmol/L Carbon Dioxide Level 18 mmol/L Anion Gap 20.0 mmol/L Blood Urea Nitrogen 89 mg/dl Creatinine 1.80 mg/dl Est Creatinine Clear Calc Drug Dose 60.9 ml/min Estimated GFR () 48.4 Estimated GFR (Non- 41.7 BUN/Creatinine Ratio 49.2 Random Glucose 79 mg/dl Lactic Acid Level 14.8 mmol/L Calcium Level 10.1 mg/dl Bedside Glucose 92 mg/dl 90 mg/dl 111 mg/dl Test 02/06/17 20:42 Bedside Glucose 118 mg/dl Assessment and Plan 56yo male with extensive, progressive stage 4 prostate cancer with mets to the bone, liver, peritoneum, intra-abdominal and pelvic lymph nodes with recent hospitalization at [facility] from 01/30/17 to 02/03/17 due to worsening back pain/LE edema/weakness of the legs. CT of the abdomen & pelvis during that stay demonstrated progressive metastatic disease in the liver, bones , abdomen, pelvis, and other locations. He also was found to have significant compression of his IVC as well as a severe pathological compression deformity at T9 causing cord compression. He was transferred to [facility] in [place] to obtain neurosurgical consultation regarding his T9 cord compression. He was deemed not a candidate for surgery and palliative care with palliative radiation was recommended. He was transferred back to [facility] to continue palliative care and to initiate radiation therapy to his T9 pathological compression fracture. 1. progressive stage 4 prostate cancer with extensive mets - * continue fentanyl patch 150mcg * increase MAMMA LOGIST dilaudid basal rate to 1mg/hr; increase demand dose to 0.6mg; lock-out 20 min; adjust these parameters as necessary * cont decadron 4mg IV q6h * palliative care consult appreciated * social work to be involved Lengthy discussion held with patient today regarding his very abnormal labs ( metabolic acidosis, severe lactic acidosis) as well as his abnormal KUB x-ray and right foot ischemia. I recommended we simply focus on his pain control & comfort. Palliative care saw patient today and he understands that he is dying. I called and spoke with his sister by phone today. I discussed with her his ominous labs, the x-ray of abdomen, and appearance of his right foot, etc. I recommended we simply continue palliation and focus on pain control. I told her I anticipate changing to comfort care measures soon and that, given his downward decline and severe lactic acidosis, that he may only have days to live. She voiced understanding. 2. T9 pathological compression fracture with cord compression & resulting paraplegia - * pain control and decadron * I am unsure he will ever tolerate palliative radiation and I am unsure if he would gain significant benefits in light of his rapidly declining status 3. vomiting - resolved, but KUB x-ray either with ileus vs early obstructive process. Could have early SBP. Would not pursue aggressive measures (ie paracentesis, etc). Treat symptoms. 4. encephalopathy - ongoing. Due to metabolic acidosis, prerenal azotemia, pain meds, etc. Supportive care. 5. b/l hand weakness - could easily have mets to the cervical spine or brain. 6. HTN - continue metoprolol. 7. DVT proph - stop lovenox 40mg daily due to likely transition to comfort care measures. 9. FEN - stop fluids. Diet if desired and/or tolerated. 10. anemia - 2nd to prostate ca. 11. colostomy and nephrostomy tube status. 12. depression - continue his cymbalta & wellbutrin as previous. 13. LE edema 2nd to IVC compression - ongoing. 14. ischemic appearing right foot - could have arterial occlusion due to cancer , artery compression in the pelvis, etc. No Rx. 15. severe lactic acidosis - suspect due to #14 or brewing process in his abdomen. Suspect that we will move to full comfort care measures in the next 1-2 days if not sooner. Explained to sister by phone that I believe he is actively dying and that we should continue to focus on pain control and comfort. time - 50 minutes today Continued [facility] stay due to: abnormal vital signs, inadequate oral pain control , ambulation difficulties, multiple IV medications needed Discharge planning: other (probable inpatient hospice )
[2017-02-06 23:05] VITALS: BP 149/82; PULSE 110; TEMP 36.8; O2SAT 96
[2017-02-07] MEDS: CHECK FENTANYL PATCH PLACEMENT SCH ×3 (00:20→16:20)
[2017-02-07] MEDS: HYDROmorphone HCL 0.5MG/ML 50 ML CASSETTE IV PRN (01:32)
[2017-02-07] MEDS: DEXAMETHASONE INJ 4 MG in SYRINGE 0 ML IV SCH ×4 (02:39→20:15)
[2017-02-07 03:00] VITALS: BP 139/77; PULSE 109; TEMP 36.4; O2SAT 95
[2017-02-07] MEDS: ONDANSETRON INJ 2 MG/ML 2 ML VIAL IV PRN (06:41)
[2017-02-07 07:06] VITALS: BP 133/76; PULSE 109; TEMP 36.5; O2SAT 92
[2017-02-07] MEDS: PANTOprazole SOD 40 MG TAB PO SCH ×2 (08:15→20:16)
[2017-02-07] MEDS: DULOXETINE HCL 60 MG CAP PO SCH ×2 (08:15→20:15)
[2017-02-07] MEDS: METOPROLOL TARTRATE 25 MG TAB PO SCH (08:15)
[2017-02-07] MEDS: CIPROFLOXACIN 250 MG TAB PO SCH (08:15)
[2017-02-07] MEDS: FLUTICASONE PROPIONATE NA SPR 16 GM BTL NAE SCH (08:16)
--- NOTE | 2017-02-07 09:02 | Medical Student: [facility] ---
Med Student Progress Note Date of Service Feb 07, 2017. Subjective Pt evaluation today including: conversation w/ patient Overnight, patient had brown emesis. This morning patient had clear emesis. He currently rates his mid-abdominal pain a 3/10. He did not push for breakthrough Dilaudid on his PROJECTION TECHNICIAN pump all night. His b/l wrist/hand weakness is worsening however. He is having a harder time holding cups and feeding himself. He is unsure as to whether he wants to pursue palliative radiation because he fears lying flat will cause too much pain. Review of Systems Constitutional: No fever, No chills, No sweats Eyes: No worsening of vision ENT: No hearing loss Respiratory: No cough, No sputum, No wheezing, No shortness of breath Cardiac: No chest pain, No palpitations Abdomen: + pain (3/10 mid-abdominal ), + vomiting, No nausea, No diarrhea, No constipation Musculoskeletal: No joint pain Male : No dysuria Endo: + fatigue Skin: No rash, No itch Objective Vital Signs Date Time Temp Pulse Resp B/P (MAP) Pulse Ox O2 Delivery O2 Flow Rate FiO2 02/07/17 07:06 36.5 109 18 133/76 (95) 92 Room Air 02/07/17 03:00 36.4 109 18 139/77 (97) 95 Room Air 02/07/17 00:00 Room Air 02/06/17 23:05 36.8 110 18 149/82 (104) 96 Room Air 02/06/17 19:17 36.9 114 18 144/78 (100) 95 Room Air 02/06/17 16:24 Room Air 02/06/17 15:01 36.6 102 19 144/80 (101) 95 Room Air 02/06/17 11:16 36.7 101 19 137/79 (98) 95 Room Air 02/06/17 09:30 Room Air Physical Exam General Appearance: WD/WN, no apparent distress Eyes: bilateral eyes normal inspection, bilateral eyes PERRL, bilateral eyes EOMI ENT: normal ENT inspection, hearing grossly normal, pharynx normal Neck: supple, no adenopathy, thyroid normal, no JVD Respiratory/Chest: chest non-tender, normal breath sounds, no respiratory distress, no accessory muscle use Cardiovascular: regular rate, rhythm, no edema, no gallop, no JVD, no murmur Abdomen: normal bowel sounds, soft, no organomegaly, + tenderness (mid- abdominal tenderness to palpation ) Extremities: no calf tenderness, + slow capillary refill (right toes ), + swelling (4 + edema b/l to mid thighs ), + pertinent finding (poikilothermia of right foot ) Neurologic/Psychiatric: 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 Desai is a 56 year old male with a PMH significant for HTN, T2DM, HLD, T cell lymphoma, and stage 4 prostate cancer with metastases to the bone, liver, peritoneum, intra-abdominal, retroperitoneal lymph nodes, and pelvic lymph nodes who presented on 02/05 as a transfer from [facility] for palliative care here at [facility]. He has a h/o obstructive uropathy now with b/l nephrostomy tubes and a h/o of rectal obstruction now with colostomy. He has a radical prostatectomy in 2005 and radiation in 2007. Most recent abd/ pelvis CT showed bone, liver, peritoneum, intra-abdominal, retroperitoneal lymph node and pelvic lymph node metastases. It also showed ascites, IVC compression, and a metastatic lesion on T9 vertebrae with spinal cord compression. After he was found to have a T9 compression fracture with compression of the spinal cord, he was sent to [facility] for a neurosurgery opinion. Neurosurgery concluded that the risks of surgery outweighed the benefits. Palliative care assessed him at [facility] and increased his fentanyl dose to 150 mcg q72hr. He was then sent back to [facility] to receive palliative radiation closer to home. On admission, the patient was having mid- abdominal pain, vomited, and complained of worsening b/l hand/wrist weakness and numbness. He was started on a Dilaudid PROJECTION TECHNICIAN pump. The patient was tachycardic at 108 and hypertensive at 159/85. He was hyponatremic at 132, hypercalcemic at 10.6, and had hypermagnesemia at 2.6. BUN was elevated at 95 and Cr elevated at 1.7. Anion gap was 20 and lactic acid was 14.8. He was started on Cipro for SBP coverage considering the recent finding of ascites and elevated lactic acid. Abdominal KUB yesterday showed gaseous distention in his stomach with several loops of small bowel and paucity of bowel gas distally suggestive of a small bowel obstruction. It also showed abdominal ascites. On physical exam, it was found that the patient right foot is significantly colder than the left with slower capillary refill. It is likely the elevated lactic acid reflects an ischemic event of the patient's right lower extremity vs infectious process (SBP, UTI, PA). Radiation oncology consulted yesterday and attempted to start the CT simulation for treatment planning, but the patient could not tolerate lying flat. The patient is currently being managed for pain associated with his metastatic prostate cancer, small bowel obstruction, T9 compression fracture and spinal cord compression, encephalopathy, b/l hand weakness and his comorbid medical issues HTN, HLD, and depression. Plan: Metastatic Prostate CA -continue fentanyl 150 mcg q72 hr for pain -continue Dilaudid PROJECTION TECHNICIAN 1 mg/hr continuous & 0.6 mg demand for pain -continue Decadron 4 mg q6hr -continue cyclobenzaprine 10 mg TID -palliative care consult - patient wants to focus on comfort and is ok with conservative management of issues (IV Abx), but no invasive testing or procedures. He is not ready for "comfort only measures' and wants to give "one last shot." He ultimately wants to go home Bowel Obstruction -Abdominal KUB suggested small bowel obstruction -continue IVFs -replete electrolytes as needed JESENIA - BUN and Cr elevated on admission at 95 and 1.7 respectively. BUN 89 and Cr 1.8 yesterday. -BUN: Cr ratio >20, likely pre-renal azotemia -continue IVFs Elevated lactic acid - likely d/t ischemic event in right lower extremity artery (right distal LE poikilothermia) vs infectious process (probable SBP, UTI , or PA). It is unlikely patient has SBP as patient has no peritoneal signs on exam, even though Abd X-ray showed ascites. -patient is currently pursuing palliative care, so no further treatment of possible ischemic event or infectious process -continue Cipro 250 mg BID for SBP prophylaxis T9 compression fracture w/ cord compression & paraplegia -radiation oncology consulted - plan was for patient to come down to CT simulation for treatment planning yesterday, but patient could not tolerate. When speaking to patient today, he is unsure if he will tolerate laying flat for radiation. Encephalopathy - hyperammonemia vs infection vs brain met vs pain meds -NH3 normal at 24 -possibly infection or brain met, but at this time will not pursue this workup at patient elected to do palliative care Bilateral hand weakness/numbness - possibly met to brain or cervical spine, worsening -will not pursue this workup at patient elected to do palliative care LE edema bilaterally - d/t IVC compression as evidenced on CT film from 01/30 HTN -continue metoprolol 25 mg BID HLD -d/c statin Anemia - likely anemia of chronic disease -Hgb 8.7 yesterday Depression -continue buproprion 50 mg TID -continue duloxetine 2 cap BID Nausea -continue Zofran 4 mg q6hr Anxiety -continue Lorazepam 1 mg q6hr DVT Prophylaxis -continue Lovenox 40 mg PO daily GI prophylaxis -continue Protonix 40 mg PO BID Continued [facility] stay due to: abnormal vital signs, inadequate oral pain control , ambulation difficulties, multiple IV medications needed Discharge planning: other (probable inpatient hospice )
[2017-02-07 15:45] VITALS: BP 121/69; PULSE 94; TEMP 36.9; O2SAT 98
--- NOTE | 2017-02-07 16:03 | Palliative Care Progress Note ---
Palliative Care Progress Note Date of Service Feb 07, 2017. Subjective Pt evaluation today including: conversation w/ patient, conversation w/ family (sister/POA- Renu, patients uncle and his , a family friend), physical exam , chart review, conversation w/ creative consultant (Dr. Lantigua), review of inpatient medication list Pain: 0/10 PO Intake: tolerating small amounts, too weak to feed himself Voiding: stanton catheter in place Patient is drowsy but awake. Somewhat oriented, but easily gets confused. He is more weak today, can barely use his arms. Cannot feed himself. Pain is much better, only 2/10. Patient's goal was 3/10, he is comfortable with current rating. Had a private conversation with the patient about transitioning to comfort measures only- meaning no palliative radiation, no labs or tests, no abx, and discontinuing some meds unrelated to comfort. Patient is in agreement that that is his wish at this point. He said, "I just don't think that's going to be possible," when talking about radiation. Went back to patient's room this after noon when patient's family, including sister/LIMA Sears, was in room. We again discussed transitioning to comfort measures only and what this would entail. All family members and patient are in agreement that patient will transition to SCULPTURE CONSERVATOR. No further palliative radiation, no abx, no testing or procedures. With patient's permission to share prognosis, I relayed that patient could only have days to live. Family and patient verbalized understanding. Patient and family in agreement with [facility] hospice and requested continuing with [facility]. Patient's sister, Renu, asked to speak with me in private. She said that patient's is severely bipolar and has trouble caring for herself. She is currently at a mental health class that she attends every . Renu said that the patient's keep saying, "There's no way he's going to ." Renu is unsure if she is truly in denial, if she doesn't understand, or if she pretends to not know. Either way, Renu said that she will be okay with the patient being SCULPTURE CONSERVATOR. Review of Systems Constitutional: + weakness ENT: No trouble swallowing Respiratory: No cough, No shortness of breath Cardiac: + edema, No chest pain Abdomen: + pain, No nausea, No vomiting Neurologic: + problem reported (confusion) Psychiatric: No depression symptoms, No anxiety Objective Vital Signs Date Time Temp Pulse Resp B/P (MAP) Pulse Ox O2 Delivery O2 Flow Rate FiO2 02/07/17 08:30 Room Air 02/07/17 07:06 36.5 109 18 133/76 (95) 92 Room Air 02/07/17 03:00 36.4 109 18 139/77 (97) 95 Room Air 02/07/17 00:00 Room Air 02/06/17 23:05 36.8 110 18 149/82 (104) 96 Room Air 02/06/17 19:17 36.9 114 18 144/78 (100) 95 Room Air 02/06/17 16:24 Room Air Physical Exam General Appearance: no apparent distress, + pertinent finding (crhonically ill appearing, in an overall deconditioned state) ENT: hearing grossly normal Neck: supple, no JVD Respiratory/Chest: no respiratory distress, no accessory muscle use, + decreased breath sounds Cardiovascular: regular rate, rhythm, + pertinent finding (massive pitting edema to BLE) Abdomen: normal bowel sounds, + distended (firm), + pertinent finding ( colostomy) Skin: + pallor, + pertinent finding (RLQ dressing where fistual is open and draining) Comments: bilateral nephrostomy tubes intact Laboratory Results Last 24 Hours Test 02/06/17 16:43 02/06/17 20:42 02/07/17 07:51 02/07/17 11:34 Bedside Glucose 111 mg/dl 118 mg/dl 113 mg/dl 137 mg/dl Assessment and Plan Problem list: Abdominal pain Weakness BLE paralysis and edema BUE weakness JESENIA Metastatic prostate cancer with bulky lymphadenopathy, mets to spine, abdomen/ pelvis, retroperitoneum BL nephrostomy tubes Colostomy Goals of care (Z51.5) Palliative care recommendations: -Continue Dilaudid BUTADIENE CONVERTOR OPERATOR: 1mg/hr basal rate with BUTADIENE CONVERTOR OPERATOR dose of 0.2mg Q20min PRN pain. I think it would be reasonable tomorrow to transition from BUTADIENE CONVERTOR OPERATOR to a continuous gtt to be titrated by nursing. I do not think patient will be strong enough to push button in the near future. -Comfort measures only: no radiation, abx, labs, testing, etc. -Anticipated transition to [facility] hospice tomorrow with [facility]. Thank you again for this consult. I will follow as needed. Palliative Performance Scale: 20 % Continued [facility] stay due to: abnormal vital signs, inadequate oral pain control , ambulation difficulties, multiple IV medications needed Discharge planning: other (anticipated inpatient hospice tomorrow)
--- NOTE | 2017-02-07 16:38 | Progress Note ---
Subjective Date of Service: Feb 07, 2017. Subjective this pt is lethargic and with variable pain control, discussion with hospice nurse practitioner patient and sister will proceed to comfort care and once hospice is involved will possibly move to inpatient hospice Problem List Medical Problems: (1) Bilateral lower extremity edema Status: Acute (2) Chronic pain Status: Acute (3) Fever Status: Acute (4) Generalized pain Status: Acute (5) Lymphadenopathy Status: Acute (6) Lymphedema Status: Acute (7) Nephrostomy tube bleed Status: Acute (8) Prostate cancer metastatic to multiple sites Status: Acute (9) Pyelonephritis Status: Acute (10) UTI (urinary tract infection) Status: Acute Review of Systems Constitutional: + weakness, + fatigue, No fever, No chills Respiratory: No cough, No shortness of breath, No dyspnea on exertion Cardiac: + edema, No chest pain, No claudication Abdomen: No pain, No nausea, No vomiting, No diarrhea Musculoskeletal: + joint pain, + muscle pain, + swelling Neurologic: No memory loss, No weakness Psychiatric: No depression symptoms, No anhedonism, No anxiety Objective Vital Signs Date Time Temp Pulse Resp B/P (MAP) Pulse Ox O2 Delivery O2 Flow Rate FiO2 02/07/17 07:06 36.5 109 18 133/76 (95) 92 Room Air 02/07/17 03:00 36.4 109 18 139/77 (97) 95 Room Air 02/07/17 00:00 Room Air 02/06/17 23:05 36.8 110 18 149/82 (104) 96 Room Air 02/06/17 19:17 36.9 114 18 144/78 (100) 95 Room Air 02/06/17 16:24 Room Air 02/06/17 15:01 36.6 102 19 144/80 (101) 95 Room Air 02/06/17 11:16 36.7 101 19 137/79 (98) 95 Room Air 02/06/17 09:30 Room Air Physical Exam General Appearance: + moderate distress, + obese Eyes: PERRL Respiratory/Chest: + decreased breath sounds, + accessory muscle use, + rhonchi Cardiovascular: regular rate, rhythm, + systolic murmur Extremities: + pedal edema, + slow capillary refill, + swelling, + pertinent finding (cool right lower extremity) Laboratory Results Last 24 Hours Test 02/06/17 11:34 02/06/17 16:43 02/06/17 20:42 02/07/17 07:51 Bedside Glucose 90 mg/dl 111 mg/dl 118 mg/dl 113 mg/dl Assessment and Plan 56yo male with extensive, progressive stage 4 prostate cancer with mets to the bone, liver, peritoneum, intra-abdominal and pelvic lymph nodes with recent hospitalization at [facility] from 01/30/17 to 02/03/17 due to worsening back pain/LE edema/weakness of the legs. CT of the abdomen & pelvis during that stay demonstrated progressive metastatic disease in the liver, bones , abdomen, pelvis, and other locations. He also was found to have significant compression of his IVC as well as a severe pathological compression deformity at T9 causing cord compression. He was transferred to [facility] in [place] to obtain neurosurgical consultation regarding his T9 cord compression. He was deemed not a candidate for surgery and palliative care with palliative radiation was recommended. He was transferred back to [facility] to continue palliative care and to initiate radiation therapy to his T9 pathological compression fracture. progressive stage 4 prostate cancer with extensive mets - now will move to comfort care * continue fentanyl patch 150mcg * increase ENGINEER PROCESS dilaudid basal rate to 1mg/hr; increase demand dose to 0.6mg; lock-out 20 min; adjust these parameters as necessary * cont decadron 4mg IV q6h * palliative care consult appreciated, cannot lay flat for XRT T9 pathological compression fracture with cord compression & resulting paraplegia encephalopathy - ongoing. Due to metabolic acidosis, prerenal azotemia, pain meds, etc. Supportive care. HTN - continue metoprolol, can hold if pt not taking po well DVT proph - stop lovenox 40mg daily due to likely transition to comfort care measures. depression - continue his cymbalta & wellbutrin as previous. ischemic appearing right foot - could have arterial occlusion due to cancer, artery compression in the pelvis pain control Continued [facility] stay due to: abnormal vital signs, inadequate oral pain control , ambulation difficulties, multiple IV medications needed Discharge planning: other (probable inpatient hospice )
[2017-02-07] MEDS: SODIUM CHLORIDE 0.9% 1000ML 1,000 ML IV SCH (20:14)
[2017-02-08] MEDS: CHECK FENTANYL PATCH PLACEMENT SCH ×3 (00:10→16:00)
[2017-02-08] MEDS: HYDROmorphone HCL 0.5MG/ML 50 ML CASSETTE IV PRN (01:37)
[2017-02-08] MEDS: DEXAMETHASONE INJ 4 MG in SYRINGE 0 ML IV SCH ×4 (01:41→20:30)
--- NOTE | 2017-02-08 07:43 | Medical Student: [facility] ---
Med Student Progress Note Date of Service Feb 08, 2017. Subjective No acute events overnight. Patient is comfortable sitting up in bed. His mid- abdominal pain is 4/10 today. He continues to be on inpatient hospice care. Just comfort measures, no antibiotics, testing, procedures, or palliative radiation. Review of Systems Constitutional: No fever, No chills, No weight loss Eyes: No worsening of vision ENT: No hearing loss Respiratory: No cough, No sputum, No wheezing, No shortness of breath Cardiac: No chest pain, No palpitations Abdomen: + pain, No nausea, No vomiting (4/10 mid-abdominal pain ), No diarrhea , No constipation Musculoskeletal: + swelling (4 + lower extremities b/l ), No joint pain Male : No dysuria Endo: + fatigue Skin: No rash, No itch Objective Vital Signs Date Time Temp Pulse Resp B/P (MAP) Pulse Ox O2 Delivery O2 Flow Rate FiO2 02/08/17 00:00 Room Air 02/07/17 16:00 Room Air 02/07/17 15:45 36.9 94 18 121/69 (86) 98 Room Air 02/07/17 08:30 Room Air Physical Exam General Appearance: WD/WN, no apparent distress Eyes: bilateral eyes normal inspection, bilateral eyes PERRL, bilateral eyes EOMI ENT: normal ENT inspection, hearing grossly normal Neck: supple, no adenopathy, thyroid normal, no JVD Respiratory/Chest: lungs clear, normal breath sounds, no respiratory distress, no accessory muscle use Cardiovascular: regular rate, rhythm, no gallop, no JVD, no murmur Abdomen: normal bowel sounds, soft, no organomegaly, + tenderness (diffusely, more prominent in mid-abdomen ) Extremities: non-tender, no calf tenderness, + slow capillary refill (left capillary refill slower than right capillary refill ), + swelling (4 + lower extremities b/l to knees ), + pertinent finding (poikilothermia of left foot ) Neurologic/Psychiatric: 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 Desai is a 56 year old male with a PMH significant for HTN, T2DM, HLD, T cell lymphoma, and stage 4 prostate cancer with metastases to the bone, liver, peritoneum, intra-abdominal, retroperitoneal lymph nodes, and pelvic lymph nodes who presented on 02/05 as a transfer from [facility] for palliative care here at [facility]. He has a h/o obstructive uropathy now with b/l nephrostomy tubes and a h/o of rectal obstruction now with colostomy. He has a radical prostatectomy in 2005 and radiation in 2007. Most recent abd/ pelvis CT showed bone, liver, peritoneum, intra-abdominal, retroperitoneal lymph node and pelvic lymph node metastases. It also showed ascites, IVC compression, and a metastatic lesion on T9 vertebrae with spinal cord compression. After he was found to have a T9 compression fracture with compression of the spinal cord, he was sent to [facility] for a neurosurgery opinion. Neurosurgery concluded that the risks of surgery outweighed the benefits. Palliative care assessed him at [facility] and increased his fentanyl dose to 150 mcg q72hr. He was then sent back to [facility] to receive palliative radiation closer to home. On admission, the patient was having mid- abdominal pain, vomited, and complained of worsening b/l hand/wrist weakness and numbness. He was started on a Dilaudid HOUSE CLEANER SUPERVISOR pump. The patient was tachycardic at 108 and hypertensive at 159/85. He was hyponatremic at 132, hypercalcemic at 10.6, and had hypermagnesemia at 2.6. BUN was elevated at 95 and Cr elevated at 1.7. Anion gap was 20 and lactic acid was 14.8. He was started on Cipro for SBP coverage considering the recent finding of ascites and elevated lactic acid. Abdominal KUB yesterday showed gaseous distention in his stomach with several loops of small bowel and paucity of bowel gas distally suggestive of a small bowel obstruction. It also showed abdominal ascites. On physical exam, it was found that the patient right foot is significantly colder than the left with slower capillary refill. It is likely the elevated lactic acid reflects an ischemic event of the patient's right lower extremity vs infectious process (SBP, UTI, PA). Radiation oncology consulted yesterday and attempted to start the CT simulation for treatment planning, but the patient could not tolerate lying flat. The patient is currently being managed for pain associated with his metastatic prostate cancer, small bowel obstruction, T9 compression fracture and spinal cord compression, encephalopathy, b/l hand weakness and his comorbid medical issues HTN, HLD, and depression. He is currently on in-patient hospice with only comfort measures at this time. Plan: Metastatic Prostate CA -continue fentanyl 150 mcg q72 hr for pain -continue Dilaudid HOUSE CLEANER SUPERVISOR 1 mg/hr continuous & 0.6 mg demand for pain -continue Decadron 4 mg q6hr -continue cyclobenzaprine 10 mg TID -palliative care consult - comfort measures, no antibiotics, palliative radiation, testing or procedures Bowel Obstruction -Abdominal KUB suggested small bowel obstruction -continue IVFs -replete electrolytes as needed JESENIA - BUN and Cr elevated on admission at 95 and 1.7 respectively. BUN 89 and Cr 1.8 yesterday. -BUN: Cr ratio >20, likely pre-renal azotemia -continue IVFs Elevated lactic acid - likely d/t ischemic event in right lower extremity artery (right distal LE poikilothermia) vs infectious process (probable SBP, UTI , or PA). It is unlikely patient has SBP as patient has no peritoneal signs on exam, even though Abd X-ray showed ascites. -patient is currently pursuing palliative care, so no further treatment of possible ischemic event or infectious process -d/c Cipro - just comfort measures T9 compression fracture w/ cord compression & paraplegia -radiation oncology consulted - plan was for patient to come down to CT simulation for treatment planning yesterday, but patient could not tolerate. Patient does not want palliative radiation Encephalopathy - hyperammonemia vs infection vs brain met vs pain meds -NH3 normal at 24 -possibly infection or brain met, but at this time will not pursue this workup at patient elected to do palliative care Bilateral hand weakness/numbness - possibly met to brain or cervical spine, worsening -will not pursue this workup at patient elected to do palliative care LE edema bilaterally - d/t IVC compression as evidenced on CT film from 01/30 HTN -d/c metoprolol 25 mg BID - just comfort measures HLD -d/c statin Anemia - likely anemia of chronic disease -Hgb 8.7 Depression -continue buproprion 50 mg TID -continue duloxetine 2 cap BID Nausea -continue Zofran 4 mg q6hr Anxiety -continue Lorazepam 1 mg q6hr DVT Prophylaxis -continue Lovenox 40 mg PO daily GI prophylaxis -continue Protonix 40 mg PO BID Continued [facility] stay due to: abnormal vital signs, inadequate oral pain control , ambulation difficulties, multiple IV medications needed Discharge planning: other (probable inpatient hospice )
[2017-02-08 08:00] VITALS: O2SAT 98
[2017-02-08] MEDS: FLUTICASONE PROPIONATE NA SPR 16 GM BTL NAE SCH (08:00)
[2017-02-08] MEDS: PANTOprazole SOD 40 MG TAB PO SCH ×2 (08:41→20:31)
[2017-02-08] MEDS: DULOXETINE HCL 60 MG CAP PO SCH ×2 (08:43→20:31)
[2017-02-08 16:00] VITALS: O2SAT 98
[2017-02-08] MEDS: HYDROmorphone/NSS 100MG/100ML 100 ML IV PRN (20:22)
[2017-02-09] VITALS: O2SAT 98
[2017-02-09] MEDS: CHECK FENTANYL PATCH PLACEMENT SCH ×4 (00:10→23:39)
[2017-02-09] MEDS: DEXAMETHASONE INJ 4 MG in SYRINGE 0 ML IV SCH ×4 (01:48→20:28)
[2017-02-09 08:00] VITALS: O2SAT 98
[2017-02-09] MEDS: FLUTICASONE PROPIONATE NA SPR 16 GM BTL NAE SCH (08:00)
[2017-02-09] MEDS: PANTOprazole SOD 40 MG TAB PO SCH ×2 (08:00→19:54)
[2017-02-09] MEDS: DULOXETINE HCL 60 MG CAP PO SCH ×2 (08:00→19:54)
[2017-02-09] MEDS: ONDANSETRON INJ 2 MG/ML 2 ML VIAL IV PRN (14:15)
[2017-02-09] MEDS ORDERED: NURSING VERBAL MED ORDER ONE ×2 (15:00)
[2017-02-09 15:15] VITALS: BP 127/77; PULSE 113; TEMP 36; O2SAT 96
[2017-02-09 16:00] VITALS: O2SAT 96
--- NOTE | 2017-02-09 18:24 | Progress Note ---
Subjective Date of Service: Feb 09, 2017. Subjective pt is having problems with pain from paralysis and immobility plus skin breakdown, moved to clinitron bed to provide comfort, family updated in phillip and bedside, on dilaudid gtt and still alert, does have opiate tolerance due to fentanyl Problem List Medical Problems: (1) Bilateral lower extremity edema Status: Acute (2) Chronic pain Status: Acute (3) Fever Status: Acute (4) Generalized pain Status: Acute (5) Lymphadenopathy Status: Acute (6) Lymphedema Status: Acute (7) Nephrostomy tube bleed Status: Acute (8) Prostate cancer metastatic to multiple sites Status: Acute (9) Pyelonephritis Status: Acute (10) UTI (urinary tract infection) Status: Acute Review of Systems Constitutional: + weakness, + fatigue Respiratory: + shortness of breath, No cough Cardiac: + edema, No chest pain Abdomen: + pain, No nausea Musculoskeletal: + joint pain, + muscle pain, + swelling Psychiatric: + depression symptoms, + anhedonism Objective Vital Signs Date Time Temp Pulse Resp B/P (MAP) Pulse Ox O2 Delivery O2 Flow Rate FiO2 02/09/17 16:00 96 Room Air 02/09/17 15:15 36.0 113 20 127/77 (94) 96 Room Air 02/09/17 08:00 98 Room Air 02/09/17 00:00 98 Room Air Physical Exam General Appearance: + moderate distress, + obese Respiratory/Chest: + decreased breath sounds, + accessory muscle use Cardiovascular: no murmur, + tachycardia Extremities: + pedal edema, + swelling Neurologic/Psychiatric: alert, oriented x 3 Assessment and Plan 56yo male with extensive, progressive stage 4 prostate cancer with mets to the bone, liver, peritoneum, intra-abdominal and pelvic lymph nodes with recent hospitalization at [facility] from 01/30/17 to 02/03/17 due to worsening back pain/LE edema/weakness of the legs. CT of the abdomen & pelvis during that stay demonstrated progressive metastatic disease in the liver, bones , abdomen, pelvis, and other locations. He also was found to have significant compression of his IVC as well as a severe pathological compression deformity at T9 causing cord compression. He was transferred to [facility] in [place] to obtain neurosurgical consultation regarding his T9 cord compression. He was deemed not a candidate for surgery and palliative care with palliative radiation was recommended. He was transferred back to [facility] to continue palliative care and to initiate radiation therapy to his T9 pathological compression fracture. 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 Due to metabolic acidosis, prerenal azotemia, pain meds, etc. HTN - continue metoprolol, can hold if pt not taking po well DVT proph - stop lovenox 40mg daily due to likely transition to comfort care measures. depression - continue his cymbalta & wellbutrin as previous. ischemic appearing right foot - could have arterial occlusion due to cancer, artery compression in the pelvis pain control could be source of acidosis Continued [facility] stay due to: abnormal vital signs, inadequate oral pain control , ambulation difficulties, multiple IV medications needed Discharge planning: other (probable inpatient hospice )
[2017-02-09] MEDS ORDERED: HYDROmorphone INJ 1 MG/ML SYR IV PRN (19:15)
[2017-02-09] MEDS ORDERED: HYDROmorphone INJ 0.5 MG/0.5 ML SYR IV PRN (19:15)
[2017-02-09] MEDS: FENTANYL PATCH REMOVE & WASTE SCH (20:34)
[2017-02-09] MEDS: FENTANYL 50 MCG/HR TDSY TD SCH (20:35)
[2017-02-09] MEDS: FENTANYL 100 MCG/HR TDSY TD SCH (20:35)
[2017-02-10] VITALS: O2SAT 96
[2017-02-10] MEDS: DEXAMETHASONE INJ 4 MG in SYRINGE 0 ML IV SCH ×2 (02:39→08:35)
[2017-02-10] MEDS: ONDANSETRON INJ 2 MG/ML 2 ML VIAL IV PRN (02:57)
[2017-02-10] MEDS: CHECK FENTANYL PATCH PLACEMENT SCH (08:00)
[2017-02-10] MEDS: PANTOprazole SOD 40 MG TAB PO SCH (08:00)
[2017-02-10] MEDS: DULOXETINE HCL 60 MG CAP PO SCH (08:00)
[2017-02-10] MEDS: FLUTICASONE PROPIONATE NA SPR 16 GM BTL NAE SCH (08:35)
--- NOTE | 2017-02-10 08:45 | Discharge Instructions ---
Discharge Instructions Date of Service Feb 10, 2017. Admission Reason for Admission: Metastatic Prostate Cancer Discharge Discharge Diagnosis / Problem: metastatic prostate cancer Discharge Goals Goal(s): Improve disease control, Therapeutic intervention Activity Recommendations Activity Limitations: as noted below Lifting Limitations: no more than 5 pounds Exercise/Sports Limitations: rest today . Current Hospital Diet Patient's current hospital diet: Regular Diet Discharge Diet Recommended Diet: Regular Diet Pending Studies Studies pending at discharge: no Medical Emergencies . Who to Call and When: Medical Emergencies: If at any time you feel your situation is an emergency, please call 911 immediately. . Non-Emergent Contact Non-Emergency issues call your: Oncologist Call Non-Emergent contact if: your pain is unusual for you . . "Provider Documentation" section prepared by Michael Lantigua. . VTE Core Measure Inpt VTE Proph given/why not?: Enoxaparin (Lovenox)SQ
[2017-02-10] MEDS: HYDROmorphone/NSS 100MG/100ML 100 ML IV PRN (09:12)
[2017-02-10 09:16] VITALS: BP 127/77; PULSE 113; TEMP 36; O2SAT 96
--- NOTE | 2017-02-10 11:57 | Discharge Summary ---
Discharge Summary Date of Service Feb 10, 2017. Discharge Summary Admission Date: Feb 05, 2017 at 17:55 Discharge Date: Feb 10, 2017 Discharge Disposition: Acute care facility Principal Diagnosis: metastatic prostate cancer Medication Reconciliation Continued Medications: Bupropion (Wellbutrin) 100 Mg Tab 50 MG PO TID, TAB Dexamethasone (Decadron) 4 Mg Tab 4 MG IV Q6, TAB Duloxetine HCl (Cymbalta) 30 Mg Cap 2 CAP PO BID for 30 Days, #30 CAP 5 Refills Fentanyl (Fentanyl) 100 Mcg Tdsy 150 MCG TD CQ72HR Lorazepam (Ativan) 1 Mg Tab 1 MG PO Q6H PRN for Anxiety, TAB Discontinued Medications: Ciprofloxacin Tab (Cipro) 250 Mg Tab 250 MG PO BID, TAB Enoxaparin (Lovenox) 40 Mg/0.4 Ml Inj 40 MG SQ DAILY, SYR Fluticasone Propionate (Nasal) (Flonase Allergy Relief) 50 Mcg/Act Spr 2 SPRAY NA BID Metoprolol Tartrate (Lopressor) 25 Mg Tab 25 MG PO BID Omeprazole (Prilosec) 20 Mg Capcr 20 MG PO DAILY, CAP Ondansetron (Ondansetron HCl) 8 Mg Tab 8 MG PO Q6H PRN for Nausea Discharge Exam Review of Systems: Constitutional: + weakness, + fatigue Physical Exam: General Appearance: WD/WN, + moderate distress, + obese Respiratory/Chest: + respiratory distress, + decreased breath sounds Cardiovascular: + tachycardia Extremities: + pedal edema, + swelling Hospital Course 56yo male with extensive, progressive stage 4 prostate cancer with mets to the bone, liver, peritoneum, intra-abdominal and pelvic lymph nodes with recent hospitalization at [facility] from 01/30/17 to 02/03/17 due to worsening back pain/LE edema/weakness of the legs. CT of the abdomen & pelvis during that stay demonstrated progressive metastatic disease in the liver, bones , abdomen, pelvis, and other locations. He also was found to have significant compression of his IVC as well as a severe pathological compression deformity at T9 causing cord compression. He was transferred to [facility] in [place] to obtain neurosurgical consultation regarding his T9 cord compression. He was deemed not a candidate for surgery and palliative care with palliative radiation was recommended. He was transferred back to [facility] to continue palliative care and to initiate radiation therapy to his T9 pathological compression fracture. 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 Due to metabolic acidosis, prerenal azotemia, pain meds, etc. HTN - continue metoprolol, can hold if pt not taking po well DVT proph - stop lovenox 40mg daily due to likely transition to comfort care measures. depression - continue his cymbalta & wellbutrin as previous. ischemic appearing right foot - could have arterial occlusion due to cancer, artery compression in the pelvis pain control could be source of acidosis Total Time Spent: Less than 30 minutes This includes examination of the patient, discharge planning, medication reconciliation, and communication with other providers. Discharge Instructions Please refer to the electronic Patient Visit Report (Discharge Instructions) for additional information.
== END 2017-02-10 09:20 | disposition hospice, inpatient (51) | DRG 722 ==
LOC: C.4E 17:55
PROVIDERS: ADMIT Internal Medicine; ATTEND Internal Medicine
DX: C61 Malignant neoplasm of prostate (principal); G93.40 Encephalopathy, unspecified; C79.51 Secondary malignant neoplasm of bone; C78.7 Secondary malignant neoplasm of liver and intrahepatic bile duct; C78.6 Secondary malignant neoplasm of retroperitoneum and peritoneum; C77.2 Secondary and unspecified malignant neoplasm of intra-abdominal lymph nodes; C77.5 Secondary and unspecified malignant neoplasm of intrapelvic lymph nodes; M84.48XA Pathological fracture, other site, initial encounter for fracture; E87.2 Acidosis; G82.20 Paraplegia, unspecified; E87.1 Hypo-osmolality and hyponatremia; I87.1 Compression of vein; N17.9 Acute kidney failure, unspecified; G95.29 Other cord compression; F32.9 Major depressive disorder, single episode, unspecified; R11.10 Vomiting, unspecified; D63.0 Anemia in neoplastic disease; Z85.72 Personal history of non-Hodgkin lymphomas; E78.5 Hyperlipidemia, unspecified; I10 Essential (primary) hypertension; Z93.6 Other artificial openings of urinary tract status; Z93.3 Colostomy status; Z90.79 Acquired absence of other genital organ(s); Z80.1 Family history of malignant neoplasm of trachea, bronchus and lung; Z66 Do not resuscitate; Z83.3 Family history of diabetes mellitus; Z82.49 Family history of ischemic heart disease and other diseases of the circulatory system; Z82.3 Family history of stroke; Z82.61 Family history of arthritis; Z87.891 Personal history of nicotine dependence; Z51.5 Encounter for palliative care

== ENCOUNTER 2017-02-10 09:21 | Inpatient (IN) | payer OTHER ==
[~2017-02-10] VITALS: Ht 182.9 cm; Wt 114.8 kg
[~2017-02-10 09:21] MED LIST changes: -AMOX500C3 PO; -ASCO-63 PO; -ATOR-22 PO; +BUPR-83 PO; -BUPR150T5 PO; -CALC500C70 PO; +CIPR1TAB11 PO; -CIPR250T3 PO; +CYM/30 PO; -CYM60 PO; -DRGTP100 TOP; -DRGTP50 TD; +DXM/4 IV; +ENOX40IN SQ; +FLUT0.15; -FLUT0.15 NAE; -FLX10 PO; +FNTTP100 TD; -FNTTP25 TOP; -HYDR4TAB2 PO; -HYDROmorphone INJ 2 MG/ML SYR/VIAL ONE; -LUPRON IM; -MELO7.5T5 PO; -METF-384 PO; -Morphine SL; +PRLSR20 PO
[2017-02-10] MEDS ORDERED: HYDROmorphone INJ 0.5 MG/0.5 ML SYR IV PRN (10:15)
[2017-02-10] MEDS ORDERED: FENTANYL 100 MCG/HR TDSY TD SCH (10:15)
[2017-02-10] MEDS ORDERED: LORAZEPAM 1 MG TAB PO PRN (10:15)
[2017-02-10] MEDS ORDERED: LORAZEPAM 2 MG/ML 1 ML VIAL IV PRN ×2 (10:15)
[2017-02-10 10:16] VITALS: O2SAT 94
--- NOTE | 2017-02-10 12:04 | History and Physical ---
History & Physical Date & Time of Service: Feb 10, 2017 at 11:57 Chief Complaint: Hospice Care, Metastatic Prostate Cancer Primary Care Physician: Kal Madden DO History of Present Illness Source: patient 56yo male with extensive, progressive stage 4 prostate cancer with mets to the bone, liver, peritoneum, intra-abdominal and pelvic lymph nodes with recent hospitalization at [facility] from 01/30/17 to 02/03/17 due to worsening back pain/LE edema/weakness of the legs. CT of the abdomen & pelvis during that stay demonstrated progressive metastatic disease in the liver, bones , abdomen, pelvis, and other locations. He also was found to have significant compression of his IVC as well as a severe pathological compression deformity at T9 causing cord compression. He was transferred to [facility] in [place] to obtain neurosurgical consultation regarding his T9 cord compression. He was deemed not a candidate for surgery and palliative care with palliative radiation was recommended. He was transferred back to [facility] to continue palliative care and to initiate radiation therapy to his T9 pathological compression fracture. he could not tolerate laying for XRT and decision was made to transition to comfort care, has continued to decline, on presentation had lactic acid of almost 14 suggesting some ischemic insult occurring, did not recheck due to comfort care, will be transitioned to a hospice admission Past Medical/Surgical History Medical Problems: (1) Cutaneous T-cell lymphoma Status: Chronic (2) Diabetes Status: Chronic (3) Hypercholesterolemia Status: Chronic (4) Hypertension Status: Chronic (5) Nephrostomy tubes in place Status: Chronic (6) Prostate cancer Permanent Comment: STAGING: Metastatic prostate cancer to lymph nodes, local recurrence in the bladder TREATMENT: 1. Radical prostatectomy - 04/18/2006 2. Salvage radiation therapy - 09/08/2007 Status: Resolved (7) Prostate cancer Permanent Comment: TREATMENT: 1. Radical prostatectomy - 04/18/2006 2. Salvage radiation therapy - 09/08/2007 3. Status post multiple TURBTs 4. Bilateral nephrostomy tube placement 5. Systemic chemotherapy had a with Taxotere for 3 cycles completed 06/06/2016 complicated with Clostridium difficile 6. Status post placement of diverting colostomy due to rectal obstruction from the progression of tumor 7. Iron infusions for chronic blood loss 8. Status post completion of radiation therapy 12/13/2016. 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 Physical Exam Vital Signs Date Time Temp Pulse Resp B/P (MAP) Pulse Ox O2 Delivery O2 Flow Rate FiO2 02/10/17 10:16 94 Room Air General Appearance: + moderate distress, + obese Neck: supple, trachea midline Respiratory/Chest: + respiratory distress, + decreased breath sounds, + accessory muscle use Cardiovascular: no murmur, + tachycardia Abdomen/GI: soft, + abnormal bowel sounds Back: + muscle spasm, + paravertebral tenderness Extremities/Musculoskelatal: + pedal edema, + swelling, + pertinent finding ( cool right foot and lower right leg) Neurologic/Psych: + pertinent finding (awake and drowsy can answer questions) Impression Assessment and Plan 56yo male with extensive, progressive stage 4 prostate cancer with mets to the bone, liver, peritoneum, intra-abdominal and pelvic lymph nodes, significant compression of his IVC as well as a severe pathological compression deformity at T9 causing cord compression. This patient upon admission had evidence of elevated lactic acid with concern for likely ischemic tissue. The patient has progressed into have lost all strength and sensation to his lower extremities, he has a cool right foot suggestive of arterial obstruction. We have instituted parenteral opiate pain control by continuous infusion. The patient and his family and come to a decision to progress to comfort care measures and hospice care is been instituted on hydromorphone drip with titration by nursing staff for pain and respiratory distress. He has been declining in his oral intake and in he has not been able take any medication. It is clear that is imminent likely will not be for the next few days Advanced Directives Existing Advance Directive: Yes Resuscitation Status DO NOT RESUSCITATE VTE Prophylaxis VTE Risk Assessment Done? Y/N: Yes Risk Level: High Given or contraindicated: Treatment not indicated
[2017-02-10] MEDS: HYDROmorphone INJ 1 MG/ML SYR IV PRN (13:33)
[2017-02-10] MEDS ORDERED: ATROPINE SULFATE 1% OP SOLN 5 ML BTL PO PRN (15:15)
[2017-02-10] MEDS ORDERED: ONDANSETRON INJ 2 MG/ML 2 ML VIAL IV PRN (15:15)
[2017-02-10] MEDS ORDERED: ONDANSETRON INJ 8 MG in DEXTROSE 5% 50ML 50 ML IV PRN (15:30)
[2017-02-10 16:00] VITALS: O2SAT 94
[2017-02-10] MEDS ORDERED: SCOPOLAMINE 1.5 MG TDSY TD SCH (16:00)
[2017-02-10] MEDS: PROMETHAZINE HCL INJ 12.5 MG in SODIUM CHLORIDE 0.9% 50ML 50 ML IV PRN (16:02)
[2017-02-10] MEDS: CHECK FENTANYL PATCH PLACEMENT SCH ×2 (16:03→23:40)
[2017-02-10] MEDS: CHECK SCOPOLAMINE PATCH PLACEMENT SCH ×2 (16:03→23:40)
[2017-02-10] MEDS ORDERED: DULOXETINE (CYMBALTA) 30 MG CAP PO SCH (20:00)
[2017-02-11] VITALS: O2SAT 94
[2017-02-11] MEDS: PROMETHAZINE HCL INJ 12.5 MG in SODIUM CHLORIDE 0.9% 50ML 50 ML IV PRN ×2 (04:32→19:12)
[2017-02-11 07:30] VITALS: O2SAT 94; Ht 182.9 cm; Wt 114.8 kg
[2017-02-11] MEDS: CHECK FENTANYL PATCH PLACEMENT SCH ×2 (07:59→16:08)
[2017-02-11] MEDS: CHECK SCOPOLAMINE PATCH PLACEMENT SCH ×2 (08:01→16:09)
[2017-02-11] MEDS: METOCLOPRAMIDE HCL INJ 5 MG/ML 2 ML VIAL IV. SCH (17:35)
[2017-02-11] MEDS: HYDROmorphone/NSS 100MG/100ML 100 ML IV SCH ×4 (18:51→21:59)
[2017-02-11] MEDS: HYDROmorphone INJ 1 MG/ML SYR IV PRN (19:18)
[2017-02-11] MEDS: ATROPINE SULFATE 1% OP SOLN 5 ML BTL PO PRN ×2 (20:12→21:12)
[2017-02-11] MEDS ORDERED: NURSING VERBAL MED ORDER ONE (20:15)
--- NOTE | 2017-02-11 21:21 | Progress Note ---
Progress Note Date of Service Feb 11, 2017. Progress Note time - 2100 S: Pt feels his pain is controlled with current level of dilaudid. Had emesis last pm and again today following lunch. Staff report the emesis was old food remnants. Denies dyspnea at rest. O: gen - ill appearing, tired, but awake/alert and answering questions; appears comfortable mouth - MMM neck - no JVD heart - tachy, s1, s2, 1/6 JUDIE LSB lungs - decreased BS at the bases, no rales or wheeze abd - BS diminished, markedly distended, mild tenderness lower abdomen, colostomy left abdomen with brown stool; b/l nephrostomy tubes in place with concentrated urine ext - severe 4++ edema b/l, pulses very faint right foot, <1+ on left A/P: Comfort care measures for this 56yo male with stage 4 prostate cancer, IVC obstruction causing marked b/l LE edema, paraplegic status due to metastatic disease to T9 with cord compression, recent severe lactic acidosis, ongoing/ recurrent vomiting, tachycardia, and severe back/abd pain requiring dilaudid infusion. 1. cont dilaudid infusion at current rate; adjust as needed 2. schedule reglan 5mg IV q6h for persistent vomiting despite scopalamine/ zofran 3. other comfort care measures to be continued 4. prognosis is poor and I anticipate he will pass this admission 5. lower diet to full liquids due to #2 Nilesh Torrez MD
[2017-02-12] MEDS: METOCLOPRAMIDE HCL INJ 5 MG/ML 2 ML VIAL IV. SCH ×2 (01:09→06:17)
[2017-02-12] MEDS: CHECK FENTANYL PATCH PLACEMENT SCH ×2 (01:09→08:50)
[2017-02-12] MEDS: CHECK SCOPOLAMINE PATCH PLACEMENT SCH ×2 (01:10→08:50)
[2017-02-12] MEDS ORDERED: PANTOprazole INJ 40 MG in SYRINGE 0 ML IV SCH (12:00)
[2017-02-12] MEDS ORDERED: METOCLOPRAMIDE HCL INJ 5 MG/ML 2 ML VIAL IV. SCH (12:00)
--- NOTE | 2017-02-12 12:49 | Death Pronouncement Note ---
Pronouncement Note Date & Time of Feb 12, 2017. 1230 Pronouncement At time of pronouncement the patients pupils were fixed and dilated, there was no spontaneous respiratory effort, no palpable pulse, no audible heart tones, and no response to pain or voice. Condolences offered to family at bedside. Nilesh Torrez MD
[2017-02-12] MEDS ORDERED: FENTANYL PATCH REMOVE & WASTE SCH (20:59)
[2017-02-12] MEDS ORDERED: FENTANYL 75 MCG/HR TDSY TD SCH (21:00)
--- NOTE | 2017-02-14 22:39 | Death Summary ---
Summary of Admission Date Feb 10, 2017 at 09:21 Date & Time of Feb 12, 2017. 1230 Cause of stage 4 prostate cancer Secondary Diagnoses 1. stage 4 prostate cancer with extensive metastatic disease to the bones, liver, intra-abdominal lymph nodes, etc. 2. T9 pathologic compression fracture with resulting paraplegia of legs 3. h/o Cutaneous T-cell lymphoma 4. T2DM 5. hyperlipidemia 6. HTN 7. h/o obstructive uropathy from his prostate ca s/p b/l nephrostomy tubes 8. h/o rectal obstruction due to prostate cancer s/p diverting colostomy 9. h/o c. diff infection 10. IVC compression 2nd to metastatic prostate cancer 11. recurrent UTIs 12. upper GI bleeding 13. lactic acidosis Hospital Course 56yo male with extensive, progressive stage 4 prostate cancer with mets to the bone, liver, peritoneum, intra-abdominal and pelvic lymph nodes with recent hospitalization at [facility] from 01/30/17 to 02/03/17 due to worsening back pain/LE edema/weakness of the legs. CT of the abdomen & pelvis during that stay demonstrated progressive metastatic disease in the liver, bones , abdomen, pelvis, and other locations. He also was found to have significant compression of his IVC as well as a severe pathological compression deformity at T9 causing cord compression. He was transferred to [facility] in [place] to obtain neurosurgical consultation regarding his T9 cord compression. He was deemed not a candidate for surgery and palliative care with palliative radiation was recommended. He was transferred back to [facility] to continue palliative care and to initiate radiation therapy to his T9 pathological compression fracture. Upon readmission to [facility] he was found to have a severe metabolic acidosis. Lactate level was 14. This coupled with the fact that he could not tolerate laying flat for the radiation treatments led to a decision to initiate comfort care measures. He was ultimately transitioned to inpatient hospice status. He was placed on IV dilaudid infusion and other palliative measures. At 1230 on February 12 the patient passed peacefully in the presence of his family. Copy To Kal Madden DO; Obinna Saeed M.D.; Veeral. Saeed MD
== END 2017-02-12 15:45 | disposition expired | DRG 723 ==
LOC: C.4E 09:21
PROVIDERS: ADMIT Internal Medicine; ATTEND Internal Medicine
DX: C61 Malignant neoplasm of prostate (principal); C79.51 Secondary malignant neoplasm of bone; C78.7 Secondary malignant neoplasm of liver and intrahepatic bile duct; C77.2 Secondary and unspecified malignant neoplasm of intra-abdominal lymph nodes; C77.5 Secondary and unspecified malignant neoplasm of intrapelvic lymph nodes; C78.6 Secondary malignant neoplasm of retroperitoneum and peritoneum; E87.2 Acidosis; G95.29 Other cord compression; G82.20 Paraplegia, unspecified; I87.1 Compression of vein; M84.58XA Pathological fracture in neoplastic disease, other specified site, initial encounter for fracture; E11.9 Type 2 diabetes mellitus without complications; E78.00 Pure hypercholesterolemia, unspecified; I10 Essential (primary) hypertension; Z51.5 Encounter for palliative care; Z66 Do not resuscitate; Z90.79 Acquired absence of other genital organ(s); Z87.891 Personal history of nicotine dependence; Z79.891 Long term (current) use of opiate analgesic; Z79.899 Other long term (current) drug therapy